=== PATIENT | female | born 1950 | race Caucasian/White ===

== ENCOUNTER 2018-09-29 10:27 | Emergency (ER) | payer MEDICARE, OTHER ==
[2018-09-29 10:35] VITALS: RESP 18; TEMP 98.7
[2018-09-29] MEDS ORDERED: SODIUM CHLORIDE 0.9% 1,000 ML IV STA (10:45)
[2018-09-29] MEDS ORDERED: MECLIZINE 12.5 MG TAB PO STA (10:45)
[2018-09-29] MEDS ORDERED: ONDANSETRON 4 MG/2 ML VIAL IVP STA (11:02)
--- NOTE | 2018-09-29 11:04 | ED ---
Dizziness HPI - General Source: patient, RN notes reviewed Mode of arrival: ambulatory Limitations: no limitations <Messi Yoon - Last Filed: 09/29/18 13:42> <George Velasquez - Last Filed: 09/29/18 13:45> - General Chief Complaint: Dizziness Stated Complaint: DIZZINESS X 4 DAYS Time Seen by Provider: 09/29/18 10:45 - History of Present Illness Initial Comments: This a 68-year-old female presents emergency Department chief complaint of dizziness 4 days. Patient states is progressively worsening. Patient states that it is slightly better at rest though she occasionally has some symptoms at rest. She states is gets up some moves symptoms worsen to the point where she states she was so dizzy she cannot read the numbers on the clock. Patient has any focal weakness does admit to some nausea without vomiting. Denies chest pain or shortness breath. Patient states she's had this in the past though it resolved. She did complain of a headache but her headache has completely resolved this time has no symptoms. Denies history of TIA or CVA. (Messi Yoon) - Related Data Home Medications Medication Instructions Recorded Confirmed Enalapril [Vasotec] 20 mg PO DAILY 08/28/13 09/29/18 Escitalopram [Lexapro] 20 mg PO DAILY 08/28/13 09/29/18 LORazepam [Ativan] 1 tab PO DAILY 08/28/13 09/29/18 Levothyroxine Sodium [Levoxyl] 50 mcg PO DAILY 08/28/13 09/29/18 Omeprazole 40 mg PO AC-BRKFST 08/28/13 09/29/18 Clopidogrel Bisulfate [Plavix] 75 mg PO DAILY 09/29/18 09/29/18 Previous Rx's Medication Instructions Recorded Meclizine [Antivert] 25 mg PO TID PRN #15 tab 09/29/18 Allergies Allergy/AdvReac Type Severity Reaction Status Date / Time No Known Allergies Allergy Verified 09/29/18 10:48 Review of Systems ROS Other: All systems not noted in ROS Statement are negative. <Messi Yoon - Last Filed: 09/29/18 13:42> ROS Other: All systems not noted in ROS Statement are negative. <George Velasquez - Last Filed: 09/29/18 13:45> ROS Statement: Those systems with pertinent positive or pertinent negative responses have been documented in the HPI. Past Medical History Past Medical History: GERD/Reflux, Hypertension Additional Past Medical History / Comment(s): nonhodgkins lymphoma History of Any Multi-Drug Resistant Organisms: None Reported Past Surgical History: Cholecystectomy, Ear Surgery, Orthopedic Surgery Additional Past Surgical History / Comment(s): radiation, chemo Past Psychological History: Depression Smoking Status: Former smoker Past Alcohol Use History: None Reported Past Drug Use History: None Reported <Messi Yoon - Last Filed: 09/29/18 13:42> General Exam Limitations: no limitations General appearance: alert, in no apparent distress Head exam: Present: atraumatic, normocephalic, normal inspection Eye exam: Present: normal appearance, PERRL, EOMI. Absent: scleral icterus, conjunctival injection, periorbital swelling ENT exam: Present: normal exam, normal oropharynx, mucous membranes moist, TM's normal bilaterally Neck exam: Present: normal inspection, full ROM. Absent: tenderness, meningismus, lymphadenopathy Respiratory exam: Present: normal lung sounds bilaterally. Absent: respiratory distress, wheezes, rales, rhonchi, stridor Cardiovascular Exam: Present: regular rate, normal rhythm, normal heart sounds. Absent: systolic murmur, diastolic murmur, rubs, gallop, clicks GI/Abdominal exam: Present: soft, normal bowel sounds. Absent: distended, tenderness, guarding, rebound, rigid Neurological exam: Present: alert, oriented X3, CN II-XII intact, reflexes normal, other (Finger to nose intact bilaterally without over shooting.). Absent: motor sensory deficit Skin exam: Present: warm, dry, intact, normal color. Absent: rash <Messi Yoon - Last Filed: 09/29/18 13:42> Course <George Velasquez - Last Filed: 09/29/18 13:45> Vital Signs 09/29/18 10:32 Temperature 98.7 F Pulse Rate 62 Respiratory 18 Rate Blood Pressure 112/56 O2 Sat by Pulse 97 Oximetry - Reevaluation(s) Reevaluation #1: 09/29/18 13:44 PA supervision: I proceeded [id number] evaluation the patient she did present with complaints of this found dizziness with movement or head or eyes. She is subsequently get marked improvement after meclizine was given. Her workup was negative thus far does appear that she has benign positional vertigo. She was offered admission but would prefer to go home I did walk or back at any time. She will follow-up in. She is from [place]. She does not have a local physic lanie. I do agree with the assessment and plan (George Velasquez) EKG Findings - EKG Comments: EKG Findings:: EKG performed at 11:25 normal sinus rhythm rate of 62 NV 172 QRS 78 QT/QTC 412/418 <Messi Yoon - Last Filed: 09/29/18 13:42> Medical Decision Making - Lab Data Result diagrams: 09/29/18 11:33 09/29/18 11:33 <Messi Yoon - Last Filed: 09/29/18 13:42> - Lab Data Result diagrams: 09/29/18 11:33 09/29/18 11:33 <George Velasquez - Last Filed: 09/29/18 13:45> - Medical Decision Making 68-year-old female presented for dizziness. Patient has slight improvement Antivert. She was offered admission for her dizziness. Patient declines admission at this time she will be discharged with Antivert. Patient will follow-up with PCP and return for any worsening symptoms. (Messi Yoon) - Lab Data Lab Results 09/29/18 09/29/18 09/29/18 Range/Units 11:33 11:33 11:33 WBC 6.5 (3.8-10.6) k/uL RBC 4.68 (3.80-5.40) m/uL Hgb 13.8 (11.4-16.0) gm/dL Hct 41.6 (34.0-46.0) % MCV 88.9 (80.0-100.0) fL MCH 29.6 (25.0-35.0) pg MCHC 33.3 (31.0-37.0) g/dL RDW 16.3 H (11.5-15.5) % Plt Count 247 (150-450) k/uL Neutrophils % 73 % Lymphocytes % 12 % Monocytes % 7 % Eosinophils % 4 % Basophils % 1 % Neutrophils # 4.8 (1.3-7.7) k/uL Lymphocytes # 0.8 L (1.0-4.8) k/uL Monocytes # 0.4 (0-1.0) k/uL Eosinophils # 0.3 (0-0.7) k/uL Basophils # 0.1 (0-0.2) k/uL Anisocytosis Slight Sodium 141 (137-145) mmol/L Potassium 4.7 (3.5-5.1) mmol/L Chloride 104 (98-107) mmol/L Carbon Dioxide 27 (22-30) mmol/L Anion Gap 10 mmol/L BUN 17 (7-17) mg/dL Creatinine 0.77 (0.52-1.04) mg/dL Est GFR (CKD-EPI)AfAm >90 (>60 ml/min/1.73 sqM) Est GFR (CKD-EPI)NonAf 79 (>60 ml/min/1.73 sqM) Glucose 107 H (74-99) mg/dL Calcium 9.7 (8.4-10.2) mg/dL Magnesium 2.2 (1.6-2.3) mg/dL Total Bilirubin 0.6 (0.2-1.3) mg/dL AST 34 (14-36) U/L ALT 35 (9-52) U/L Alkaline Phosphatase 76 (38-126) U/L Troponin I <0.012 (0.000-0.034) ng/mL Total Protein 7.5 (6.3-8.2) g/dL Albumin 4.8 (3.5-5.0) g/dL Disposition Is patient prescribed a controlled substance at d/c from ED?: No Time of Disposition: 13:43 <Messi Yoon - Last Filed: 09/29/18 13:42> <George Velasquez - Last Filed: 09/29/18 13:45> Clinical Impression: Dizziness Disposition: HOME SELF-CARE Condition: Stable Instructions (If sedation given, give patient instructions): Dizziness (ED) Additional Instructions: Please return to the Emergency Department if symptoms worsen or any other concerns. Prescriptions: Meclizine [Antivert] 25 mg PO TID PRN #15 tab PRN Reason: Vertigo Referrals: None,Stated [Primary Care Provider] - 1-2 days
[2018-09-29 11:52] LABS: Anisocytosis Slight; Basophils # (A) 0.1 k/uL (0-0.2); Basophils % (A) 1 %; Eosinophils # (A) 0.3 k/uL (0-0.7); Eosinophils % (A) 4 %; HCT 41.6 % (34.0-46.0); HGB 13.8 gm/dL (11.4-16.0); Lymphocytes # (A) 0.8 k/uL (1.0-4.8); Lymphocytes % (A) 12 %; MCH 29.6 pg (25.0-35.0); MCHC 33.3 g/dL (31.0-37.0); MCV 88.9 fL (80.0-100.0); Mean Platelet Volume 7.1; Monocytes # (A) 0.4 k/uL (0-1.0); Monocytes % (A) 7 %; Neutrophils # (A) 4.8 k/uL (1.3-7.7); Neutrophils % (A) 73 %; Platelet Count 247 k/uL (150-450); RBC 4.68 m/uL (3.80-5.40); RDW 16.3 % (11.5-15.5); WBC 6.5 k/uL (3.8-10.6)
[2018-09-29 11:59] LABS: ALT 35 U/L (9-52); AST 34 U/L (14-36); African American GFR (CKD) >90 (>60 ml/min/1.73 sqM); Albumin 4.8 g/dL (3.5-5.0); Alkaline Phosphatase 76 U/L (38-126); Anion Gap 10 mmol/L; Blood Urea Nitrogen 17 mg/dL (7-17); Calcium 9.7 mg/dL (8.4-10.2); Carbon Dioxide 27 mmol/L (22-30); Chloride 104 mmol/L (98-107); Glucose 107 mg/dL (74-99); Magnesium 2.2 mg/dL (1.6-2.3); Potassium 4.7 mmol/L (3.5-5.1); Sodium 141 mmol/L (137-145); Total Bilirubin 0.6 mg/dL (0.2-1.3); Total Protein 7.5 g/dL (6.3-8.2)
--- NOTE | 2018-09-29 12:12 | CT ---
EXAMINATION TYPE: CT brain wo con DATE OF EXAM: 09/29/2018 COMPARISON: NONE HISTORY: Dizziness x [address] DLP: 1086.4 mGycm Automated exposure control for dose reduction was used. FINDINGS: There are mild, generalized changes of sulcal prominence and ventriculomegaly, compatible with mild a trophic change. There is diffuse periventricular white matter lucency, compatible with chronic white matter ischemic change. There is no acute focal lesion, mass effect or midline shift identified. I do not see evidence of intracranial blood. There is minimal mucoperiosteal thickening involving the right maxillary sinus. The remainder the par anasal sinuses and mastoids are clear. The bony calvarium is intact. IMPRESSION: 1. NO ACUTE INTRACRANIAL ABNORMALITY. 2. MINIMAL, CHRONIC RIGHT MAXILLARY SINUS MUCOSAL DISEASE.
[2018-09-29 14:01] VITALS: BP 136/81; PULSE 71
== END 2018-09-29 13:52 | disposition home or self-care (01) ==
LOC: EC 10:27
DX: R42 Dizziness and giddiness (principal); R51 Headache; R11.0 Nausea; K21.9 Gastro-esophageal reflux disease without esophagitis; I10 Essential (primary) hypertension; F32.9 Major depressive disorder, single episode, unspecified; Z85.72 Personal history of non-Hodgkin lymphomas; Z87.891 Personal history of nicotine dependence; Z79.01 Long term (current) use of anticoagulants; Z79.890 Hormone replacement therapy; Z79.899 Other long term (current) drug therapy; Z53.29 Procedure and treatment not carried out because of patient's decision for other reasons
CPT/HCPCS: 36415; 93005; 80053; 83735; 84484; 85025; 70450; 99284; 96374; 96361; J2405

== ENCOUNTER → 2019-12-04 | Outpatient (CLI) | payer MEDICARE ==
--- NOTE | 2019-12-05 08:38 | MM ---
Reason for exam: additional evaluation requested from prior study. Last mammogram was performed 9 months ago. History: Patient is postmenopausal and history of other cancer. Benign excisional biopsy of both breasts, 2019. Taking hormonal contraceptives for 5 years. Physical Findings: Nurse Summary: 1 x 1cm nodule in the left breast at 3 o'clock, 2cm adenopathy in the right breast at axilla, fixed, raised, thickened (nurse ts). MG Diagnostic Mammo w CAD STEPHANIE Bilateral CC, MLO, and XCCL view(s) were taken. Prior study comparison: February 27, 2019, mammogram, performed at [place]. November 16, 2016, mammogram, performed at [place]. Finding: There is a 15 mm equal density (isodense) mass in the posterior, central position. There are two less than 5mm nodules in the right inner breast. Previous mammotome biopsy in the left breast. There is a chronic nodularity in the left breast. Increasing irregular mass right upper outer quadrant with skin thickening. These results were verbally communicated with the patient and result sheet given to the patient on 12/04/19. ASSESSMENT: Incomplete: need additional imaging evaluation, BI-RAD 0 RECOMMENDATION: Ultrasound of both breasts.
--- NOTE | 2019-12-05 08:41 | USB ---
Reason for exam: additional evaluation requested from abnormal screening. History: Patient is postmenopausal and history of other cancer. Benign excisional biopsy of both breasts, 2019. Taking hormonal contraceptives for 5 years. US Breast Limited BILAT Right limited breast ultrasound including focal area of concern, retroareolar and axilla demonstrates a 2.1 x 1.6 x 2.1cm spiculated, hypoechoic, vascular lesion at the axilla. Left limited breast ultrasound including focal area of concern, retroareolar and axilla demonstrates a 0.4 x 0.6 x 0.5cm taller than wide, solid, hypoechoic, vascular lesion at 12 o'clock and a 1.0 x 1.1 x 0.7cm spiculated, hypoechoic, vascular lesion at 3 o'clock. These results were verbally communicated with the patient and result sheet given to the patient on 12/04/19. ASSESSMENT: Suspicious, BI-RAD 4 RECOMMENDATION: Surgical consultation and ultrasound core biopsy of both breasts. Called Dr. Cai office with mammographic findings and has scheduled an appointment for the patient for 12/17/19 at 9:[address] Stout. PRELIMINARY REPORT CALLED AND FAXED TO DR. STOUT ON 12/05/19.
== END | disposition home or self-care (01) ==
LOC: RADMAMWWP 11:27
PROVIDERS: ATTEND Family Medicine
DX: R92.8 Other abnormal and inconclusive findings on diagnostic imaging of breast (principal)
CPT/HCPCS: 77066

== ENCOUNTER → 2020-01-23 | Outpatient (CLI) | payer MEDICARE ==
--- NOTE | 2020-01-23 15:27 | PE ---
Nuclear medicine PET/CT HISTORY: Lymphoma, subsequent Patient received 12.5 mCi F-18 FDG intravenously in delayed scanning was performed from the skull bas e to the mid thighs. Localization and attenuation correction CT scan was performed. Correlation to prior nuclear medicine PET/CT 05/19/2019 from outside institution Chest and neck: There is no evident cervical or supraclavicular adenopathy. The patient's right axill damaris mass has also increased in size and hypermetabolic uptake and shows an associated clip. There is a soft tissue abnormality within the left breast which shows some hypermetabolic uptake which was not seen on prior exam, there is an associated clip suspected bilaterally. There are extensive coronary artery calcifications present. No evident lung mass, pleural pericardial effusion. ABDOMEN: Low density foci within the liver shows no uptake. Patient is post cholecystectomy. No adren al mass or retroperitoneal adenopathy. No evident ascites. No pelvic adenopathy or free fluid. Physio logic uptake is present. Osseous structures show degenerative disc changes and facet arthropathy in the lower lumbar spine, no suspicious uptake. Within the right upper extremity subcutaneous fat there is a focus of hypermetabolic uptake, associat ed soft tissue which has progressed in size and activity as compared to prior exam. IMPRESSION: There is been some progression in size and uptake of the right maxillary lesion, the subc utaneous soft tissue of the proximal right upper extremity and new uptake within the left breast.
== END | disposition home or self-care (01) ==
LOC: RADPETMAIN 12:39
PROVIDERS: ATTEND Internal Medicine Hematology & Oncology
DX: C83.03 Small cell B-cell lymphoma, intra-abdominal lymph nodes (principal); M27.9 Disease of jaws, unspecified; R92.8 Other abnormal and inconclusive findings on diagnostic imaging of breast
CPT/HCPCS: 78815; A9552

== ENCOUNTER → 2020-05-21 | Outpatient (CLI) | payer MEDICARE ==
--- NOTE | 2020-05-21 11:52 | PE ---
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 Localization and attenuation correction CT scan was performed. Correlation to prior nuclear medicine PET/CT 01/23/2020 Chest and neck: Previous identified right axillary subcutaneous fat lesion is not seen, there is a sm all metallic density at this level. No suspicious uptake. There is no supraclavicular or cervical blake nopathy. Port-A-Cath has been placed in the left pectoral region, there is a catheter coursing via th e left internal jugular approach, distal tip is in the innominate vein on the left. The soft tissue m ass previously identified within the left breast shows only minimal residual tissue, no suspicious up take. No evident lung mass, pleural or pericardial effusion. There is no mediastinal, axillary, or hi lar adenopathy. ABDOMEN: Low dense liver foci are again seen. No suspicious uptake. There is no retroperitoneal adeno olesya, no adrenal mass. Patient is post cholecystectomy. There is no ascites or suspicious uptake. Up take along the bowel is likely physiologic. Osseous structures are within normal limits. IMPRESSION: Interval resolution of abnormal uptake seen on prior exam.
== END | disposition home or self-care (01) ==
LOC: RADPETMAIN 08:15
PROVIDERS: ATTEND Internal Medicine Hematology & Oncology
DX: C82.18 Follicular lymphoma grade II, lymph nodes of multiple sites (principal); Z92.21 Personal history of antineoplastic chemotherapy
CPT/HCPCS: 78815; A9552

== ENCOUNTER → 2020-06-09 | Outpatient (CLI) | payer MEDICARE ==
--- NOTE | 2020-06-09 08:43 | CT ---
EXAMINATION TYPE: CT angio neck DATE OF EXAM: 06/09/2020 HISTORY: carotid stenosis COMPARISON: None CT DLP: 400.6 mGycm. Automated Exposure Control for Dose Reduction was Utilized. TECHNIQUE: CTA scan of the neck is performed with IV Contrast, patient injected with 65 mL of Isovue 370, axial images are obtained, coronal and sagittal reformatted images are reviewed. Three-D recons tructed images are created on an independent workstation and reviewed. FINDINGS: There is atherosclerotic change involving the aortic arch with atherosclerotic changes invo lving the origins of the great vessels. Findings are suspicious for a severe stenosis involving the o rigin of the left subclavian artery Right carotid artery. There appears to be occlusion of the right internal carotid artery at the level of the right carotid bifurcation. Nonvisualization remaining portion ICA including the carotid canal . Left carotid artery: There is extensive atherosclerotic plaque left carotid bifurcation. Severe great er than 80% stenosis of the proximal left ICA. Intracranial vasculature appears to enhance likely due to patent [place] and through the left circulation. Lung apices are clear. Correlate for COPD. Mediport catheter. Thank you report called to referring cl inician 06/09/2020 at 8:40 AM. IMPRESSION: 1. Complete occlusion of the right ICA at the level of the carotid bifurcation. 2. There is a severe greater than 80% stenosis involving the proximal left ICA. 3. There is increased soft tissue attenuation the upper lateral margin of the right orbit is only par tially included on exam. Partial volume averaging in the differential diagnosis. Recommend correlatio n with ocular exam to exclude other etiologies.
== END | disposition home or self-care (01) ==
LOC: RADCTMAIN 07:06
PROVIDERS: ATTEND Surgery
DX: I65.23 Occlusion and stenosis of bilateral carotid arteries (principal)
CPT/HCPCS: 82565; 84520; 70498; 36415; Q9967

== ENCOUNTER 2020-08-05 10:59 | Day surgery (SDC) | payer MEDICARE ==
[2020-07-30 15:22] VITALS: BMI 35.0
[~2020-08-05 10:59] MED LIST: ALPRAZolam 0.25 MG TAB PO PRN; ALPRAZolam 0.5 MG TAB PO PRN; ASPIRIN 325 MG TAB PO STA; HEPARIN SODIUM,PORCINE 10,000 UNIT in SODIUM CHLORIDE 0.9% 1,000 ML IRRIGATION PRN; HEPARIN SODIUM,PORCINE 2,500 UNIT in SODIUM CHLORIDE 0.9% 250 ML IRRIGATION PRN; NITROGLYCERIN SL TABS 0.4 MG TAB SUBLINGUAL PRN; SODIUM CHLORIDE 0.9% 1,000 ML in EMPTY BAG 1 BAG IV ONE
[2020-08-05 11:45] VITALS: RESP 16; TEMP 97.9
[2020-08-05 13:16] LABS: African American GFR (CKD) >90 (>60 ml/min/1.73 sqM); Anion Gap 7 mmol/L; Blood Urea Nitrogen 15 mg/dL (7-17); Calcium 9.1 mg/dL (8.4-10.2); Carbon Dioxide 27 mmol/L (22-30); Chloride 102 mmol/L (98-107); Glucose 81 mg/dL (74-99); Non-African American GFR(CKD) 81 (>60 ml/min/1.73 sqM); Sodium 136 mmol/L (137-145)
[2020-08-05 13:19] LABS: Potassium 3.6 mmol/L (3.5-5.1)
[2020-08-05] MEDS ORDERED: SODIUM CHLORIDE 0.9% 1,000 ML IV ONE (13:30)
[2020-08-05] MEDS ORDERED: LIDOCAINE 1% INJ 10MG/ML (20 ML MDV) ONE (13:34)
[2020-08-05] MEDS ORDERED: VERAPAMIL 2.5 MG/ML 2 ML AMP ONE (13:34)
[2020-08-05] MEDS ORDERED: fentaNYL (PF) 50 MCG/ML 2 ML AMP ONE (13:35)
[2020-08-05] MEDS ORDERED: fentaNYL (PF) 50 MCG/ML 2 ML AMP IV ONE (13:43)
[2020-08-05] MEDS ORDERED: MIDAZOLAM 2 MG/2 ML VIAL IV ONE (13:43)
[2020-08-05] MEDS ORDERED: LIDOCAINE 1% INJ 10MG/ML (20 ML MDV) SQ ONE (13:45)
[2020-08-05] MEDS ORDERED: VERAPAMIL SYRINGE (5 MG/10 ML) INTRAARTER ONE (13:49)
[2020-08-05] MEDS ORDERED: HEPARIN SODIUM 1,000 UN/ML (10ML VL) IV ONE (13:52)
[2020-08-05] MEDS ORDERED: IOPAMIDOL-370 125ML BTL INJ ONE (14:02)
[2020-08-05] MEDS ORDERED: RX INFO: IV CONTRAST WAS GIVEN 1 EACH MISC MISCELLANE PRN (15:33)
--- NOTE | 2020-08-05 15:33 | P.CARDCATH ---
Description of Procedure: PROCEDURES PERFORMED: Left heart catheterization, bilateral coronary angiography INDICATION: Abnormal stress test HISTORY: Patient is a pleasant 70-year-old female with history of subclavian stenosis, carotid artery disease, hypertension, hyperlipidemia who has been worked up for carotid artery stenosis with recommendations for TCAR by Dr Gonzalez. Therefore preoperative clearance was performed and stress test was performed which showed inferior ischemia and given poor exercise tolerance, heart catheterization was recommended. CONSENT:I have discussed the risks, benefits and alternative therapies for the above-mentioned procedure and for both sedation/analgesia as well as necessary blood product administration, if indicated, as they pertain to this patient. The patient has indicated understanding and acceptance of the risks and procedures discussed. PROCEDURE: After the risks, benefits and alternatives of the above mentioned procedure explained in detail with the patient, informed consent was obtained. Patient was taken to the catheterization lab and prepped and draped in usual fashion. 1% lidocaine was used to anesthetize the right radial artery. A 6- Ugandan sheath was placed in the right radial artery using modified Seldinger technique. Left coronary angiography was performed with a 5-Ugandan JL 3.5 catheter and right coronary angiography was performed with a 5-Ugandan JR5 catheter in various views. A 5-Ugandan pigtail catheter was inserted into the left ventricle and pressure measurements were obtained. Left ventriculography was performed in the GRIFFIN projection with a power injection. The right radial sheath was removed and a TR band was placed with hemostasis achieved. The patient tolerated the procedure well. Patient was transported back to the post catheterization holding area in stable condition. Conscious Sedation: Patient was monitored under the direct supervision of vision of myself for conscious sedation using Versed and fentanyl for a total duration of 18 minutes HEMODYNAMICS: Ao: 181/87 (discrepancy with left arm BP 105/70) LV: 178/2 LVEDP 17mmHg SELECTIVE CORONARY ARTERIOGRAPHY: LEFT MAIN: The left main is a large caliber vessel which bifurcates into the LAD and circumflex. There is no significant stenosis. LEFT ANTERIOR DESCENDING CORONARY ARTERY: LAD is a large caliber vessel which wraps around to the apex. There are mild luminal irregularities. LEFT CIRCUMFLEX CORONARY ARTERY: Left circumflex is a moderate caliber vessel with midl proximal 30% stenosis. RIGHT CORONARY ARTERY: The right coronary artery is a moderate caliber vessel which gives off a PDA and PLV branch and is the dominant vessel. There is 20- 30% mid RCA stenosis. FINAL IMPRESSION: 1. Mild CAD as described above including 30% RCA and 30% circumflex stenosis. 2. Mildly elevated left sided filling pressures 3. Discrepancy between aortic pressure and left brachial blood pressure cuff consistent with left subclavian stenosis PLAN: 1. Aggressive risk factor modification per most recent ACC/AHA guidelines. 2. Follow-up in the office in 1-2 weeks.
[2020-08-05 17:07] VITALS: BP 104/69; PULSE 66
== END 2020-08-05 17:09 | disposition home or self-care (01) ==
LOC: CATHCVL 10:59
PROVIDERS: ATTEND Internal Medicine
DX: I25.10 Atherosclerotic heart disease of native coronary artery without angina pectoris (principal); I10 Essential (primary) hypertension; E78.5 Hyperlipidemia, unspecified; Z87.891 Personal history of nicotine dependence; I65.29 Occlusion and stenosis of unspecified carotid artery; Z20.822 Contact with and (suspected) exposure to COVID-19; I77.1 Stricture of artery; Z82.49 Family history of ischemic heart disease and other diseases of the circulatory system; L40.9 Psoriasis, unspecified; Z85.72 Personal history of non-Hodgkin lymphomas; Z92.21 Personal history of antineoplastic chemotherapy; Z98.890 Other specified postprocedural states; Z79.02 Long term (current) use of antithrombotics/antiplatelets; Z79.82 Long term (current) use of aspirin; Z79.899 Other long term (current) drug therapy
CPT/HCPCS: 93458; 80048; 87635; C1894; J2250; J2001; J3010; J1644; Q9967

== ENCOUNTER 2020-11-12 05:44 | Inpatient (IN) | payer MEDICARE ==
[2020-11-12] MEDS ORDERED: ceFAZolin 2 GM in SODIUM CHLORIDE 0.9% 500 ML 500 ML IRRIGATION PRN (06:16)
[2020-11-12] MEDS ORDERED: NITROGLYCERIN SL TABS 0.4 MG TAB SUBLINGUAL PRN (06:16)
[2020-11-12] MEDS ORDERED: ASPIRIN 81 MG PO PRN (06:16)
[2020-11-12] MEDS ORDERED: SODIUM CHLORIDE 0.9% 1,000 ML in EMPTY BAG 1 BAG IV ONE (06:16)
[2020-11-12] MEDS ORDERED: ALPRAZolam 0.5 MG TAB PO PRN (06:16)
[2020-11-12] MEDS ORDERED: ALPRAZolam 0.25 MG TAB PO PRN (06:16)
[2020-11-12] MEDS ORDERED: CLOPIDOGREL 75 MG TAB PO PRN (06:16)
[2020-11-12 06:43] LABS: Basophils # (A) 0.1 k/uL (0-0.2); Basophils % (A) 2 %; Eosinophils # (A) 0.7 k/uL (0-0.7); Eosinophils % (A) 10 %; HCT 39.2 % (34.0-46.0); HGB 13.6 gm/dL (11.4-16.0); Lymphocytes # (A) 0.9 k/uL (1.0-4.8); Lymphocytes % (A) 13 %; MCH 31.1 pg (25.0-35.0); MCHC 34.8 g/dL (31.0-37.0); MCV 89.5 fL (80.0-100.0); Mean Platelet Volume 7.3; Monocytes % (A) 13 %; Neutrophils # (A) 4.5 k/uL (1.3-7.7); Neutrophils % (A) 61 %; Platelet Count 287 k/uL (150-450); RBC 4.38 m/uL (3.80-5.40); RDW 15.4 % (11.5-15.5); WBC 7.5 k/uL (3.8-10.6)
[2020-11-12 06:54] LABS: Calcium 9.3 mg/dL (8.4-10.2); Potassium 3.8 mmol/L (3.5-5.1)
[2020-11-12] MEDS ORDERED: LIDOCAINE 1% INJ 10MG/ML (20 ML MDV) ONE (07:36)
[2020-11-12] MEDS ORDERED: hydrALAZINE HCL 20 MG/ML 1 ML VIAL ONE (07:43)
[2020-11-12] MEDS ORDERED: GLYCOPYRROLATE 0.2 MG/ML 2 ML VIAL ONE (07:43)
[2020-11-12] MEDS ORDERED: PROPOFOL 10 MG/ML 20 ML VIAL IV ONE (07:43)
[2020-11-12] MEDS ORDERED: fentaNYL (PF) 50 MCG/ML 2 ML AMP ONE (07:43)
[2020-11-12] MEDS ORDERED: HEPARIN SODIUM,PORCINE 10,000 UNIT/ML 1 ML VIAL ONE (07:43)
[2020-11-12] MEDS ORDERED: DEXMEDETOMIDINE/0.9% NACL(PMX) 400 MCG/100 ML IV ONE (07:43)
[2020-11-12] MEDS ORDERED: KETAMINE 10 MG/ML 20 ML VIAL ONE (07:43)
[2020-11-12] MEDS ORDERED: NITROGLYCERIN-D5W PMX 50 MG/250 ML BOTTLE IV ONE (07:43)
[2020-11-12] MEDS ORDERED: LIDOCAINE 1% INJ 10MG/ML (20 ML MDV) SQ ONE (08:23)
[2020-11-12] MEDS ORDERED: RX INFO: IV CONTRAST WAS GIVEN 1 EACH MISC MISCELLANE PRN (09:00)
[2020-11-12] MEDS ORDERED: HEPARIN SODIUM,PORCINE 10,000 UNIT in SODIUM CHLORIDE 0.9% 1,000 ML IRRIGATION ONE (09:47)
[2020-11-12] MEDS ORDERED: THROMBIN (BOVINE) 5,000 UNIT VIAL TOPICAL ONE (09:49)
[2020-11-12] MEDS ORDERED: GELATIN SPONGE,ABSORB (LARGE) 1 EACH SPONGE TOPICAL ONE (09:49)
[2020-11-12] MEDS ORDERED: IOPAMIDOL-250 100ML BTL INTRAARTER ONE (10:11)
[2020-11-12] MEDS ORDERED: ATROPINE SULFATE 0.1 MG/ML 10ML SYRINGE IV PRN (10:42)
[2020-11-12] MEDS ORDERED: MAG HYDROX/AL HYDROX/SIMETH 30 ML CUP PO PRN (10:42)
--- NOTE | 2020-11-12 11:12 | IR ---
EXAMINATION TYPE: IR stent intravas non coronary DATE OF EXAM: 11/12/2020 COMPARISON: NONE HISTORY: Fluoroscopy time. Fluoroscopy was provided to the referring clinician.
--- NOTE | 2020-11-12 11:22 | P.OP ---
Date of Procedure: 11/12/20 Description of Procedure: Preoperative diagnosis:[ Left] internal carotid artery [high-grade, greater than 90% stenosis, occluded right internal carotid artery] Postoperative diagnosis: Same Procedure: [Left]Transcarotid artery revascularization with stenting. [Right] common femoral vein central venous catheter placement under ultrasound guidance Surgeon: Anne Gonzalez DO Otolaryngology Surgeon: [Moni Harper] Anesthesia: Conscious sedation Complications: None Condition: Stable Flow reversal time: [18] minutes Lesion length: [10 mm] mm Indication for procedure: [Patient is a 70-year-old female who initially presented to my office after a carotid endarterectomy on the right from her other surgeon. She came with an outside ultrasound revealing patency of the right carotid endarterectomy site and high-grade stenosis of the left internal carotid artery. She was sent for CT angiogram which actually revealed occlusion of the right internal carotid artery and high-grade stenosis of the left internal carotid artery. She is found be a candidate for trans-carotid artery revascularization. Risks and benefits were discussed. She seemingly understood and was willing to proceed at such] Operative narrative: After written and informed consent was obtained the patient all risks benefits and competitions were described the patient was brought to the Senior Oracle Database Administrator and laid in a supine position. The area of the neck and groins were prepped and draped in usual sterile fashion after appropriate anesthetic was performed per the anesthesiologist. A timeout was performed in normal fashion and antibiotics were administered prior to incision. Utilizing ultrasound the [left] common carotid artery was located and a transverse incision was created overlying this area after proper anesthetization. Dissection was carried between the sternocleidomastoid musculature down to the carotid sheath. The sheath was then incised and the common carotid artery was located and dissected free in a circumferential manner and controlled with vessel loops. Once controlled, attention was placed down to the common femoral vein on the right and utilizing ultrasound the vein was cannulated and the 8- Slovak sheath was placed in normal fashion. Attention was then placed back to the carotid artery and the patient was administered heparin and followed with ACTs and redosed as needed for ACT above 250. A pursestring suture was then placed at the common carotid artery with 5-0 Prolene and utilizing a micropuncture needle the common carotid artery was accessed and wire was placed followed by a 4-Slovak sheath. Carotid angiogram was then obtained demonstrating significant stenosis in the internal carotid artery. Stiff wire was then placed followed by the 8 [place] sheath. Flow reversal was then established with the enroute B[employer] C[employer]ODIAN system after patient's blood pressure was increased to above 160, heart rate above 60 and ACT above 250. 014 wire was then placed across the lesion followed by a [6 x 30] mm Morgan balloon and balloon angioplasty was performed followed by an [8 x 30] mm [place] stent. Postdilatation was performed again with the 6 x 30 balloon and final angiogram was obtained demonstrating complete resolution of the stenosis. All guidewires and catheters were removed and the sheath was removed and the arteriotomy was secured with the previously placed pursestring suture. Hemostasis was assured with Gelfoam and thrombin. The area was irrigated and closed. The platysma was closed with 3-0 Vicryl. The skin was closed with running 4-0 Monocryl in subcuticular fashion The femoral sheath was also removed and pressure was held for hemostasis. The patient all procedure well and was moving all extremities and following commands. The patient was then sent to PACU for recovery.
[2020-11-12] MEDS ORDERED: LACTATED RINGERS 1,000 ML IV ONE (11:24)
[2020-11-12 12:10] LABS: Glucose,Whole Blood 87 mg/dL (75-99)
[2020-11-12] MEDS: PHENYLEPHRINE 40 MG in SODIUM CHLORIDE 0.9% 250 ML IV SCH (13:10)
[2020-11-12] MEDS: PSEUDOEPHEDRINE 30 MG TAB PO SCH ×2 (13:21→19:43)
--- NOTE | 2020-11-12 13:41 | P.CNPUL ---
History of Present Illness Consult date: 11/12/20 Chief complaint: post TRAC, ICU management History of present illness: 70-year-old female patient who is status post TCAR procedure for carotid stenosis. The patient is currently in the intensive care unit and the patient is being seen in consultation for vascular surgery. The patient has undergone a previous carotid endarterectomy in [place] on the right side and getting a recent surveillance routine follow-up, she was found to have significant stenosis in the left internal carotid artery with a peak velocity of around 27 cm/s. The right internal carotid artery showed a peak velocity of 162 cm/s. The patient is currently postop day #0. She arrived to the intensive care unit. Her blood pressure is very labile. Initially she was hypotensive and she was placed on Surya-Synephrine infusion which was at 0.3 mcg/kg per minute. Subs equently her blood pressure went up with a systolic of 180 and currently the effusion is on hold. Knee also contributed for some sinus bradycardia. Her most recent heart rate has picked up from the mid 40s up to the mid 50s. She is currently on IV fluids running at 75 mL an hour normal saline. Awake and alert. Surgical wound site is dry clean and intact. She is moving all 4 extremities without any limitation she has no focal neurological deficits. She has no angina. No issues with blood pressure. She has subclavian artery stenosis on left and had a line is on the right. The patient has hyperlipidemia and the patient takes Repatha Review of Systems Constitutional: Denies chills, Denies fever Eyes: denies as per HPI, denies blurred vision, denies bulging eye, denies decreased vision, denies diplopia, denies discharge, denies dry eye, denies irritation, denies itching, denies pain, denies photophobia, denies loss of peripheral vision, denies loss of vision, denies tunnel vision/blind spots Ears: deny: decreased hearing, ear discharge, earache, tinnitus Ears, nose, mouth and throat: Reports as per HPI Breasts: absent: as per HPI, change in shape, gynecomastia, masses, nipple discharge, pain, skin changes, swelling Cardiovascular: Reports as per HPI Respiratory: Reports as per HPI Gastrointestinal: Reports as per HPI Genitourinary: Reports as per HPI Menstruation: Reports as per HPI Musculoskeletal: Reports as per HPI Musculoskeletal: absent: ankle pain, ankle stiffness, ankle swelling, as per HPI, elbow pain, elbow stiffness, elbow swelling, foot pain, foot stiffness, foot swelling, hand pain, hand stiffness, hand swelling, hip pain, hip stiffness, hip swelling, knee pain, knee stiffness, knee swelling, shoulder pain, shoulder stiffness, shoulder swelling, wrist pain, wrist stiffness, wrist swelling Integumentary: Reports as per HPI Neurological: Reports as per HPI Psychiatric: Reports as per HPI Endocrine: Reports as per HPI Hematologic/Lymphatic: Reports as per HPI Allergic/Immunologic: Reports as per HPI Past Medical History Past Medical History: Cancer, GERD/Reflux, Hyperlipidemia, Hypertension, Thyroid Disorder Additional Past Medical History / Comment(s): skin cancer, nonhodgkins lymphoma 2008-radiation & chemo, lt carotid artery stenosis. left Subclavian artery stenosis History of Any Multi-Drug Resistant Organisms: None Reported Past Surgical History: Cholecystectomy, Ear Surgery, Orthopedic Surgery Additional Past Surgical History / Comment(s): right carotid endarterectomy, ho hammer toes, ho bunionectomies, ear surg. for hearing, CTS right wrist, cataracts removed & then lasering on left eye, precancerous cells from labia area Past Anesthesia/Blood Transfusion Reactions: No Reported Reaction Smoking Status: Former smoker - Past Family History Mother Family Medical History: No Reported History Medications and Allergies Home Medications Medication Instructions Recorded Confirmed Type Enalapril [Vasotec] 20 mg PO BID 08/28/13 11/12/20 History Escitalopram [Lexapro] 20 mg PO DAILY 08/28/13 11/12/20 History Levothyroxine Sodium [Levoxyl] 50 mcg PO DAILY 08/28/13 11/12/20 History Clopidogrel Bisulfate [Plavix] 75 mg PO DAILY 09/29/18 11/12/20 History Meclizine [Antivert] 25 mg PO TID PRN #15 tab 09/29/18 11/12/20 Rx Acyclovir [Zovirax] 400 mg PO BID 07/30/20 11/12/20 History Aspirin 81 mg PO DAILY 07/30/20 11/12/20 History Evolocumab [Repatha Syringe] 140 mg SQ Q14D 07/30/20 11/12/20 History Lenalidomide [Revlimid] 10 mg PO AC-SUPPER 07/30/20 11/12/20 History Pantoprazole Sodium [Protonix] 40 mg PO DAILY 07/30/20 11/12/20 History buPROPion HCL [Wellbutrin XL] 150 mg PO DAILY 07/30/20 11/12/20 History Allergies Allergy/AdvReac Type Severity Reaction Status Date / Time No Known Allergies Allergy Verified 11/12/20 06:33 Physical Exam Vitals: Vital Signs Temp Pulse Pulse Pulse Resp BP BP 11/12/20 13:00 50 L 14 11/12/20 12:45 53 L 14 11/12/20 12:30 53 L 12 11/12/20 12:15 54 L 16 11/12/20 12:10 55 L 14 11/12/20 12:00 97.6 F 57 L 12 11/12/20 11:54 62 24 11/12/20 11:30 63 16 11/12/20 11:14 66 14 11/12/20 10:59 69 16 11/12/20 10:44 97.6 F 65 16 11/12/20 06:57 98.5 F 58 L 18 181/78 11/12/20 06:42 98.5 F 58 L 18 102/63 BP Pulse Ox 11/12/20 13:00 98 11/12/20 12:45 98 11/12/20 12:30 96 11/12/20 12:15 97 11/12/20 12:10 98 11/12/20 12:00 97 11/12/20 11:54 97 11/12/20 11:30 142/48 97 11/12/20 11:14 141/51 97 11/12/20 10:59 151/51 98 11/12/20 10:44 132/51 97 11/12/20 06:57 97 11/12/20 06:42 181/78 97 Intake and Output 11/11/20 11/12/20 11/12/20 22:59 06:59 14:59 Intake Total 450 1386.226 Output Total 100 Balance 450 1286.226 Intake: IV 450 1378 0.9 75 Intake, IV Titration 8.226 Amount Phenylephrine 40 mg In 8.226 Sodium Chloride 0.9% 250 ml @ 0.5 MCG/KG/MIN 17. 628 mls/hr IV .[id number] [facility] Rx#:[id number] Output: Urine 100 ABP, PAP, CO, CI - Last 8 Hours Arterial Blood Pressure 126/38 Arterial Blood Pressure 113/37 Arterial Blood Pressure 112/37 Arterial Blood Pressure 128/44 Arterial Blood Pressure 123/44 Arterial Blood Pressure 132/49 Arterial Blood Pressure 118/64 The patient appeared well nourished and normally developed. Vital signs as documented. Head exam is unremarkable. No scleral icterus or corneal arcus noted. Neck is without jugular venous distension, thyromegaly, or carotid bruits. Carotid upstrokes are brisk bilaterally. Surgical wound site over the left carotid artery is dry clean and intact. Noted the patient has a previous carotid artery scar on the right from a previous endarterectomy.. Lungs are clear to auscultation and percussion. Cardiac exam reveals the PMI to be normally sized and situated. Rhythm is regular. First and second heart sounds no rmal. No murmurs, rubs or gallops. Abdominal exam reveals normal bowel sounds, no masses, no organomegaly and no aortic enlargement. Extremities are nonedematous and both femoral and pedal pulses are normal.Examination of the skin revealed no evidence of significant rashes, suspicious appearing nevi or other concerning lesions.Neurologically, the patient is awake and alert and the patient does not have any focal neurological deficit. Cranial nerves are essentially intact. Results - Laboratory Findings CBC and BMP: 11/12/20 06:20 11/12/20 06:20 Abnormal lab findings: Abnormal Labs 11/12/20 11/12/20 06:20 06:20 Lymphocytes # 0.9 L Glucose 104 H Assessment and Plan Plan: 1 Post TCAR patient is postop day #0. Surgery has been done successfully. Surgical wound site is dry clean and intact. No neurologic deficits. The patient is having a labile blood pressure currently on Surya-Synephrine to regulate episodes of hypotension. She is having blood pressures ranging as low as 100 systolic and as high as 180. Currently off Surya-Synephrine infusion. She did develop some reflex bradycardia while anemia. Current cardiac rhythm is s inus 2 previous history of right carotid endarterectomy 3 history of non-Hodgkin's lymphoma under the care of Dr. Felipe 4 history of skin cancer 5 hyperlipidemia 6 hypertension 7 left subclavian artery stenosis Plan Continue LR @75cc/hr patient has a right radial arterial line in the blood pressure is being monitored very closely and we will utilize Surya-Synephrine as needed. If significant bradycardia arises, she can be also switched to norepinephrine infusion for blood pressure control. Continue aspirin and Plavix Continue neurochecks Restart Wellbutrin 150 mg by mouth daily Restart Lexapro 20 mg by mouth daily We'll continue to follow Time with Patient: Greater than 30
[2020-11-12] MEDS ORDERED: ATORVASTATIN 40 MG TAB PO SCH (21:00)
[2020-11-13] MEDS: PSEUDOEPHEDRINE 30 MG TAB PO SCH ×3 (00:58→09:39)
[2020-11-13] MEDS: PHENYLEPHRINE 40 MG in SODIUM CHLORIDE 0.9% 250 ML IV SCH (03:51)
[2020-11-13 04:32] LABS: Basophils # (A) 0.1 k/uL (0-0.2); Basophils % (A) 1 %; Eosinophils # (A) 0.3 k/uL (0-0.7); Eosinophils % (A) 5 %; HCT 31.2 % (34.0-46.0); HGB 10.9 gm/dL (11.4-16.0); Lymphocytes # (A) 0.6 k/uL (1.0-4.8); Lymphocytes % (A) 9 %; MCH 31.3 pg (25.0-35.0); MCHC 34.8 g/dL (31.0-37.0); MCV 89.9 fL (80.0-100.0); Mean Platelet Volume 8.3; Monocytes # (A) 0.8 k/uL (0-1.0); Monocytes % (A) 12 %; Neutrophils # (A) 4.6 k/uL (1.3-7.7); Neutrophils % (A) 71 %; Platelet Count 187 k/uL (150-450); RBC 3.47 m/uL (3.80-5.40); RDW 15.4 % (11.5-15.5); WBC 6.5 k/uL (3.8-10.6)
[2020-11-13 04:44] LABS: African American GFR (CKD) >90 (>60 ml/min/1.73 sqM); Anion Gap 6 mmol/L; Blood Urea Nitrogen 9 mg/dL (7-17); Calcium 8.2 mg/dL (8.4-10.2); Carbon Dioxide 26 mmol/L (22-30); Chloride 101 mmol/L (98-107); Glucose 102 mg/dL (74-99); Non-African American GFR(CKD) 80 (>60 ml/min/1.73 sqM); Potassium 2.9 mmol/L (3.5-5.1); Sodium 133 mmol/L (137-145)
[2020-11-13] MEDS ORDERED: Potassium Replacement Protocol 1 EACH MISC MISCELLANE PRN (04:57)
[2020-11-13] MEDS: POTASSIUM CHLORIDE ER 20 MEQ TAB.ER PO SCH ×3 (05:05→09:39)
[2020-11-13] MEDS ORDERED: Magnesium Replacement Protocol 1 EACH MISC MISCELLANE PRN (07:36)
[2020-11-13] MEDS ORDERED: buPROPion XL 150 MG TAB.ER.24H PO SCH (09:00)
[2020-11-13] MEDS ORDERED: ASPIRIN 81 MG PO SCH (09:00)
[2020-11-13] MEDS ORDERED: ESCITALOPRAM 20 MG TAB PO SCH (09:00)
[2020-11-13] MEDS ORDERED: CLOPIDOGREL 75 MG TAB PO SCH (09:00)
--- NOTE | 2020-11-13 12:41 | P.DS ---
Providers Date of admission: 11/12/20 05:44 Attending physician: Anne Gonzalez, Consults: 11/12/20 10:43 Consult Physician Routine Consulting Provider: Catherine Freire Consult Reason/Comments: tcar Do you want consulting provider notified?: Already Contacted 11/12/20 10:45 Consult Physician Routine Consulting Provider: Luis Cai Consult Reason/Comments: post op carotid Do you want consulting provider notified?: Yes 11/12/20 17:35 Consult Physician Routine Consulting Provider: Keith Kirkpatrick Consult Reason/Comments: Suicidal ideation in the past Do you want consulting provider notified?: Yes Primary care physician: Luis Cai [facility] Course: Sonam is a 70-year-old female who came in for trans-carotid artery revascularization due to high-grade left internal carotid artery stenosis with right-sided occlusion. She underwent this procedure on 11/12/2020 which he tolerated well. Her blood pressures have remained slightly high and she has had medication to control this, this time she is not requiring any current pressor support. She is tolerating a diet. She is urinating without difficulty. She is ambulated. Her incision site is clean and dry. She is desiring to go home Plan - Discharge Summary Discharge Rx Participant: Yes New Discharge Prescriptions: No Action Levothyroxine Sodium [Levoxyl] 50 mcg PO DAILY Enalapril [Vasotec] 20 mg PO BID Escitalopram [Lexapro] 20 mg PO DAILY Clopidogrel Bisulfate [Plavix] 75 mg PO DAILY Meclizine [Antivert] 25 mg PO TID PRN #15 tab PRN Reason: Vertigo Evolocumab [Repatha Syringe] 140 mg SQ Q14D Aspirin 81 mg PO DAILY buPROPion HCL [Wellbutrin XL] 150 mg PO DAILY Acyclovir [Zovirax] 400 mg PO BID Pantoprazole Sodium [Protonix] 40 mg PO DAILY Lenalidomide [Revlimid] 10 mg PO AC-SUPPER Discharge Medication List Enalapril [Vasotec] 20 mg PO BID 08/28/13 [History] Escitalopram [Lexapro] 20 mg PO DAILY 08/28/13 [History] Levothyroxine Sodium [Levoxyl] 50 mcg PO DAILY 08/28/13 [History] Clopidogrel Bisulfate [Plavix] 75 mg PO DAILY 09/29/18 [History] Meclizine [Antivert] 25 mg PO TID PRN #15 tab 09/29/18 [Rx] Acyclovir [Zovirax] 400 mg PO BID 07/30/20 [History] Aspirin 81 mg PO DAILY 07/30/20 [History] Evolocumab [Repatha Syringe] 140 mg SQ Q14D 07/30/20 [History] Lenalidomide [Revlimid] 10 mg PO AC-SUPPER 07/30/20 [History] Pantoprazole Sodium [Protonix] 40 mg PO DAILY 07/30/20 [History] buPROPion HCL [Wellbutrin XL] 150 mg PO DAILY 07/30/20 [History] Follow up Appointment(s)/Referral(s): Anne Gonzalez DO [STAFF PHYSICIAN] - 2 Weeks Activity/Diet/Wound Care/Special Instructions: Resume regular activity. May shower tomorrow. Resume regular medications. May take [id number] medications for pain control Discharge Disposition: HOME SELF-CARE
[2020-11-13 12:50] VITALS: TEMP 98.4
[2020-11-13 13:30] VITALS: BP 136/66; PULSE 56; RESP 12
[2020-11-13 14:57] VITALS: BMI 38.0
--- NOTE | 2020-11-13 16:46 | P.CN ---
Psychiatric Consult - . Consult date: 11/13/20 Consult:: 11/13/20 14:09 IDENTIFYING DATA: This patient is a 70-year-old female. She is retired. REASON FOR REFERRAL: Psychiatry was consulted for suicidal ideation HISTORY OF PRESENT ILLNESS: The patient was admitted for carotid endarterectomy . Psychiatry was consulted because a staff member had the impression the patient was hopeless and suicidal. According to the nurse on duty the patient is pleasant and did not voice having any suicidal thoughts intent or plan. According to the patient that staff member thought she might have suicidal thoughts because she, the patient, answered one of the survey questions by cande chávez yes. Patient reported having meaningful relationship with her adult grandchildren. She states she has a grandson and granddaughter. She also states her dog means a lot to her. Patient reported feeling responsible for her grandchildren. During the session assessment she put her grandson Josh on a speakerphone who did not report having any concerns about the patient's safety. Josh states that he will be staying with the patient for a few days after being discharged from the hospital. Giancarlo will be picking up the patient from the hospital to take her home. According to the patient she has been receiving treatment for depression for over 20 years. She states it started shortly after her father had . She states her family doctor is currently prescribing Lexapro and Wellbutrin. She states her medications are helping. Patient states her depression is under control. She denies feeling hopeless or helpless. Patient denies ever having history of suicide attempts. At this time patient denies any suicidal or homical ideations, intent or plan. Patient denies any auditory, visual hallucinations and denies any paranoia or delusions. Patients admits to using PAST PSYCHIATRIC HISTORY: Patient denies having inpatient psychiatric admissions. She states that she has been diagnosed with depression 20 years ago and currently on Lexapro 20 mg and Wellbutrin XL 150 mg daily. Her management is under the supervision of her primary care physician for numerous years. Suicide attempts. PAST MEDICAL HISTORY: Per EMR. No history of seizures reported or ischemic heart disease ALLERGIES: as per EMR. CHEMICAL DEPENDENCY HISTORY: She states that she quit tobacco over 18 years ago. Denies drinking alcohol or using any illicit drugs FAMILY PSYCHIATRIC/SUBSTANCE USE HISTORY: None reported SOCIAL HISTORY: Patient was born and raised in [facility] born and raised in [place]. Her parents are . Patient states she is the only child for her parents [place]. Patient states her over a year ago from brain aneurysm. Patient states at first it was difficult for her to cope with the of her but has gotten much better. She accepted the of her . Patient states her support system consists of her adult grandchildren. She denies being a victim of abuse. MENTAL STATUS EXAM: General Appearance: Patient appears to be stated age is alert, pleasant, and cooperative. Patient appears to have fair hygiene and grooming wearing hospital gown with fair eye contact. Behavior: Patient is calmly lying in bed without any agitated behavior. Speech: Patient's speech is fluent and nonpressured. Mood/Affect: Patient reports their mood is " Fine ", affect is pleasant Suicidality/Homicidality: Patient denies having any suicidal or homicidal ideation intent or plan. Perceptions: Patient denies any visual hallucinations and denies any auditory hallucinations Though content/process: There is no evidence of any delusional thought content and thought process is linear and goal-directed. Memory and concentration: AOX3, grossly intact for the purposes of this session. 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 - Would recommend to continue Lexapro and Wellbutrin without any changes. Patient wants to continue to follow up with her PCP for medication management. -Communicated plan to patient's nurse -Psychiatry will sign off at this time -Please contact with any questions. 11/13/20 16:20
--- NOTE | 2020-11-13 23:57 | P.CONS ---
History of Present Illness - History of Present Illness This is a pleasant 70 years old female with past medical history of hypertens ion, hyperlipidemia, GERD, non-Hodgkin lymphoma in 2008 status post chemo and radiotherapy. Left carotid artery stenosis and left subclavian artery stenosis. She is status post right carotid endarterectomy. Patient was admitted under vascular surgery. Patient states that her from stroke 1 year ago so she got concerned herself although she was asymptomatic and went to check her cell phone found to have left internal carotid artery stenosis. Patient is with 90% stenosis of her left internal carotid artery Today is postoperative day #1 for left transcondylar carotid artery revascularization with stenting Vital signs stable, patient is mildly bradycardic with heart rate 52-55 this morning CBC and BMP are unremarkable except for mildly low sodium at 133 and low potassium at 2.9 Review of Systems CONSTITUTIONAL: No fever, no malaise, no fatigue. HEENT: No recent visual problems or hearing problems. Denied any sore throat. CARDIOVASCULAR: No orthopnea, PND, no palpitations, no syncope. PULMONARY: No shortness of breath, no cough, no hemoptysis. GASTROINTESTINAL: No diarrhea, no nausea, no vomiting, no abdominal pain. Normoactive bowel sounds. NEUROLOGICAL: No headaches, no weakness, no numbness. HEMATOLOGICAL: Denies any bleeding or petechiae. GENITOURINARY: Denies any burning micturition, frequency, or urgency. MUSCULOSKELETAL/RHEUMATOLOGICAL: Denies any joint pain, swelling, or any muscle pain. ENDOCRINE: Denies any polyuria or polydipsia. Past Medical History Past Medical History: Cancer, GERD/Reflux, Hyperlipidemia, Hypertension, Thyroid Disorder Additional Past Medical History / Comment(s): skin cancer, nonhodgkins lymphoma 2008-radiation & chemo, lt carotid artery stenosis. left Subclavian artery stenosis History of Any Multi-Drug Resistant Organisms: None Reported Past Surgical History: Cholecystectomy, Ear Surgery, Orthopedic Surgery Additional Past Surgical History / Comment(s): right carotid endarterectomy, ho hammer toes, ho bunionectomies, ear surg. for hearing, CTS right wrist, cataracts removed & then lasering on left eye, precancerous cells from labia area Past Anesthesia/Blood Transfusion Reactions: No Reported Reaction Smoking Status: Former smoker - Past Family History Mother Family Medical History: No Reported History Medications and Allergies Home Medications Medication Instructions Recorded Confirmed Type Enalapril [Vasotec] 20 mg PO BID 08/28/13 11/12/20 History Escitalopram [Lexapro] 20 mg PO DAILY 08/28/13 11/12/20 History Levothyroxine Sodium [Levoxyl] 50 mcg PO DAILY 08/28/13 11/12/20 History Clopidogrel Bisulfate [Plavix] 75 mg PO DAILY 09/29/18 11/12/20 History Meclizine [Antivert] 25 mg PO TID PRN #15 tab 09/29/18 11/12/20 Rx Acyclovir [Zovirax] 400 mg PO BID 07/30/20 11/12/20 History Aspirin 81 mg PO DAILY 07/30/20 11/12/20 History Evolocumab [Repatha Syringe] 140 mg SQ Q14D 07/30/20 11/12/20 History Lenalidomide [Revlimid] 10 mg PO AC-SUPPER 07/30/20 11/12/20 History Pantoprazole Sodium [Protonix] 40 mg PO DAILY 07/30/20 11/12/20 History buPROPion HCL [Wellbutrin XL] 150 mg PO DAILY 07/30/20 11/12/20 History Allergies Allergy/AdvReac Type Severity Reaction Status Date / Time No Known Allergies Allergy Verified 11/12/20 06:33 Physical Exam Vitals: Vital Signs Temp Pulse Pulse Resp BP BP Pulse Ox 11/13/20 07:00 52 L 13 129/54 95 11/13/20 06:30 55 L 14 97 11/13/20 06:00 52 L 13 95 11/13/20 05:30 52 L 20 94 L 11/13/20 05:00 55 L 13 129/54 95 11/13/20 04:30 58 L 20 92 L 11/13/20 04:00 98.2 F 53 L 14 94 L 11/13/20 03:30 56 L 12 93 L 11/13/20 03:00 57 L 16 95 11/13/20 02:30 56 L 17 95 11/13/20 02:00 58 L 10 L 94 L 11/13/20 01:30 58 L 14 95 11/13/20 01:00 57 L 12 96 11/13/20 00:30 57 L 14 93 L 11/13/20 00:00 98.7 F 57 L 12 94 L 11/12/20 23:36 95 11/12/20 23:30 57 L 21 95 11/12/20 23:00 61 10 L 90 L 11/12/20 22:30 58 L 18 93 L 11/12/20 22:21 58 L 7 L 129/54 95 11/12/20 22:00 66 18 92 L 11/12/20 21:30 65 13 94 L 11/12/20 21:00 62 12 93 L 11/12/20 20:30 60 10 L 95 11/12/20 20:00 98.5 F 59 L 14 96 11/12/20 19:30 84 12 95 11/12/20 19:00 57 L 17 95 11/12/20 18:45 61 13 96 11/12/20 18:30 60 14 94 L 11/12/20 18:15 61 20 96 11/12/20 18:00 59 L 16 93 L 11/12/20 17:45 15 89 L 11/12/20 17:30 56 L 18 86 L 11/12/20 17:15 62 16 94 L 11/12/20 17:00 62 14 90 L 11/12/20 16:45 64 14 96 11/12/20 16:30 58 L 16 96 11/12/20 16:15 58 L 14 96 11/12/20 16:00 97.8 F 62 16 98 11/12/20 15:45 50 L 14 96 11/12/20 15:30 63 11 L 98 11/12/20 15:15 51 L 12 99 11/12/20 15:00 59 L 14 98 11/12/20 14:45 53 L 9 L 61/43 99 11/12/20 14:30 53 L 15 99 11/12/20 14:15 53 L 14 96 11/12/20 14:00 53 L 16 100 11/12/20 13:45 61 16 100 11/12/20 13:30 45 L 17 97 11/12/20 13:15 39 L 16 98 11/12/20 13:00 50 L 14 98 11/12/20 12:45 53 L 14 98 11/12/20 12:30 53 L 12 96 11/12/20 12:15 54 L 16 97 11/12/20 12:10 55 L 14 98 11/12/20 12:00 97.6 F 57 L 12 97 11/12/20 11:54 62 24 97 11/12/20 11:30 63 16 142/48 97 11/12/20 11:14 66 14 141/51 97 11/12/20 10:59 69 16 151/51 98 11/12/20 10:44 97.6 F 65 16 132/51 97 Intake and Output 11/12/20 11/13/20 11/13/20 22:59 06:59 14:59 Intake Total 607.962 604.401 75 Output Total 200 300 0 Balance 407.962 304.401 75 Intake: IV 600 600 75 LR 600 600 75 Intake, IV Titration 7.962 4.401 Amount Phenylephrine 40 mg In 7.962 4.401 Sodium Chloride 0.9% 250 ml @ 0.5 MCG/KG/MIN 17. 628 mls/hr IV .[id number] [facility] Rx#:[id number] Output: Urine 200 300 0 Other: Voiding Method Bedside Commode Bedside Commode # Voids 1 1 # Bowel Movements 1 Weight 92.533 kg 100.4 kg ABP, PAP, CO, CI - Last 8 Hours Arterial Blood Pressure 141/40 Arterial Blood Pressure 142/41 Arterial Blood Pressure 139/38 Arterial Blood Pressure 138/40 Arterial Blood Pressure 130/41 Arterial Blood Pressure 136/31 Arterial Blood Pressure 141/39 Arterial Blood Pressure 140/38 Arterial Blood Pressure 139/38 Arterial Blood Pressure 142/39 Arterial Blood Pressure 146/38 Arterial Blood Pressure 129/36 Arterial Blood Pressure 125/40 Arterial Blood Pressure 118/33 Arterial Blood Pressure 144/42 GENERAL: The patient is alert and oriented x3, not in any acute distress. Well developed, well nourished. -HEENT: Pupils are round and equally reacting to light. EOMI. No scleral icterus. No conjunctival pallor. Normocephalic, atraumatic. No pharyngeal erythema. No thyromegaly. Left neck wound with dressing is in place, rest of exam is deferred to surgery team CARDIOVASCULAR: S1 and S2 present. No murmurs, rubs, or gallops. PULMONARY: Chest is clear to auscultation, no wheezing or crackles. ABDOMEN: Soft, nontender, nondistended, normoactive bowel sounds. No palpable organomegaly. MUSCULOSKELETAL: No joint swelling or deformity. EXTREMITIES: No cyanosis, clubbing, or pedal edema. NEUROLOGICAL: Gross neurological examination did not reveal any focal deficits. SKIN: No rashes. No petechiae Results CBC & Chem 7: 11/13/20 04:00 11/13/20 04:00 Labs: Abnormal Lab Results - Last 24 Hours (Table) 11/13/20 11/13/20 Range/Units 04:00 04:00 RBC 3.47 L (3.80-5.40) m/uL Hgb 10.9 L (11.4-16.0) gm/dL Hct 31.2 L (34.0-46.0) % Lymphocytes # 0.6 L (1.0-4.8) k/uL Sodium 133 L (137-145) mmol/L Potassium 2.9 L (3.5-5.1) mmol/L Glucose 102 H (74-99) mg/dL Calcium 8.2 L (8.4-10.2) mg/dL Assessment and Plan Assessment: Left internal carotid artery stenosis status post left transcondylar carotid artery revascularization with stenting History of right internal carotid artery endarterectomy Hypertension Hyperlipidemia History of GERD History of non-Hodgkin lymphoma Plan: This is a pleasant 70 years old female who presents with left ICA stenosis, status post revascularization and stenting. Pain management and DVT prophylaxis per primary vascular team Replace potassium per protocol. Monitor potassium and magnesium level. Continue with aspirin and Plavix. Labs and medication were reviewed.. Continue same treatment. Continue with symptomatic treatment. Resume home medication. Monitor lytes and vitals. DVT and GI prophylaxis. Further recommendations depends on the clinical course of the patient Thank you for consulting us
== END 2020-11-13 14:46 | disposition home or self-care (01) | DRG 36 ==
LOC: 2ORMAIN 05:44 → 2SICU 10:27
PROVIDERS: ADMIT Surgery; ATTEND Surgery
PROC: 06HM33Z Insertion of Infusion Device into Right Femoral Vein, Percutaneous Approach (ICD-10-PCS; 2020-11-12)
PROC: B54BZZA Ultrasonography of Right Lower Extremity Veins, Guidance (ICD-10-PCS; 2020-11-12)
PROC: 037L3DZ Dilation of Left Internal Carotid Artery with Intraluminal Device, Percutaneous Approach (ICD-10-PCS; principal; 2020-11-12 07:30)
DX: I65.23 Occlusion and stenosis of bilateral carotid arteries (principal); E78.5 Hyperlipidemia, unspecified; I10 Essential (primary) hypertension; I70.8 Atherosclerosis of other arteries; Z79.02 Long term (current) use of antithrombotics/antiplatelets; Z79.82 Long term (current) use of aspirin; Z20.822 Contact with and (suspected) exposure to COVID-19; Z79.890 Hormone replacement therapy; Z79.899 Other long term (current) drug therapy; Z85.72 Personal history of non-Hodgkin lymphomas; Z85.828 Personal history of other malignant neoplasm of skin; Z86.73 Personal history of transient ischemic attack (TIA), and cerebral infarction without residual deficits; Z87.891 Personal history of nicotine dependence; Z92.21 Personal history of antineoplastic chemotherapy
CPT/HCPCS: 37215; 80048; 85025

== ENCOUNTER 2020-12-09 09:20 | Day surgery (SDC) | payer MEDICARE ==
[2020-12-08 09:30] VITALS: BMI 34.1
[2020-12-09 10:46] VITALS: TEMP 98
[2020-12-09] MEDS ORDERED: LACTATED RINGERS 1,000 ML IV ONE (10:46)
[2020-12-09] MEDS ORDERED: PROPOFOL 10 MG/ML 20 ML VIAL IV ONE (10:48)
--- NOTE | 2020-12-09 11:22 | P.PCN ---
Date of Procedure: 12/09/20 Procedure(s) Performed: BRIEF HISTORY: Patient is a 70-year-old pleasant female scheduled for an elective colonoscopy as a part of evaluation of chronic diarrhea for the last 1 year duration. She has been having bowel movements daily from 5-6 a day which are loose to watery in consistency but no blood or mucus in the stool. PROCEDURE PERFORMED: Colonoscopy with biopsy. PREOPERATIVE DIAGNOSIS: Chronic diarrhea. IV sedation per Anesthesia. PROCEDURE: After informed consent was obtained, the patient, was brought into the endoscopy unit. IV sedation was administered by Anesthesia under continuous monitoring. Digital rectal examination was normal. Initially the Olympus CF-160 flexible video colonoscope was then inserted in the rectum, gradually advanced into the cecum without any difficulty. Careful examination was performed as the scope was gradually being withdrawn. Ileocecal valve and the appendiceal orifice were visualized and appeared normal. Prep was excellent. Mucosa of the cecum, ascending colon, transverse colon, descending colon, sigmoid colon, and rectum appeared normal. Biopsies were done from ascending and descending colon to rule out metastatic/collagenous colitis Retroflexion was performed in the rectum and no lesions were seen. The patient tolerated the procedure well. IMPRESSION: Normal-appearing colon from rectum to cecum with no evidence of colitis or colorectal neoplasia . RECOMMENDATIONS: Findings of this examination were discussed with the patient Her family. She was advised to follow with the biopsy results.. In the meantime she can increase the Imodium 2 tablets 4 times daily.
[2020-12-09 11:44] VITALS: BP 107/51; PULSE 54; RESP 20
== END 2020-12-09 12:10 | disposition home or self-care (01) ==
LOC: ORWHC2ENDO 09:20
PROVIDERS: ATTEND Internal Medicine Gastroenterology
DX: K52.9 Noninfective gastroenteritis and colitis, unspecified (principal); E78.5 Hyperlipidemia, unspecified; I10 Essential (primary) hypertension; K21.9 Gastro-esophageal reflux disease without esophagitis; Z79.82 Long term (current) use of aspirin; Z79.899 Other long term (current) drug therapy; Z79.02 Long term (current) use of antithrombotics/antiplatelets
CPT/HCPCS: 88305; 45380; J2704

== ENCOUNTER → 2021-01-25 | Outpatient (CLI) | payer MEDICARE, OTHER ==
--- NOTE | 2021-01-27 13:43 | MM ---
Reason for exam: screening (asymptomatic). Last mammogram was performed 1 year and 2 months ago. History: Patient is postmenopausal and history of other cancer. Benign excisional biopsy of both breasts, 2019. Taking hormonal contraceptives for 5 years. Physical Findings: A clinical breast exam by your physician is recommended on an annual basis and results should be correlated with mammographic findings. MG Screening Mammo w CAD Bilateral CC and MLO view(s) were taken. Prior study comparison: December 04, 2019, bilateral MG diagnostic mammo w CAD [facility]. February 27, 2019, mammogram, performed at [place]. There are scattered fibroglandular densities. Previous mammotome biopsy in the right and left breast. No significant changes when compared with prior studies. ASSESSMENT: Benign, BI-RAD 2 RECOMMENDATION: Routine screening mammogram of both breasts in 1 year.
== END | disposition home or self-care (01) ==
LOC: RADMAMWWP 15:27
PROVIDERS: ATTEND Family Medicine
DX: Z12.31 Encounter for screening mammogram for malignant neoplasm of breast (principal); Z78.0 Asymptomatic menopausal state
CPT/HCPCS: 77067

== ENCOUNTER → 2021-02-04 | Outpatient (CLI) | payer MEDICARE, OTHER ==
--- NOTE | 2021-02-07 08:52 | PE ---
EXAMINATION TYPE: PET CT fusion skull to thigh DATE OF EXAM: 02/04/2021 COMPARISON: Prior PET/CT May 21, 2020 and older study January 23, 2020. HISTORY: Non-Hodgkin lymphoma diagnosed 2006 with chemotherapy ended November 2020. TECHNIQUE: Following the intravenous administration of 10.25 mCi of F-18 FDG, whole body images are performed from the skull base to the midthigh. Images are reviewed on the computer in the coronal, a xial, and sagittal planes. Reconstructed rotating images are created on independent workstation and reviewed on the computer. A localization and attenuation correction CT is performed in conjunction with the PET scan. Blood glucose level equals 90 SCAN: Subsequent Scan FINDINGS: Mean SUV mediastinum: 0.7 Mean SUV liver: 2.13 SKULL BASE AND NECK: No new areas of abnormal hypermetabolic uptake. CHEST, MEDIASTINUM, AND HILAR REGION: No new areas of abnormal hypermetabolic uptake. Persistent mild shoulder muscular uptake slightly less prominent than prior. ABDOMEN AND PELVIS: Nonspecific diffuse bowel particularly colonic uptake redemonstrated and slightly more prominent. Abnormal hypermetabolic uptake in the central uterus projecting to right of midline anteverted in shape axial image 214. No additional areas of abnormal hypermetabolic uptake. No suspic ious hypermetabolic adenopathy. OSSEOUS STRUCTURES: No areas of abnormal hypermetabolic uptake. OTHER CT: Medial course to the carotid vessels with left-sided stent redemonstrated. Stable left inte rnal jugular Mediport catheter. Persistent cardiomegaly with moderate to severe three-vessel coronary artery calcification. Cholecystectomy clips are redemonstrated. Stable 4.0 cm thin-walled cysts in the left hepatic lobe ax ial image 135. Stable 16 mm large lower pole left renal calculus. Moderate calcified plaque infrarena l abdominal aorta extends into branch vessels. A few sigmoid colonic diverticula. Slight grade 1 ante rolisthesis L4 on L5. Slight scoliotic curvature. 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 IMPRESSION: No suspicious new mass or adenopathy to suggest lymphoma recurrence. Abnormal hypermetabo lic uptake in the central uterus in postmenopausal female warrants further workup to rule out endomet rial cancer.
== END | disposition home or self-care (01) ==
LOC: RADPETMAIN 08:53
PROVIDERS: ATTEND Internal Medicine Hematology & Oncology
DX: C82.18 Follicular lymphoma grade II, lymph nodes of multiple sites (principal); Z85.72 Personal history of non-Hodgkin lymphomas
CPT/HCPCS: 78815; A9552

== ENCOUNTER → 2021-02-16 | Outpatient (CLI) | payer MEDICARE, OTHER ==
--- NOTE | 2021-02-16 09:41 | US ---
EXAMINATION TYPE: US pelvis complete transvag DATE OF EXAM: 02/16/2021 COMPARISON: NONE CLINICAL HISTORY: 70-year-old female R19.00 Abd/pelvic mass. Patient states abnormal PET scan. TECHNIQUE: Transabdominal sonographic images of the pelvis were acquired. Transvaginal sonographic i mages were medically necessary to better assess the following anatomy: Uterus Date of LMP: Post menopausal FINDINGS: EXAM MEASUREMENTS: Uterus: 5.3x3.6x2.8 cm Endometrial Stripe: 0.3 cm 1. Uterus: Anteverted. Heterogenous myometrium with multiple round solid areas, likely focal fibro ids. 1.) Right 1.7x1.8x1.6cm 2.) Mid 2.2x2.1x1.9cm (obscures the fundal endometrium) 3.) Left 1.0x0.9x0.8cm 2. Endometrium: 0.3cm along the body and lower uterine segment 3. Right Ovary: Obscured by overlying bowel gas 4. Left Ovary: Obscured by overlying bowel gas 5. Bilateral Adnexa: FLuid filled bowel loops 6. Posterior cul-de-sac: Bowel loops. No free fluid seen. IMPRESSION: 1. Heterogeneous, fibroid uterus. A dominant 2.2 cm fibroid is centrally located and obscures the fun alisha endometrium. It may have a prominent submucosal component. 2. Given the abnormal FDG uptake on PET CT, further female pelvic MRI evaluation is recommended to mo re completely assess the junctional anatomy. 3. Neither ovary could be visualized.
== END | disposition home or self-care (01) ==
LOC: RADUSWWP 07:24
PROVIDERS: ATTEND Internal Medicine Hematology & Oncology
DX: D25.9 Leiomyoma of uterus, unspecified (principal)
CPT/HCPCS: 76830; 76856

== ENCOUNTER 2021-03-28 17:06 | Observation (INO) | payer MEDICARE, OTHER ==
[2021-03-28] MEDS ORDERED: SODIUM CHLORIDE 0.9% 500 ML 500 ML IV STA (18:17)
[2021-03-28] MEDS ORDERED: ACETAMINOPHEN TAB 325 MG TAB PO STA (18:17)
--- NOTE | 2021-03-28 18:22 | ED ---
General Adult HPI - General Chief complaint: Weakness Stated complaint: Weakness, Headache Time Seen by Provider: 03/28/21 18:15 Source: patient, RN notes reviewed, old records reviewed Mode of arrival: ambulatory Limitations: no limitations - History of Present Illness Initial comments: 71-year-old female alert and oriented 4, presents to the emergency room with complaints of 2 weeks of fever, weakness, cough and decreased appetite. She has been vaccinated against coronavirus. She did see her primary care doctor who prescribed her a Z-Ryan. She states she finished that yesterday and continues to feel worse today. She states that the cough is nonproductive and dry. She does live alone and no recent sick contacts. She does have a history of non- Hodgkin's lymphoma, hypertension and a recent carotid stent. -: week(s) (2) Location: chest Radiation: non-radiation Severity scale (1-10): 0 Quality: aching Consistency: constant Improves with: none Worsens with: other (cough) Associated Symptoms: cough, fever/chills, loss of appetite, malaise, weakness Treatments Prior to Arrival: none - Related Data Home Medications Medication Instructions Recorded Confirmed Enalapril [Vasotec] 20 mg PO BID 08/28/13 03/28/21 Escitalopram [Lexapro] 20 mg PO DAILY 08/28/13 03/28/21 Levothyroxine Sodium [Levoxyl] 50 mcg PO DAILY 08/28/13 03/28/21 Clopidogrel Bisulfate [Plavix] 75 mg PO HS 09/29/18 03/28/21 Aspirin 81 mg PO HS 07/30/20 03/28/21 Evolocumab [Repatha Syringe] 140 mg SQ Q14D 07/30/20 03/28/21 Lenalidomide [Revlimid] See Taper PO AC-SUPPER 07/30/20 03/28/21 Pantoprazole Sodium [Protonix] 40 mg PO DAILY 07/30/20 03/28/21 buPROPion HCL [Wellbutrin XL] 150 mg PO DAILY 07/30/20 03/28/21 Gazyva 1,000mg/40ml Iv Solution 1 dose IV DIRECTED 03/28/21 03/28/21 Allergies Allergy/AdvReac Type Severity Reaction Status Date / Time No Known Allergies Allergy Verified 03/28/21 21:24 Review of Systems ROS Statement: Those systems with pertinent positive or pertinent negative responses have been documented in the HPI. ROS Other: All systems not noted in ROS Statement are negative. Past Medical History Past Medical History: Cancer, GERD/Reflux, Hyperlipidemia, Hypertension, Thyroid Disorder Additional Past Medical History / Comment(s): skin cancer, nonhodgkins lymphoma 2008-radiation & chemo, VERY WATERY BOWEL MOVEMENT NUMEROUS TIMES DAILY History of Any Multi-Drug Resistant Organisms: None Reported Past Surgical History: Cholecystectomy, Ear Surgery, Orthopedic Surgery Additional Past Surgical History / Comment(s): BILAT carotid endarterectomy, ho hammer toes, ho bunionectomies, ear surg. for hearing, CTS right wrist, cataracts removed & then lasering on left eye, precancerous cells from labia area, COLONOSCOPY Past Anesthesia/Blood Transfusion Reactions: No Reported Reaction Past Psychological History: Depression Smoking Status: Former smoker Past Alcohol Use History: None Reported Past Drug Use History: None Reported - Past Family History Mother Family Medical History: No Reported History General Exam Limitations: no limitations General appearance: alert, in no apparent distress Head exam: Present: atraumatic, normocephalic, normal inspection Eye exam: Present: normal appearance, EOMI Neck exam: Present: normal inspection, full ROM. Absent: tenderness, meningismus, lymphadenopathy, thyromegaly Respiratory exam: Present: decreased breath sounds. Absent: respiratory distress, wheezes, rales, rhonchi, stridor, chest wall tenderness, accessory muscle use Cardiovascular Exam: Present: regular rate, normal rhythm, normal heart sounds. Absent: systolic murmur, diastolic murmur, rubs, gallop, clicks GI/Abdominal exam: Present: soft, normal bowel sounds. Absent: distended, tenderness, guarding, rebound, rigid Extremities exam: Present: normal inspection, full ROM, normal capillary refill. Absent: tenderness, pedal edema, joint swelling, calf tenderness Back exam: Present: normal inspection, other (Plaque psoriasis left upper back) Neurological exam: Present: alert, oriented X3, normal gait Psychiatric exam: Present: normal affect, normal mood Skin exam: Present: warm, dry, intact, normal color, other (Dried scaling plaques upper extremities). Absent: rash Course Vital Signs 03/28/21 03/28/21 03/28/21 17:58 19:02 22:02 Temperature 99.6 F Pulse Rate 65 55 L Pulse Rate [ 55 L Sole Splitter ] Respiratory 20 22 20 Rate Blood Pressure 100/60 114/49 O2 Sat by Pulse 92 L 92 L Oximetry EKG Findings - EKG Results: EKG: sinus rhythm (Ventricular rate of 63, WA interval 0.172, QRS 0.82, QTC 0.464) Medical Decision Making - Medical Decision Making 71-year-old female alert presents to the emergency room with complaints of 2 wee ks of fever, weakness, cough and decreased appetite. She has been vaccinated against coronavirus. She did see her primary care doctor who prescribed her a Z-Ryan. She states she finished that yesterday and continues to feel worse today. She states that the cough is nonproductive and dry. chest x-ray shows no acute cardiopulmonary process. No evidence of leukocytosis. Coronavirus swab is positive. Potassium is 2.9 and she was started on replacement in the emergency room. BUN is 18, creatinine is 1.28. Case discussed with Dr. Sparrow, she will be admitted for coronavirus, hypokalemia, and acute kidney injury. - Lab Data Result diagrams: 03/28/21 20:32 03/28/21 20:32 Lab Results 03/28/21 03/28/21 03/28/21 Range/Units 20:24 20:32 20:32 WBC 5.9 (3.8-10.6) k/uL RBC 3.98 (3.80-5.40) m/uL Hgb 11.9 (11.4-16.0) gm/dL Hct 34.1 (34.0-46.0) % MCV 85.7 (80.0-100.0) fL MCH 29.9 (25.0-35.0) pg MCHC 34.9 (31.0-37.0) g/dL RDW 15.6 H (11.5-15.5) % Plt Count 282 (150-450) k/uL MPV 7.2 Neutrophils % 70 % Lymphocytes % 13 % Monocytes % 10 % Eosinophils % 5 % Basophils % 1 % Neutrophils # 4.1 (1.3-7.7) k/uL Lymphocytes # 0.7 L (1.0-4.8) k/uL Monocytes # 0.6 (0-1.0) k/uL Eosinophils # 0.3 (0-0.7) k/uL Basophils # 0.0 (0-0.2) k/uL Poikilocytosis Slight PT (9.0-12.0) sec INR (<1.2) APTT (22.0-30.0) sec D-Dimer (<0.60) mg/L FEU Sodium 134 L (137-145) mmol/L Potassium 2.9 L (3.5-5.1) mmol/L Chloride 100 (98-107) mmol/L Carbon Dioxide 24 (22-30) mmol/L Anion Gap 10 mmol/L BUN 18 H (7-17) mg/dL Creatinine 1.28 H (0.52-1.04) mg/dL Est GFR (CKD-EPI)AfAm 49 (>60 ml/min/1.73 sqM) Est GFR (CKD-EPI)NonAf 42 (>60 ml/min/1.73 sqM) Glucose 76 (74-99) mg/dL Plasma Lactic Acid Luca (0.7-2.0) mmol/L Calcium 7.7 L (8.4-10.2) mg/dL Magnesium 1.8 (1.6-2.3) mg/dL Total Bilirubin 0.4 (0.2-1.3) mg/dL AST 25 (14-36) U/L ALT 18 (4-34) U/L Alkaline Phosphatase 77 (38-126) U/L Troponin I (0.000-0.034) ng/mL Total Protein 5.6 L (6.3-8.2) g/dL Albumin 3.4 L (3.5-5.0) g/dL Urine Color Urine Appearance (Clear) Urine pH (5.0-8.0) Ur Specific [place] (1.001-1.035) Urine Protein (Negative) Urine Glucose (UA) (Negative) Urine Ketones (Negative) Urine Blood (Negative) Urine Nitrite (Negative) Urine Bilirubin (Negative) Urine Urobilinogen (<2.0) mg/dL Ur Leukocyte Esterase (Negative) Urine RBC (0-5) /hpf Urine WBC (0-5) /hpf Ur Squamous Epith Cells (0-4) /hpf Urine Bacteria (None) /hpf Hyaline Casts (0-2) /lpf Urine Mucus (None) /hpf Coronavirus (PCR) Detected A (Not Detectd) 03/28/21 03/28/21 03/28/21 Range/Units 20:32 20:32 20:38 WBC (3.8-10.6) k/uL RBC (3.80-5.40) m/uL Hgb (11.4-16.0) gm/dL Hct (34.0-46.0) % MCV (80.0-100.0) fL MCH (25.0-35.0) pg MCHC (31.0-37.0) g/dL RDW (11.5-15.5) % Plt Count (150-450) k/uL MPV Neutrophils % % Lymphocytes % % Monocytes % % Eosinophils % % Basophils % % Neutrophils # (1.3-7.7) k/uL Lymphocytes # (1.0-4.8) k/uL Monocytes # (0-1.0) k/uL Eosinophils # (0-0.7) k/uL Basophils # (0-0.2) k/uL Poikilocytosis PT 9.9 (9.0-12.0) sec INR 0.9 (<1.2) APTT 24.0 (22.0-30.0) sec D-Dimer 0.59 (<0.60) mg/L FEU Sodium (137-145) mmol/L Potassium (3.5-5.1) mmol/L Chloride (98-107) mmol/L Carbon Dioxide (22-30) mmol/L Anion Gap mmol/L BUN (7-17) mg/dL Creatinine (0.52-1.04) mg/dL Est GFR (CKD-EPI)AfAm (>60 ml/min/1.73 sqM) Est GFR (CKD-EPI)NonAf (>60 ml/min/1.73 sqM) Glucose (74-99) mg/dL Plasma Lactic Acid Luca 0.9 (0.7-2.0) mmol/L Calcium (8.4-10.2) mg/dL Magnesium (1.6-2.3) mg/dL Total Bilirubin (0.2-1.3) mg/dL AST (14-36) U/L ALT (4-34) U/L Alkaline Phosphatase (38-126) U/L Troponin I 0.012 (0.000-0.034) ng/mL Total Protein (6.3-8.2) g/dL Albumin (3.5-5.0) g/dL Urine Color Urine Appearance (Clear) Urine pH (5.0-8.0) Ur Specific [place] (1.001-1.035) Urine Protein (Negative) Urine Glucose (UA) (Negative) Urine Ketones (Negative) Urine Blood (Negative) Urine Nitrite (Negative) Urine Bilirubin (Negative) Urine Urobilinogen (<2.0) mg/dL Ur Leukocyte Esterase (Negative) Urine RBC (0-5) /hpf Urine WBC (0-5) /hpf Ur Squamous Epith Cells (0-4) /hpf Urine Bacteria (None) /hpf Hyaline Casts (0-2) /lpf Urine Mucus (None) /hpf Coronavirus (PCR) (Not Detectd) 03/28/21 Range/Units 21:30 WBC (3.8-10.6) k/uL RBC (3.80-5.40) m/uL Hgb (11.4-16.0) gm/dL Hct (34.0-46.0) % MCV (80.0-100.0) fL MCH (25.0-35.0) pg MCHC (31.0-37.0) g/dL RDW (11.5-15.5) % Plt Count (150-450) k/uL MPV Neutrophils % % Lymphocytes % % Monocytes % % Eosinophils % % Basophils % % Neutrophils # (1.3-7.7) k/uL Lymphocytes # (1.0-4.8) k/uL Monocytes # (0-1.0) k/uL Eosinophils # (0-0.7) k/uL Basophils # (0-0.2) k/uL Poikilocytosis PT (9.0-12.0) sec INR (<1.2) APTT (22.0-30.0) sec D-Dimer (<0.60) mg/L FEU Sodium (137-145) mmol/L Potassium (3.5-5.1) mmol/L Chloride (98-107) mmol/L Carbon Dioxide (22-30) mmol/L Anion Gap mmol/L BUN (7-17) mg/dL Creatinine (0.52-1.04) mg/dL Est GFR (CKD-EPI)AfAm (>60 ml/min/1.73 sqM) Est GFR (CKD-EPI)NonAf (>60 ml/min/1.73 sqM) Glucose (74-99) mg/dL Plasma Lactic Acid Luca (0.7-2.0) mmol/L Calcium (8.4-10.2) mg/dL Magnesium (1.6-2.3) mg/dL Total Bilirubin (0.2-1.3) mg/dL AST (14-36) U/L ALT (4-34) U/L Alkaline Phosphatase (38-126) U/L Troponin I (0.000-0.034) ng/mL Total Protein (6.3-8.2) g/dL Albumin (3.5-5.0) g/dL Urine Color Light Red Urine Appearance Cloudy H (Clear) Urine pH 5.5 (5.0-8.0) Ur Specific [place] 1.019 (1.001-1.035) Urine Protein 1+ H (Negative) Urine Glucose (UA) Negative (Negative) Urine Ketones Negative (Negative) Urine Blood Large H (Negative) Urine Nitrite Negative (Negative) Urine Bilirubin 1+ H (Negative) Urine Urobilinogen 2.0 (<2.0) mg/dL Ur Leukocyte Esterase Small H (Negative) Urine RBC >182 H (0-5) /hpf Urine WBC 29 H (0-5) /hpf Ur Squamous Epith Cells 3 (0-4) /hpf Urine Bacteria Rare H (None) /hpf Hyaline Casts 50 H (0-2) /lpf Urine Mucus Occasional H (None) /hpf Coronavirus (PCR) (Not Detectd) Disposition Clinical Impression: COVID-19, FLORINDA (acute kidney injury), Hypokalemia Disposition: ADMITTED IP TO THIS HOSP Referrals: Luis Cai DO [Primary Care Provider] - 1-2 days Decision Date: 03/28/21 Decision Time: 21:48
--- NOTE | 2021-03-28 19:20 | XR ---
EXAMINATION TYPE: XR chest 2V DATE OF EXAM: 03/28/2021 COMPARISON: None available HISTORY: Fever TECHNIQUE: Frontal and lateral views of the chest are obtained. FINDINGS: There is no focal air space opacity, pleural effusion, or pneumothorax seen. The cardiac silhouette size is within normal limits. The osseous structures are intact. There is demonstration of a left IJ port catheter with distal portion not well visualized however tip appears to overlie the brachiocephalic confluence. IMPRESSION: No acute cardiopulmonary process.
[2021-03-28 21:13] LABS: Basophils % (A) 1 %; Eosinophils # (A) 0.3 k/uL (0-0.7); Eosinophils % (A) 5 %; HCT 34.1 % (34.0-46.0); HGB 11.9 gm/dL (11.4-16.0); Lymphocytes # (A) 0.7 k/uL (1.0-4.8); Lymphocytes % (A) 13 %; MCH 29.9 pg (25.0-35.0); MCHC 34.9 g/dL (31.0-37.0); MCV 85.7 fL (80.0-100.0); Mean Platelet Volume 7.2; Monocytes # (A) 0.6 k/uL (0-1.0); Monocytes % (A) 10 %; Neutrophils # (A) 4.1 k/uL (1.3-7.7); Neutrophils % (A) 70 %; Platelet Count 282 k/uL (150-450); Poikilocytosis Slight; RBC 3.98 m/uL (3.80-5.40); RDW 15.6 % (11.5-15.5); WBC 5.9 k/uL (3.8-10.6)
[2021-03-28 21:24] LABS: Albumin 3.4 g/dL (3.5-5.0); Calcium 7.7 mg/dL (8.4-10.2); Magnesium 1.8 mg/dL (1.6-2.3); Potassium 2.9 mmol/L (3.5-5.1); Total Bilirubin 0.4 mg/dL (0.2-1.3); Total Protein 5.6 g/dL (6.3-8.2)
[2021-03-28] MEDS ORDERED: POTASSIUM CHLORIDE ER 20 MEQ TAB.ER PO STA (21:34)
[2021-03-28 21:45] LABS: INR 0.9 (<1.2); Prothrombin Time 9.9 sec (9.0-12.0)
[2021-03-28 21:48] LABS: Appearance,Urine Cloudy (Clear); Bacteria,Urine Rare /hpf; Bilirubin,Urine 1+ (Negative); Blood,Urine Large (Negative); Color,Urine Light Red; Glucose,Urine (UA) Negative (Negative); Hyaline Casts,Urine 50 /lpf (0-2); Ketones,Urine Negative (Negative); Leukocyte Esterase,Urine Small (Negative); Mucus,Urine Occasional /hpf; Nitrite,Urine Negative (Negative); PH, Urine 5.5 (5.0-8.0); Protein,Urine 1+ (Negative); RBC,Urine >182 /hpf (0-5); Specific Gravity,Urine 1.019 (1.001-1.035); Squamous Epithelial Cell,Urine 3 /hpf (0-4); WBC,Urine 29 /hpf (0-5)
[2021-03-28] MEDS ORDERED: NALOXONE 0.4 MG/ML 1 ML VIAL IV PRN (21:48)
[2021-03-28] MEDS: lisinopriL 20 MG TAB PO SCH (22:59)
[2021-03-28] MEDS: POTASSIUM CHLORIDE 10 MEQ in WATER FOR INJECTION 1 100ML.BAG IVPB SCH (23:07)
[2021-03-29] MEDS ORDERED: ONDANSETRON 4 MG/2 ML VIAL IVP PRN (00:29)
[2021-03-29] MEDS: POTASSIUM CHLORIDE 10 MEQ in WATER FOR INJECTION 1 100ML.BAG IVPB SCH ×3 (01:36→05:51)
[2021-03-29] MEDS: LEVOTHYROXINE 50 MCG TAB PO SCH (06:10)
[2021-03-29 07:33] LABS: Basophils % (A) 1 %; Eosinophils # (A) 0.3 k/uL (0-0.7); Eosinophils % (A) 8 %; HCT 35.1 % (34.0-46.0); HGB 12.1 gm/dL (11.4-16.0); Lymphocytes # (A) 0.6 k/uL (1.0-4.8); Lymphocytes % (A) 15 %; MCH 30.1 pg (25.0-35.0); MCHC 34.6 g/dL (31.0-37.0); MCV 86.8 fL (80.0-100.0); Mean Platelet Volume 7.4; Monocytes # (A) 0.4 k/uL (0-1.0); Monocytes % (A) 10 %; Neutrophils # (A) 2.5 k/uL (1.3-7.7); Neutrophils % (A) 64 %; Platelet Count 220 k/uL (150-450); Poikilocytosis Slight; RBC 4.04 m/uL (3.80-5.40); RDW 15.2 % (11.5-15.5); WBC 3.9 k/uL (3.8-10.6)
[2021-03-29 07:48] LABS: African American GFR (CKD) 51 (>60 ml/min/1.73 sqM); Anion Gap 9 mmol/L; Blood Urea Nitrogen 18 mg/dL (7-17); Carbon Dioxide 21 mmol/L (22-30); Chloride 106 mmol/L (98-107); Glucose 85 mg/dL (74-99); Non-African American GFR(CKD) 44 (>60 ml/min/1.73 sqM); Sodium 136 mmol/L (137-145)
[2021-03-29 07:50] LABS: Potassium 3.6 mmol/L (3.5-5.1)
[2021-03-29] MEDS: PANTOPRAZOLE 40 MG TABLET PO SCH (08:25)
[2021-03-29] MEDS: lisinopriL 20 MG TAB PO SCH ×2 (08:25→20:55)
[2021-03-29] MEDS: ESCITALOPRAM 20 MG TAB PO SCH (08:25)
[2021-03-29] MEDS: buPROPion XL 150 MG TAB.ER.24H PO SCH (08:30)
[2021-03-29] MEDS ORDERED: ALBUTEROL HFA INHALER INHALATION PRN (13:56)
[2021-03-29] MEDS: SODIUM CHLORIDE 0.9% 1,000 ML IV SCH (14:15)
[2021-03-29] MEDS: ASCORBIC ACID 500 MG TAB PO SCH ×2 (14:16→22:48)
[2021-03-29] MEDS: ZINC SULFATE 220 MG CAP PO SCH (14:16)
[2021-03-29] MEDS: DEXAMETHASONE SOD PHOSPHATE 10 MG/ML 1 ML VIAL IVP SCH (14:16)
[2021-03-29] MEDS: CHOLECALCIFEROL 25 MCG (1000 IU) TABLET PO SCH (14:16)
--- NOTE | 2021-03-29 14:41 | P.HPIM ---
History of Present Illness H&P Date: 03/29/21 Chief Complaint: Increasing weakness and fatigue This is a 71-year-old female with past medical history of non-Hodgkin's lymphoma, hypertension, recent TLCAR, presented to the ER with complaints of increasing weakness, fatigue, nonproductive cough, diarrhea accompanied by fev er, decreased oral intake, in a patient vaccinated. Previously evaluated by PCP, prescribed Z-Rayn, which she completed the day prior to admission. Patient continued to decline and proceeded to the ER.Patient tested positive for coronavirus. BUN 18, creatinine 1.28, potassium 2.9. Denies chest pain, palpitations. Afebrile, T-max 99.6, WBC within normal limits. UA reported 50 hyaline casts, rare bacteria 29 wbc's, small leukocytes negative nitrates, urine culture pending. Review of Systems ROS Statement: Those systems with pertinent positive or pertinent negative responses have been documented in the HPI. ROS Other: All systems not noted in ROS Statement are negative. Past Medical History Past Medical History: Cancer, GERD/Reflux, Hyperlipidemia, Hypertension, Thyroid Disorder Additional Past Medical History / Comment(s): skin cancer, nonhodgkins lymphoma 2008-radiation & chemo, VERY WATERY BOWEL MOVEMENT NUMEROUS TIMES DAILY for past year, psoriasis History of Any Multi-Drug Resistant Organisms: None Reported Past Surgical History: Cholecystectomy, Ear Surgery, Orthopedic Surgery Additional Past Surgical History / Comment(s): BILAT carotid endarterectomy, ho hammer toes, ho bunionectomies, ear surg. for hearing, CTS right wrist, cataracts removed & then lasering on left eye, precancerous cells from labia area, COLONOSCOPY Past Anesthesia/Blood Transfusion Reactions: No Reported Reaction Past Psychological History: Depression Smoking Status: Former smoker Past Alcohol Use History: None Reported Additional Past Alcohol Use History / Comment(s): quit smoking 18 yrs. ago, smoked 40+years, up to 1 1/2ppd @[facility] Past Drug Use History: None Reported - Past Family History Mother Family Medical History: No Reported History Medications and Allergies Home Medications Medication Instructions Recorded Confirmed Type Enalapril [Vasotec] 20 mg PO BID 08/28/13 03/28/21 History Escitalopram [Lexapro] 20 mg PO DAILY 08/28/13 03/28/21 History Levothyroxine Sodium [Levoxyl] 50 mcg PO DAILY 08/28/13 03/28/21 History Clopidogrel Bisulfate [Plavix] 75 mg PO HS 09/29/18 03/28/21 History Aspirin 81 mg PO HS 07/30/20 03/28/21 History Evolocumab [Repatha Syringe] 140 mg SQ Q14D 07/30/20 03/28/21 History Lenalidomide [Revlimid] See Taper PO AC-SUPPER 07/30/20 03/28/21 History Pantoprazole Sodium [Protonix] 40 mg PO DAILY 07/30/20 03/28/21 History buPROPion HCL [Wellbutrin XL] 150 mg PO DAILY 07/30/20 03/28/21 History Gazyva 1,000mg/40ml Iv Solution 1 dose IV Q60D 03/28/21 03/29/21 History Allergies Allergy/AdvReac Type Severity Reaction Status Date / Time No Known Allergies Allergy Verified 03/28/21 21:24 Physical Exam Vitals: Vital Signs Temp Pulse Pulse Pulse Resp BP BP 03/29/21 10:19 98.2 F 59 L 18 136/67 03/29/21 08:30 53 L 03/29/21 06:16 97.8 F 53 L 17 134/53 03/29/21 05:15 98.0 F 51 L 18 136/65 03/29/21 03:38 52 L 18 03/29/21 01:58 03/29/21 01:43 53 L 18 105/54 03/29/21 00:22 53 L 18 103/59 03/28/21 22:02 55 L 20 114/49 03/28/21 19:02 55 L 22 03/28/21 18:02 60 03/28/21 17:58 99.6 F 65 20 100/60 Pulse Ox 03/29/21 10:19 93 L 03/29/21 08:30 03/29/21 06:16 94 L 03/29/21 05:15 96 03/29/21 03:38 95 03/29/21 01:58 97 03/29/21 01:43 95 03/29/21 00:22 93 L 03/28/21 22:02 92 L 03/28/21 19:02 03/28/21 18:02 03/28/21 17:58 92 L Intake and Output 1203/29/21 03/29/21 22:59 06:59 14:59 Other: # Voids 1 # Bowel Movements 1 Weight 89.811 kg 89.811 kg GENERAL: The patient is alert and oriented x3, no acute distress. Well developed, well nourished. HEENT: Pupils are round and equally reacting to light. EOMI. No scleral icterus. No conjunctival pallor. Normocephalic, atraumatic. No pharyngeal erythema. No thyromegaly. CARDIOVASCULAR: S1 and S2 present. No murmurs, rubs, or gallops. PULMONARY: Chest is clear to auscultation, no wheezing or crackles. Bilateral bases diminished ABDOMEN: Soft, nontender, nondistended, normoactive bowel sounds. No palpable organomegaly. MUSCULOSKELETAL: No joint swelling or deformity. EXTREMITIES: No cyanosis, clubbing, or pedal edema. NEUROLOGICAL: Gross neurological examination did not reveal any focal deficits. SKIN: No rashes. Warm and dry. Results CBC & Chem 7: 03/29/21 07:16 03/29/21 07:16 Labs: Abnormal Lab Results - Last 24 Hours (Table) 03/28/21 03/28/21 03/28/21 Range/Units 20:24 20:32 20:32 RDW 15.6 H (11.5-15.5) % Lymphocytes # 0.7 L (1.0-4.8) k/uL Sodium 134 L (137-145) mmol/L Potassium 2.9 L (3.5-5.1) mmol/L Carbon Dioxide (22-30) mmol/L BUN 18 H (7-17) mg/dL Creatinine 1.28 H (0.52-1.04) mg/dL Calcium 7.7 L (8.4-10.2) mg/dL Total Protein 5.6 L (6.3-8.2) g/dL Albumin 3.4 L (3.5-5.0) g/dL Urine Appearance (Clear) Urine Protein (Negative) Urine Blood (Negative) Urine Bilirubin (Negative) Ur Leukocyte Esterase (Negative) Urine RBC (0-5) /hpf Urine WBC (0-5) /hpf Urine Bacteria (None) /hpf Hyaline Casts (0-2) /lpf Urine Mucus (None) /hpf Coronavirus (PCR) Detected A (Not Detectd) 03/28/21 03/29/21 03/29/21 Range/Units 21:30 07:16 07:16 RDW (11.5-15.5) % Lymphocytes # 0.6 L (1.0-4.8) k/uL Sodium 136 L (137-145) mmol/L Potassium (3.5-5.1) mmol/L Carbon Dioxide 21 L (22-30) mmol/L BUN 18 H (7-17) mg/dL Creatinine 1.23 H (0.52-1.04) mg/dL Calcium 8.0 L (8.4-10.2) mg/dL Total Protein (6.3-8.2) g/dL Albumin (3.5-5.0) g/dL Urine Appearance Cloudy H (Clear) Urine Protein 1+ H (Negative) Urine Blood Large H (Negative) Urine Bilirubin 1+ H (Negative) Ur Leukocyte Esterase Small H (Negative) Urine RBC >182 H (0-5) /hpf Urine WBC 29 H (0-5) /hpf Urine Bacteria Rare H (None) /hpf Hyaline Casts 50 H (0-2) /lpf Urine Mucus Occasional H (None) /hpf Coronavirus (PCR) (Not Detectd) Microbiology - Last 24 Hours (Table) 03/28/21 21:30 Urine Culture - Preliminary Urine,Voided Thrombosis Risk Factor Assmnt - Choose All That Apply Each Factor Represents 1 point: Obesity (BMI >25) Each Risk Factor Represents 2 Points: Age 61-74 years Thrombosis Risk Factor Assessment Total Risk Factor Score: 3 Thrombosis Risk Factor Assessment Level: Moderate Risk Assessment and Plan Assessment: Acute COVID-19 pneumonia Acute hypoxic respiratory failure secondary to the above Diarrhea, suspect related to covid, ruling out C. difficile colitis Severe hypokalemia, present on admission Acute renal failure secondary to diarrhea, dehydration Possible acute UTI, culture pending History of non-Hodgkin's lymphoma, follows with Dr. Felipe History of High-grade left internal carotid artery stenosis with right-sided occlusion status post LTCAR with stenting History of right internal carotid artery endarterectomy Hypertension Hyperlipidemia Gastroesophageal reflux disease Depression Plan: Continue on current medication regime ,monitoring and systemic treatment. COVID cocktail initiated. PPI for GI prophylaxis. Gentle IV fluid hydration. Ruling out C. difficile colitis. The impression and plan of care has been dictated as directed. : I performed a history and examination of this patient, discussed the same with the dictator. I agree with the dictator's note ,documented as a scribe. Any additional findings or plans will be noted.
[2021-03-29 17:21] LABS: Glucose,Whole Blood 144 mg/dL (75-99)
[2021-03-29] MEDS: INSULIN ASPART (NovoLOG) 100 UNIT/ML VIAL SQ SCH ×2 (17:35→20:55)
[2021-03-29] MEDS: ALBUTEROL HFA INHALER INHALATION SCH ×2 (17:47→21:46)
--- NOTE | 2021-03-29 19:07 | CONS ---
CONSULTATION REASON FOR CONSULT: Acute kidney injury. HISTORY OF PRESENT ILLNESS: Patient is a 71-year-old female who was admitted to the hospital with complaints of weakness. She also had some cough, decreased appetite. The patient tested positive for Covid-19 PCR. She has recently finished a course of Z-Ryan prior to admission. Patient does have previous history of non-Hodgkin's lymphoma. She denies any previous history of kidney diseases. PAST MEDICAL HISTORY: Significant for non-Hodgkin's lymphoma, hypertension, hypothyroidism, gastroesophageal reflux disease, hyperlipidemia, skin cancer, status post chemotherapy and radiation therapy for lymphoma. PAST SURGICAL HISTORY: Cholecystectomy, carotid endarterectomy, surgery for bilateral hammertoes, ear surgery, cataract surgery, colonoscopy. SOCIAL HISTORY: Negative for drug abuse or alcohol abuse. Patient is a former smoker. MEDICATIONS: Prior to admission included Vasotec, Lexapro, Levoxyl, Plavix, Revlimid, Protonix, Wellbutrin, ( ). ALLERGIES: None. REVIEW OF SYSTEMS: As per HPI. Other systems negative. EXAMINATION: Patient is comfortable, awake, not in any acute distress. Blood pressure this morning was 136/67, heart rate 59 per minute. Patient is afebrile. Examination lower extremities shows no evidence of edema. Abdomen is soft, nontender. 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 Lungs and heart are not examined. LAB: Show hemoglobin 12.1, sodium 136, potassium 3.6, BUN 18, serum creatinine 1.23. UA shows more than 182 RBCs, WBCs 29, blood large, protein 1+. Urine culture is pending. ASSESSMENT: 1. Acute kidney injury, mostly prerenal associated with decreased oral intake and underlying Covid infection. Previous creatinine has been 0.7 on 11/13/2020 and 1.0 on 02/07/2021. Will maintain patient on IV fluids. 2. Hypokalemia associated with decreased oral intake status post replacement. 3. Covid-19 infection with no abnormalities noted on chest x-ray. 4. Pyuria, rule out urinary tract infection. PLAN: Increase IV fluids. Encourage increased oral intake. Repeat labs in a.m. May continue with the RAJI inhibitors for now. Follow up on urine cultures. Thank you for this consultation. Will continue to follow the patient with you during her hospitalization. MMODL / IJN: [id number] /
[2021-03-29 19:41] LABS: Glucose,Whole Blood 136 mg/dL (75-99)
[2021-03-29] MEDS: guaiFENesin-DM 600/30MG 1 EACH TAB.ER.12H PO PRN (20:55)
[2021-03-29] MEDS: LOPERAMIDE 2 MG CAP PO PRN (20:55)
[2021-03-29] MEDS ORDERED: CLOPIDOGREL 75 MG TAB PO SCH (21:00)
[2021-03-29] MEDS ORDERED: ASPIRIN 81 MG PO SCH (21:00)
[2021-03-29] MEDS ORDERED: LENALIDOMIDE 10 MG PO SCH (23:00)
[2021-03-30] MEDS: LEVOTHYROXINE 50 MCG TAB PO SCH (05:48)
[2021-03-30 06:55] LABS: Glucose,Whole Blood 98 mg/dL (75-99)
[2021-03-30] MEDS: buPROPion XL 150 MG TAB.ER.24H PO SCH ×2 (07:19→07:20)
[2021-03-30] MEDS: ZINC SULFATE 220 MG CAP PO SCH (07:20)
[2021-03-30] MEDS: lisinopriL 20 MG TAB PO SCH (07:20)
[2021-03-30] MEDS: ESCITALOPRAM 20 MG TAB PO SCH (07:21)
[2021-03-30] MEDS: ASCORBIC ACID 500 MG TAB PO SCH (07:21)
[2021-03-30] MEDS: PANTOPRAZOLE 40 MG TABLET PO SCH (07:21)
[2021-03-30] MEDS: INSULIN ASPART (NovoLOG) 100 UNIT/ML VIAL SQ SCH ×3 (07:22→16:40)
[2021-03-30] MEDS: CHOLECALCIFEROL 25 MCG (1000 IU) TABLET PO SCH (07:51)
[2021-03-30] MEDS: LOPERAMIDE 2 MG CAP PO PRN (07:51)
[2021-03-30] MEDS: guaiFENesin-DM 600/30MG 1 EACH TAB.ER.12H PO PRN (07:55)
[2021-03-30] MEDS: DEXAMETHASONE SOD PHOSPHATE 10 MG/ML 1 ML VIAL IVP SCH (08:20)
[2021-03-30] MEDS: SODIUM CHLORIDE 0.9% 1,000 ML IV SCH (08:21)
[2021-03-30] MEDS: ALBUTEROL HFA INHALER INHALATION SCH ×3 (09:27→16:27)
[2021-03-30 10:49] LABS: ALT 20 U/L (4-34); AST 21 U/L (14-36); African American GFR (CKD) 74 (>60 ml/min/1.73 sqM); Albumin 3.4 g/dL (3.5-5.0); Albumin/Globulin Ratio 1.5; Alkaline Phosphatase 84 U/L (38-126); Anion Gap 10 mmol/L; Blood Urea Nitrogen 15 mg/dL (7-17); Calcium 8.7 mg/dL (8.4-10.2); Carbon Dioxide 24 mmol/L (22-30); Chloride 104 mmol/L (98-107); Globulin 2.3 g/dL; Glucose 129 mg/dL (74-99); Non-African American GFR(CKD) 64 (>60 ml/min/1.73 sqM); Potassium 3.2 mmol/L (3.5-5.1); Sodium 138 mmol/L (137-145); Total Bilirubin 0.4 mg/dL (0.2-1.3); Total Protein 5.7 g/dL (6.3-8.2)
[2021-03-30] MEDS: POTASSIUM CHLORIDE ER 20 MEQ TAB.ER PO SCH ×2 (11:36→12:36)
[2021-03-30 11:46] LABS: Glucose,Whole Blood 148 mg/dL (75-99)
[2021-03-30 14:45] VITALS: PULSE 57
[2021-03-30 15:20] VITALS: BP 106/63; RESP 16; TEMP 98.3
[2021-03-30 16:36] LABS: Glucose,Whole Blood 114 mg/dL (75-99)
--- NOTE | 2021-03-30 20:17 | PN ---
PROGRESS NOTE Patient is seen for followup for acute kidney injury. She is currently feeling quite well and is planning to go home. Her creatinine has improved to 0.9. No significant complaints today. Vital signs are reviewed. PHYSICAL EXAMINATION: Blood pressure 106/63, heart rate 57 per minute. She is afebrile. The patient appears euvolemic. Heart and lungs are not examined. 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 LAB: Show serum potassium 3.9 later on today. Earlier it was 3.2 this morning and serum creatinine 0.9, sodium 138. ASSESSMENT: 1. Acute kidney injury prerenal currently improved. 2. Hypokalemia status post replacement. 3. Covid infection with nausea and increased weakness, now improved. PLAN: Okay to discharge patient. Repeat labs as outpatient in 4-5 days. MMODL / IJN: [id number] /
--- NOTE | 2021-04-01 17:45 | P.DS ---
Providers Date of admission: 03/28/21 23:26 Expected date of discharge: 03/30/21 Attending physician: Luis Cai Consults: 03/28/21 22:34 Consult Physician Routine Consulting Provider: Shahnaz eYpez Consult Reason/Comments: bibi Do you want consulting provider notified?: Yes, Notify in am Primary care physician: Luis Cai [place] [facility] Course: Final Diagnoses: Acute COVID-19 pneumonia Acute hypoxic respiratory failure secondary to the above Diarrhea, suspect related to covid, C. difficile colitis ruled out, improved. Severe hypokalemia, present on admission, resolved Acute renal failure secondary to diarrhea, dehydration, resolved Possible acute UTI, culture reported no growth after 18 hours History of non-Hodgkin's lymphoma, follows with Dr. Felipe History of High-grade left internal carotid artery stenosis with right-sided occlusion status post LTCAR with stenting History of right internal carotid artery endarterectomy Hypertension Hyperlipidemia Gastroesophageal reflux disease Depression Hospital course:This is a 71-year-old female with past medical history of non- Hodgkin's lymphoma, hypertension, recent TLCAR, presented to the ER with complaints of increasing weakness, fatigue, nonproductive cough, diarrhea accompanied by fever, decreased oral intake, in a patient vaccinated. Previously evaluated by PCP, prescribed Z-Ryan, which she completed the day prior to admission. Patient continued to decline and proceeded to the ER.Patient tested positive for coronavirus. BUN 18, creatinine 1.28, potassium 2.9. Denies chest pain, palpitations. Afebrile, T-max 99.6, WBC within normal limits. UA reported 50 hyaline casts, rare bacteria 29 wbc's, small leukocytes negative nitrates, urine culture pending. Maintained on COVID cocktail, gentle IV fluid hydration, electrolyte replacements with significant clinical improvement. Patient will be discharged home today in a stable condition with guarded prognosis. Denies chest pain, palpitations or increased shortness of breath. Vital signs stable, maintaining O2 sats in the 90s on room air. The impression and plan of care has been dictated as directed. : I performed a history and examination of this patient, discussed the same with the dictator. I agree with the dictator's note ,documented as a scribe. Any additional findings or plans will be noted. Patient Condition at Discharge: Stable Plan - Discharge Summary Discharge Rx Participant: No New Discharge Prescriptions: New guaiFENesin-DM 600/30MG [Mucinex Dm] 1 each PO Q12HR PRN tablet PRN Reason: Cough Zinc Sulfate [Orazinc] 220 mg PO DAILY #30 cap Ascorbic Acid [Vitamin C] 500 mg PO BID tab Cholecalciferol [Vitamin D3 (25 Mcg = 1000 Iu)] 25 mcg PO DAILY tablet dexAMETHasone ORAL [Hexadrol] 6 mg PO DAILY 8 Days #24 tablet Loperamide [Imodium] 2 mg PO QID PRN cap PRN Reason: Diarrhea Continue Levothyroxine Sodium [Levoxyl] 50 mcg PO DAILY Enalapril [Vasotec] 20 mg PO BID Escitalopram [Lexapro] 20 mg PO DAILY Clopidogrel Bisulfate [Plavix] 75 mg PO HS Evolocumab [Repatha Syringe] 140 mg SQ Q14D Gazyva 1,000mg/40ml Iv Solution 1 dose IV Q60D Aspirin 81 mg PO HS buPROPion HCL [Wellbutrin XL] 150 mg PO DAILY Pantoprazole Sodium [Protonix] 40 mg PO DAILY Lenalidomide [Revlimid] See Taper PO AC-SUPPER Discharge Medication List Enalapril [Vasotec] 20 mg PO BID 08/28/13 [History] Escitalopram [Lexapro] 20 mg PO DAILY 08/28/13 [History] Levothyroxine Sodium [Levoxyl] 50 mcg PO DAILY 08/28/13 [History] Clopidogrel Bisulfate [Plavix] 75 mg PO HS 09/29/18 [History] Aspirin 81 mg PO HS 07/30/20 [History] Evolocumab [Repatha Syringe] 140 mg SQ Q14D 07/30/20 [History] Lenalidomide [Revlimid] See Taper PO AC-SUPPER 07/30/20 [History] Pantoprazole Sodium [Protonix] 40 mg PO DAILY 07/30/20 [History] buPROPion HCL [Wellbutrin XL] 150 mg PO DAILY 07/30/20 [History] Gazyva 1,000mg/40ml Iv Solution 1 dose IV Q60D 03/28/21 [History] Ascorbic Acid [Vitamin C] 500 mg PO BID tab 03/30/21 [Rx] Cholecalciferol [Vitamin D3 (25 Mcg = 1000 Iu)] 25 mcg PO DAILY tablet 03/30/21 [Rx] Loperamide [Imodium] 2 mg PO QID PRN cap 03/30/21 [Rx] Zinc Sulfate [Orazinc] 220 mg PO DAILY #30 cap 03/30/21 [Rx] dexAMETHasone ORAL [Hexadrol] 6 mg PO DAILY 8 Days #24 tablet 03/30/21 [Rx] guaiFENesin-DM 600/30MG [Mucinex Dm] 1 each PO Q12HR PRN tablet 03/30/21 [Rx] Follow up Appointment(s)/Referral(s): Luis Cai DO [Primary Care Provider] - 04/13/21 10:20 am Ambulatory/Diagnostic Orders: Basic Metabolic Panel [LAB.AMB] Time Frame: 3 Days, Location: None Selected Patient Instructions/Handouts: Coronavirus Disease 2019 (COVID-19), Acute Kidney Injury (DC), Hypokalemia (DC) Activity/Diet/Wound Care/Special Instructions: Complete quarantine as advised Discharge Disposition: HOME SELF-CARE
== END 2021-03-30 17:29 | disposition home or self-care (01) ==
LOC: EC 17:06 → 6NMEDSUR 23:26 → 4SSUR 03-29 00:50
PROVIDERS: ADMIT Family Medicine; ATTEND Family Medicine
DX: U07.1 COVID-19 (principal); J12.82 Pneumonia due to coronavirus disease 2019; J96.01 Acute respiratory failure with hypoxia; E87.6 Hypokalemia; N17.9 Acute kidney failure, unspecified; I65.23 Occlusion and stenosis of bilateral carotid arteries; I10 Essential (primary) hypertension; E86.0 Dehydration; I65.22 Occlusion and stenosis of left carotid artery; E03.9 Hypothyroidism, unspecified; K21.9 Gastro-esophageal reflux disease without esophagitis; E78.5 Hyperlipidemia, unspecified; F32.A Depression, unspecified; L40.9 Psoriasis, unspecified; R19.7 Diarrhea, unspecified; R11.0 Nausea; R51.9 Headache, unspecified; R63.0 Anorexia; R63.8 Other symptoms and signs concerning food and fluid intake; R82.81 Pyuria; E66.9 Obesity, unspecified; Z68.34 Body mass index [BMI] 34.0-34.9, adult; Z79.890 Hormone replacement therapy; Z79.02 Long term (current) use of antithrombotics/antiplatelets; Z79.82 Long term (current) use of aspirin; Z79.899 Other long term (current) drug therapy; Z85.72 Personal history of non-Hodgkin lymphomas; Z95.1 Presence of aortocoronary bypass graft; Z92.3 Personal history of irradiation; Z92.21 Personal history of antineoplastic chemotherapy; Z85.828 Personal history of other malignant neoplasm of skin; Z90.49 Acquired absence of other specified parts of digestive tract; Z98.49 Cataract extraction status, unspecified eye; Z98.890 Other specified postprocedural states; Z87.891 Personal history of nicotine dependence; Z95.828 Presence of other vascular implants and grafts
CPT/HCPCS: 96376; 96361 ×2; 96366 ×2; 96375 ×2; 96365; 99285; 36415; 94640 ×3; 93005; 85379; 80053 ×2; 80048; 83605; 83735 ×2; 84132; 84484; 85025 ×2; 85610; 85730; 81001; 87324; 87086; 87635; 71046; G0378 ×3; J1100 ×2; J2405; J3480 ×2

== ENCOUNTER 2021-04-13 11:57 | Emergency (ER) | payer MEDICARE, OTHER ==
[2021-04-13 12:27] VITALS: RESP 18
[2021-04-13] MEDS ORDERED: IBUPROFEN 600 MG TAB PO STA (13:18)
[2021-04-13] MEDS ORDERED: SODIUM CHLORIDE 0.9% 1,000 ML IV STA (13:18)
[2021-04-13] MEDS ORDERED: ACETAMINOPHEN TAB 500 MG TAB PO STA (13:18)
--- NOTE | 2021-04-13 13:20 | ED ---
General Adult HPI - General Chief complaint: Recheck/Abnormal Lab/Rx Stated complaint: Covid+, physician sent Time Seen by Provider: 04/13/21 12:45 Source: patient Mode of arrival: wheelchair Limitations: no limitations - History of Present Illness Initial comments: 71-year-old female with a past medical history of non-Hodgkin's lymphoma, GERD, hyperlipidemia, hypertension presents to the emergency room for a chief complaint of weakness. Patient states she has had covid for about 2-3 weeks now. She tested positive about 9 days ago and had antibody infusion. Patient states she is becoming weak. States she feels lightheaded at times. Denies ches t pain or syncope. Patient states her doctor wanted her to be evaluated for weakness. She has slight shortness of breath. Patient has no other complaints at this time including shortness of breath, chest pain, abdominal pain, nausea or vomiting, headache, or visual changes. - Related Data Home Medications Medication Instructions Recorded Confirmed Enalapril [Vasotec] 20 mg PO BID 08/28/13 03/28/21 Escitalopram [Lexapro] 20 mg PO DAILY 08/28/13 03/28/21 Levothyroxine Sodium [Levoxyl] 50 mcg PO DAILY 08/28/13 03/28/21 Clopidogrel Bisulfate [Plavix] 75 mg PO HS 09/29/18 03/28/21 Aspirin 81 mg PO HS 07/30/20 03/28/21 Evolocumab [Repatha Syringe] 140 mg SQ Q14D 07/30/20 03/28/21 Lenalidomide [Revlimid] See Taper PO AC-SUPPER 07/30/20 03/28/21 Pantoprazole Sodium [Protonix] 40 mg PO DAILY 07/30/20 03/28/21 buPROPion HCL [Wellbutrin XL] 150 mg PO DAILY 07/30/20 03/28/21 Gazyva 1,000mg/40ml Iv Solution 1 dose IV Q60D 03/28/21 03/29/21 Previous Rx's Medication Instructions Recorded Ascorbic Acid [Vitamin C] 500 mg PO BID tab 03/30/21 Cholecalciferol [Vitamin D3 (25 25 mcg PO DAILY tablet 03/30/21 Mcg = 1000 Iu)] Loperamide [Imodium] 2 mg PO QID PRN cap 03/30/21 Zinc Sulfate [Orazinc] 220 mg PO DAILY #30 cap 03/30/21 dexAMETHasone ORAL [Hexadrol] 6 mg PO DAILY 8 Days #24 tablet 03/30/21 guaiFENesin-DM 600/30MG [Mucinex 1 each PO Q12HR PRN tablet 03/30/21 Dm] Doxycycline [Vibramycin] 100 mg PO BID 10 Days #20 capsule 04/13/21 Allergies Allergy/AdvReac Type Severity Reaction Status Date / Time No Known Allergies Allergy Verified 04/13/21 12:24 Review of Systems ROS Statement: Those systems with pertinent positive or pertinent negative responses have been documented in the HPI. ROS Other: All systems not noted in ROS Statement are negative. Past Medical History Past Medical History: Cancer, GERD/Reflux, Hyperlipidemia, Hypertension, Thyroid Disorder Additional Past Medical History / Comment(s): skin cancer, nonhodgkins lymphoma 2007-radiation & chemo, VERY WATERY BOWEL MOVEMENT NUMEROUS TIMES DAILY for past year, psoriasis History of Any Multi-Drug Resistant Organisms: None Reported Past Surgical History: Cholecystectomy, Ear Surgery, Orthopedic Surgery Additional Past Surgical History / Comment(s): BILAT carotid endarterectomy, ho hammer toes, ho bunionectomies, ear surg. for hearing, CTS right wrist, catarac ts removed & then lasering on left eye, precancerous cells from labia area, COLONOSCOPY Past Anesthesia/Blood Transfusion Reactions: No Reported Reaction Past Psychological History: Depression Smoking Status: Former smoker Past Alcohol Use History: None Reported Past Drug Use History: None Reported - Past Family History Mother Family Medical History: No Reported History General Exam Limitations: no limitations General appearance: alert, in no apparent distress Head exam: Present: atraumatic Eye exam: Present: normal appearance, PERRL, EOMI. Absent: scleral icterus, conjunctival injection, nystagmus ENT exam: Present: normal exam, mucous membranes moist Neck exam: Present: normal inspection, full ROM. Absent: tenderness Respiratory exam: Present: normal lung sounds bilaterally. Absent: respiratory distress, wheezes Cardiovascular Exam: Present: regular rate, normal rhythm, normal heart sounds GI/Abdominal exam: Present: soft, normal bowel sounds. Absent: distended, tenderness Neurological exam: Present: alert Course Vital Signs 04/13/21 04/13/21 12:24 15:00 Temperature 102.8 F H 99.2 F Pulse Rate 68 63 Respiratory 18 18 Rate Blood Pressure 138/92 155/67 O2 Sat by Pulse 93 L 91 L Oximetry Medical Decision Making - Medical Decision Making Vitals are stable. Patient does p present febrile. EKG shows a slightly prolonged QT of 520 QTc. CBC and CMP are unremarkable. Urinalysis does show greater than 182 red blood cells, patient has not noticed any blood in her urine. She will need to follow-up for this as well. CBC and CMP are unremarkable. Chest x-ray does show scattered vague interstitial infiltrate suspicious for pneumonia. Given patient has had symptoms of COVID-19 for over 2 weeks and just started developing fevers we will start treating her with an antibiotic. We will treat with doxycycline given we do not want to prolong the QT interval more. I discussed what she is to follow-up with her primary care doctor for. She will return here for any worsening symptoms. - Lab Data Result diagrams: 04/13/21 13:27 04/13/21 13:27 Lab Results 04/13/21 04/13/21 04/13/21 Range/Units 13:27 13:27 13:27 WBC 6.4 (3.8-10.6) k/uL RBC 4.15 (3.80-5.40) m/uL Hgb 12.0 (11.4-16.0) gm/dL Hct 35.7 (34.0-46.0) % MCV 86.2 (80.0-100.0) fL MCH 28.9 (25.0-35.0) pg MCHC 33.6 (31.0-37.0) g/dL RDW 15.6 H (11.5-15.5) % Plt Count 257 (150-450) k/uL MPV 7.5 Neutrophils % 76 % Lymphocytes % 11 % Monocytes % 5 % Eosinophils % 4 % Basophils % 1 % Neutrophils # 4.9 (1.3-7.7) k/uL Lymphocytes # 0.7 L (1.0-4.8) k/uL Monocytes # 0.3 (0-1.0) k/uL Eosinophils # 0.2 (0-0.7) k/uL Basophils # 0.1 (0-0.2) k/uL Poikilocytosis Slight PT 10.5 (9.0-12.0) sec INR 1.0 (<1.2) APTT 25.0 (22.0-30.0) sec Sodium (137-145) mmol/L Potassium (3.5-5.1) mmol/L Chloride (98-107) mmol/L Carbon Dioxide (22-30) mmol/L Anion Gap mmol/L BUN (7-17) mg/dL Creatinine (0.52-1.04) mg/dL Est GFR (CKD-EPI)AfAm (>60 ml/min/1.73 sqM) Est GFR (CKD-EPI)NonAf (>60 ml/min/1.73 sqM) Glucose (74-99) mg/dL Calcium (8.4-10.2) mg/dL Magnesium (1.6-2.3) mg/dL Total Bilirubin (0.2-1.3) mg/dL AST (14-36) U/L ALT (4-34) U/L Alkaline Phosphatase (38-126) U/L Total Protein (6.3-8.2) g/dL Albumin (3.5-5.0) g/dL Urine Color Yellow Urine Appearance Clear (Clear) Urine pH 6.0 (5.0-8.0) Ur Specific Goodwin 1.015 (1.001-1.035) Urine Protein Trace H (Negative) Urine Glucose (UA) Negative (Negative) Urine Ketones Negative (Negative) Urine Blood Large H (Negative) Urine Nitrite Negative (Negative) Urine Bilirubin Negative (Negative) Urine Urobilinogen <2.0 (<2.0) mg/dL Ur Leukocyte Esterase Negative (Negative) Urine RBC >182 H (0-5) /hpf Urine WBC 2 (0-5) /hpf Ur Squamous Epith Cells <1 (0-4) /hpf Urine Mucus Rare H (None) /hpf 04/13/21 Range/Units 13:27 WBC (3.8-10.6) k/uL RBC (3.80-5.40) m/uL Hgb (11.4-16.0) gm/dL Hct (34.0-46.0) % MCV (80.0-100.0) fL MCH (25.0-35.0) pg MCHC (31.0-37.0) g/dL RDW (11.5-15.5) % Plt Count (150-450) k/uL MPV Neutrophils % % Lymphocytes % % Monocytes % % Eosinophils % % Basophils % % Neutrophils # (1.3-7.7) k/uL Lymphocytes # (1.0-4.8) k/uL Monocytes # (0-1.0) k/uL Eosinophils # (0-0.7) k/uL Basophils # (0-0.2) k/uL Poikilocytosis PT (9.0-12.0) sec INR (<1.2) APTT (22.0-30.0) sec Sodium 131 L (137-145) mmol/L Potassium 3.1 L (3.5-5.1) mmol/L Chloride 90 L (98-107) mmol/L Carbon Dioxide 33 H (22-30) mmol/L Anion Gap 8 mmol/L BUN 10 (7-17) mg/dL Creatinine 0.83 (0.52-1.04) mg/dL Est GFR (CKD-EPI)AfAm 82 (>60 ml/min/1.73 sqM) Est GFR (CKD-EPI)NonAf 71 (>60 ml/min/1.73 sqM) Glucose 94 (74-99) mg/dL Calcium 8.1 L (8.4-10.2) mg/dL Magnesium 2.1 (1.6-2.3) mg/dL Total Bilirubin 0.6 (0.2-1.3) mg/dL AST 23 (14-36) U/L ALT 32 (4-34) U/L Alkaline Phosphatase 85 (38-126) U/L Total Protein 5.5 L (6.3-8.2) g/dL Albumin 3.3 L (3.5-5.0) g/dL Urine Color Urine Appearance (Clear) Urine pH (5.0-8.0) Ur Specific Goodwin (1.001-1.035) Urine Protein (Negative) Urine Glucose (UA) (Negative) Urine Ketones (Negative) Urine Blood (Negative) Urine Nitrite (Negative) Urine Bilirubin (Negative) Urine Urobilinogen (<2.0) mg/dL Ur Leukocyte Esterase (Negative) Urine RBC (0-5) /hpf Urine WBC (0-5) /hpf Ur Squamous Epith Cells (0-4) /hpf Urine Mucus (None) /hpf Disposition Clinical Impression: Hematuria, COVID-19, Weakness, Pneumonia, Prolonged QT interval Disposition: HOME SELF-CARE Condition: Good Instructions (If sedation given, give patient instructions): Coronavirus Disease 2019 (COVID-19) Additional Instructions: Please take antibiotics as directed. Follow up with your doctor to go over results in this next week. Return to the emergency room for any worsening symptoms. Prescriptions: Doxycycline [Vibramycin] 100 mg PO BID 10 Days #20 capsule Is patient prescribed a controlled substance at d/c from ED?: No Referrals: Luis Cai DO [Primary Care Provider] - 1-2 days Time of Disposition: 16:21
[2021-04-13 13:45] LABS: Basophils # (A) 0.1 k/uL (0-0.2); Basophils % (A) 1 %; Eosinophils # (A) 0.2 k/uL (0-0.7); Eosinophils % (A) 4 %; HCT 35.7 % (34.0-46.0); Lymphocytes # (A) 0.7 k/uL (1.0-4.8); Lymphocytes % (A) 11 %; MCH 28.9 pg (25.0-35.0); MCHC 33.6 g/dL (31.0-37.0); MCV 86.2 fL (80.0-100.0); Mean Platelet Volume 7.5; Monocytes # (A) 0.3 k/uL (0-1.0); Monocytes % (A) 5 %; Neutrophils # (A) 4.9 k/uL (1.3-7.7); Neutrophils % (A) 76 %; Platelet Count 257 k/uL (150-450); Poikilocytosis Slight; RBC 4.15 m/uL (3.80-5.40); RDW 15.6 % (11.5-15.5); WBC 6.4 k/uL (3.8-10.6)
[2021-04-13 13:53] LABS: Prothrombin Time 10.5 sec (9.0-12.0)
[2021-04-13 13:58] LABS: Appearance,Urine Clear (Clear); Bilirubin,Urine Negative (Negative); Blood,Urine Large (Negative); Color,Urine Yellow; Glucose,Urine (UA) Negative (Negative); Ketones,Urine Negative (Negative); Leukocyte Esterase,Urine Negative (Negative); Mucus,Urine Rare /hpf; Nitrite,Urine Negative (Negative); Protein,Urine Trace (Negative); RBC,Urine >182 /hpf (0-5); Specific Gravity,Urine 1.015 (1.001-1.035); Squamous Epithelial Cell,Urine <1 /hpf (0-4); Urobilinogen,Urine <2.0 mg/dL (<2.0); WBC,Urine 2 /hpf (0-5)
[2021-04-13 14:10] LABS: Albumin 3.3 g/dL (3.5-5.0); Calcium 8.1 mg/dL (8.4-10.2); Magnesium 2.1 mg/dL (1.6-2.3); Potassium 3.1 mmol/L (3.5-5.1); Total Bilirubin 0.6 mg/dL (0.2-1.3); Total Protein 5.5 g/dL (6.3-8.2)
--- NOTE | 2021-04-13 14:54 | XR ---
EXAMINATION TYPE: XR chest 2V DATE OF EXAM: 04/13/2021 COMPARISON: 03/28/2021 HISTORY: Shortness of breath TECHNIQUE: Frontal and lateral views of the chest are obtained. FINDINGS: Scattered senescent parenchymal changes noted. Hyperinflation compatible with COPD. Scattered vague interstitial infiltrates suspicious for pneumonia. Heart size is stable. Mediastinal structures are stable and grossly unremarkable. No evidence for hilar prominence. Degenerative changes dorsal spine. IMPRESSION: 1. Scattered vague interstitial infiltrates suspicious for pneumonia.
[2021-04-13 15:06] VITALS: BP 155/67; PULSE 63; TEMP 99.2
[2021-04-13] MEDS ORDERED: cefTRIAXone IN SWFI 1,000 MG/10 ML SYRINGE IVP STA (16:21)
== END 2021-04-13 16:41 | disposition home or self-care (01) ==
LOC: EC 11:57
DX: U07.1 COVID-19 (principal); J12.82 Pneumonia due to coronavirus disease 2019; R94.31 Abnormal electrocardiogram [ECG] [EKG]; R31.9 Hematuria, unspecified; I10 Essential (primary) hypertension; E78.5 Hyperlipidemia, unspecified; K21.9 Gastro-esophageal reflux disease without esophagitis; F32.A Depression, unspecified; Z87.891 Personal history of nicotine dependence; Z79.890 Hormone replacement therapy; Z79.82 Long term (current) use of aspirin; Z79.899 Other long term (current) drug therapy
CPT/HCPCS: 36415; 93005; 80053; 83735; 85025; 85610; 85730; 81001; 71046; 99285; 96374; 96361; J0696

== ENCOUNTER 2021-04-19 13:24 | Inpatient (IN) | payer MEDICARE, OTHER ==
--- NOTE | 2021-04-19 14:11 | ED ---
General Adult HPI - General Chief complaint: Shortness of Breath Stated complaint: CHANCE, covid+ Time Seen by Provider: 04/19/21 13:28 Source: patient Mode of arrival: ambulatory Limitations: no limitations - History of Present Illness Initial comments: Dictation was produced using [employer] dictation software. please excuse any grammatical, word or spelling errors. Chief Complaint: Patient is 71-year-old female she is here today for shortness of breath History of Present Illness: Patient 71-year-old female she has multiple comorbidities per she is brought in by EMS from home. She lives at home by herself. Patient states that she was diagnosed with COVID-19 one month ago. States that she was admitted for a short time discharged home. Patient was admitted on March 28 of last month. She was in the hospital for 2 days disch arged to home. She been home recovering however he is full short of breath prompted her to come to the emergency department today. States that she just feels like she can't catch her breath. According to EMS patient had low oxygen. When patient was discharged last month she was not given oxygen to go home with. States that she still feels weak. The ROS documented in this emergency department record has been reviewed and confirmed by me. Those systems with pertinent positive or negative responses have been documented in the HPI. All other systems are other negative and/or noncontributory. PHYSICAL EXAM: General Impression: Alert and oriented x3, not in acute distress HEENT: Normocephalic atraumatic, extra-ocular movements intact, pupils equal and reactive to light bilaterally, mucous membranes moist. Cardiovascular: Heart regular rate and rhythm Chest: Able to complete full sentences, no retractions, no tachypnea Abdomen: abdomen soft, non-tender, non-distended, no organomegaly Musculoskeletal: Pulses present and equal in all extremities, no peripheral edema Motor: no focal deficits noted Neurological: CN II-XII grossly intact, no focal motor or sensory deficits noted Skin: Intact with no visualized rashes Psych: Normal affect and mood ED course: 71-year-old well-appearing female presents emergency department for shortness of breath. She was allegedly hypoxic per EMS. Vital signs upon arrival shows 90% on room air. She was witnessed to have oxygen sat would drop into the mid to high 80s on room air.. Patient placed on 2 L is cannula with significant improvement of her oxygenation.Chart review shows that patient was here on April 13 at the time she had stable vital signs perhaps a prolonged QT. She was febrile discharged with antibiotics. EKG interpretation: Ventricular rate 65, normal sinus rhythm, LA interval 180, QRS 80, QTC 495. No LA prolongation, no QTC prolongation, no ST or T-wave changes noted. EKG compared to April 13, 2021 showing no changes. Overall, this EKG is unremarkable After evaluation obtained. CBC unremarkable. D-dimer 0.78 area patient coronavirus positive. Brain natruretic peptide is 381. Chest x-ray shows rec ently bilateral multifocal opacities. Given patient's degree of hypoxia we will have patient admitted to the hospital with consultation to pulmonology. Patient given 10 mg of IV Decadron. Sodium of 126, potassium 2.8. No Acidosis. Calcium is 8.1. Patient given supplemental potassium parenterally and IV fluids. Patient admitted to Dr. Luis Cai. - Related Data Home Medications Medication Instructions Recorded Confirmed Enalapril [Vasotec] 20 mg PO BID 08/28/13 04/19/21 Escitalopram [Lexapro] 20 mg PO DAILY 08/28/13 04/19/21 Levothyroxine Sodium [Levoxyl] 50 mcg PO DAILY 08/28/13 04/19/21 Clopidogrel Bisulfate [Plavix] 75 mg PO HS 09/29/18 04/19/21 Aspirin 81 mg PO HS 07/30/20 04/19/21 Evolocumab [Repatha Syringe] 140 mg SQ Q14D 07/30/20 04/19/21 Lenalidomide [Revlimid] See Taper PO AC-SUPPER 07/30/20 04/19/21 Pantoprazole Sodium [Protonix] 40 mg PO DAILY 07/30/20 04/19/21 buPROPion HCL [Wellbutrin XL] 150 mg PO DAILY 07/30/20 04/19/21 Gazyva 1,000mg/40ml Iv Solution 1 dose IV Q60D 03/28/21 04/19/21 guaiFENesin-DM 600/30MG [Mucinex 1 tab PO Q12HR PRN 04/19/21 04/19/21 Dm] Previous Rx's Medication Instructions Recorded Ascorbic Acid [Vitamin C] 500 mg PO BID tab 03/30/21 Cholecalciferol [Vitamin D3 (25 25 mcg PO DAILY tablet 03/30/21 Mcg = 1000 Iu)] Loperamide [Imodium] 2 mg PO QID PRN cap 03/30/21 Zinc Sulfate [Orazinc] 220 mg PO DAILY #30 cap 03/30/21 dexAMETHasone ORAL [Hexadrol] 6 mg PO DAILY 8 Days #24 tablet 03/30/21 Doxycycline [Vibramycin] 100 mg PO BID 10 Days #20 capsule 04/13/21 Allergies Allergy/AdvReac Type Severity Reaction Status Date / Time No Known Allergies Allergy Verified 04/19/21 15:42 Review of Systems ROS Statement: Those systems with pertinent positive or pertinent negative responses have been documented in the HPI. ROS Other: All systems not noted in ROS Statement are negative. Past Medical History Past Medical History: Cancer, GERD/Reflux, Hyperlipidemia, Hypertension, Thyroid Disorder Additional Past Medical History / Comment(s): skin cancer, nonhodgkins lymphoma 2008-radiation & chemo, VERY WATERY BOWEL MOVEMENT NUMEROUS TIMES DAILY for past year, psoriasis History of Any Multi-Drug Resistant Organisms: None Reported Past Surgical History: Cholecystectomy, Ear Surgery, Orthopedic Surgery Additional Past Surgical History / Comment(s): BILAT carotid endarterectomy, ho hammer toes, ho bunionectomies, ear surg. for hearing, CTS right wrist, cataracts removed & then lasering on left eye, precancerous cells from labia area, COLONOSCOPY Past Anesthesia/Blood Transfusion Reactions: No Reported Reaction Past Psychological History: Depression Smoking Status: Former smoker Past Alcohol Use History: None Reported Past Drug Use History: None Reported - Past Family History Mother Family Medical History: No Reported History General Exam Limitations: no limitations Course Vital Signs 04/19/21 04/19/21 13:29 16:53 Pulse Rate 66 67 Respiratory 18 20 Rate Blood Pressure 179/85 111/82 O2 Sat by Pulse 90 L 95 Oximetry Medical Decision Making - Lab Data Result diagrams: 04/19/21 15:43 04/19/21 15:43 Lab Results 04/19/21 04/19/21 04/19/21 Range/Units 14:01 15:43 15:43 WBC 5.0 (3.8-10.6) k/uL RBC 4.05 (3.80-5.40) m/uL Hgb 11.8 (11.4-16.0) gm/dL Hct 34.1 (34.0-46.0) % MCV 84.3 (80.0-100.0) fL MCH 29.1 (25.0-35.0) pg MCHC 34.5 (31.0-37.0) g/dL RDW 15.5 (11.5-15.5) % Plt Count 253 (150-450) k/uL MPV 7.6 Neutrophils % 85 % Lymphocytes % 5 % Monocytes % 7 % Eosinophils % 1 % Basophils % 0 % Neutrophils # 4.3 (1.3-7.7) k/uL Lymphocytes # 0.3 L (1.0-4.8) k/uL Monocytes # 0.3 (0-1.0) k/uL Eosinophils # 0.0 (0-0.7) k/uL Basophils # 0.0 (0-0.2) k/uL D-Dimer (<0.60) mg/L FEU Sodium 126 L (137-145) mmol/L Potassium 2.8 L (3.5-5.1) mmol/L Chloride 85 L (98-107) mmol/L Carbon Dioxide 30 (22-30) mmol/L Anion Gap 11 mmol/L BUN 14 (7-17) mg/dL Creatinine 0.79 (0.52-1.04) mg/dL Est GFR (CKD-EPI)AfAm 87 (>60 ml/min/1.73 sqM) Est GFR (CKD-EPI)NonAf 76 (>60 ml/min/1.73 sqM) Glucose 80 (74-99) mg/dL Calcium 8.1 L (8.4-10.2) mg/dL Magnesium 2.1 (1.6-2.3) mg/dL Troponin I (0.000-0.034) ng/mL NT-Pro-B Natriuret Pep pg/mL Coronavirus (PCR) Detected A (Not Detectd) 04/19/21 04/19/21 04/19/21 Range/Units 15:43 15:43 15:43 WBC (3.8-10.6) k/uL RBC (3.80-5.40) m/uL Hgb (11.4-16.0) gm/dL Hct (34.0-46.0) % MCV (80.0-100.0) fL MCH (25.0-35.0) pg MCHC (31.0-37.0) g/dL RDW (11.5-15.5) % Plt Count (150-450) k/uL MPV Neutrophils % % Lymphocytes % % Monocytes % % Eosinophils % % Basophils % % Neutrophils # (1.3-7.7) k/uL Lymphocytes # (1.0-4.8) k/uL Monocytes # (0-1.0) k/uL Eosinophils # (0-0.7) k/uL Basophils # (0-0.2) k/uL D-Dimer 0.78 H (<0.60) mg/L FEU Sodium (137-145) mmol/L Potassium (3.5-5.1) mmol/L Chloride (98-107) mmol/L Carbon Dioxide (22-30) mmol/L Anion Gap mmol/L BUN (7-17) mg/dL Creatinine (0.52-1.04) mg/dL Est GFR (CKD-EPI)AfAm (>60 ml/min/1.73 sqM) Est GFR (CKD-EPI)NonAf (>60 ml/min/1.73 sqM) Glucose (74-99) mg/dL Calcium (8.4-10.2) mg/dL Magnesium (1.6-2.3) mg/dL Troponin I <0.012 (0.000-0.034) ng/mL NT-Pro-B Natriuret Pep 381 pg/mL Coronavirus (PCR) (Not Detectd) Disposition Clinical Impression: COVID-19, Hyponatremia Disposition: ADMITTED IP TO THIS HOSP Condition: Fair
--- NOTE | 2021-04-19 15:31 | XR ---
EXAMINATION TYPE: XR chest 1V portable DATE OF EXAM: 04/19/2021 COMPARISON: Chest x-ray April 13, 2021 HISTORY: CHANCE. COVID positive. History of non-Hodgkin's lymphoma. TECHNIQUE: Single AP portable frontal upright view of the chest is obtained. FINDINGS: The osseous structures are demineralized. Stable left internal jugular Mediport catheter. Heart size upper limits of normal. Low lung volume and chronic parenchymal changes with bilateral mul tifocal increased opacities more prominent from prior. No pleural effusion or pneumothorax seen bilat erally. Cholecystectomy clips are redemonstrated. IMPRESSION: Worsening bilateral multifocal opacities consistent with covid-19 infection progression.
[2021-04-19 16:01] LABS: Basophils % (A) 0 %; Eosinophils % (A) 1 %; HCT 34.1 % (34.0-46.0); HGB 11.8 gm/dL (11.4-16.0); Lymphocytes # (A) 0.3 k/uL (1.0-4.8); Lymphocytes % (A) 5 %; MCH 29.1 pg (25.0-35.0); MCHC 34.5 g/dL (31.0-37.0); MCV 84.3 fL (80.0-100.0); Mean Platelet Volume 7.6; Monocytes # (A) 0.3 k/uL (0-1.0); Monocytes % (A) 7 %; Neutrophils # (A) 4.3 k/uL (1.3-7.7); Neutrophils % (A) 85 %; Platelet Count 253 k/uL (150-450); RBC 4.05 m/uL (3.80-5.40); RDW 15.5 % (11.5-15.5)
[2021-04-19] MEDS ORDERED: DEXAMETHASONE SOD PHOSPHATE 10 MG/ML 1 ML VIAL IV STA (16:15)
[2021-04-19] MEDS ORDERED: NALOXONE 0.4 MG/ML 1 ML VIAL IV PRN (16:59)
[2021-04-19 17:07] LABS: Calcium 8.1 mg/dL (8.4-10.2); Magnesium 2.1 mg/dL (1.6-2.3); Potassium 2.8 mmol/L (3.5-5.1)
[2021-04-19] MEDS ORDERED: POTASSIUM CHLORIDE ER 20 MEQ TAB.ER PO STA (17:23)
[2021-04-19] MEDS ORDERED: SODIUM CHLORIDE 0.9% 1,000 ML IV STA (17:23)
[2021-04-19] MEDS: SODIUM CHLORIDE 0.9% 1,000 ML IV SCH (19:35)
[2021-04-19] MEDS: POTASSIUM CHLORIDE 20 MEQ in WATER FOR INJECTION 1 100ML.BAG IVPB SCH ×2 (19:37→22:00)
[2021-04-20] MEDS: ZINC SULFATE 220 MG CAP PO SCH (08:57)
[2021-04-20] MEDS: ENOXAPARIN 40 MG/0.4 ML SYRINGE SQ SCH (08:57)
[2021-04-20] MEDS: ASCORBIC ACID 500 MG TAB PO SCH (08:57)
[2021-04-20] MEDS: CHOLECALCIFEROL 25 MCG (1000 IU) TABLET PO SCH (08:57)
[2021-04-20] MEDS: dexAMETHasone 2 MG TAB PO SCH (08:57)
[2021-04-20] MEDS: SODIUM CHLORIDE 0.9% 1,000 ML IV SCH ×3 (08:58→19:34)
[2021-04-20] MEDS ORDERED: LOPERAMIDE 2 MG CAP PO PRN (10:19)
[2021-04-20] MEDS ORDERED: ZINC SULFATE 220 MG CAP PO SCH (10:30)
--- NOTE | 2021-04-20 10:30 | P.CNPUL ---
History of Present Illness Consult date: 04/20/21 Requesting physician: Luis Cai Reason for consult: dyspnea, hypoxemia, abnormal CXR/CT Chief complaint: Shortness of breath, cough, congestion History of present illness: This is a very pleasant 71-year-old female patient who follows with Dr. Cai as her primary care provider. She has a history of hypothyroidism, depression, hypertension, hyperlipidemia, non-Hodgkin's lymphoma, carotid stenosis with previous right carotid endarterectomy and high-grade stenosis of the left internal carotid status post LTCAR with stenting, previous smoker and she was recently discharged from here 03/30/2021 from a acute COVID-19 pneumonia. She was vaccinated back in June 2020. She did not require home oxygen at discharge. She represented here today with complaints of increasing shortness of breath, cough and congestion. X-ray did reveal some worsening bilateral multifocal opacities. Consistent with COVID-19 infection progression. She is seen in the emergency room. She is awake and alert in no acute distress. She is maintaining O2 saturation in the 90s on 4 L/m per nasal cannula. 0.9 normal saline at 20 ML's per hour. White count 5.0. Hemoglobin 11.8. Lymphocytes 0.3. D-dimer 0.78. Sodium 126. Potassium 2.8. Chloride 85. Bicarb 30. Creatinine 0.79. ProBNP 381. Guillen virus by PCR positive. She's been initiated on Decadron, Lovenox, vitamin supplements. Review of Systems REVIEW OF SYSTEMS: CONSTITUTIONAL: Generalized weakness Denies any recent significant weight loss or weight gain. EYES: Denies change in vision. EARS, NOSE, MOUTH, THROAT: Denies headaches, denies sore throat. CARDIOVASCULAR: Denies chest pain, palpitations or syncopal episodes. RESPIRATORY: Positive for shortness of breath, cough, congestion no hemoptysis. GASTROINTESTINAL: Denies change in appetite, denies abdominal pain GENITOURINARY: Denies hematuria, denies infections. MUSKULOSKELETAL: Denies pain, denies swelling. INTEGUMENTARY: Denies rash, denies eczema. NEUROLOGICAL: Denies recent memory loss, no recent seizure activity. PSYCHIATRIC: Denies anxiety, denies depression. HEMATOLOGIC/LYMPHATIC: Denies anemia, denies enlarged lymph nodes. Past Medical History Past Medical History: Asthma, Cancer, GERD/Reflux, Hyperlipidemia, Hypertension, Pneumonia, Skin Disorder, Thyroid Disorder Additional Past Medical History / Comment(s): Pt recently admitted to [facility] on 03/28/21 with covid, acute hypoxic respiratory failure, hypokalemia, possible UTI, acute kidney injury. Other hx: Nonhodgkins lymphoma with chemo/radiation in 2007, skin cancer, psoriasis, frequent diarrhea, hpylori in the past, psoriasis. History of Any Multi-Drug Resistant Organisms: None Reported Past Surgical History: Cholecystectomy, Ear Surgery, Orthopedic Surgery Additional Past Surgical History / Comment(s): Bilateral caratid endartect omies/L caratid also stented, R ear implant to improve hearing, bilateral blepharoplasty, bilateral cataract removals then L eye laser surgery, neck lymphnode biopsy, bilateral hammer toe surgery, bilateral feet bunionectomies, R carpal tunnel release, colonoscopy, benign growth removed from labia. Past Anesthesia/Blood Transfusion Reactions: No Reported Reaction Smoking Status: Former smoker - Past Family History Mother History Unknown: Yes Family Medical History: No Reported History Father Family Medical History: COPD, Myocardial Infarction (MD) Additional Family Medical History / Comment(s): Heart problems. Medications and Allergies Home Medications Medication Instructions Recorded Confirmed Type Enalapril [Vasotec] 20 mg PO BID 08/28/13 04/19/21 History Escitalopram [Lexapro] 20 mg PO DAILY 08/28/13 04/19/21 History Levothyroxine Sodium [Levoxyl] 50 mcg PO DAILY 08/28/13 04/19/21 History Clopidogrel Bisulfate [Plavix] 75 mg PO HS 09/29/18 04/19/21 History Aspirin 81 mg PO HS 07/30/20 04/19/21 History Evolocumab [Repatha Syringe] 140 mg SQ Q14D 07/30/20 04/19/21 History Lenalidomide [Revlimid] See Taper PO AC-SUPPER 07/30/20 04/19/21 History Pantoprazole Sodium [Protonix] 40 mg PO DAILY 07/30/20 04/19/21 History buPROPion HCL [Wellbutrin XL] 150 mg PO DAILY 07/30/20 04/19/21 History Gazyva 1,000mg/40ml Iv Solution 1 dose IV Q60D 03/28/21 04/19/21 History Ascorbic Acid [Vitamin C] 500 mg PO BID tab 03/30/21 04/19/21 Rx Cholecalciferol [Vitamin D3 (25 25 mcg PO DAILY tablet 03/30/21 04/19/21 Rx Mcg = 1000 Iu)] Loperamide [Imodium] 2 mg PO QID PRN cap 03/30/21 04/19/21 Rx Zinc Sulfate [Orazinc] 220 mg PO DAILY #30 cap 03/30/21 04/19/21 Rx dexAMETHasone ORAL [Hexadrol] 6 mg PO DAILY 8 Days #24 tablet 03/30/21 04/19/21 Rx Doxycycline [Vibramycin] 100 mg PO BID 10 Days #20 capsule 04/13/21 04/19/21 Rx guaiFENesin-DM 600/30MG [Mucinex 1 tab PO Q12HR PRN 04/19/21 04/19/21 History Dm] Allergies Allergy/AdvReac Type Severity Reaction Status Date / Time No Known Allergies Allergy Verified 04/19/21 15:42 Physical Exam Vitals: Vital Signs Pulse Pulse Resp BP BP Pulse Ox 04/20/21 09:51 56 L 190/80 93 L 04/20/21 06:34 54 L 16 178/78 98 04/19/21 22:01 65 18 114/70 95 04/19/21 19:31 60 20 84/70 92 L 04/19/21 16:53 67 20 111/82 95 04/19/21 13:29 66 18 179/85 90 L Intake and Output 04/19/21 04/20/21 04/20/21 22:59 06:59 14:59 Other: Voiding Method Toilet Weight 89.811 kg GENERAL EXAM: Alert, pleasant 71-year-old female patient, on 4 L nasal cannula, fairly comfortable in no apparent distress. HEAD: Normocephalic. EYES: Normal reaction of pupils, equal size. NOSE: Clear with pink turbinates. THROAT: No erythema or exudates. NECK: No masses, no JVD. CHEST: No chest wall deformity. LUNGS: Equal air entry with coarse crackles in the bilateral bases. CVS: S1 and S2 normal with no audible murmur, regular rhythm. ABDOMEN: No hepatosplenomegaly, normal bowel sounds, no guarding or rigidity. SPINE: No scoliosis or deformity SKIN: No rashes CENTRAL NERVOUS SYSTEM: No focal deficits, tone is normal in all 4 extremities. EXTREMITIES: There is no peripheral edema. No clubbing, no cyanosis. Per ipheral pulses are intact. Results - Laboratory Findings CBC and BMP: 04/19/21 15:43 04/19/21 15:43 PT/INR, D-dimer D-Dimer 0.78 mg/L FEU (<0.60) H 04/19/21 15:43 Abnormal lab findings: Abnormal Labs 04/19/21 04/19/21 04/19/21 14:01 15:43 15:43 Lymphocytes # 0.3 L D-Dimer Sodium 126 L Potassium 2.8 L Chloride 85 L Calcium 8.1 L Coronavirus (PCR) Detected A 04/19/21 15:43 Lymphocytes # D-Dimer 0.78 H Sodium Potassium Chloride Calcium Coronavirus (PCR) - Diagnostic Findings Chest x-ray: image reviewed Assessment and Plan Assessment: 1 Acute hypoxemic respiratory failure secondary to COVID-19 pneumonia. Chest x- ray showed progression compared to previous in March 2021. Initially positive on 03/28/2021. Outside the window for Remdesivir. Not qualifying for Baricitinib. Vaccinated back in June 2020. Currently on 4 L/m per nasal cannula. Initiated on Decadron, Lovenox, vitamin supplements. 2 Recent admission for COVID-19 pneumonia, discharged on 03/30/2021. Did not require home oxygen. 3 History of non-Hodgkin's lymphoma, follows with Dr. Felipe 4 History of previous tobacco dependence 5 Hypertension 6 Hyper lipidemia 7 Hypothyroidism 8 Depression 9 History of bilateral carotid stenosis with previous right endarterectomy and left TCAR 10 Gastroesophageal reflux disease 11 Hyponatremia with current sodium 126 12 Hypokalemia with current potassium 2.8. Plan: The patient was seen and evaluated Chest x-ray and labs reviewed Increase normal saline to 75 ML's per hour Replace potassium Continue Decadron, Lovenox, vitamin supplements Titrate the FiO2 as tolerated Follow-up chest x-ray and labs in the a.m. Outside the window for Remdesivir Not qualifying for Baricitinib We will continue to follow and make further recommendations based on her clinical status I, the cosigning physician, performed a history & physical examination of the patient. Lungs sounds are's crackles in the bilateral bases. Maintaining good O2 saturations in the 90s on or liters per minute per nasal cannula. I discussed the assessment and plan of care with my nurse practitioner, Desiree Ng. I attest to the above consultation as dictated by her. Time with Patient: Greater than 30
[2021-04-20] MEDS: ALBUTEROL HFA INHALER INHALATION SCH ×3 (13:30→20:54)
[2021-04-20] MEDS: buPROPion XL 150 MG TAB.ER.24H PO SCH (13:48)
[2021-04-20] MEDS: LEVOTHYROXINE 50 MCG TAB PO SCH (13:48)
[2021-04-20] MEDS: PANTOPRAZOLE 40 MG TABLET PO SCH (13:48)
[2021-04-20] MEDS: ESCITALOPRAM 20 MG TAB PO SCH (13:48)
[2021-04-20] MEDS: lisinopriL 20 MG TAB PO SCH ×2 (13:49→19:33)
[2021-04-20 18:30] LABS: ALT 186 U/L (4-34); AST 91 U/L (14-36); African American GFR (CKD) >90 (>60 ml/min/1.73 sqM); Alkaline Phosphatase 97 U/L (38-126); Anion Gap 12 mmol/L; Blood Urea Nitrogen 14 mg/dL (7-17); Calcium 8.7 mg/dL (8.4-10.2); Carbon Dioxide 26 mmol/L (22-30); Chloride 96 mmol/L (98-107); Glucose 148 mg/dL (74-99); Non-African American GFR(CKD) 88 (>60 ml/min/1.73 sqM); Potassium 3.2 mmol/L (3.5-5.1); Sodium 134 mmol/L (137-145); Total Bilirubin 0.6 mg/dL (0.2-1.3); Total Protein 5.4 g/dL (6.3-8.2)
[2021-04-20] MEDS: CLOPIDOGREL 75 MG TAB PO SCH (19:33)
[2021-04-21] MEDS: PANTOPRAZOLE 40 MG TABLET PO SCH (04:45)
[2021-04-21] MEDS: LEVOTHYROXINE 50 MCG TAB PO SCH (04:45)
[2021-04-21] MEDS: CHOLECALCIFEROL 25 MCG (1000 IU) TABLET PO SCH (07:37)
[2021-04-21] MEDS: buPROPion XL 150 MG TAB.ER.24H PO SCH (07:37)
[2021-04-21] MEDS: dexAMETHasone 2 MG TAB PO SCH (07:38)
[2021-04-21] MEDS: ENOXAPARIN 40 MG/0.4 ML SYRINGE SQ SCH (07:38)
[2021-04-21] MEDS: ZINC SULFATE 220 MG CAP PO SCH (07:38)
[2021-04-21] MEDS: ASCORBIC ACID 500 MG TAB PO SCH (07:38)
[2021-04-21] MEDS: lisinopriL 20 MG TAB PO SCH ×2 (07:38→19:54)
[2021-04-21] MEDS: ESCITALOPRAM 20 MG TAB PO SCH (07:38)
[2021-04-21 08:09] LABS: C Reactive Protein 5.8 mg/dL (<1.0)
[2021-04-21] MEDS ORDERED: ACETAMINOPHEN TAB 500 MG TAB PO PRN (08:34)
[2021-04-21] MEDS ORDERED: Potassium Replacement Protocol 1 EACH MISC MISCELLANE PRN (08:35)
[2021-04-21] MEDS: ALBUTEROL HFA INHALER INHALATION SCH ×3 (08:49→15:58)
--- NOTE | 2021-04-21 09:27 | XR ---
EXAMINATION TYPE: XR chest 1V portable DATE OF EXAM: 04/21/2021 CLINICAL HISTORY: Difficulty breathing and pneumonia progress study. History of non-Hodgkin lymphoma. TECHNIQUE: Single AP portable upright view of the chest is obtained. COMPARISON: Chest x-ray from 2 days earlier and older studies. FINDINGS: Stable left internal jugular Mediport catheter. Heart size stable and upper limits of normal. Low lung volume and chronic parenchymal changes with in creasing bilateral multifocal increased opacities . The osseous structures remain demineralized. Chol ecystectomy clips are redemonstrated. IMPRESSION: Worsening bilateral multifocal opacities particularly in the left lung consistent with c ovid-19 infection progression.
[2021-04-21 09:29] LABS: Calcium 8.5 mg/dL (8.4-10.2); Potassium 3.3 mmol/L (3.5-5.1)
[2021-04-21 11:15] VITALS: BMI 34.0
[2021-04-21] MEDS: SODIUM CHLORIDE 0.9% 1,000 ML IV SCH ×3 (12:11→19:56)
[2021-04-21] MEDS: POTASSIUM CHLORIDE ER 20 MEQ TAB.ER PO SCH ×2 (13:42→14:43)
--- NOTE | 2021-04-21 13:53 | P.PN ---
Subjective Progress Note Date: 04/21/21 Principal diagnosis: CoVID pneumonia This is a very pleasant 71-year-old female patient who follows with Dr. Cai as her primary care provider. She has a history of hypothyroidism, depression, hypertension, hyperlipidemia, non-Hodgkin's lymphoma, carotid stenosis with previous right carotid endarterectomy and high-grade stenosis of the left internal carotid status post LTCAR with stenting, previous smoker and she was recently discharged from here 03/30/2021 from a acute COVID-19 pneumonia. She was vaccinated back in June 2020. She did not require home oxygen at discharge. She represented here today with complaints of increasing shortness of breath, cough and congestion. X-ray did reveal some worsening bilateral multifocal opacities. Consistent with COVID-19 infection progression. She is seen in the emergency room. She is awake and alert in no acute distress. She is maintaining O2 saturation in the 90s on 4 L/m per nasal cannula. 0.9 normal saline at 20 ML's per hour. White count 5.0. Hemoglobin 11.8. Lymphocytes 0.3. D-dimer 0.78. Sodium 126. Potassium 2.8. Chloride 85. Bicarb 30. Creatinine 0.79. ProBNP 381. Guillen virus by PCR positive. She's been initiated on Decadron, Lovenox, vitamin supplements. The patient is seen today 04/21/2021 in follow-up on the regular medical floor. She is currently resting currently in bed. Awake and alert in no acute distress. Maintaining O2 saturations in the 90s on 3 L/m per nasal cannula. Chest x-ray reveals worsening bilateral multifocal opacities consistent with COVID-19 pneumonia. D-dimer 0.86. Sodium 135. Potassium 3.3. Creatinine 0.78. LDH 591. C-reactive protein 5.8. She is continued on Decadron, Lovenox, vitamin supplements. Objective - Vital Signs Vital signs: Vital Signs Temp 98.2 F 04/21/21 12:05 Pulse 70 04/21/21 12:05 Resp 18 04/21/21 12:05 BP 124/76 04/21/21 12:05 Pulse Ox 90 L 04/21/21 12:05 Intake & Output 04/20/21 04/21/21 04/21/21 18:59 06:59 18:59 Intake Total 300 Balance 300 Weight 89.811 kg 89.811 kg Intake: Intake, IV Titration 300 Amount Sodium Chloride 0.9% 1, 300 000 ml @ 75 mls/hr IV . [id number] [facility] Rx#:[id number] Other: Voiding Method Toilet Toilet Toilet # Voids 2 1 # Bowel Movements 1 - Exam GENERAL EXAM: Alert, pleasant 71-year-old female patient, on 3 L nasal cannula, fairly comfortable in no apparent distress. HEAD: Normocephalic. EYES: Normal reaction of pupils, equal size. NOSE: Clear with pink turbinates. THROAT: No erythema or exudates. NECK: No masses, no JVD. CHEST: No chest wall deformity. LUNGS: Equal air entry with coarse crackles in the bilateral bases. CVS: S1 and S2 normal with no audible murmur, regular rhythm. ABDOMEN: No hepatosplenomegaly, normal bowel sounds, no guarding or rigidity. SPINE: No scoliosis or deformity SKIN: No rashes CENTRAL NERVOUS SYSTEM: No focal deficits, tone is normal in all 4 extremities. EXTREMITIES: There is no peripheral edema. No clubbing, no cyanosis. Peripheral pulses are intact. - Labs CBC & Chem 7: 04/19/21 15:43 04/21/21 06:47 Labs: Abnormal Lab Results - Last 24 Hours (Table) 04/20/21 04/21/21 04/21/21 Range/Units 18:12 06:47 06:47 D-Dimer 0.86 H (<0.60) mg/L FEU Sodium 134 L (137-145) mmol/L Potassium 3.2 L (3.5-5.1) mmol/L Chloride 96 L (98-107) mmol/L Carbon Dioxide (22-30) mmol/L Glucose 148 H (74-99) mg/dL AST 91 H (14-36) U/L ALT 186 H (4-34) U/L C-Reactive Protein 5.8 H (<1.0) mg/dL Total Protein 5.4 L (6.3-8.2) g/dL Albumin 3.0 L (3.5-5.0) g/dL 04/21/21 Range/Units 06:47 D-Dimer (<0.60) mg/L FEU Sodium 135 L (137-145) mmol/L Potassium 3.3 L (3.5-5.1) mmol/L Chloride 94 L (98-107) mmol/L Carbon Dioxide 32 H (22-30) mmol/L Glucose (74-99) mg/dL AST (14-36) U/L ALT (4-34) U/L C-Reactive Protein (<1.0) mg/dL Total Protein (6.3-8.2) g/dL Albumin (3.5-5.0) g/dL Assessment and Plan Assessment: 1 Acute hypoxemic respiratory failure secondary to COVID-19 pneumonia. Chest x- ray showed progression compared to previous in March 2021. Initially positive on 03/28/2021. Outside the window for Remdesivir. Not qualifying for Baricitinib. Vaccinated back in June 2020. Currently on 3 L/m per nasal cannula. Initiated on Decadron, Lovenox, vitamin supplements. 2 Recent admission for COVID-19 pneumonia, discharged on 03/30/2021. Did not require home oxygen. 3 History of non-Hodgkin's lymphoma, follows with Dr. Felipe 4 History of previous tobacco dependence 5 Hypertension 6 Hyper lipidemia 7 Hypothyroidism 8 Depression 9 History of bilateral carotid stenosis with previous right endarterectomy and left TCAR 10 Gastroesophageal reflux disease 11 Hyponatremia with current sodium 126 12 Hypokalemia with current potassium 2.8. Plan: The patient was seen and evaluated Chest x-ray and labs reviewed Continue Decadron, Lovenox, vitamin supplements Titrate the FiO2 as tolerated Outside the window for Remdesivir Not qualifying for Baricitinib We will continue to follow I, the cosigning physician, performed a history & physical examination of the p atient. Lungs sounds are's crackles in the bilateral bases. Maintaining O2 saturations in the 90s on 3 liters per minute per nasal cannula. I discussed the assessment and plan of care with my nurse practitioner, Desiree Ng. I attest to the above note as dictated by her.
--- NOTE | 2021-04-21 14:13 | P.HPIM ---
History of Present Illness H&P Date: 04/20/21 Chief Complaint: Worsening shortness of breath This is a 71-year-old female with past medical history of non-Hodgkin's lymphoma, hypertension, presented to the ER with complaints of increasing shortness of breath accompanied by cough and congestion in a patient recently admitted last month for acute cold bed 19 pneumonia. Chest x-ray reporting worsening bilateral multifocal opacities consistent with COVID-19 infection progression. Coronavirus PCR positive. On admission afebrile, hypertensive, with O2 sats of 90% on room air, hematology unremarkable, d-dimer 0.78, sodium 126, received potassium supplementation yesterday for potassium 2.8 ,renal function stable, magnesium 2.1. Current labs pending. Currently maintaining O2 sats in the 90s on 4 L nasal cannula. Covid cocktail initiated with Decadron, Lovenox and vitamins ,pulmonary consulted. Review of Systems ROS Statement: Those systems with pertinent positive or pertinent negative responses have been documented in the HPI. ROS Other: All systems not noted in ROS Statement are negative. Past Medical History Past Medical History: Asthma, Cancer, GERD/Reflux, Hyperlipidemia, Hypertension, Pneumonia, Skin Disorder, Thyroid Disorder Additional Past Medical History / Comment(s): Pt recently admitted to [facility] on 03/28/21 with covid, acute hypoxic respiratory failure, hypokalemia, possible UTI, acute kidney injury. Other hx: Nonhodgkins lymphoma with chemo/radiation in 2007, skin cancer, psoriasis, frequent diarrhea, hpylori in the past, psoriasis. History of Any Multi-Drug Resistant Organisms: None Reported Past Surgical History: Cholecystectomy, Ear Surgery, Orthopedic Surgery Additional Past Surgical History / Comment(s): Bilateral caratid endartectomies/L caratid also stented, R ear implant to improve hearing, bilateral blepharoplasty, bilateral cataract removals then L eye laser surgery, neck lymphnode biopsy, bilateral hammer toe surgery, bilateral feet bunionectomies, R carpal tunnel release, colonoscopy, benign growth removed from labia. Past Anesthesia/Blood Transfusion Reactions: No Reported Reaction Smoking Status: Former smoker - Past Family History Mother History Unknown: Yes Family Medical History: No Reported History Father Family Medical History: COPD, Myocardial Infarction (MD) Additional Family Medical History / Comment(s): Heart problems. Medications and Allergies Home Medications Medication Instructions Recorded Confirmed Type Enalapril [Vasotec] 20 mg PO BID 08/28/13 04/19/21 History Escitalopram [Lexapro] 20 mg PO DAILY 08/28/13 04/19/21 History Levothyroxine Sodium [Levoxyl] 50 mcg PO DAILY 08/28/13 04/19/21 History Clopidogrel Bisulfate [Plavix] 75 mg PO HS 09/29/18 04/19/21 History Aspirin 81 mg PO HS 07/30/20 04/19/21 History Evolocumab [Repatha Syringe] 140 mg SQ Q14D 07/30/20 04/19/21 History Lenalidomide [Revlimid] See Taper PO AC-SUPPER 07/30/20 04/19/21 History Pantoprazole Sodium [Protonix] 40 mg PO DAILY 07/30/20 04/19/21 History buPROPion HCL [Wellbutrin XL] 150 mg PO DAILY 07/30/20 04/19/21 History Gazyva 1,000mg/40ml Iv Solution 1 dose IV Q60D 03/28/21 04/19/21 History Ascorbic Acid [Vitamin C] 500 mg PO BID tab 03/30/21 04/19/21 Rx Cholecalciferol [Vitamin D3 (25 25 mcg PO DAILY tablet 03/30/21 04/19/21 Rx Mcg = 1000 Iu)] Loperamide [Imodium] 2 mg PO QID PRN cap 03/30/21 04/19/21 Rx Zinc Sulfate [Orazinc] 220 mg PO DAILY #30 cap 03/30/21 04/19/21 Rx dexAMETHasone ORAL [Hexadrol] 6 mg PO DAILY 8 Days #24 tablet 03/30/21 04/19/21 Rx Doxycycline [Vibramycin] 100 mg PO BID 10 Days #20 capsule 04/13/21 04/19/21 Rx guaiFENesin-DM 600/30MG [Mucinex 1 tab PO Q12HR PRN 04/19/21 04/19/21 History Dm] Allergies Allergy/AdvReac Type Severity Reaction Status Date / Time No Known Allergies Allergy Verified 04/19/21 15:42 Physical Exam Vitals: Vital Signs Temp Pulse Pulse Resp BP BP BP 04/20/21 10:35 97.4 F L 53 L 17 114/67 04/20/21 09:51 56 L 190/80 04/20/21 06:34 54 L 16 178/78 04/19/21 22:01 65 18 114/70 04/19/21 19:31 60 20 84/70 Pulse Ox 04/20/21 10:35 96 04/20/21 09:51 93 L 04/20/21 06:34 98 04/19/21 22:01 95 04/19/21 19:31 92 L Intake and Output 04/20/21 04/20/21 04/20/21 06:59 14:59 22:59 Other: Voiding Method Toilet Weight 89.811 kg GENERAL: The patient is alert and oriented x3, no acute distress. Well develope d, well nourished. HEENT: Pupils are round and equally reacting to light. EOMI. No scleral icterus. No conjunctival pallor. Normocephalic, atraumatic. No pharyngeal erythema. No thyromegaly. CARDIOVASCULAR: S1 and S2 present. No murmurs, rubs, or gallops. PULMONARY: Bilateral bases diminished with coarse crackles ABDOMEN: Soft, nontender, nondistended, normoactive bowel sounds. No palpable organomegaly. MUSCULOSKELETAL: No joint swelling or deformity. EXTREMITIES: No cyanosis, clubbing, or pedal edema. NEUROLOGICAL: Gross neurological examination did not reveal any focal deficits. SKIN: No rashes. Warm and dry. Results CBC & Chem 7: 04/19/21 15:43 04/21/21 06:47 Labs: Abnormal Lab Results - Last 24 Hours (Table) 04/19/21 Range/Units 15:43 Sodium 126 L (137-145) mmol/L Potassium 2.8 L (3.5-5.1) mmol/L Chloride 85 L (98-107) mmol/L Calcium 8.1 L (8.4-10.2) mg/dL Thrombosis Risk Factor Assmnt - Choose All That Apply Any of the Below Risk Factors Present?: Yes Each Factor Represents 1 point: Obesity (BMI >25), Serious lung disease incl. pneumonia (< 1month) Other Risk Factors: Yes Each Risk Factor Represents 2 Points: Malignancy Other congenital or acquired thrombophilia - If yes, enter type in comment: No Thrombosis Risk Factor Assessment Total Risk Factor Score: 4 Thrombosis Risk Factor Assessment Level: Moderate Risk Assessment and Plan Assessment: Acute COVID-19 pneumonia in a vaccinated patient with recent COVID-19 pneumonia discharged on 03/30/2021. Acute hypoxic respiratory failure secondary to the above Diarrhea, suspect related to covid, C. difficile colitis, resolved Severe hypokalemia, present on admission History of non-Hodgkin's lymphoma, follows with Dr. Felipe History of High-grade left internal carotid artery stenosis with right-sided occlusion status post LTCAR with stenting History of right internal carotid artery endarterectomy Hypertension Hyperlipidemia Gastroesophageal reflux disease Depression Plan: Continue current medication regime ,monitoring and symptomatic loren atment.COVID cocktail initiated. Pulmonary consult in place with recommendations pending. Gently IV fluid hydration. Close monitoring of sodium.Labs pending. The impression and plan of care has been dictated as directed. : I performed a history and examination of this patient, discussed the same with the dictator. I agree with the dictator's note ,documented as a scribe. Any additional findings or plans will be noted.
--- NOTE | 2021-04-21 14:33 | P.PN ---
Subjective Progress Note Date: 04/21/21 This is a 71-year-old female with past medical history of non-Hodgkin's lymphoma, hypertension, presented to the ER with complaints of increasing shortness of breath accompanied by cough and congestion in a patient recently admitted last month for acute cold bed 19 pneumonia. Chest x-ray reporting worsening bilateral multifocal opacities consistent with COVID-19 infection progression. Coronavirus PCR positive. On admission afebrile, hypertensive, with O2 sats of 90% on room air, hematology unremarkable, d-dimer 0.78, sodium 126, received potassium supplementation yesterday for potassium 2.8 ,renal function stable, magnesium 2.1. Current labs pending. Currently maintaining O2 sats in the 90s on 4 L nasal cannula. Covid cocktail initiated with Decadron, Lovenox and vitamins ,pulmonary consulted. 04/21/2021 Maintained on Covid cocktail, maintaining O2 sats in the 90s on 3 L nasal cannula. Occasional Nonproductive cough . Denies further diarrhea.Afebrile. D-dimer trending up ,0.86. LDH 591, CRP 5.8. Sodium improved, up to 135. Potassium 3.3, renal function stable. Yesterday's labs re flected elevation of AST ALT, 91,186. Chest x-ray pending. Objective - Vital Signs Vital signs: Vital Signs Temp 98.2 F 04/21/21 12:05 Pulse 70 04/21/21 12:05 Resp 18 04/21/21 12:05 BP 124/76 04/21/21 12:05 Pulse Ox 90 L 04/21/21 12:05 Intake & Output 04/20/21 04/21/21 04/21/21 18:59 06:59 18:59 Intake Total 300 Balance 300 Weight 89.811 kg 89.811 kg Intake: Intake, IV Titration 300 Amount Sodium Chloride 0.9% 1, 300 000 ml @ 75 mls/hr IV . [id number] [facility] Rx#:[id number] Other: Voiding Method Toilet Toilet Toilet # Voids 2 1 # Bowel Movements 1 - Exam GENERAL:alert and oriented x3, no acute distress. HEENT: Pupils are round and equally reacting to light. EOMI. No scleral icterus. CARDIOVASCULAR: S1 and S2 present. No murmurs, rubs, or gallops. PULMONARY: Bilateral basilar crackles. ABDOMEN: Soft, nontender, nondistended, normoactive bowel sounds. No palpable organomegaly. EXTREMITIES: No cyanosis, clubbing, or pedal edema. NEUROLOGICAL: Gross neurological examination did not reveal any focal deficits. SKIN: No rashes. Warm and dry. - Labs CBC & Chem 7: 04/19/21 15:43 04/21/21 06:47 Labs: Abnormal Lab Results - Last 24 Hours (Table) 04/20/21 04/21/21 04/21/21 Range/Units 18:12 06:47 06:47 D-Dimer 0.86 H (<0.60) mg/L FEU Sodium 134 L (137-145) mmol/L Potassium 3.2 L (3.5-5.1) mmol/L Chloride 96 L (98-107) mmol/L Carbon Dioxide (22-30) mmol/L Glucose 148 H (74-99) mg/dL AST 91 H (14-36) U/L ALT 186 H (4-34) U/L C-Reactive Protein 5.8 H (<1.0) mg/dL Total Protein 5.4 L (6.3-8.2) g/dL Albumin 3.0 L (3.5-5.0) g/dL 04/21/21 Range/Units 06:47 D-Dimer (<0.60) mg/L FEU Sodium 135 L (137-145) mmol/L Potassium 3.3 L (3.5-5.1) mmol/L Chloride 94 L (98-107) mmol/L Carbon Dioxide 32 H (22-30) mmol/L Glucose (74-99) mg/dL AST (14-36) U/L ALT (4-34) U/L C-Reactive Protein (<1.0) mg/dL Total Protein (6.3-8.2) g/dL Albumin (3.5-5.0) g/dL Assessment and Plan Assessment: Acute COVID-19 pneumonia in a vaccinated patient with recent COVID-19 pneumonia discharged on 03/30/2021. Acute hypoxic respiratory failure secondary to the above Diarrhea, suspect related to covid, C. difficile colitis, resolved Severe hypokalemia, present on admission, improving History of non-Hodgkin's lymphoma, follows with Dr. Felpie History of High-grade left internal carotid artery stenosis with right-sided occlusion status post LTCAR with stenting History of right internal carotid artery endarterectomy Hypertension Hyperlipidemia Gastroesophageal reflux disease Depression Plan: Continue current medication regime ,monitoring and symptomatic treatment.Potassium replacement as per previous replacement protocol ordered.F/U CXR pending. Continue COVID cocktail, gentle IV fluids.. Pulmonary recommendations noted and appreciated. The impression and plan of care has been dictated as directed. : I performed a history and examination of this patient, discussed the same with the dictator. I agree with the dictator's note ,documented as a scribe. Any additional findings or plans will be noted.
[2021-04-21] MEDS ORDERED: POTASSIUM CHLORIDE ER 20 MEQ TAB.ER PO STA (18:32)
[2021-04-21] MEDS: CLOPIDOGREL 75 MG TAB PO SCH (19:54)
[2021-04-22] MEDS: PANTOPRAZOLE 40 MG TABLET PO SCH (04:55)
[2021-04-22] MEDS: LEVOTHYROXINE 50 MCG TAB PO SCH (04:56)
[2021-04-22] MEDS: dexAMETHasone 2 MG TAB PO SCH (08:03)
[2021-04-22] MEDS: lisinopriL 20 MG TAB PO SCH ×2 (08:03→20:55)
[2021-04-22] MEDS: ZINC SULFATE 220 MG CAP PO SCH (08:03)
[2021-04-22] MEDS: ESCITALOPRAM 20 MG TAB PO SCH (08:03)
[2021-04-22] MEDS: ASCORBIC ACID 500 MG TAB PO SCH (08:03)
[2021-04-22] MEDS: CHOLECALCIFEROL 25 MCG (1000 IU) TABLET PO SCH (08:04)
[2021-04-22] MEDS: ENOXAPARIN 40 MG/0.4 ML SYRINGE SQ SCH (08:04)
[2021-04-22] MEDS: buPROPion XL 150 MG TAB.ER.24H PO SCH (08:04)
[2021-04-22] MEDS: ALBUTEROL HFA INHALER INHALATION SCH ×4 (08:33→20:13)
[2021-04-22] MEDS ORDERED: ONDANSETRON 4 MG/2 ML VIAL IVP PRN (11:25)
--- NOTE | 2021-04-22 14:30 | P.PN ---
Subjective Progress Note Date: 04/22/21 Principal diagnosis: COVID-19 pneumonia This is a very pleasant 71-year-old female patient who follows with Dr. Cai as her primary care provider. She has a history of hypothyroidism, depression, hypertension, hyperlipidemia, non-Hodgkin's lymphoma, carotid stenosis with previous right carotid endarterectomy and high-grade stenosis of the left internal carotid status post LTCAR with stenting, previous smoker and she was recently discharged from here 03/30/2021 from a acute COVID-19 pneumonia. She was vaccinated back in June 2020. She did not require home oxygen at discharge. She represented here today with complaints of increasing shortness of breath, cough and congestion. X-ray did reveal some worsening bilateral multifocal opacities. Consistent with COVID-19 infection progression. She is seen in the emergency room. She is awake and alert in no acute distress. She is maintaining O2 saturation in the 90s on 4 L/m per nasal cannula. 0.9 normal saline at 20 ML's per hour. White count 5.0. Hemoglobin 11.8. Lymphocytes 0.3. D-dimer 0.78. Sodium 126. Potassium 2.8. Chloride 85. Bicarb 30. Creatinine 0.79. ProBNP 381. Guillen virus by PCR positive. She's been initiated on Decadron, Lovenox, vitamin supplements. The patient is seen today 04/21/2021 in follow-up on the regular medical floor. She is currently resting currently in bed. Awake and alert in no acute distress. Maintaining O2 saturations in the 90s on 3 L/m per nasal cannula. Chest x-ray reveals worsening bilateral multifocal opacities consistent with COVID-19 pneumonia. D-dimer 0.86. Sodium 135. Potassium 3.3. Creatinine 0.78. LDH 591. C-reactive protein 5.8. She is continued on Decadron, Lovenox, vitamin supplements. on 04/22/2021 patient seen in follow-up on the regular medical surgical floor. Currently she is on 3 L of oxygen, her pulse ox is 95%, breathing comfortably, minimal rales at the bases, her coughing is improving, overall she has been stable overnight, vital signs. Have been stable, no worsening dyspnea or hypoxia. currently patient is on Decadron 6 daily, Lovenox 40 mg daily, multivitamins. no acute events overnight, today's labs have been reviewed, potassium is 4.7 Objective - Vital Signs Vital signs: Vital Signs Temp 97.7 F 04/22/21 10:37 Pulse 64 04/22/21 10:37 Resp 16 04/22/21 10:37 BP 107/73 04/22/21 10:37 Pulse Ox 95 04/22/21 10:37 Intake & Output 04/21/21 04/22/21 04/22/21 18:59 06:59 18:59 Intake Total 236 Balance 236 Weight 89.811 kg Intake: Oral 236 Other: Voiding Method Toilet Toilet Toilet # Voids 1 - Exam GENERAL EXAM: Alert, very pleasant, 71-year-old white female, on 3 L of oxygen with a pulse ox of 90-95% comfortable in no apparent distress. HEAD: Normocephalic/atraumatic. EYES: Normal reaction of pupils, equal size. Conjunctiva pink, sclera white. NOSE: Clear with pink turbinates. THROAT: No erythema or exudates. NECK: No masses, no JVD, no thyroid enlargement, no adenopathy. CHEST: No chest wall deformity. Symmetrical expansion. LUNGS: Equal air entry with bibasilar crackle CVS: Regular rate and rhythm, normal S1 and S2, no gallops, no murmurs, no rubs ABDOMEN: Soft, nontender. No hepatosplenomegaly, normal bowel sounds, no guarding or rigidity. EXTREMITIES: No clubbing, no edema, no cyanosis, 2+ pulses and upper and lower extremities. MUSCULOSKELETAL: Muscle strength and tone normal. SPINE: No scoliosis or deformity SKIN: No rashes CENTRAL NERVOUS SYSTEM: Alert and oriented -3. No focal deficits, tone is normal in all 4 extremities. PSYCHIATRIC: Alert and oriented -3. Appropriate affect. Intact judgment and insight. - Labs CBC & Chem 7: 04/19/21 15:43 04/22/21 07:47 Assessment and Plan Plan: assessment: #1. Acute hypoxic respiratory failure secondary to COVID-19 pneumonia, initially positive on 03/28/2021, she was outside the window for Remdesivir, she was vaccinated back in June 2020 for COVID 19, initiated on Decadron, Lovenox and vitamin supplements, currently on 3 L of oxygen #2. Recent hospitalization for COVID-19 related pneumonia, discharged home on 03/30/2021, did not require home oxygen when she was discharged #3. History of non-Hodgkin's lymphoma, follows with Dr. Felipe #4. History of previous tobacco dependence #5. Hypertension #6. Hyperlipidemia #7. Hypothyroidism #8. Depression #9. History of bilateral carotid stenosis with previous right endarterectomy and left cheek are #10. GERD/reflux #11. Hyponatremia with sodium of 126 improving with IV hydration #12. Hypokalemia, improved Plan: Continue current medical treatment Continue current dose Decadron and Lovenox Electrolytes have improved, sodium and potassium levels have normalized Encouraged the patient to sit up in the chair, deep breathing cough, provided incentive spirometer Continue to follow her clinical course I performed a history & physical examination of the patient and discussed their management with my nurse practitioner, Jennifer Riddle. I reviewed the nurse practitioner's note and agree with the documented findings and plan of care. Lung sounds are positive for dim breath sounds throughout the lung pichardo. The findings and the impression was discussed with the patient. I attest to the documentation by the nurse practitioner. Time with Patient: Less than 30
--- NOTE | 2021-04-22 15:45 | P.PN ---
Subjective Progress Note Date: 04/22/21 This is a 71-year-old female with past medical history of non-Hodgkin's lymphoma, hypertension, presented to the ER with complaints of increasing shortness of breath accompanied by cough and congestion in a patient recently admitted last month for acute cold bed 19 pneumonia. Chest x-ray reporting worsening bilateral multifocal opacities consistent with COVID-19 infection progression. Coronavirus PCR positive. On admission afebrile, hypertensive, with O2 sats of 90% on room air, hematology unremarkable, d-dimer 0.78, sodium 126, received potassium supplementation yesterday for potassium 2.8 ,renal function stable, magnesium 2.1. Current labs pending. Currently maintaining O2 sats in the 90s on 4 L nasal cannula. Covid cocktail initiated with Decadron, Lovenox and vitamins ,pulmonary consulted. 04/21/2021 Maintained on Covid cocktail, maintaining O2 sats in the 90s on 3 L nasal cannula. Occasional Nonproductive cough . Denies further diarrhea.Afebrile. D-dimer trending up ,0.86. LDH 591, CRP 5.8. Sodium improved, up to 135. Potassium 3.3, renal function stable. Yesterday's labs re flected elevation of AST ALT, 91,186. Chest x-ray pending. 04/22/2021 sitting up in chair, maintaining O2 sats in the 90s on 3 L nasal cannula. Occasional nonproductive cough. Chest x-ray of yesterday reporting worsening. Complains of nausea .denies lightheadedness dizziness for focal deficits/Denies headache. Hypertensive. Objective - Vital Signs Vital signs: Vital Signs Temp 98.2 F 04/22/21 14:00 Pulse 56 L 04/22/21 14:00 Resp 16 04/22/21 14:00 BP 95/60 04/22/21 14:00 Pulse Ox 96 04/22/21 14:00 Intake & Output 04/21/21 04/22/21 04/22/21 18:59 06:59 18:59 Intake Total 236 236 Balance 236 236 Weight 89.811 kg Intake: Oral 236 236 Other: Voiding Method Toilet Toilet Toilet # Voids 1 - Exam GENERAL:alert and oriented x3, sitting up in chair, no acute distress. HEENT: Pupils are round and equally reacting to light. EOMI. No scleral icterus. CARDIOVASCULAR: S1 and S2 present. No murmurs, rubs, or gallops. PULMONARY: Bilateral basilar crackles. ABDOMEN: Soft, nontender, nondistended, normoactive bowel sounds. No palpable organomegaly. EXTREMITIES: No cyanosis, clubbing, or pedal edema. NEUROLOGICAL: Gross neurological examination did not reveal any focal deficits. SKIN: No rashes. Warm and dry. - Labs CBC & Chem 7: 04/19/21 15:43 04/22/21 07:47 Assessment and Plan Assessment: Acute COVID-19 pneumonia in a vaccinated patient with recent COVID-19 pneumonia discharged on 03/30/2021. Acute hypoxic respiratory failure secondary to the above Diarrhea, suspect related to covid, C. difficile colitis, resolved Severe hypokalemia, present on admission, improving History of non-Hodgkin's lymphoma, follows with Dr. Felipe History of High-grade left internal carotid artery stenosis with right-sided occlusion status post LTCAR with stenting History of right internal carotid artery endarterectomy Hypertension Hyperlipidemia Gastroesophageal reflux disease Depression Plan: Continue current medication regime ,monitoring and symptomatic treatment. Sodium normalized , hypertensive, DC IV fluids .Maintain COVID cocktail. The impression and plan of care has been dictated as directed. : I performed a history and examination of this patient, discussed the same with the dictator. I agree with the dictator's note ,documented as a scribe. Any additional findings or plans will be noted.
[2021-04-22] MEDS: CLOPIDOGREL 75 MG TAB PO SCH (20:56)
[2021-04-23] MEDS: LEVOTHYROXINE 50 MCG TAB PO SCH (05:55)
[2021-04-23] MEDS: dexAMETHasone 2 MG TAB PO SCH (08:25)
[2021-04-23] MEDS: lisinopriL 20 MG TAB PO SCH ×2 (08:25→20:31)
[2021-04-23] MEDS: ENOXAPARIN 40 MG/0.4 ML SYRINGE SQ SCH (08:25)
[2021-04-23] MEDS: ASCORBIC ACID 500 MG TAB PO SCH (08:26)
[2021-04-23] MEDS: PANTOPRAZOLE 40 MG TABLET PO SCH (08:26)
[2021-04-23] MEDS: ESCITALOPRAM 20 MG TAB PO SCH (08:26)
[2021-04-23] MEDS: CHOLECALCIFEROL 25 MCG (1000 IU) TABLET PO SCH (08:26)
[2021-04-23] MEDS: ZINC SULFATE 220 MG CAP PO SCH (08:26)
[2021-04-23] MEDS: ALBUTEROL HFA INHALER INHALATION SCH ×4 (08:26→19:03)
[2021-04-23 10:02] LABS: Basophils # (A) 0.04 X 10*3/uL (0.00-0.10); Basophils % (A) 0.7 %; Eosinophils # (A) 0.02 X 10*3/uL (0.04-0.35); Eosinophils % (A) 0.4 %; HCT 32.7 % (37.2-46.3); HGB 10.4 g/dL (12.0-15.0); Lymphocytes # (A) 0.38 X 10*3/uL (0.90-5.00); Lymphocytes % (A) 7.1 %; MCH 27.4 pg (27.0-32.0); MCHC 31.8 g/dL (32.0-37.0); MCV 86.3 fL (80.0-97.0); Mean Platelet Volume 8.9 fL (9.5-12.2); Monocytes # (A) 0.82 X 10*3/uL (0.20-1.00); Monocytes % (A) 15.2 %; Neutrophils # (A) 4.09 X 10*3/uL (1.80-7.70); Platelet Count 232 X 10*3/uL (140-440); RBC 3.79 X 10*6/uL (4.10-5.20); WBC 5.38 X 10*3/uL (4.50-10.00)
[2021-04-23 10:34] LABS: C Reactive Protein 4.9 mg/dL (0.00-0.80)
[2021-04-23] MEDS: buPROPion XL 150 MG TAB.ER.24H PO SCH (10:40)
[2021-04-23 11:05] LABS: African American GFR (CKD) 101.6 (60.0-200.0); Anion Gap 14.7 mmol/L (10.00-18.00); BUN/Creat Ratio 15.01 Ratio (12.00-20.00); Blood Urea Nitrogen 10.1 mg/dL (9.0-27.0); Calcium 8.4 mg/dL (8.7-10.3); Carbon Dioxide 28.1 mmol/L (20.0-27.5); Non-African American GFR(CKD) 87.7 (60.0-200.0); Potassium 3.4 mmol/L (3.5-5.5)
[2021-04-23] MEDS ORDERED: Potassium Replacement Protocol 1 EACH MISC MISCELLANE PRN (15:25)
[2021-04-23] MEDS ORDERED: PROMETHAZINE 25 MG TAB PO PRN (15:54)
--- NOTE | 2021-04-23 16:01 | P.PN ---
Subjective This is a pleasant 71 years old female with past medical history of GERD, hyperlipidemia, hypertension, hypothyroidism, presents with respiratory symptoms secondary to bilateral: Pneumonia and mild hypoxia Patient is being followed by pulmonary service closely and she is currently covered with dexamethasone and multiple vitamins. Also she is on home dose of Plavix, Lovenox and Protonix Patient was mild dyspnea but with significant distress and nausea but without vomiting, she is on Zofran with partial improvement and therefore was switched t o Phenergan. Could not increase the dose of Zofran because she is already on Lexapro. Patient with no abdominal pain but she has a lot of diarrhea, , she had 3 episodes of bowel movements which are lose this morning. She has little cough. She has poor appetite. Also showing hemoglobin is slightly trending down 11.8 down to 10.4. Inflammatory markers improving with LDH 249 and C-reactive protein 4.9. Liver enzymes were elevated, we will repeat them tomorrow morning. Chest x-ray showing bilateral worsening pneumonia And we are going to check liver ultrasound ordered today Objective - Vital Signs Vital signs: Vital Signs Temp 97.9 F 04/23/21 13:29 Pulse 63 04/23/21 13:29 Resp 17 04/23/21 13:29 BP 148/70 04/23/21 13:29 Pulse Ox 94 L 04/23/21 13:29 Intake & Output 04/22/21 04/23/21 04/23/21 18:59 06:59 18:59 Intake Total 472 300 Balance 472 300 Intake: Oral 472 300 Other: Voiding Method Toilet Toilet Toilet # Voids 3 3 # Bowel Movements 1 - Exam -GENERAL: The patient is alert and oriented x3, in mild distress due to nausea and. Well developed, well nourished. HEENT: Pupils are round and equally reacting to light. EOMI. No scleral icterus. No conjunctival pallor. Normocephalic, atraumatic. No pharyngeal erythema. No thyromegaly. CARDIOVASCULAR: S1 and S2 present. No murmurs, rubs, or gallops. PULMONARY: Chest is clear to auscultation, no wheezing or crackles. ABDOMEN: Soft, nontender, nondistended, normoactive bowel sounds. No palpable organomegaly. MUSCULOSKELETAL: No joint swelling or deformity. EXTREMITIES: No cyanosis, clubbing, or pedal edema. NEUROLOGICAL: Gross neurological examination did not reveal any focal deficits. SKIN: No rashes. no petechiae. - Labs CBC & Chem 7: 04/23/21 05:09 04/23/21 05:02 Labs: Abnormal Lab Results - Last 24 Hours (Table) 04/23/21 04/23/21 Range/Units 05:02 05:09 RBC 3.79 L (4.10-5.20) X 10*6/uL Hgb 10.4 L (12.0-15.0) g/dL Hct 32.7 L (37.2-46.3) % MCHC 31.8 L (32.0-37.0) g/dL RDW 16.0 H (11.5-14.5) % MPV 8.9 L (9.5-12.2) fL Lymphocytes # 0.38 L (0.90-5.00) X 10*3/uL Eosinophils # 0.02 L (0.04-0.35) X 10*3/uL Potassium 3.4 L (3.5-5.5) mmol/L Chloride 93 L (96-109) mmol/L Carbon Dioxide 28.1 H (20.0-27.5) mmol/L Calcium 8.4 L (8.7-10.3) mg/dL Lactate Dehydrogenase 249 H (120-246) U/L C-Reactive Protein 4.90 H (0.00-0.80) mg/dL Assessment and Plan Assessment: Bilateral Covid pneumonia Acute hypoxic respiratory failure Increased inflammatory markers Persistent nausea with mildly elevated liver enzymes Elevated liver enzymes could be secondary to Covid infection, rule out gallbladder disease. Plan: This is a pleasant 71 years old female who presents with covid pneumonia, also she has nausea Continue with dexamethasone Continue with vitamin C, vitamin D and zinc Pulmonary consult Labs and medication were reviewed.. Continue same treatment. Continue with symptomatic treatment. Resume home medication. Monitor lytes and vitals. DVT and GI prophylaxis. Further recommendationsas per clinical course of the patient DVT prophylaxis: Subcutaneous Lovenox GI Prophylaxis: Ppi PT/OT: Pending Prognosis is guarded
--- NOTE | 2021-04-23 16:19 | P.PN ---
Subjective Progress Note Date: 04/23/21 Principal diagnosis: CoVID pneumonia This is a very pleasant 71-year-old female patient who follows with Dr. Cai as her primary care provider. She has a history of hypothyroidism, depression, hypertension, hyperlipidemia, non-Hodgkin's lymphoma, carotid stenosis with previous right carotid endarterectomy and high-grade stenosis of the left internal carotid status post LTCAR with stenting, previous smoker and she was recently discharged from here 03/30/2021 from a acute COVID-19 pneumonia. She was vaccinated back in June 2020. She did not require home oxygen at discharge. She represented here today with complaints of increasing shortness of breath, cough and congestion. X-ray did reveal some worsening bilateral multifocal opacities. Consistent with COVID-19 infection progression. She is seen in the emergency room. She is awake and alert in no acute distress. She is maintaining O2 saturation in the 90s on 4 L/m per nasal cannula. 0.9 normal saline at 20 ML's per hour. White count 5.0. Hemoglobin 11.8. Lymphocytes 0.3. D-dimer 0.78. Sodium 126. Potassium 2.8. Chloride 85. Bicarb 30. Creatinine 0.79. ProBNP 381. Guillen virus by PCR positive. She's been initiated on Decadron, Lovenox, vitamin supplements. The patient is seen today 04/21/2021 in follow-up on the regular medical floor. She is currently resting currently in bed. Awake and alert in no acute distress. Maintaining O2 saturations in the 90s on 3 L/m per nasal cannula. Chest x-ray reveals worsening bilateral multifocal opacities consistent with COVID-19 pneumonia. D-dimer 0.86. Sodium 135. Potassium 3.3. Creatinine 0.78. LDH 591. C-reactive protein 5.8. She is continued on Decadron, Lovenox, vitamin supplements. The patient is seen today 04/23/2021 in follow-up on the regular medical floor. She is currently awake and alert in no acute distress. Maintaining O2 saturations in the 90s on 3 L/m per nasal cannula. Afebrile. Hemodynamically stable. White count 5.3. Hemoglobin 10.4. Platelets 232. Lymphocytes 0.38. Sodium 135. Potassium 3.4. Creatinine 0.7. LDH 249. C-reactive protein 4.9. She is continued on Lovenox, Decadron, vitamin supplements. Objective - Vital Signs Vital signs: Vital Signs Temp 97.9 F 04/23/21 13:29 Pulse 63 04/23/21 13:29 Resp 17 04/23/21 13:29 BP 148/70 04/23/21 13:29 Pulse Ox 94 L 04/23/21 13:29 Intake & Output 04/22/21 04/23/21 04/23/21 18:59 06:59 18:59 Intake Total 472 300 Balance 472 300 Intake: Oral 472 300 Other: Voiding Method Toilet Toilet Toilet # Voids 3 3 # Bowel Movements 1 - Exam GENERAL EXAM: Alert, pleasant 71-year-old female patient, on 3 L nasal cannula, fairly comfortable in no apparent distress. HEAD: Normocephalic. EYES: Normal reaction of pupils, equal size. NOSE: Clear with pink turbinates. THROAT: No erythema or exudates. NECK: No masses, no JVD. CHEST: No chest wall deformity. LUNGS: Equal air entry with coarse crackles in the bilateral bases. CVS: S1 and S2 normal with no audible murmur, regular rhythm. ABDOMEN: No hepatosplenomegaly, normal bowel sounds, no guarding or rigidity. SPINE: No scoliosis or deformity SKIN: No rashes CENTRAL NERVOUS SYSTEM: No focal deficits, tone is normal in all 4 extremities. EXTREMITIES: There is no peripheral edema. No clubbing, no cyanosis. Peripheral pulses are intact. - Labs CBC & Chem 7: 04/23/21 05:09 04/23/21 05:02 Labs: Abnormal Lab Results - Last 24 Hours (Table) 04/23/21 04/23/21 Range/Units 05:02 05:09 RBC 3.79 L (4.10-5.20) X 10*6/uL Hgb 10.4 L (12.0-15.0) g/dL Hct 32.7 L (37.2-46.3) % MCHC 31.8 L (32.0-37.0) g/dL RDW 16.0 H (11.5-14.5) % MPV 8.9 L (9.5-12.2) fL Lymphocytes # 0.38 L (0.90-5.00) X 10*3/uL Eosinophils # 0.02 L (0.04-0.35) X 10*3/uL Potassium 3.4 L (3.5-5.5) mmol/L Chloride 93 L (96-109) mmol/L Carbon Dioxide 28.1 H (20.0-27.5) mmol/L Calcium 8.4 L (8.7-10.3) mg/dL Lactate Dehydrogenase 249 H (120-246) U/L C-Reactive Protein 4.90 H (0.00-0.80) mg/dL Assessment and Plan Assessment: 1 Acute hypoxemic respiratory failure secondary to COVID-19 pneumonia. Chest x- ray showed progression compared to previous in March 2021. Initially positive on 03/28/2021. Outside the window for Remdesivir. Not qualifying for Baricitinib. Vaccinated back in June 2020. Currently on 3 L/m per nasal cannula. Initiated on Decadron, Lovenox, vitamin supplements. 2 Recent admission for COVID-19 pneumonia, discharged on 03/30/2021. Did not require home oxygen. 3 History of non-Hodgkin's lymphoma, follows with Dr. Felipe 4 History of previous tobacco dependence 5 Hypertension 6 Hyper lipidemia 7 Hypothyroidism 8 Depression 9 History of bilateral carotid stenosis with previous right endarterectomy and left TCAR 10 Gastroesophageal reflux disease 11 Hyponatremia with current sodium 126 12 Hypokalemia with current potassium 2.8. Plan: The patient was seen and evaluated Stable and on 3 L nasal cannula Continue Decadron, Lovenox, vitamin supplements Titrate the FiO2 as tolerated Outside the window for Remdesivir Not qualifying for Baricitinib We will continue to follow I, the cosigning physician, performed a history & physical examination of the patient. Lungs sounds are's crackles in the bilateral bases. Maintaining O2 saturations in the 90s on 3 liters per minute per nasal cannula. I discussed the assessment and plan of care with my nurse practitioner, Desiree Ng. I attest to the above note as dictated by her.
[2021-04-23] MEDS: POTASSIUM CHLORIDE ER 20 MEQ TAB.ER PO SCH (17:39)
[2021-04-23] MEDS: CLOPIDOGREL 75 MG TAB PO SCH (20:31)
[2021-04-24] MEDS: LEVOTHYROXINE 50 MCG TAB PO SCH ×2 (04:46→10:24)
[2021-04-24] MEDS: ALBUTEROL HFA INHALER INHALATION SCH ×4 (08:44→20:02)
--- NOTE | 2021-04-24 09:01 | US ---
EXAMINATION TYPE: US liver DATE OF EXAM: 04/24/2021 COMPARISON: NONE CLINICAL HISTORY: nausea high LFT. Exam done portable EXAM MEASUREMENTS: Liver Length: 16.4 cm CBD: 0.6 cm Right Kidney: 10.8 x 4.6 x 5.0 cm Pancreas: visualized portions wnl, limited by overlying midline bowel gas Liver: 3.3cm cyst left lobe with smaller 1.9cm cyst right lobe Gallbladder: surgically absent Evidence for sonographic Gee's sign: no CBD: wnl Right Kidney: wnl The liver is overall heterogeneously hyperechoic which limits evaluation for focal masses. There is 3 .3 cm thin-walled cyst slightly bulging capsule on image 8. Smaller 1.9 cm thin-walled cyst deeper is noted. No right-sided hydronephrosis. Gallbladder surgically absent. IMPRESSION: No worrisome intrahepatic ductal dilatation.
[2021-04-24] MEDS: ESCITALOPRAM 20 MG TAB PO SCH (10:23)
[2021-04-24] MEDS: dexAMETHasone 2 MG TAB PO SCH (10:23)
[2021-04-24] MEDS: buPROPion XL 150 MG TAB.ER.24H PO SCH (10:23)
[2021-04-24] MEDS: ASCORBIC ACID 500 MG TAB PO SCH (10:24)
[2021-04-24] MEDS: lisinopriL 20 MG TAB PO SCH ×2 (10:24→20:38)
[2021-04-24] MEDS: ENOXAPARIN 40 MG/0.4 ML SYRINGE SQ SCH (10:24)
[2021-04-24] MEDS: CHOLECALCIFEROL 25 MCG (1000 IU) TABLET PO SCH (10:24)
[2021-04-24] MEDS: ZINC SULFATE 220 MG CAP PO SCH (10:24)
[2021-04-24] MEDS: PANTOPRAZOLE 40 MG TABLET PO SCH (10:24)
[2021-04-24 10:56] LABS: Basophils # (A) 0.02 X 10*3/uL (0.00-0.10); Basophils % (A) 0.4 %; Eosinophils # (A) 0.04 X 10*3/uL (0.04-0.35); Eosinophils % (A) 0.8 %; HCT 36.6 % (37.2-46.3); HGB 10.9 g/dL (12.0-15.0); Lymphocytes # (A) 0.33 X 10*3/uL (0.90-5.00); Lymphocytes % (A) 6.3 %; MCH 26.6 pg (27.0-32.0); MCHC 29.8 g/dL (32.0-37.0); MCV 89.3 fL (80.0-97.0); Mean Platelet Volume 8.8 fL (9.5-12.2); Monocytes # (A) 0.83 X 10*3/uL (0.20-1.00); Neutrophils # (A) 3.94 X 10*3/uL (1.80-7.70); Neutrophils % (A) 75.7 %; Platelet Count 266 X 10*3/uL (140-440); RDW 16.3 % (11.5-14.5)
[2021-04-24 11:31] LABS: Magnesium 2.2 mg/dL (1.5-2.4)
[2021-04-24 12:14] LABS: African American GFR (CKD) 83.7 (60.0-200.0); Albumin 3.4 g/dL (3.8-4.9); Albumin/Globulin Ratio 1.65 (1.60-3.17); Anion Gap 15.8 mmol/L (10.00-18.00); BUN/Creat Ratio 14.51 Ratio (12.00-20.00); Blood Urea Nitrogen 11.8 mg/dL (9.0-27.0); Calcium 8.9 mg/dL (8.7-10.3); Carbon Dioxide 26.8 mmol/L (20.0-27.5); Non-African American GFR(CKD) 72.2 (60.0-200.0); Potassium 4.4 mmol/L (3.5-5.5); Total Bilirubin 0.5 mg/dL (0.30-1.20); Total Protein 5.4 g/dL (6.2-8.2)
--- NOTE | 2021-04-24 15:30 | P.PN ---
Subjective Progress Note Date: 04/24/21 Principal diagnosis: COVID-19 pneumonia This is a very pleasant 71-year-old female patient who follows with Dr. Cai as her primary care provider. She has a history of hypothyroidism, depression, hypertension, hyperlipidemia, non-Hodgkin's lymphoma, carotid stenosis with previous right carotid endarterectomy and high-grade stenosis of the left internal carotid status post LTCAR with stenting, previous smoker and she was recently discharged from here 03/30/2021 from a acute COVID-19 pneumonia. She was vaccinated back in June 2020. She did not require home oxygen at discharge. She represented here today with complaints of increasing shortness of breath, cough and congestion. X-ray did reveal some worsening bilateral multifocal opacities. Consistent with COVID-19 infection progression. She is seen in the emergency room. She is awake and alert in no acute distress. She is maintaining O2 saturation in the 90s on 4 L/m per nasal cannula. 0.9 normal saline at 20 ML's per hour. White count 5.0. Hemoglobin 11.8. Lymphocytes 0.3. D-dimer 0.78. Sodium 126. Potassium 2.8. Chloride 85. Bicarb 30. Creatinine 0.79. ProBNP 381. Guillen virus by PCR positive. She's been initiated on Decadron, Lovenox, vitamin supplements. The patient is seen today 04/21/2021 in follow-up on the regular medical floor. She is currently resting currently in bed. Awake and alert in no acute distress. Maintaining O2 saturations in the 90s on 3 L/m per nasal cannula. Chest x-ray reveals worsening bilateral multifocal opacities consistent with COVID-19 pneumonia. D-dimer 0.86. Sodium 135. Potassium 3.3. Creatinine 0.78. LDH 591. C-reactive protein 5.8. She is continued on Decadron, Lovenox, vitamin supplements. on 04/22/2021 patient seen in follow-up on the regular medical surgical floor. Currently she is on 3 L of oxygen, her pulse ox is 95%, breathing comfortably, minimal rales at the bases, her coughing is improving, overall she has been stable overnight, vital signs. Have been stable, no worsening dyspnea or hypoxia. currently patient is on Decadron 6 daily, Lovenox 40 mg daily, multivitamins. no acute events overnight, today's labs have been reviewed, potassium is 4.7 On 04/24/2021 patient seen in follow-up on medical surgical floor, she is resting comfortably in bed, her cough or shortness of breath are improving, she is currently at 2 L of oxygen pulse ox is 91%, lung sounds reveal some mild crackles at bilateral bases, no worsening dyspnea or cough, she states her appetite is poor, but she has had no nausea or vomiting, her diarrhea has significantly improved, Decadron currently is a 6 mg daily, she is on prophylactic dose Lovenox 40 mg daily, she is on multivitamins. Today's labs have been reviewed, white blood cell count was 5.2, hemoglobin is 10.9, she hasn't had a d-dimer in the last couple days, her sodium is 135, potassium is 4.4, BUN is 11 and creatinine 0.8. Her inflammatory markers were improving and LDH was down to 249, and CRP was 4.9, had a liver ultrasound completed in view of elevated liver enzymes that showed no worrisome intrahepatic ductal dilatation. Objective - Vital Signs Vital signs: Vital Signs Temp 98 F 04/24/21 14:44 Pulse 65 04/24/21 14:44 Resp 18 04/24/21 14:44 BP 120/66 04/24/21 14:44 Pulse Ox 91 L 04/24/21 14:44 Intake & Output 04/23/21 04/24/21 04/24/21 18:59 06:59 18:59 Other: Voiding Method Toilet Toilet Toilet # Voids 4 3 # Bowel Movements 3 0 - Exam GENERAL EXAM: Alert, very pleasant, 71-year-old white female, on 2 L of oxygen with a pulse ox of 90-95% comfortable in no apparent distress. HEAD: Normocephalic/atraumatic. EYES: Normal reaction of pupils, equal size. Conjunctiva pink, sclera white. NOSE: Clear with pink turbinates. THROAT: No erythema or exudates. NECK: No masses, no JVD, no thyroid enlargement, no adenopathy. CHEST: No chest wall deformity. Symmetrical expansion. LUNGS: Equal air entry with bibasilar crackle CVS: Regular rate and rhythm, normal S1 and S2, no gallops, no murmurs, no rubs ABDOMEN: Soft, nontender. No hepatosplenomegaly, normal bowel sounds, no guarding or rigidity. EXTREMITIES: No clubbing, no edema, no cyanosis, 2+ pulses and upper and lower extremities. MUSCULOSKELETAL: Muscle strength and tone normal. SPINE: No scoliosis or deformity SKIN: No rashes CENTRAL NERVOUS SYSTEM: Alert and oriented -3. No focal deficits, tone is normal in all 4 extremities. PSYCHIATRIC: Alert and oriented -3. Appropriate affect. Intact judgment and insight. - Labs CBC & Chem 7: 04/24/21 06:00 04/24/21 06:00 Labs: Abnormal Lab Results - Last 24 Hours (Table) 04/24/21 04/24/21 Range/Units 06:00 06:00 Hgb 10.9 L (12.0-15.0) g/dL Hct 36.6 L (37.2-46.3) % MCH 26.6 L (27.0-32.0) pg MCHC 29.8 L (32.0-37.0) g/dL RDW 16.3 H (11.5-14.5) % MPV 8.8 L (9.5-12.2) fL Lymphocytes # 0.33 L (0.90-5.00) X 10*3/uL Chloride 93 L (96-109) mmol/L AST 38 H (13-35) U/L ALT 92 H (8-44) U/L Total Protein 5.4 L (6.2-8.2) g/dL Albumin 3.4 L (3.8-4.9) g/dL Assessment and Plan Plan: assessment: #1. Acute hypoxic respiratory failure secondary to COVID-19 pneumonia, initially positive on 03/28/2021, she was outside the window for Remdesivir, she was vaccinated back in June 2020 for COVID 19, initiated on Decadron, Lovenox and vitamin supplements, currently on 3 L of oxygen #2. Recent hospitalization for COVID-19 related pneumonia, discharged home on 03/30/2021, did not require home oxygen when she was discharged #3. History of non-Hodgkin's lymphoma, follows with Dr. Felipe #4. History of previous tobacco dependence #5. Hypertension #6. Hyperlipidemia #7. Hypothyroidism #8. Depression #9. History of bilateral carotid stenosis with previous right endarterectomy and left cheek are #10. GERD/reflux #11. Hyponatremia with sodium of 126 improving with IV hydration #12. Hypokalemia, improved #13. Elevated AST and ALT, related to COVID-19 pneumonia, liver ultrasound showing no worrisome intrahepatic findings Plan: Continue current medical treatment Continue current dose Decadron and Lovenox Breathing comfortably, her cough was improving, Encourage deep breathing and coughing, encouraged the patient to sit up in a chair, If remains stable and improving may consider discharge home in the next 24 hours I performed a history & physical examination of the patient and discussed their management with my nurse practitioner, Jennifer iRddle. I reviewed the nurse practitioner's note and agree with the documented findings and plan of care. Lung sounds are positive for dim breath sounds throughout the lung pichardo. The findings and the impression was discussed with the patient. I attest to the documentation by the nurse practitioner. Time with Patient: Less than 30
--- NOTE | 2021-04-24 17:47 | P.PN ---
Subjective This is a pleasant 71 years old female with past medical history of GERD, hyperlipidemia, hypertension, hypothyroidism, presents with respiratory symptoms secondary to bilateral: Pneumonia and mild hypoxia Patient is being followed by pulmonary service closely and she is currently covered with dexamethasone and multiple vitamins. Also she is on home dose of Plavix, Lovenox and Protonix Patient was mild dyspnea but with significant distress and nausea but without vomiting, she is on Zofran with partial improvement and therefore was switched t o Phenergan. Could not increase the dose of Zofran because she is already on Lexapro. Patient with no abdominal pain but she has a lot of diarrhea, , she had 3 episodes of bowel movements which are lose this morning. She has little cough. She has poor appetite. Also showing hemoglobin is slightly trending down 11.8 down to 10.4. Inflammatory markers improving with LDH 249 and C-reactive protein 4.9. Liver enzymes were elevated, we will repeat them tomorrow morning. Chest x-ray showing bilateral worsening pneumonia And we are going to check liver ultrasound ordered today 04/24/2020 Patient states she feels better today, she is more calm, she states that her nausea have resolved with an enlarging and she likes to keep it for now. She was trying to eat today however she still have low appetite. But she denies abdominal pain or vomiting. Liver ultrasound was negative for significant lesion to explain the patient's symptoms, patient gallbladder is surgically absent. She still have some coughing but no chest pain and her breathing is comfortable. She is saturating 91% on 2 L oxygen. Blood pressure is improving. are noted on the are improving. Tremors on dexamethasone, multiple vitamins, Lovenox Pepcid and Plavix. Objective - Vital Signs Vital signs: Vital Signs Temp 98.2 F 04/24/21 07:57 Pulse 61 04/24/21 07:57 Resp 17 04/24/21 07:57 BP 169/75 04/24/21 07:57 Pulse Ox 91 L 04/24/21 07:57 Intake & Output 04/23/21 04/24/21 04/24/21 18:59 06:59 18:59 Other: Voiding Method Toilet Toilet # Voids 4 3 # Bowel Movements 3 0 - Exam -GENERAL: The patient is alert and oriented x3, in mild distress due to nausea and. Well developed, well nourished. HEENT: Pupils are round and equally reacting to light. EOMI. No scleral icterus. No conjunctival pallor. Normocephalic, atraumatic. No pharyngeal erythema. No thyromegaly. CARDIOVASCULAR: S1 and S2 present. No murmurs, rubs, or gallops. PULMONARY: Chest is clear to auscultation, no wheezing or crackles. ABDOMEN: Soft, nontender, nondistended, normoactive bowel sounds. No palpable organomegaly. MUSCULOSKELETAL: No joint swelling or deformity. EXTREMITIES: No cyanosis, clubbing, or pedal edema. NEUROLOGICAL: Gross neurological examination did not reveal any focal deficits. SKIN: No rashes. no petechiae. - Labs CBC & Chem 7: 04/24/21 06:00 04/24/21 06:00 Labs: Abnormal Lab Results - Last 24 Hours (Table) 04/23/21 Range/Units 05:02 Potassium 3.4 L (3.5-5.5) mmol/L Chloride 93 L (96-109) mmol/L Carbon Dioxide 28.1 H (20.0-27.5) mmol/L Calcium 8.4 L (8.7-10.3) mg/dL Assessment and Plan Assessment: Bilateral Covid pneumonia Acute hypoxic respiratory failure Increased inflammatory markers Persistent nausea with mildly elevated liver enzymes Elevated liver enzymes could be secondary to Covid infection, rule out gallbl adder disease. Plan: This is a pleasant 71 years old female who presents with covid pneumonia, also she has nausea Continue with dexamethasone Continue with vitamin C, vitamin D and zinc Pulmonary consult Nutrition consult Labs and medication were reviewed.. Continue same treatment. Continue with symptomatic treatment. Resume home medication. Monitor lytes and vitals. DVT and GI prophylaxis. Further recommendations as per clinical course of the patient DVT prophylaxis: Subcutaneous Lovenox GI Prophylaxis: Ppi PT/OT: Pending Prognosis is guarded
[2021-04-24] MEDS: CLOPIDOGREL 75 MG TAB PO SCH (20:38)
[2021-04-25] MEDS: LEVOTHYROXINE 50 MCG TAB PO SCH (05:34)
[2021-04-25] MEDS: ALBUTEROL HFA INHALER INHALATION SCH ×2 (08:38→16:16)
[2021-04-25] MEDS: lisinopriL 20 MG TAB PO SCH (10:27)
[2021-04-25] MEDS: dexAMETHasone 2 MG TAB PO SCH (10:27)
[2021-04-25] MEDS: PANTOPRAZOLE 40 MG TABLET PO SCH (10:27)
[2021-04-25] MEDS: ASCORBIC ACID 500 MG TAB PO SCH (10:27)
[2021-04-25] MEDS: ZINC SULFATE 220 MG CAP PO SCH (10:27)
[2021-04-25] MEDS: buPROPion XL 150 MG TAB.ER.24H PO SCH (10:28)
[2021-04-25] MEDS: ESCITALOPRAM 20 MG TAB PO SCH (10:28)
[2021-04-25] MEDS: ENOXAPARIN 40 MG/0.4 ML SYRINGE SQ SCH (10:28)
[2021-04-25] MEDS: CHOLECALCIFEROL 25 MCG (1000 IU) TABLET PO SCH (10:28)
[2021-04-25 10:58] VITALS: RESP 19; TEMP 98
[2021-04-25 15:39] VITALS: BP 169/73; PULSE 65
--- NOTE | 2021-04-25 17:58 | P.PN ---
Subjective Progress Note Date: 04/25/21 Principal diagnosis: COVID-19 pneumonia This is a very pleasant 71-year-old female patient who follows with Dr. Cai as her primary care provider. She has a history of hypothyroidism, depression, hypertension, hyperlipidemia, non-Hodgkin's lymphoma, carotid stenosis with previous right carotid endarterectomy and high-grade stenosis of the left internal carotid status post LTCAR with stenting, previous smoker and she was recently discharged from here 03/30/2021 from a acute COVID-19 pneumonia. She was vaccinated back in June 2020. She did not require home oxygen at discharge. She represented here today with complaints of increasing shortness of breath, cough and congestion. X-ray did reveal some worsening bilateral multifocal opacities. Consistent with COVID-19 infection progression. She is seen in the emergency room. She is awake and alert in no acute distress. She is maintaining O2 saturation in the 90s on 4 L/m per nasal cannula. 0.9 normal saline at 20 ML's per hour. White count 5.0. Hemoglobin 11.8. Lymphocytes 0.3. D-dimer 0.78. Sodium 126. Potassium 2.8. Chloride 85. Bicarb 30. Creatinine 0.79. ProBNP 381. Guillen virus by PCR positive. She's been initiated on Decadron, Lovenox, vitamin supplements. The patient is seen today 04/21/2021 in follow-up on the regular medical floor. She is currently resting currently in bed. Awake and alert in no acute distress. Maintaining O2 saturations in the 90s on 3 L/m per nasal cannula. Chest x-ray reveals worsening bilateral multifocal opacities consistent with COVID-19 pneumonia. D-dimer 0.86. Sodium 135. Potassium 3.3. Creatinine 0.78. LDH 591. C-reactive protein 5.8. She is continued on Decadron, Lovenox, vitamin supplements. on 04/22/2021 patient seen in follow-up on the regular medical surgical floor. Currently she is on 3 L of oxygen, her pulse ox is 95%, breathing comfortably, minimal rales at the bases, her coughing is improving, overall she has been stable overnight, vital signs. Have been stable, no worsening dyspnea or hypoxia. currently patient is on Decadron 6 daily, Lovenox 40 mg daily, multivitamins. no acute events overnight, today's labs have been reviewed, potassium is 4.7 On 04/24/2021 patient seen in follow-up on medical surgical floor, she is resting comfortably in bed, her cough or shortness of breath are improving, she is currently at 2 L of oxygen pulse ox is 91%, lung sounds reveal some mild crackles at bilateral bases, no worsening dyspnea or cough, she states her appetite is poor, but she has had no nausea or vomiting, her diarrhea has significantly improved, Decadron currently is a 6 mg daily, she is on prophylactic dose Lovenox 40 mg daily, she is on multivitamins. Today's labs have been reviewed, white blood cell count was 5.2, hemoglobin is 10.9, she hasn't had a d-dimer in the last couple days, her sodium is 135, potassium is 4.4, BUN is 11 and creatinine 0.8. Her inflammatory markers were improving and LDH was down to 249, and CRP was 4.9, had a liver ultrasound completed in view of elevated liver enzymes that showed no worrisome intrahepatic ductal dilatation. On 04/25/2021 patient is seen in follow-up on medical surgical floor. She is breathing comfortably, she remains on 2 L of oxygen. No worsening dyspnea, no chest pain, no fever or chills, vital signs have been stable. No cough, patient has been admitting to the bathroom, tolerating activity well. Diarrhea has significantly improved, she is tolerating oral intake, no abdominal pain. No new labs today. Inflammatory markers were significantly improved on yesterday's labs, last d-dimer on April 6021 was not significantly elevated and was at 0.86. LFTs were improving on yesterday's labs. Objective - Vital Signs Vital signs: Vital Signs Temp 98.0 F 04/25/21 14:00 Pulse 65 04/25/21 14:00 Resp 19 04/25/21 14:00 BP 169/73 04/25/21 14:00 Pulse Ox 90 L 04/25/21 14:00 Intake & Output 04/24/21 04/25/21 04/25/21 18:59 06:59 18:59 Other: Voiding Method Toilet Toilet Toilet # Voids 4 2 # Bowel Movements 1 - Exam GENERAL EXAM: Alert, very pleasant, 71-year-old white female, on 2 L of oxygen with a pulse ox of 90-95% comfortable in no apparent distress. HEAD: Normocephalic/atraumatic. EYES: Normal reaction of pupils, equal size. Conjunctiva pink, sclera white. NOSE: Clear with pink turbinates. THROAT: No erythema or exudates. NECK: No masses, no JVD, no thyroid enlargement, no adenopathy. CHEST: No chest wall deformity. Symmetrical expansion. LUNGS: Equal air entry with bibasilar crackle CVS: Regular rate and rhythm, normal S1 and S2, no gallops, no murmurs, no rubs ABDOMEN: Soft, nontender. No hepatosplenomegaly, normal bowel sounds, no guarding or rigidity. EXTREMITIES: No clubbing, no edema, no cyanosis, 2+ pulses and upper and lower extremities. MUSCULOSKELETAL: Muscle strength and tone normal. SPINE: No scoliosis or deformity SKIN: No rashes CENTRAL NERVOUS SYSTEM: Alert and oriented -3. No focal deficits, tone is normal in all 4 extremities. PSYCHIATRIC: Alert and oriented -3. Appropriate affect. Intact judgment and insight. - Labs CBC & Chem 7: 04/24/21 06:00 04/24/21 06:00 Assessment and Plan Plan: assessment: #1. Acute hypoxic respiratory failure secondary to COVID-19 pneumonia, initially positive on 03/28/2021, she was outside the window for Remdesivir, she was vaccinated back in June 2020 for COVID 19, initiated on Decadron, Lovenox and vitamin supplements, currently on 2 L of oxygen #2. Recent hospitalization for COVID-19 related pneumonia, discharged home on 03/30/2021, did not require home oxygen when she was discharged #3. History of non-Hodgkin's lymphoma, follows with Dr. Felipe #4. History of previous tobacco dependence #5. Hypertension #6. Hyperlipidemia #7. Hypothyroidism #8. Depression #9. History of bilateral carotid stenosis with previous right endarterectomy and left cheek are #10. GERD/reflux #11. Hyponatremia with sodium of 126 improving with IV hydration #12. Hypokalemia, improved #13. Elevated AST and ALT, related to COVID-19 pneumonia, liver ultrasound showing no worrisome intrahepatic findings Plan: Clinically patient has remained stable No worsening dyspnea She does qualify for home oxygen She will be going home on 2 L of oxygen No acute events overnight She is tolerating ambulation in the room Diarrhea has significantly improved She looks stronger on today's exam, in no acute distress She is going home today She will complete 6 more days of oral Decadron 6 blood gram daily, she'll cont inue on vitamin C, vitamin D and zinc Outpatient follow-up with Dr. Bird in the office in 2 weeks I performed a history & physical examination of the patient and discussed their management with my nurse practitioner, Jennifer Riddle. I reviewed the nurse practitioner's note and agree with the documented findings and plan of care. Lung sounds are positive for dim breath sounds throughout the lung pichardo. The findings and the impression was discussed with the patient. I attest to the documentation by the nurse practitioner. Time with Patient: Less than 30
== END 2021-04-25 17:09 | disposition home or self-care (01) | DRG 177 ==
LOC: EC 13:24 → 4SSUR 16:59 → 3NCARDOBS 04-20 09:05 → 4SSUR 04-21 16:41
PROVIDERS: ADMIT Family Medicine; ATTEND Family Medicine
DX: U07.1 COVID-19 (principal); J12.82 Pneumonia due to coronavirus disease 2019; J96.01 Acute respiratory failure with hypoxia; E87.1 Hypo-osmolality and hyponatremia; E03.9 Hypothyroidism, unspecified; E11.9 Type 2 diabetes mellitus without complications; E78.5 Hyperlipidemia, unspecified; E87.6 Hypokalemia; F32.A Depression, unspecified; I10 Essential (primary) hypertension; J45.909 Unspecified asthma, uncomplicated; K21.9 Gastro-esophageal reflux disease without esophagitis; Z79.82 Long term (current) use of aspirin; Z79.890 Hormone replacement therapy; Z79.899 Other long term (current) drug therapy; Z82.49 Family history of ischemic heart disease and other diseases of the circulatory system; Z82.5 Family history of asthma and other chronic lower respiratory diseases; Z85.72 Personal history of non-Hodgkin lymphomas; Z85.828 Personal history of other malignant neoplasm of skin; Z87.891 Personal history of nicotine dependence; Z92.21 Personal history of antineoplastic chemotherapy; Z92.3 Personal history of irradiation
CPT/HCPCS: 36415; 71045; 76705; 80048; 80053; 83615; 83735; 83880; 84132; 84484; 85025; 85379; 86140; 87635; 93005; 94640; 99285

== ENCOUNTER 2021-10-23 12:22 | Inpatient (IN) | payer MEDICARE, OTHER ==
[2021-10-23] MEDS ORDERED: PANTOPRAZOLE 40 MG/10 ML VIAL IVP STA (13:34)
[2021-10-23] MEDS ORDERED: ONDANSETRON 4 MG/2 ML VIAL IVP STA (13:34)
[2021-10-23] MEDS ORDERED: SODIUM CHLORIDE 0.9% 1,000 ML IV STA (13:34)
[2021-10-23] MEDS ORDERED: diphenhydrAMINE 50 MG/ML 1 ML VIAL IVP STA (13:34)
--- NOTE | 2021-10-23 13:36 | ED ---
General Adult HPI - General Chief complaint: Nausea/Vomiting/Diarrhea Stated complaint: diarrhea, vomiting Time Seen by Provider: 10/23/21 13:20 Source: patient, RN notes reviewed, old records reviewed Mode of arrival: ambulatory Limitations: no limitations - History of Present Illness Initial comments: Patient is a 71-year-old female with past medical history remarkable for asthma, cancer, hypertension, thyroid disorder presents emergency Department complaining of diarrhea for approximately one week as well as nausea and vomiting for a few days. No known sick contacts. No fevers, chills. Crampy abdominal pain that is intermittent, primarily before diarrhea. Denies urinary complaints. Denies chest pain, cough, shortness of breath. He is concerned because the diarrhea is persistent and she feels dehydrated. Presents for further evaluation at this time. - Related Data Home Medications Medication Instructions Recorded Confirmed Enalapril [Vasotec] 20 mg PO BID 08/28/13 10/23/21 Escitalopram [Lexapro] 20 mg PO DAILY 08/28/13 10/23/21 Levothyroxine Sodium [Levoxyl] 50 mcg PO DAILY 08/28/13 10/23/21 Clopidogrel Bisulfate [Plavix] 75 mg PO DAILY 09/29/18 10/23/21 Aspirin 81 mg PO HS 07/30/20 10/23/21 Evolocumab [Repatha Syringe] 140 mg SQ Q14D 07/30/20 10/23/21 Pantoprazole Sodium [Protonix] 40 mg PO DAILY 07/30/20 10/23/21 buPROPion HCL [Wellbutrin XL] 150 mg PO DAILY 07/30/20 10/23/21 Albuterol Inhaler [Ventolin Hfa 2 puff INHALATION RT-Q4H PRN 10/23/21 10/23/21 Inhaler] Allergies Allergy/AdvReac Type Severity Reaction Status Date / Time No Known Allergies Allergy Verified 10/23/21 13:07 Review of Systems ROS Statement: Those systems with pertinent positive or pertinent negative responses have been documented in the HPI. Review of Systems: CONST: Denies fever EYES: Denies blurry vision ENT: Denies nasal congestion C/V: Denies Chest pain RESP: Denies shortness of breath GI: Endorses diarrhea, nausea : Denies dysuria SKIN: Denies rash. MSK: Denies joint pain. NEURO: Denies headache ROS Other: All systems not noted in ROS Statement are negative. Past Medical History Past Medical History: Asthma, Cancer, GERD/Reflux, Hyperlipidemia, Hypertension, Pneumonia, Skin Disorder, Thyroid Disorder Additional Past Medical History / Comment(s): Pt recently admitted to [facility] on with covid, acute hypoxic respiratory failure, hypokalemia, possible UTI, acute kidney injury. Other hx: Nonhodgkins lymphoma with chemo/radiation in 2007, skin cancer, psoriasis, frequent diarrhea, hpylori in the past, psoriasis. History of Any Multi-Drug Resistant Organisms: None Reported Past Surgical History: Cholecystectomy, Ear Surgery, Orthopedic Surgery Additional Past Surgical History / Comment(s): Bilateral caratid endartectomies/L caratid also stented, R ear implant to improve hearing, bilateral blepharoplasty, bilateral cataract removals then L eye laser surgery, neck lymphnode biopsy, bilateral hammer toe surgery, bilateral feet bunionectomies, R carpal tunnel release, colonoscopy, benign growth removed from labia. Past Anesthesia/Blood Transfusion Reactions: No Reported Reaction Past Psychological History: Depression Smoking Status: Former smoker Past Alcohol Use History: None Reported Past Drug Use History: None Reported - Past Family History Mother History Unknown: Yes Family Medical History: No Reported History Father Family Medical History: COPD, Myocardial Infarction ([place]) Additional Family Medical History / Comment(s): Heart problems. General Exam - General Exam Comments Initial Comments: General: Appears in no acute distress. HEAD: Normal with no signs of head trauma. EYES: PERRLA, EOMI, conjunctiva normal, no discharge. ENT: Hearing grossly intact, normal oropharynx. Dry mucous membranes. RESPIRATORY: Clear breath sounds bilaterally. No wheezes, rales, or rhonchi. C/V: Regular rate and rhythm. S1 and S2 auscultated, no edema, peripheral pulses 2+ and intact throughout ABD: Abd is soft, nontender, nondistended. No guarding. No distention. No peritoneal signs. No rebound tenderness. EXT: Normal range of motion, no obvious deformity SKIN: No rashes or lesions observed on exposed skin. NEURO: Alert and oriented 4. No focal deficits. Limitations: no limitations Course Vital Signs 10/23/21 10/23/21 10/23/21 12:27 17:30 18:17 Temperature 98.2 F Pulse Rate 70 75 Respiratory 20 18 Rate Blood Pressure 94/57 121/51 O2 Sat by Pulse 97 Oximetry Medical Decision Making - Medical Decision Making Based on the patient's presentation and physical exam, I'm concerned for dehydration. She may be suffering from a viral syndrome due to persistent diarrhea. We will obtain abdominal laboratory studies as well as cardiac, but atypical cause of ACS. Patient was in agreement this plan. She'll be given IV fluids as well as part of a GI cocktail. We'll obtain a CT abdomen and pelvis in addition to chest x-ray. Vital signs are within normal limits. EKG shows no signs of acute ischemia. Laboratory studies are remarkable for a slight hyperkalemia 5.3. carbon dioxide level is slightly decreased at 14. Patient is an elevated BUN/creatinine of 78 and 1.73 which I suspect is likely prerenal due to dehydration. Troponin is undetectable. Covid Fluor negative. Urine is still pending at this time. Chest x-ray shows no acute cardio pulmonary process. There is some minimal infiltrate or atelectasis in the left lung base, however patient has no upper respiratory symptoms and is likely atelectasis. CT abdomen and pelvis shows no no obvious findings. There are nonobstructive renal calculi, symptoms of diarrhea, and hypodense liver lesions which are chronic. Lactic acid is within normal limits. Reevaluation I discussed the findings with the patient. I recommended admission to the hospital. She was in agreement this plan. Nephrology will be consulted. Blood catheter was placed after discussion with the patient regarding monitoring urinary output. She'll be continued on IV fluids. Patient was in agreement this plan. Gonzalez catheter was placed and a small amount of urine was obtained. Urinalysis revealed a moderate amount of bacteria but no signs of infection. We'll hold antibiotics at this time. Renal ultrasound was obtained and revealed nonobstructing left renal calculus, no hydronephrosis, as was bilateral small renal cortical cyst. Vital signs remain within normal limits. I discussed the case with Dr. Palma. Patient was admitted in stable condition. - Lab Data Result diagrams: 10/23/21 14:05 10/23/21 14:05 Lab Results 10/23/21 10/23/21 10/23/21 Range/Units 13:40 13:40 14:05 WBC 6.4 (3.8-10.6) k/uL RBC 4.01 (3.80-5.40) m/uL Hgb 11.1 L (11.4-16.0) gm/dL Hct 34.1 (34.0-46.0) % MCV 85.2 (80.0-100.0) fL MCH 27.7 (25.0-35.0) pg MCHC 32.5 (31.0-37.0) g/dL RDW 16.6 H (11.5-15.5) % Plt Count 483 H (150-450) k/uL MPV 7.1 Neutrophils % 77 % Lymphocytes % 12 % Monocytes % 7 % Eosinophils % 1 % Basophils % 1 % Neutrophils # 4.9 (1.3-7.7) k/uL Lymphocytes # 0.8 L (1.0-4.8) k/uL Monocytes # 0.5 (0-1.0) k/uL Eosinophils # 0.1 (0-0.7) k/uL Basophils # 0.1 (0-0.2) k/uL Anisocytosis Slight PT (9.0-12.0) sec INR (<1.2) APTT (22.0-30.0) sec Sodium (137-145) mmol/L Potassium (3.5-5.1) mmol/L Chloride (98-107) mmol/L Carbon Dioxide (22-30) mmol/L Anion Gap mmol/L BUN (7-17) mg/dL Creatinine (0.52-1.04) mg/dL Est GFR (CKD-EPI)AfAm (>60 ml/min/1.73 sqM) Est GFR (CKD-EPI)NonAf (>60 ml/min/1.73 sqM) Glucose (74-99) mg/dL Plasma Lactic Acid Luca (0.7-2.0) mmol/L Calcium (8.4-10.2) mg/dL Total Bilirubin (0.2-1.3) mg/dL AST (14-36) U/L ALT (4-34) U/L Alkaline Phosphatase (38-126) U/L Troponin I (0.000-0.034) ng/mL Total Protein (6.3-8.2) g/dL Albumin (3.5-5.0) g/dL Amylase (30-110) U/L Lipase (23-300) U/L Coronavirus (PCR) Not Detected (Not Detectd) Influenza Type A RNA Not Detected (Not Detectd) Influenza Type B (PCR) Not Detected (Not Detectd) 10/23/21 10/23/21 10/23/21 Range/Units 14:05 14:05 14:05 WBC (3.8-10.6) k/uL RBC (3.80-5.40) m/uL Hgb (11.4-16.0) gm/dL Hct (34.0-46.0) % MCV (80.0-100.0) fL MCH (25.0-35.0) pg MCHC (31.0-37.0) g/dL RDW (11.5-15.5) % Plt Count (150-450) k/uL MPV Neutrophils % % Lymphocytes % % Monocytes % % Eosinophils % % Basophils % % Neutrophils # (1.3-7.7) k/uL Lymphocytes # (1.0-4.8) k/uL Monocytes # (0-1.0) k/uL Eosinophils # (0-0.7) k/uL Basophils # (0-0.2) k/uL Anisocytosis PT (9.0-12.0) sec INR (<1.2) APTT (22.0-30.0) sec Sodium 134 L (137-145) mmol/L Potassium 5.3 H (3.5-5.1) mmol/L Chloride 105 (98-107) mmol/L Carbon Dioxide 14 L (22-30) mmol/L Anion Gap 15 mmol/L BUN 78 H (7-17) mg/dL Creatinine 4.73 H (0.52-1.04) mg/dL Est GFR (CKD-EPI)AfAm 10 (>60 ml/min/1.73 sqM) Est GFR (CKD-EPI)NonAf 9 (>60 ml/min/1.73 sqM) Glucose 85 (74-99) mg/dL Plasma Lactic Acid Luca 0.6 L (0.7-2.0) mmol/L Calcium 9.3 (8.4-10.2) mg/dL Total Bilirubin 0.2 (0.2-1.3) mg/dL AST 15 (14-36) U/L ALT 22 (4-34) U/L Alkaline Phosphatase 101 (38-126) U/L Troponin I <0.012 (0.000-0.034) ng/mL Total Protein 6.6 (6.3-8.2) g/dL Albumin 4.2 (3.5-5.0) g/dL Amylase 68 (30-110) U/L Lipase 123 (23-300) U/L Coronavirus (PCR) (Not Detectd) Influenza Type A RNA (Not Detectd) Influenza Type B (PCR) (Not Detectd) 10/23/21 Range/Units 16:00 WBC (3.8-10.6) k/uL RBC (3.80-5.40) m/uL Hgb (11.4-16.0) gm/dL Hct (34.0-46.0) % MCV (80.0-100.0) fL MCH (25.0-35.0) pg MCHC (31.0-37.0) g/dL RDW (11.5-15.5) % Plt Count (150-450) k/uL MPV Neutrophils % % Lymphocytes % % Monocytes % % Eosinophils % % Basophils % % Neutrophils # (1.3-7.7) k/uL Lymphocytes # (1.0-4.8) k/uL Monocytes # (0-1.0) k/uL Eosinophils # (0-0.7) k/uL Basophils # (0-0.2) k/uL Anisocytosis PT 10.1 (9.0-12.0) sec INR 0.9 (<1.2) APTT 19.1 L (22.0-30.0) sec Sodium (137-145) mmol/L Potassium (3.5-5.1) mmol/L Chloride (98-107) mmol/L Carbon Dioxide (22-30) mmol/L Anion Gap mmol/L BUN (7-17) mg/dL Creatinine (0.52-1.04) mg/dL Est GFR (CKD-EPI)AfAm (>60 ml/min/1.73 sqM) Est GFR (CKD-EPI)NonAf (>60 ml/min/1.73 sqM) Glucose (74-99) mg/dL Plasma Lactic Acid Luca (0.7-2.0) mmol/L Calcium (8.4-10.2) mg/dL Total Bilirubin (0.2-1.3) mg/dL AST (14-36) U/L ALT (4-34) U/L Alkaline Phosphatase (38-126) U/L Troponin I (0.000-0.034) ng/mL Total Protein (6.3-8.2) g/dL Albumin (3.5-5.0) g/dL Amylase (30-110) U/L Lipase (23-300) U/L Coronavirus (PCR) (Not Detectd) Influenza Type A RNA (Not Detectd) Influenza Type B (PCR) (Not Detectd) - EKG Data -: EKG Interpreted by Me EKG Comments: 12-lead Electrocardiogram Interpretation Note EKG was reviewed and interpreted by myself. 12-lead ECG performed at 1547 is interpreted by me as revealing normal sinus rhythm at a rate of 57 beats per minute. [place] is normal. HI interval is 191 ms, QRS duration is 81 ms, QTc is 394 ms.. There were no ST or T wave abnormalities to suggest myocardial ischemia or injury. R wave progression across the precordium was satisfactory. By my interpretation this EKG is non-diagnostic for acute ischemia. Disposition Clinical Impression: Dehydration, FLORINDA (acute kidney injury), Diarrhea Disposition: ADMITTED IP TO THIS HOSP Condition: Stable Time of Disposition: 16:30
[2021-10-23 14:50] LABS: Anisocytosis Slight; Basophils # (A) 0.1 k/uL (0-0.2); Basophils % (A) 1 %; Eosinophils # (A) 0.1 k/uL (0-0.7); Eosinophils % (A) 1 %; HCT 34.1 % (34.0-46.0); HGB 11.1 gm/dL (11.4-16.0); Lymphocytes # (A) 0.8 k/uL (1.0-4.8); Lymphocytes % (A) 12 %; MCH 27.7 pg (25.0-35.0); MCHC 32.5 g/dL (31.0-37.0); MCV 85.2 fL (80.0-100.0); Mean Platelet Volume 7.1; Monocytes # (A) 0.5 k/uL (0-1.0); Monocytes % (A) 7 %; Neutrophils # (A) 4.9 k/uL (1.3-7.7); Neutrophils % (A) 77 %; Platelet Count 483 k/uL (150-450); RBC 4.01 m/uL (3.80-5.40); RDW 16.6 % (11.5-15.5); WBC 6.4 k/uL (3.8-10.6)
[2021-10-23 15:01] LABS: Albumin 4.2 g/dL (3.5-5.0); Calcium 9.3 mg/dL (8.4-10.2); Potassium 5.3 mmol/L (3.5-5.1); Total Bilirubin 0.2 mg/dL (0.2-1.3); Total Protein 6.6 g/dL (6.3-8.2)
--- NOTE | 2021-10-23 15:07 | XR ---
EXAMINATION TYPE: XR chest 1V portable DATE OF EXAM: 10/23/2021 COMPARISON: 07/26/2021 HISTORY: Abdominal pain TECHNIQUE: Single view FINDINGS: There is some minimal density left lung base. The other lung pichardo are clear. There is lef t-sided central venous catheter with tip in the superior vena cava. Heart and mediastinum are normal. No pleural effusion. IMPRESSION: There is some minimal infiltrate or atelectasis left lung base which appears new compared to old exam. Normal heart.
--- NOTE | 2021-10-23 16:09 | CT ---
EXAMINATION TYPE: CT abdomen pelvis wo con DATE OF EXAM: 10/23/2021 COMPARISON: PET/CT scan 02/04/2021 HISTORY: pain, vomiting, diarrhea lymphoma. CT DLP: 684.3 mGycm Automated exposure control for dose reduction was used. Images obtained from the diaphragm to the floor the pelvis with no contrast. There is some mild reticular density at the lung bases consistent with mild fibrosis. No pleural effu jana. Heart size is normal. No pericardial effusion. There are 2 hypodense foci in the liver that shaina sure 3.3 cm and 2 cm. The bile ducts are not dilated. There are clips from cholecystectomy. Spleen st omach pancreas appear intact. The bile ducts are not dilated. There is no adrenal mass. There is 1.5 cm calculus lower pole left kidney. There is 2 mm calculus low er pole right kidney. No hydronephrosis. Ureters are not dilated. No retroperitoneal adenopathy. Urin damaris bladder is almost empty. No inguinal hernia. No pelvic mass. No free fluid in the pelvis. There i s large bowel fluid levels down to the rectum. No pelvic lymphadenopathy. Appendix appears normal. No mesenteric edema. No ascites or free air. No bowel obstruction. There is some renal vascular calci fication. There is 1.5 cm cortical cyst anterior left kidney. There is a degenerative first-degree L4-5 spondylolisthesis. No lumbar compression fracture. Facet clement ints are intact. The bony pelvis is intact. Hip joints are intact. IMPRESSION: Hypodense liver lesions not significantly different than old exam and could be hepatic cysts. Nonobst ructing renal calculi. Mild fibrotic changes at the lung bases. Large bowel fluid levels could relate to some diarrhea. No sign of recurrent tumor.
[2021-10-23 16:31] LABS: INR 0.9 (<1.2); Prothrombin Time 10.1 sec (9.0-12.0)
[2021-10-23] MEDS ORDERED: ONDANSETRON 4 MG/2 ML VIAL IVP PRN (16:40)
[2021-10-23] MEDS ORDERED: NALOXONE 0.4 MG/ML 1 ML VIAL IV PRN (16:40)
[2021-10-23 16:48] LABS: Partial Thromboplastin Time 19.1 sec (22.0-30.0)
--- NOTE | 2021-10-23 17:35 | US ---
EXAMINATION TYPE: US renals and bladder DATE OF EXAM: 10/23/2021 COMPARISON: CLINICAL HISTORY: FLORINDA. abnormal labs EXAM MEASUREMENTS: Right Kidney: 10.1 x 4.5 x 4.2 cm Left Kidney: 9.5 x 4.7 x 5.2 cm Right Kidney: medial anechoic lesion at hilum = 1.3 x 0.7 cm Left Kidney: lower pole stone= 1.1 cm. Mid/Medial cystic cortical lesion = 1.2 x 1.0 x 1.3 cm. Bladder: anechoic, mildly distended Bilateral Jets not seen IMPRESSION: There are bilateral small renal cortical cysts. Nonobstructing left renal calculus. No hydronephrosis .
[2021-10-23 18:13] LABS: Appearance,Urine Cloudy (Clear); Bacteria,Urine Moderate /hpf; Bilirubin,Urine Negative (Negative); Blood,Urine Negative (Negative); Color,Urine Yellow; Glucose,Urine (UA) Negative (Negative); Hyaline Casts,Urine 16 /lpf (0-2); Ketones,Urine Negative (Negative); Leukocyte Esterase,Urine Trace (Negative); Nitrite,Urine Negative (Negative); Protein,Urine Trace (Negative); RBC,Urine 2 /hpf (0-5); Specific Gravity,Urine 1.014 (1.001-1.035); Squamous Epithelial Cell,Urine 1 /hpf (0-4); Urobilinogen,Urine <2.0 mg/dL (<2.0); WBC,Urine 3 /hpf (0-5)
[2021-10-23] MEDS ORDERED: ALBUTEROL NEBULIZED 2.5 MG/3 ML INHALATION PRN (18:18)
--- NOTE | 2021-10-23 18:25 | P.HPIM ---
History of Present Illness H&P Date: 10/23/21 Chief Complaint: Nausea/vomiting/diarrhea 71-year-old female with past medical history remarkable for asthma, cancer, hypertension, thyroid disorder presents emergency Department complaining of diarrhea for approximately one week as well as nausea and vomiting for a few days. No known sick contacts. No fevers, chills. Crampy abdominal pain that is intermittent, primarily before diarrhea. Denies urinary complaints. Denies chest pain, cough, shortness of breath. He is concerned because the diarrhea is persistent and she feels dehydrated. Presents for further evaluation at this time. EKG shows no signs of acute ischemia. Laboratory studies are remarkable for a s light hyperkalemia 5.3. carbon dioxide level is slightly decreased at 14. Patient is an elevated BUN/creatinine of 78 and 1.73 which I suspect is likely prerenal due to dehydration. Troponin is undetectable. Covid negative. Urine is still pending at this time. Chest x-ray shows no acute cardio palmar process. There is some minimal infiltrate or atelectasis in the left lung base, however patient has no upper respiratory symptoms and is likely atelectasis. CT abdomen and pelvis shows no no obvious findings. There are nonobstructive renal calculi, symptoms of diarrhea, and hypodense liver lesions which are chronic. Lactic acid is within normal limits. Review of Systems REVIEW OF SYSTEMS: CONSTITUTIONAL: No fever, no malaise, no fatigue. HEENT: No recent visual problems or hearing problems. Denied any sore throat. CARDIOVASCULAR: No chest pain, orthopnea, PND, no palpitations, no syncope. PULMONARY: No shortness of breath, no cough, no hemoptysis. GASTROINTESTINAL: No diarrhea, no nausea, no vomiting, no abdominal pain. NEUROLOGICAL: No headaches, no weakness, no numbness. HEMATOLOGICAL: Denies any bleeding or petechiae. GENITOURINARY: Denies any burning micturition, frequency, or urgency. MUSCULOSKELETAL/RHEUMATOLOGICAL: Denies any joint pain, swelling, or any muscle pain. ENDOCRINE: Denies any polyuria or polydipsia. The rest of the 14-point review of systems is negative. Past Medical History Past Medical History: Asthma, Cancer, GERD/Reflux, Hyperlipidemia, Hypertension, Pneumonia, Skin Disorder, Thyroid Disorder Additional Past Medical History / Comment(s): Pt recently admitted to [facility] on 03/28/21 with covid, acute hypoxic respiratory failure, hypokalemia, possible UTI, acute kidney injury. Other hx: Nonhodgkins lymphoma with chemo/radiation in 2007, skin cancer, psoriasis, frequent diarrhea, hpylori in the past, psoriasis. History of Any Multi-Drug Resistant Organisms: None Reported Past Surgical History: Cholecystectomy, Ear Surgery, Orthopedic Surgery Additional Past Surgical History / Comment(s): Bilateral caratid endartectomies/L caratid also stented, R ear implant to improve hearing, bilateral blepharoplasty, bilateral cataract removals then L eye laser surgery, neck lymphnode biopsy, bilateral hammer toe surgery, bilateral feet bunionectomies, R carpal tunnel release, colonoscopy, benign growth removed from labia. Past Anesthesia/Blood Transfusion Reactions: No Reported Reaction Past Psychological History: Depression Smoking Status: Former smoker Past Alcohol Use History: None Reported Past Drug Use History: None Reported - Past Family History Mother History Unknown: Yes Family Medical History: No Reported History Father Family Medical History: COPD, Myocardial Infarction ([place]) Additional Family Medical History / Comment(s): Heart problems. Medications and Allergies Home Medications Medication Instructions Recorded Confirmed Type Enalapril [Vasotec] 20 mg PO BID 08/28/13 10/23/21 History Escitalopram [Lexapro] 20 mg PO DAILY 08/28/13 10/23/21 History Levothyroxine Sodium [Levoxyl] 50 mcg PO DAILY 08/28/13 10/23/21 History Clopidogrel Bisulfate [Plavix] 75 mg PO DAILY 09/29/18 10/23/21 History Aspirin 81 mg PO HS 07/30/20 10/23/21 History Evolocumab [Repatha Syringe] 140 mg SQ Q14D 07/30/20 10/23/21 History Pantoprazole Sodium [Protonix] 40 mg PO DAILY 07/30/20 10/23/21 History buPROPion HCL [Wellbutrin XL] 150 mg PO DAILY 07/30/20 10/23/21 History Albuterol Inhaler [Ventolin Hfa 2 puff INHALATION RT-Q4H PRN 10/23/21 10/23/21 History Inhaler] Allergies Allergy/AdvReac Type Severity Reaction Status Date / Time No Known Allergies Allergy Verified 10/23/21 13:07 Physical Exam Vitals: Vital Signs Temp Pulse Resp BP Pulse Ox 07/10/22 17:30 18 121/51 10/23/21 12:27 98.2 F 70 20 94/57 97 Intake and Output 10/23/21 10/23/21 10/23/21 06:59 14:59 22:59 Other: Weight 78.471 kg PHYSICAL EXAMINATION: GENERAL: The patient is alert and oriented x3, not in any acute distress. Well developed, well nourished. HEENT: Pupils are round and equally reacting to light. EOMI. No scleral icterus. No conjunctival pallor. Normocephalic, atraumatic. No pharyngeal erythema. No thyromegaly. CARDIOVASCULAR: S1 and S2 present. No murmurs, rubs, or gallops. PULMONARY: Chest is clear to auscultation, no wheezing or crackles. ABDOMEN: Soft, nontender, nondistended, normoactive bowel sounds. No palpable organomegaly. MUSCULOSKELETAL: No joint swelling or deformity. EXTREMITIES: No cyanosis, clubbing, or pedal edema. NEUROLOGICAL: Gross neurological examination did not reveal any focal deficits. SKIN: No rashes. Results CBC & Chem 7: 10/23/21 14:05 10/23/21 14:05 Labs: Abnormal Lab Results - Last 24 Hours (Table) 10/23/21 10/23/21 10/23/21 Range/Units 14:05 14:05 14:05 Hgb 11.1 L (11.4-16.0) gm/dL RDW 16.6 H (11.5-15.5) % Plt Count 483 H (150-450) k/uL Lymphocytes # 0.8 L (1.0-4.8) k/uL APTT (22.0-30.0) sec Sodium 134 L (137-145) mmol/L Potassium 5.3 H (3.5-5.1) mmol/L Carbon Dioxide 14 L (22-30) mmol/L BUN 78 H (7-17) mg/dL Creatinine 4.73 H (0.52-1.04) mg/dL Plasma Lactic Acid Luca 0.6 L (0.7-2.0) mmol/L Urine Appearance (Clear) Urine Protein (Negative) Ur Leukocyte Esterase (Negative) Urine Bacteria (None) /hpf Hyaline Casts (0-2) /lpf 10/23/21 10/23/21 Range/Units 16:00 17:58 Hgb (11.4-16.0) gm/dL RDW (11.5-15.5) % Plt Count (150-450) k/uL Lymphocytes # (1.0-4.8) k/uL APTT 19.1 L (22.0-30.0) sec Sodium (137-145) mmol/L Potassium (3.5-5.1) mmol/L Carbon Dioxide (22-30) mmol/L BUN (7-17) mg/dL Creatinine (0.52-1.04) mg/dL Plasma Lactic Acid Luca (0.7-2.0) mmol/L Urine Appearance Cloudy H (Clear) Urine Protein Trace H (Negative) Ur Leukocyte Esterase Trace H (Negative) Urine Bacteria Moderate H (None) /hpf Hyaline Casts 16 H (0-2) /lpf Assessment and Plan Assessment: 1. Acute renal injury/dehydration - Patient received a bolus of a liter of IV fluids in ED and has been placed on sodium chloride at a rate of 1 30 mL an hour; we will monitor strict GUICHO's, daily weights, renal function and electrolytes; avoid nephrotoxins and hypotension - Nephrology is consulted and further recommendations are pending 2. Intractable nausea/vomiting/diarrhea; likely viral syndrome 3. Hyperkalemia; likely related to acute renal failure 4. Hyperglycemia without acidosis; no history of diabetes mellitus 5. Hypertension; enalapril 20 mg by mouth twice a day 6. Hyperlipidemia; patient is on Repatha 140 mg subcu every 14 days 7. Hypothyroidism; levothyroxine 50 MCG daily 8. Asthma not in exacerbation; continue with home inhaler therapy with Ventolin 9. Gastroesophageal reflux disease; patient takes Protonix 40 mg daily; we will switch to injection form till vomiting and nausea subsides DVT prophylaxis; SCDs/subcu heparin CODE STATUS; full code
[2021-10-23] MEDS: ASPIRIN 81 MG PO SCH (20:32)
[2021-10-23] MEDS: SODIUM CHLORIDE 0.9% 1,000 ML IV SCH (20:32)
[2021-10-23] MEDS ORDERED: lisinopriL 20 MG TAB PO SCH (21:00)
[2021-10-24] MEDS: HEPARIN SODIUM,PORCINE/PF 5,000 UNIT/0.5 ML SYRINGE SQ SCH ×3 (00:50→17:04)
[2021-10-24] MEDS: SODIUM CHLORIDE 0.9% 1,000 ML IV SCH ×2 (03:47→09:30)
[2021-10-24] MEDS: LEVOTHYROXINE 50 MCG TAB PO SCH (05:26)
[2021-10-24] MEDS: ESCITALOPRAM 20 MG TAB PO SCH (09:29)
[2021-10-24] MEDS: CLOPIDOGREL 75 MG TAB PO SCH (09:29)
[2021-10-24] MEDS: buPROPion XL 150 MG TAB.ER.24H PO SCH (09:29)
[2021-10-24] MEDS: PANTOPRAZOLE 40 MG TABLET PO SCH (09:29)
[2021-10-24 10:44] LABS: Basophils # (A) 0.04 X 10*3/uL (0.00-0.10); Basophils % (A) 0.6 %; Eosinophils % (A) 1.6 %; HCT 30.8 % (37.2-46.3); HGB 9.3 g/dL (12.0-15.0); Immature Grans, Automated 0.6 %; Lymphocytes # (A) 0.62 X 10*3/uL (0.90-5.00); Lymphocytes % (A) 9.9 %; MCH 26.3 pg (27.0-32.0); MCHC 30.2 g/dL (32.0-37.0); Mean Platelet Volume 8.8 fL (9.5-12.2); Monocytes # (A) 0.78 X 10*3/uL (0.20-1.00); Monocytes % (A) 12.4 %; NRBC Per 100 WBC 0 /100 WBCS (0.0-0.0); Neutrophils # (A) 4.69 X 10*3/uL (1.80-7.70); Neutrophils % (A) 74.9 %; Platelet Count 347 X 10*3/uL (140-440); RBC 3.54 X 10*6/uL (4.10-5.20); RDW 17.1 % (11.5-14.5); WBC 6.27 X 10*3/uL (4.50-10.00)
[2021-10-24 10:49] LABS: African American GFR (CKD) 13.9 (60.0-200.0); Anion Gap 13.3 mmol/L (10.00-18.00); BUN/Creat Ratio 18.83 Ratio (12.00-20.00); Blood Urea Nitrogen 67.8 mg/dL (9.0-27.0); Calcium 8.7 mg/dL (8.7-10.3); Carbon Dioxide 12.7 mmol/L (20.0-27.5); Potassium 5.1 mmol/L (3.5-5.5)
--- NOTE | 2021-10-24 13:45 | P.PN ---
Subjective Progress Note Date: 10/24/21 This is a 71-year-old female with past medical history of non-Hodgkin's lymphoma, hypertension, TLCAR, admitted with nausea, vomiting, diarrhea. Reports diarrhea has been on and off times months. Denies recent antibiotics, denies eating out. Maintained on IV fluid hydration, renal function slowly improving, BUN 67.8, creatinine 3.6. Bicarb 12.7, bicarb drip initiated. Objective - Vital Signs Vital signs: Vital Signs Temp 98.0 F 10/24/21 11:31 Pulse 56 L 10/24/21 11:31 Resp 16 10/24/21 11:31 BP 116/62 10/24/21 11:31 Pulse Ox 97 10/24/21 11:31 FiO2 Intake & Output 10/23/21 10/24/21 10/24/21 18:59 06:59 18:59 Output Total 500 Balance -500 Weight 78.471 kg Output: Urine 500 Stool 0 Other: Voiding Method Indwelling Catheter Indwelling Catheter # Bowel Movements 1 - Exam - Exam GENERAL: Sitting up in bed, alert and oriented x3, no acute distress. HEENT: Pupils are round and equally reacting to light. EOMI. No scleral icterus. No conjunctival pallor. Normocephalic, atraumatic. CARDIOVASCULAR: S1 and S2 present. No murmurs, rubs, or gallops. PULMONARY: Chest is clear to auscultation, no wheezing or crackles. ABDOMEN: Soft, nontender, nondistended, normoactive bowel sounds. No palpable organomegaly. EXTREMITIES: No cyanosis, clubbing, or pedal edema NEUROLOGICAL: Cranial nerves II-12 grossly intact, no focal deficits. SKIN: No rashes. Warm and dry. - Labs CBC & Chem 7: 10/24/21 07:01 10/24/21 07:01 Labs: Abnormal Lab Results - Last 24 Hours (Table) 10/23/21 10/23/21 10/23/21 Range/Units 14:05 14:05 14:05 RBC (4.10-5.20) X 10*6/uL Hgb 11.1 L (11.4-16.0) gm/dL Hct (37.2-46.3) % MCH (27.0-32.0) pg MCHC (32.0-37.0) g/dL RDW 16.6 H (11.5-15.5) % Plt Count 483 H (150-450) k/uL MPV (9.5-12.2) fL Lymphocytes # 0.8 L (1.0-4.8) k/uL APTT (22.0-30.0) sec Sodium 134 L (137-145) mmol/L Potassium 5.3 H (3.5-5.1) mmol/L Chloride (96-109) mmol/L Carbon Dioxide 14 L (22-30) mmol/L BUN 78 H (7-17) mg/dL Creatinine 4.73 H (0.52-1.04) mg/dL Est GFR (CKD-EPI)AfAm (60.0-200.0) Est GFR (CKD-EPI)NonAf (60.0-200.0) Plasma Lactic Acid Luca 0.6 L (0.7-2.0) mmol/L Urine Appearance (Clear) Urine Protein (Negative) Ur Leukocyte Esterase (Negative) Urine Bacteria (None) /hpf Hyaline Casts (0-2) /lpf 10/23/21 10/23/21 10/24/21 Range/Units 16:00 17:58 07:01 RBC 3.54 L (4.10-5.20) X 10*6/uL Hgb 9.3 L (11.4-16.0) gm/dL Hct 30.8 L (37.2-46.3) % MCH 26.3 L (27.0-32.0) pg MCHC 30.2 L (32.0-37.0) g/dL RDW 17.1 H (11.5-15.5) % Plt Count (150-450) k/uL MPV 8.8 L (9.5-12.2) fL Lymphocytes # 0.62 L (1.0-4.8) k/uL APTT 19.1 L (22.0-30.0) sec Sodium (137-145) mmol/L Potassium (3.5-5.1) mmol/L Chloride (96-109) mmol/L Carbon Dioxide (22-30) mmol/L BUN (7-17) mg/dL Creatinine (0.52-1.04) mg/dL Est GFR (CKD-EPI)AfAm (60.0-200.0) Est GFR (CKD-EPI)NonAf (60.0-200.0) Plasma Lactic Acid Luca (0.7-2.0) mmol/L Urine Appearance Cloudy H (Clear) Urine Protein Trace H (Negative) Ur Leukocyte Esterase Trace H (Negative) Urine Bacteria Moderate H (None) /hpf Hyaline Casts 16 H (0-2) /lpf 10/24/21 Range/Units 07:01 RBC (4.10-5.20) X 10*6/uL Hgb (11.4-16.0) gm/dL Hct (37.2-46.3) % MCH (27.0-32.0) pg MCHC (32.0-37.0) g/dL RDW (11.5-15.5) % Plt Count (150-450) k/uL MPV (9.5-12.2) fL Lymphocytes # (1.0-4.8) k/uL APTT (22.0-30.0) sec Sodium (137-145) mmol/L Potassium (3.5-5.1) mmol/L Chloride 110 H (96-109) mmol/L Carbon Dioxide 12.7 L (22-30) mmol/L BUN 67.8 H (7-17) mg/dL Creatinine 3.6 H (0.52-1.04) mg/dL Est GFR (CKD-EPI)AfAm 13.9 L (60.0-200.0) Est GFR (CKD-EPI)NonAf 12.0 L (60.0-200.0) Plasma Lactic Acid Luca (0.7-2.0) mmol/L Urine Appearance (Clear) Urine Protein (Negative) Ur Leukocyte Esterase (Negative) Urine Bacteria (None) /hpf Hyaline Casts (0-2) /lpf Assessment and Plan Assessment: Acute renal failure secondary to diarrhea, dehydration Ruling out C. difficile colitis Intractable nausea, vomiting, diarrhea, suspect viral syndrome Hyperkalemia Hyperglycemia History of Bilateral Covid pneumonia, 04/05, vaccinated. Chronic hypoxic respiratory failure, wears 2-1/2 L nasal cannula O2 at home History of non-Hodgkin's lymphoma, follows with Dr. Felipe History of High-grade left internal carotid artery stenosis with right-sided occlusion status post LTCAR with stenting History of right internal carotid artery endarterectomy Hypertension Hyperlipidemia Gastroesophageal reflux disease Depression Plan: Continue on current medication regime ,monitoring and symptomatic treatment. Bicarb drip initiated as per nephrology. Ruling out C. difficile. Close monitoring of renal function with repeat labs ordered for a.m. The impression and plan of care has been dictated as directed. : I performed a history and examination of this patient, discussed the same with the dictator. I agree with the dictator's note ,documented as a scribe. Any additional findings or plans will be noted.
[2021-10-24] MEDS ORDERED: ALPRAZolam 0.25 MG TAB PO PRN (15:05)
--- NOTE | 2021-10-24 15:22 | P.NPCON ---
History of Present Illness - History of Present Illness Patient is a 71-year-old female with history of hypertension, asthma. Patient was admitted to the hospital with complaints of abdominal pain. She was also feeling quite weak and complained of nausea and vomiting fever today. Patient stated that she had not had much urine output as well prior to admission. Patient denied any previous history of kidney diseases. Positive history of diarrhea for 4-5 days prior to admission. Serum creatinine 4.73 on admission currently improved to 3.6 today. Previous creatinine 1.3 on 08/22/2021 and 1.6 on 10/07/2021. Off note patient is also noted to have a Gonzalez catheter. It looks like 500 mL was was documented. Not sure if this was obtained on initial Gonzalez placement. CO2 was low at 14 and 12.7 today. Renal ultrasound shows no evidence of hydronephrosis. Review of Systems As per HPI, other systems negative Past Medical History Past Medical History: Asthma, Cancer, GERD/Reflux, Hyperlipidemia, Hypertension, Pneumonia, Skin Disorder, Thyroid Disorder Additional Past Medical History / Comment(s): Pt recently admitted to [facility] on with covid, acute hypoxic respiratory failure, hypokalemia, possible UTI, acute kidney injury. Other hx: Nonhodgkins lymphoma with chemo/radiation in 2007, skin cancer, psoriasis, frequent diarrhea, hpylori in the past, psoriasis. History of Any Multi-Drug Resistant Organisms: None Reported Past Surgical History: Cholecystectomy, Ear Surgery, Orthopedic Surgery Additional Past Surgical History / Comment(s): Bilateral caratid endartectomies/L caratid also stented, R ear implant to improve hearing, bilateral blepharoplasty, bilateral cataract removals then L eye laser surgery, neck lymphnode biopsy, bilateral hammer toe surgery, bilateral feet bunionectomies, R carpal tunnel release, colonoscopy, benign growth removed from labia. Past Anesthesia/Blood Transfusion Reactions: No Reported Reaction Past Psychological History: Depression Smoking Status: Former smoker Past Alcohol Use History: None Reported Past Drug Use History: None Reported - Past Family History Mother History Unknown: Yes Family Medical History: No Reported History Father Family Medical History: COPD, Myocardial Infarction (HI) Additional Family Medical History / Comment(s): Heart problems. Medications and Allergies Home Medications Medication Instructions Recorded Confirmed Type Enalapril [Vasotec] 20 mg PO BID 08/28/13 10/23/21 History Escitalopram [Lexapro] 20 mg PO DAILY 08/28/13 10/23/21 History Levothyroxine Sodium [Levoxyl] 50 mcg PO DAILY 08/28/13 10/23/21 History Clopidogrel Bisulfate [Plavix] 75 mg PO DAILY 09/29/18 10/23/21 History Aspirin 81 mg PO HS 07/30/20 10/23/21 History Evolocumab [Repatha Syringe] 140 mg SQ Q14D 07/30/20 10/23/21 History Pantoprazole Sodium [Protonix] 40 mg PO DAILY 07/30/20 10/23/21 History buPROPion HCL [Wellbutrin XL] 150 mg PO DAILY 07/30/20 10/23/21 History Albuterol Inhaler [Ventolin Hfa 2 puff INHALATION RT-Q4H PRN 10/23/21 10/23/21 History Inhaler] Allergies Allergy/AdvReac Type Severity Reaction Status Date / Time No Known Allergies Allergy Verified 10/23/21 13:07 Physical Exam Vitals: Vital Signs Temp Pulse Pulse Resp BP BP Pulse Ox 10/24/21 11:31 98.0 F 56 L 16 116/62 97 10/24/21 08:55 97 10/24/21 04:31 98 F 58 L 16 119/54 97 10/23/21 20:00 18 10/23/21 19:44 97.7 F 54 L 16 106/53 99 10/23/21 18:17 75 10/23/21 17:30 18 121/51 Intake and Output 10/24/21 10/24/21 10/24/21 06:59 14:59 22:59 Output Total 500 700 Balance -500 -700 Output: Urine 500 700 Other: Voiding Method Indwelling Catheter # Bowel Movements 1 Patient is awake, comfortable, not in any acute distress Alert oriented 3 Examination of the heart S1 and S2 Examination lungs bilateral breath sounds are heard Abdomen is soft nontender Examination of the lower extremities shows no evidence of edema. 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 Acute kidney injury, prerenal and possibly obstructive as well. Currently maintained on IV fluids and with Gonzalez catheter. Renal function continues to improve. No evidence of hydronephrosis on ultrasound of the kidneys. Blood pressure was also low on admission, currently improved 2. Non-gap metabolic acidosis secondary to diarrhea and acute kidney injury 3. Mild hyperkalemia associated with acute kidney injury metabolic acidosis and urine retention 4. History of non-Hodgkin's lymphoma 5. Nausea vomiting and diarrhea. C. diff toxin pending 6. Carotid artery stenosis with history of stenting Plan: Continue with IV fluids Switch to IV bicarb Repeat labs in a.m. Avoid nephrotoxic agents Thank you for the consultation, we'll continue to follow the patient with you during her hospitalization
[2021-10-24] MEDS: DEXTROSE 5% IN WATER 1,000 ML with SODIUM BICARB (1 MEQ/ML) 150 ML IV SCH (17:04)
[2021-10-24] MEDS: MELATONIN 5 MG TABLET PO SCH (20:30)
[2021-10-24] MEDS: ASPIRIN 81 MG PO SCH (20:30)
[2021-10-25] MEDS: HEPARIN SODIUM,PORCINE/PF 5,000 UNIT/0.5 ML SYRINGE SQ SCH ×4 (00:13→23:34)
[2021-10-25] MEDS: DEXTROSE 5% IN WATER 1,000 ML with SODIUM BICARB (1 MEQ/ML) 150 ML IV SCH ×2 (02:07→12:29)
[2021-10-25] MEDS: LEVOTHYROXINE 50 MCG TAB PO SCH (05:25)
[2021-10-25] MEDS: ESCITALOPRAM 20 MG TAB PO SCH (08:26)
[2021-10-25] MEDS: buPROPion XL 150 MG TAB.ER.24H PO SCH (08:26)
[2021-10-25] MEDS: PANTOPRAZOLE 40 MG TABLET PO SCH (08:26)
[2021-10-25] MEDS: CLOPIDOGREL 75 MG TAB PO SCH (08:26)
[2021-10-25 10:50] LABS: Basophils # (A) 0.03 X 10*3/uL (0.00-0.10); Basophils % (A) 0.6 %; Eosinophils # (A) 0.07 X 10*3/uL (0.04-0.35); Eosinophils % (A) 1.5 %; HCT 29.7 % (37.2-46.3); HGB 9.2 g/dL (12.0-15.0); Immature Grans, Automated 0.6 %; Lymphocytes # (A) 0.56 X 10*3/uL (0.90-5.00); Lymphocytes % (A) 11.7 %; MCV 83.9 fL (80.0-97.0); Mean Platelet Volume 8.7 fL (9.5-12.2); Monocytes # (A) 0.61 X 10*3/uL (0.20-1.00); Monocytes % (A) 12.7 %; NRBC Per 100 WBC 0 /100 WBCS (0.0-0.0); Neutrophils # (A) 3.49 X 10*3/uL (1.80-7.70); Neutrophils % (A) 72.9 %; Platelet Count 326 X 10*3/uL (140-440); RBC 3.54 X 10*6/uL (4.10-5.20); RDW 16.7 % (11.5-14.5); WBC 4.79 X 10*3/uL (4.50-10.00)
[2021-10-25] MEDS: metroNIDAZOLE 250 MG TABLET PO SCH ×2 (11:09→17:35)
[2021-10-25 11:23] LABS: African American GFR (CKD) 29.1 (60.0-200.0); Anion Gap 10.7 mmol/L (10.00-18.00); BUN/Creat Ratio 24.67 Ratio (12.00-20.00); Blood Urea Nitrogen 48.1 mg/dL (9.0-27.0); Calcium 8.6 mg/dL (8.7-10.3); Carbon Dioxide 24.9 mmol/L (20.0-27.5); Non-African American GFR(CKD) 25.1 (60.0-200.0); Potassium 4.7 mmol/L (3.5-5.5)
--- NOTE | 2021-10-25 14:42 | P.PN ---
Subjective Patient is seen for follow-up for acute kidney injury. She is maintained on IV fluids and has a Gonzalez catheter for urine retention. Renal function continues to improve Creatinine is down to 2.0 from 4.7 on initial admission. Good urine output Objective - Vital Signs Vital signs: Vital Signs Temp 98.5 F 10/25/21 11:08 Pulse 52 L 10/25/21 11:08 Resp 16 10/25/21 11:08 BP 157/63 10/25/21 11:08 Pulse Ox 97 10/25/21 11:08 FiO2 Intake & Output 10/24/21 10/25/21 10/25/21 18:59 06:59 18:59 Intake Total 240 Output Total 1000 1200 500 Balance -1000 -960 -500 Weight 78.6 kg Intake: Oral 240 Output: Urine 1000 1200 500 Stool 0 Other: Voiding Method Indwelling Catheter Indwelling Catheter Indwelling Catheter - Exam Awake, comfortable, not in any acute distress Examination of the heart S1 and S2 Examination lungs bilateral breath sounds are heard Abdomen soft nontender Examination lower extremity shows no evidence of edema 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 - Labs CBC & Chem 7: 10/25/21 08:26 10/25/21 08:26 Labs: Abnormal Lab Results - Last 24 Hours (Table) 10/25/21 10/25/21 Range/Units 08:26 08:26 RBC 3.54 L (4.10-5.20) X 10*6/uL Hgb 9.2 L (12.0-15.0) g/dL Hct 29.7 L (37.2-46.3) % MCH 26.0 L (27.0-32.0) pg MCHC 31.0 L (32.0-37.0) g/dL RDW 16.7 H (11.5-14.5) % MPV 8.7 L (9.5-12.2) fL Lymphocytes # 0.56 L (0.90-5.00) X 10*3/uL BUN 48.1 H (9.0-27.0) mg/dL Creatinine 2.0 H (0.6-1.5) mg/dL Est GFR (CKD-EPI)AfAm 29.1 L (60.0-200.0) Est GFR (CKD-EPI)NonAf 25.1 L (60.0-200.0) BUN/Creatinine Ratio 24.67 H (12.00-20.00) Ratio Glucose 119 H (70-110) mg/dL Calcium 8.6 L (8.7-10.3) mg/dL Assessment and Plan Assessment: 1. Acute kidney injury, prerenal and possibly obstructive as well. Currently maintained on IV fluids and with Gonzalez catheter. Renal function continues to improve. No evidence of hydronephrosis on ultrasound of the kidneys. Blood pressure was also low on admission, currently improved 2. Non-gap metabolic acidosis secondary to diarrhea and acute kidney injury 3. Mild hyperkalemia associated with acute kidney injury metabolic acidosis and urine retention 4. History of non-Hodgkin's lymphoma 5. Nausea vomiting and diarrhea. C. diff toxin pending 6. Carotid artery stenosis with history of stenting Plan: Continue with IV fluids Switch to Ringer lactate Repeat labs in a.m. Avoid nephrotoxic agents
[2021-10-25] MEDS: LACTATED RINGERS 1,000 ML IV SCH (15:45)
[2021-10-25] MEDS ORDERED: CHOLESTYRAMINE (WITH SUGAR) 4 GM PACKET PO SCH (18:00)
--- NOTE | 2021-10-25 18:02 | P.PN ---
Subjective Progress Note Date: 10/25/21 This is a 71-year-old female with past medical history of non-Hodgkin's lymphoma, hypertension, TLCAR, admitted with nausea, vomiting, diarrhea. Reports diarrhea has been on and off times months. Denies recent antibiotics, denies eating out. Maintained on IV fluid hydration, renal function slowly improving, BUN 67.8, creatinine 3.6. Bicarb 12.7, bicarb drip initiated. 10/25/2021 maintained on bicarb drip, bicarb 24.9. renal function improving, bun 48, creatinine down to 2. Reports watery diarrhea, C. difficile study reported negative. Flagyl initiated. Patient reports anxiety better controlled with prn xanax. Denies chest pain, palpitations or shortness of breath. Objective - Vital Signs Vital signs: Vital Signs Temp 98.5 F 10/25/21 11:08 Pulse 52 L 10/25/21 11:08 Resp 16 10/25/21 11:08 BP 157/63 10/25/21 11:08 Pulse Ox 97 10/25/21 11:08 FiO2 Intake & Output 10/24/21 10/25/21 10/25/21 18:59 06:59 18:59 Intake Total 240 Output Total 1000 1200 1500 Balance -1000 -960 -1500 Weight 78.6 kg Intake: Oral 240 Output: Urine 1000 1200 1500 Stool 0 Other: Voiding Method Indwelling Catheter Indwelling Catheter Indwelling Catheter - Exam - Exam GENERAL: Sitting up in bed, alert and oriented x3, no acute distress. HEENT: Pupils are round and equally reacting to light. EOMI. No scleral icterus. No conjunctival pallor. Normocephalic, atraumatic. CARDIOVASCULAR: S1 and S2 present. No murmurs, rubs, or gallops. PULMONARY: Chest is clear to auscultation, no wheezing or crackles. ABDOMEN: Soft, nontender, nondistended, normoactive bowel sounds. No palpable organomegaly. No guarding. EXTREMITIES: No cyanosis, clubbing, or pedal edema NEUROLOGICAL: Cranial nerves II-12 grossly intact, no focal deficits. SKIN: No rashes. Warm and dry. - Labs CBC & Chem 7: 10/25/21 08:26 10/25/21 08:26 Labs: Abnormal Lab Results - Last 24 Hours (Table) 10/25/21 10/25/21 Range/Units 08:26 08:26 RBC 3.54 L (4.10-5.20) X 10*6/uL Hgb 9.2 L (12.0-15.0) g/dL Hct 29.7 L (37.2-46.3) % MCH 26.0 L (27.0-32.0) pg MCHC 31.0 L (32.0-37.0) g/dL RDW 16.7 H (11.5-14.5) % MPV 8.7 L (9.5-12.2) fL Lymphocytes # 0.56 L (0.90-5.00) X 10*3/uL BUN 48.1 H (9.0-27.0) mg/dL Creatinine 2.0 H (0.6-1.5) mg/dL Est GFR (CKD-EPI)AfAm 29.1 L (60.0-200.0) Est GFR (CKD-EPI)NonAf 25.1 L (60.0-200.0) BUN/Creatinine Ratio 24.67 H (12.00-20.00) Ratio Glucose 119 H (70-110) mg/dL Calcium 8.6 L (8.7-10.3) mg/dL Assessment and Plan Assessment: Acute renal failure secondary to diarrhea, dehydration, urinary retention. Ultrasound reports no hydronephrosis. Ruling out C. difficile colitis Intractable nausea, vomiting, diarrhea, suspect viral syndrome Hyperkalemia Hyperglycemia History of Bilateral Covid pneumonia, 04/05, vaccinated. Chronic hypoxic respiratory failure, wears 2-1/2 L nasal cannula O2 at home History of non-Hodgkin's lymphoma, follows with Dr. Felipe History of High-grade left internal carotid artery stenosis with right-sided occlusion status post LTCAR with stenting History of right internal carotid artery endarterectomy Hypertension Hyperlipidemia Gastroesophageal reflux disease Depression Plan: Continue on current medication regime ,monitoring and symptomatic treatment. IV fluids adjusted, as bicarb normalized. Continue close monitoring of renal function with repeat labs ordered for a.m. The impression and plan of care has been dictated as directed. : I performed a history and examination of this patient, discussed the same with the dictator. I agree with the dictator's note ,documented as a scribe. Any additional findings or plans will be noted.
[2021-10-25] MEDS: MELATONIN 5 MG TABLET PO SCH (20:34)
[2021-10-25] MEDS: ASPIRIN 81 MG PO SCH (20:34)
[2021-10-26] MEDS: metroNIDAZOLE 250 MG TABLET PO SCH ×2 (01:48→09:16)
[2021-10-26] MEDS: LACTATED RINGERS 1,000 ML IV SCH (04:35)
[2021-10-26] MEDS: LEVOTHYROXINE 50 MCG TAB PO SCH (04:35)
[2021-10-26 05:31] VITALS: RESP 16
[2021-10-26] MEDS: buPROPion XL 150 MG TAB.ER.24H PO SCH (09:16)
[2021-10-26] MEDS: HEPARIN SODIUM,PORCINE/PF 5,000 UNIT/0.5 ML SYRINGE SQ SCH (09:16)
[2021-10-26] MEDS: ESCITALOPRAM 20 MG TAB PO SCH (09:16)
[2021-10-26] MEDS: PANTOPRAZOLE 40 MG TABLET PO SCH (09:16)
[2021-10-26] MEDS: CLOPIDOGREL 75 MG TAB PO SCH (09:16)
[2021-10-26 10:51] LABS: African American GFR (CKD) 43.4 (60.0-200.0); Anion Gap 11.6 mmol/L (10.00-18.00); BUN/Creat Ratio 22.21 Ratio (12.00-20.00); Blood Urea Nitrogen 31.1 mg/dL (9.0-27.0); Calcium 8.3 mg/dL (8.7-10.3); Carbon Dioxide 24.4 mmol/L (20.0-27.5); Non-African American GFR(CKD) 37.4 (60.0-200.0)
[2021-10-26 11:37] VITALS: BP 169/68; PULSE 58; TEMP 98
--- NOTE | 2021-10-26 15:39 | P.PN ---
Subjective Patient is seen for follow-up for acute kidney injury. She is maintained on IV fluids and has a Gonzalez catheter for urine retention. Renal function continues to improve Creatinine is down to 1.4 from 4.7 on initial admission. Good urine output Objective - Vital Signs Vital signs: Vital Signs Temp 98.0 F 10/26/21 11:25 Pulse 58 L 10/26/21 11:25 Resp 16 10/26/21 11:25 BP 169/68 10/26/21 11:25 Pulse Ox 97 10/26/21 11:25 FiO2 Intake & Output 10/25/21 10/26/21 10/26/21 18:59 06:59 18:59 Intake Total 360 Output Total 1775 1000 800 Balance -1775 -640 -800 Weight 78.6 kg 79.5 kg Intake: Oral 360 Output: Urine 1775 1000 800 Uretheral (Gonzalez) 1000 Other: Voiding Method Indwelling Catheter Indwelling Catheter Indwelling Catheter - Exam Awake, comfortable, not in any acute distress Examination of the heart S1 and S2 Examination lungs bilateral breath sounds are heard Abdomen soft nontender Examination lower extremity shows no evidence of edema 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 Acute kidney injury, prerenal and possibly obstructive as well. Currently maintained on IV fluids and with Gonzalez catheter. Renal function continues to improve. No evidence of hydronephrosis on ultrasound of the kidneys. Blood pressure was also low on admission, currently improved 2. Non-gap metabolic acidosis secondary to diarrhea and acute kidney injury 3. Mild hyperkalemia associated with acute kidney injury metabolic acidosis and urine retention 4. History of non-Hodgkin's lymphoma 5. Nausea vomiting and diarrhea. C. diff toxin pending 6. Carotid artery stenosis with history of stenting Plan: Continue with IV fluids Switch to Ringer lactate Repeat labs in a.m. Avoid nephrotoxic agents
--- NOTE | 2021-10-27 13:50 | P.DS ---
Providers Date of admission: 10/23/21 16:43 Expected date of discharge: 10/27/21 Attending physician: Luis Cai Consults: 10/23/21 16:40 Consult Physician Routine Consulting Provider: Adalberto Rey Consult Reason/Comments: FLORINDA, suspect pre-renal Do you want consulting provider notified?: Yes, Notify in am Primary care physician: Luis Cai Hospital Course: Final Diagnoses: Acute renal failure secondary to diarrhea, dehydration, urinary retention. Ultrasound reports no hydronephrosis. Ruled out C. difficile colitis Intractable nausea, vomiting, diarrhea, suspect viral syndrome Hyperkalemia Hyperglycemia History of Bilateral Covid pneumonia, 04/05, vaccinated. Chronic hypoxic respiratory failure, wears 2-1/2 L nasal cannula O2 at home History of non-Hodgkin's lymphoma, follows with Dr. Felipe History of High-grade left internal carotid artery stenosis with right-sided occlusion status post LTCAR with stenting History of right internal carotid artery endarterectomy Hypertension Hyperlipidemia Gastroesophageal reflux disease Depression Hospital course:This is a 71-year-old female with past medical history of non- Hodgkin's lymphoma, hypertension, TLCAR, admitted with nausea, vomiting, diarrhea. Reports diarrhea has been on and off times months. Denies recent antibiotics, denies eating out. Maintained on IV fluid hydration, renal function slowly improving, BUN 67.8, creatinine 3.6. Bicarb 12.7, bicarb drip initiated. 10/25/2021 maintained on bicarb drip, bicarb 24.9. renal function improving, bun 48, creatinine down to 2. Reports watery diarrhea, C. difficile study reported negative. Flagyl initiated. Patient reports anxiety better controlled with prn xanax. Denies chest pain, palpitations or shortness of breath. Creatinine decreased to 1.4 .Significant clinical improvement. The patient will be discharged home today in a stable condition with guarded prognosis pending final DC recommendations and clearance per nephrology. The impression and plan of care has been dictated as directed. : I performed a history and examination of this patient, discussed the same with the dictator. I agree with the dictator's note ,documented as a scribe. Any additional findings or plans will be noted. Patient Condition at Discharge: Stable Plan - Discharge Summary New Discharge Prescriptions: New metroNIDAZOLE [Flagyl] 250 mg PO Q8H #18 tab Continue Levothyroxine Sodium [Levoxyl] 50 mcg PO DAILY Escitalopram [Lexapro] 20 mg PO DAILY Clopidogrel Bisulfate [Plavix] 75 mg PO DAILY Evolocumab [Repatha Syringe] 140 mg SQ Q14D Albuterol Inhaler [Ventolin Hfa Inhaler] 2 puff INHALATION RT-Q4H PRN PRN Reason: Shortness Of Breath Aspirin 81 mg PO HS buPROPion HCL [Wellbutrin XL] 150 mg PO DAILY Pantoprazole Sodium [Protonix] 40 mg PO DAILY Discontinued Enalapril [Vasotec] 20 mg PO BID Discharge Medication List Escitalopram [Lexapro] 20 mg PO DAILY 08/28/13 [History] Levothyroxine Sodium [Levoxyl] 50 mcg PO DAILY 08/28/13 [History] Clopidogrel Bisulfate [Plavix] 75 mg PO DAILY 09/29/18 [History] Aspirin 81 mg PO HS 07/30/20 [History] Evolocumab [Repatha Syringe] 140 mg SQ Q14D 07/30/20 [History] Pantoprazole Sodium [Protonix] 40 mg PO DAILY 07/30/20 [History] buPROPion HCL [Wellbutrin XL] 150 mg PO DAILY 07/30/20 [History] Albuterol Inhaler [Ventolin Hfa Inhaler] 2 puff INHALATION RT-Q4H PRN 10/23/21 [History] metroNIDAZOLE [Flagyl] 250 mg PO Q8H #18 tab 10/26/21 [Rx] Follow up Appointment(s)/Referral(s): Luis Cai DO [Primary Care Provider] - 11/08/21 4:20 pm Ambulatory/Diagnostic Orders: Basic Metabolic Panel [LAB.AMB] Time Frame: 3 Days, Location: None Selected Patient Instructions/Handouts: Metronidazole (By mouth), Acute Kidney Injury (DC) Activity/Diet/Wound Care/Special Instructions: Alli inhibitor on hold r/t renal fx Discharge Disposition: HOME SELF-CARE
== END 2021-10-26 18:04 | disposition home or self-care (01) | DRG 683 ==
LOC: EC 12:22 → 5NMEDONC 16:43
PROVIDERS: ADMIT Family Medicine; ATTEND Family Medicine
DX: N17.9 Acute kidney failure, unspecified (principal); E87.2 Acidosis; J96.11 Chronic respiratory failure with hypoxia; B34.9 Viral infection, unspecified; E86.0 Dehydration; R19.7 Diarrhea, unspecified; Z20.822 Contact with and (suspected) exposure to COVID-19; E03.9 Hypothyroidism, unspecified; I10 Essential (primary) hypertension; E78.5 Hyperlipidemia, unspecified; F32.A Depression, unspecified; F41.9 Anxiety disorder, unspecified; R33.9 Retention of urine, unspecified; L40.9 Psoriasis, unspecified; N20.0 Calculus of kidney; R73.9 Hyperglycemia, unspecified; E87.5 Hyperkalemia; K21.9 Gastro-esophageal reflux disease without esophagitis; J45.909 Unspecified asthma, uncomplicated; Z85.72 Personal history of non-Hodgkin lymphomas; Z87.440 Personal history of urinary (tract) infections; Z99.81 Dependence on supplemental oxygen; Z85.850 Personal history of malignant neoplasm of thyroid; Z79.890 Hormone replacement therapy; Z79.02 Long term (current) use of antithrombotics/antiplatelets; Z79.82 Long term (current) use of aspirin; Z79.899 Other long term (current) drug therapy; Z85.828 Personal history of other malignant neoplasm of skin; Z86.16 Personal history of COVID-19; Z87.891 Personal history of nicotine dependence; Z87.01 Personal history of pneumonia (recurrent); Z92.21 Personal history of antineoplastic chemotherapy; Z92.3 Personal history of irradiation
CPT/HCPCS: 36415; 51702; 71045; 74176; 76770; 80048; 80053; 81001; 82150; 83605; 83690; 84484; 85025; 85610; 85730; 87324; 87502; 87635; 93005; 94760; 96361; 96374; 96375; 99285

== ENCOUNTER 2021-11-03 18:52 | Inpatient (IN) | payer MEDICARE, OTHER ==
--- NOTE | 2021-11-03 19:19 | ED ---
Fall HPI - General Chief Complaint: Fall Stated Complaint: Fall, facial pain Time Seen by Provider: 11/03/21 19:00 Source: patient, family, RN notes reviewed, old records reviewed Mode of arrival: ambulatory - History of Present Illness Initial Comments: Patient is a 71-year-old female presents the emergency room with her family after she reports a trip and fall home however she does note that she has some dizziness when she is standing that has been ongoing. She was recently hospitalized for dehydration, nausea, vomiting, and acute renal failure. She was discharged from the hospital approximately one week ago. She states that she has a slight headache since falling and unfortunately on a plethora of Plavix which she is taking as prescribed. She is complaining of a mild headache but denies any dizziness while lying down, nausea, changes in baseline chronic fatigue, lethargy, severe headache, visual disturbances, or loss of consciousness at the time of fall or after the fall. In addition to her recent hospitalization she has a past medical history significant for hypertension, asthma, hyperlipidemia, GERD, COVID with respiratory failure, hypothyroidism and non-Hodgkin's lymphoma. - Related Data Home Medications Medication Instructions Recorded Confirmed Escitalopram [Lexapro] 20 mg PO DAILY 08/28/13 10/23/21 Levothyroxine Sodium [Levoxyl] 50 mcg PO DAILY 08/28/13 10/23/21 Clopidogrel Bisulfate [Plavix] 75 mg PO DAILY 09/29/18 10/23/21 Aspirin 81 mg PO HS 07/30/20 10/23/21 Evolocumab [Repatha Syringe] 140 mg SQ Q14D 07/30/20 10/23/21 Pantoprazole Sodium [Protonix] 40 mg PO DAILY 07/30/20 10/23/21 buPROPion HCL [Wellbutrin XL] 150 mg PO DAILY 07/30/20 10/23/21 Albuterol Inhaler [Ventolin Hfa 2 puff INHALATION RT-Q4H PRN 10/23/21 10/23/21 Inhaler] Previous Rx's Medication Instructions Recorded metroNIDAZOLE [Flagyl] 250 mg PO Q8H #18 tab 10/26/21 Allergies Allergy/AdvReac Type Severity Reaction Status Date / Time No Known Allergies Allergy Verified 11/03/21 18:57 Review of Systems ROS Statement: Those systems with pertinent positive or pertinent negative responses have been documented in the HPI. ROS Other: All systems not noted in ROS Statement are negative. Past Medical History Past Medical History: Asthma, Cancer, GERD/Reflux, Hyperlipidemia, Hypertension, Pneumonia, Skin Disorder, Thyroid Disorder Additional Past Medical History / Comment(s): Pt recently admitted to [facility] on 03/28/21 with covid, acute hypoxic respiratory failure, hypokalemia, possible UTI, acute kidney injury. Other hx: Nonhodgkins lymphoma with chemo/radiation in 2007, skin cancer, psoriasis, frequent diarrhea, hpylori in the past, psoriasis. History of Any Multi-Drug Resistant Organisms: None Reported Past Surgical History: Cholecystectomy, Ear Surgery, Orthopedic Surgery Additional Past Surgical History / Comment(s): Bilateral caratid endartectomies/L caratid also stented, R ear implant to improve hearing, bi lateral blepharoplasty, bilateral cataract removals then L eye laser surgery, neck lymphnode biopsy, bilateral hammer toe surgery, bilateral feet bunionectomies, R carpal tunnel release, colonoscopy, benign growth removed from labia. Past Anesthesia/Blood Transfusion Reactions: No Reported Reaction Past Psychological History: Depression Smoking Status: Former smoker Past Alcohol Use History: None Reported Past Drug Use History: None Reported - Past Family History Mother History Unknown: Yes Family Medical History: No Reported History Father Family Medical History: COPD, Myocardial Infarction ([place]) Additional Family Medical History / Comment(s): Heart problems. General Exam Limitations: no limitations General appearance: alert, in no apparent distress Head exam: Present: normocephalic, other Eye exam: Present: normal appearance, PERRL, EOMI. Absent: scleral icterus, conjunctival injection, periorbital swelling ENT exam: Present: mucous membranes moist Expanded Mouth exam: Present: other (.) Neck exam: Present: normal inspection. Absent: tenderness Respiratory exam: Present: normal lung sounds bilaterally. Absent: respiratory distress, wheezes, rales, rhonchi, stridor Cardiovascular Exam: Present: regular rate, normal rhythm, normal heart sounds, systolic murmur. Absent: diastolic murmur, rubs, gallop, clicks GI/Abdominal exam: Present: soft, normal bowel sounds. Absent: distended, tenderness, guarding, rebound, rigid Rectal exam: Present: deferred Extremities exam: Present: normal inspection, full ROM, normal capillary refill. Absent: tenderness, pedal edema, joint swelling, calf tenderness Back exam: Present: normal inspection. Absent: tenderness, paraspinal tenderness, vertebral tenderness Neurological exam: Present: alert, oriented X3, CN II-XII intact Psychiatric exam: Present: normal affect, normal mood Skin exam: Present: other (small laceration chin minimal down small abrasion to left upper forehead with hematoma approximately 3 cm in diameter minimal height.) Course Vital Signs 11/03/21 11/03/21 18:54 20:05 Temperature 100.1 F H 98.8 F Pulse Rate 75 Respiratory 18 Rate Blood Pressure 150/60 O2 Sat by Pulse 98 Oximetry Medical Decision Making - Medical Decision Making Due to questionable dizziness prior to fall versus trip and fall will check electrolytes to evaluate hydration status. Due to fall on blood thinners will check CBC along with clotting times. Will check CT of the brain and C-spine. No injury to any other extremities. No need for further diagnostic imaging. Denies any analgesic need at this time. No neurological deficits. Computed tomography scan of brain and cervical spine and facial bones negative for acute findings. No intracranial hemorrhage, mass shift or intracranial process noted. Cervical spine without fracture or dislocation. No facial bone fracture or dislocation noted. Significant electrolyte derangement noted with sodium level of 127 potassium of 3.1 chloride of 90 calcium level low however corrected calcium 8.7. Will give IV hydration to replace sodium and chloride along with oral potassium supplementation. She is now complaining of a frontal headache without any neurological deficits. Computed tomography scan as noted above. Will give Tylenol 3 for pain and monitor response. Dr. Cai called regarding laboratory study findings for admission for hyponatremia and weakness evaluation; he is accepting admission. Will place orders. Case discussed with Dr. Thurman and Dr. Singh. - Lab Data Result diagrams: 11/03/21 19:17 11/03/21 19:17 Lab Results 11/03/21 11/03/21 11/03/21 Range/Units 19:17 19:17 19:17 WBC 7.0 (3.8-10.6) k/uL RBC 3.09 L (3.80-5.40) m/uL Hgb 8.7 L D (11.4-16.0) gm/dL Hct 25.9 L (34.0-46.0) % MCV 83.6 (80.0-100.0) fL MCH 28.1 (25.0-35.0) pg MCHC 33.6 (31.0-37.0) g/dL RDW 16.7 H (11.5-15.5) % Plt Count 302 (150-450) k/uL MPV 7.4 Neutrophils % 85 % Lymphocytes % 7 % Monocytes % 6 % Eosinophils % 0 % Basophils % 0 % Neutrophils # 6.0 (1.3-7.7) k/uL Lymphocytes # 0.5 L (1.0-4.8) k/uL Monocytes # 0.4 (0-1.0) k/uL Eosinophils # 0.0 (0-0.7) k/uL Basophils # 0.0 (0-0.2) k/uL Anisocytosis Slight PT 12.1 H (9.0-12.0) sec INR 1.1 (<1.2) Sodium 127 L (137-145) mmol/L Potassium 3.1 L (3.5-5.1) mmol/L Chloride 90 L (98-107) mmol/L Carbon Dioxide 31 H (22-30) mmol/L Anion Gap 6 mmol/L BUN 16 (7-17) mg/dL Creatinine 1.32 H (0.52-1.04) mg/dL Est GFR (CKD-EPI)AfAm 47 (>60 ml/min/1.73 sqM) Est GFR (CKD-EPI)NonAf 40 (>60 ml/min/1.73 sqM) Glucose 107 H (74-99) mg/dL Calcium 7.8 L (8.4-10.2) mg/dL Albumin (3.5-5.0) g/dL 11/03/ Range/Units 19:17 WBC (3.8-10.6) k/uL RBC (3.80-5.40) m/uL Hgb (11.4-16.0) gm/dL Hct (34.0-46.0) % MCV (80.0-100.0) fL MCH (25.0-35.0) pg MCHC (31.0-37.0) g/dL RDW (11.5-15.5) % Plt Count (150-450) k/uL MPV Neutrophils % % Lymphocytes % % Monocytes % % Eosinophils % % Basophils % % Neutrophils # (1.3-7.7) k/uL Lymphocytes # (1.0-4.8) k/uL Monocytes # (0-1.0) k/uL Eosinophils # (0-0.7) k/uL Basophils # (0-0.2) k/uL Anisocytosis PT (9.0-12.0) sec INR (<1.2) Sodium (137-145) mmol/L Potassium (3.5-5.1) mmol/L Chloride (98-107) mmol/L Carbon Dioxide (22-30) mmol/L Anion Gap mmol/L BUN (7-17) mg/dL Creatinine (0.52-1.04) mg/dL Est GFR (CKD-EPI)AfAm (>60 ml/min/1.73 sqM) Est GFR (CKD-EPI)NonAf (>60 ml/min/1.73 sqM) Glucose (74-99) mg/dL Calcium (8.4-10.2) mg/dL Albumin 2.9 L (3.5-5.0) g/dL - Radiology Data Radiology results: report reviewed, image reviewed CT facial bones without contrast negative for fracture or malalignment. CT brain C-spine without contrast impression: there is no acute fracture or dislocation evident in the cervical spine. No acute intracranial hemorrhage, mass effect or midline shift is seen. Disposition Clinical Impression: Hyponatremia Disposition: ADMITTED IP TO THIS HOSP Is patient prescribed a controlled substance at d/c from ED?: No Referrals: Luis Cai DO [Primary Care Provider] - 1-2 days Time of Disposition: 20:55
[2021-11-03 19:27] LABS: Anisocytosis Slight; Basophils % (A) 0 %; Eosinophils % (A) 0 %; HCT 25.9 % (34.0-46.0); Lymphocytes # (A) 0.5 k/uL (1.0-4.8); Lymphocytes % (A) 7 %; MCH 28.1 pg (25.0-35.0); MCHC 33.6 g/dL (31.0-37.0); MCV 83.6 fL (80.0-100.0); Mean Platelet Volume 7.4; Monocytes # (A) 0.4 k/uL (0-1.0); Monocytes % (A) 6 %; Neutrophils % (A) 85 %; Platelet Count 302 k/uL (150-450); RBC 3.09 m/uL (3.80-5.40); RDW 16.7 % (11.5-15.5)
[2021-11-03 19:39] LABS: Calcium 7.8 mg/dL (8.4-10.2); INR 1.1 (<1.2); Potassium 3.1 mmol/L (3.5-5.1); Prothrombin Time 12.1 sec (9.0-12.0)
[2021-11-03 20:01] LABS: HGB 8.7 gm/dL (11.4-16.0)
--- NOTE | 2021-11-03 20:10 | CT ---
EXAMINATION TYPE: CT brain suraj wo con DATE OF EXAM: 11/03/2021 COMPARISON: None HISTORY: pain after fall today CT DLP: 1159.7 mGycm. Automated Exposure Control for Dose Reduction was Utilized. TECHNIQUE: CT scan of the head and cervical spine are performed without contrast. FINDINGS: There is no acute intracranial hemorrhage, mass effect, or midline shift identified. The v entricles and sulci are within normal limits in size. The globes are intact and the visualized sinus es are clear. Cervical spine is visualized in its entirety from C1 through upper thoracic levels and demonstrates s atisfactory alignment without evidence of acute fracture or dislocation. Prevertebral soft tissue ap pears within normal limits. The C1-C2 articulation is unremarkable. IMPRESSION: 1. There is no acute fracture or dislocation evident in the cervical spine. 2. No acute intracranial hemorrhage, mass effect, or midline shift is seen.
--- NOTE | 2021-11-03 20:19 | CT ---
EXAMINATION TYPE: CT facial bones wo con DATE OF EXAM: 11/03/2021 COMPARISON: NONE HISTORY: pain after fall today. Bruise above left eye and small laceration to chin CT DLP: 1159.7 mGycm. Automated Exposure Control for Dose Reduction was Utilized. TECHNIQUE: CT scan of the sinuses is performed without contrast, axial images are obtained, coronal r eformatted images are also reviewed. FINDINGS: The mandible is intact, and the temporomandibular joints are unremarkable. There is minimal preseptal soft tissue swelling over the left globe. The orbits are intact. No facial skeleton fracture or malalignment. Paranasal sinuses, mastoid sinus air cells, and middle ear cavities are clear. IMPRESSION: Negative for fracture or malalignment.
[2021-11-03] MEDS ORDERED: Acetaminophen-Codeine 300-30mg TAB PO STA (20:20)
[2021-11-03] MEDS ORDERED: POTASSIUM CHLORIDE ER 20 MEQ TAB.ER PO STA (20:20)
[2021-11-03] MEDS: DEXTROSE 5%-0.9% NACL 1,000 ML IV SCH (20:48)
[2021-11-03] MEDS ORDERED: ACETAMINOPHEN TAB 325 MG TAB PO PRN (20:49)
[2021-11-03] MEDS ORDERED: Acetaminophen-Codeine 300-30mg TAB PO PRN (20:49)
[2021-11-03] MEDS ORDERED: NALOXONE 0.4 MG/ML 1 ML VIAL IV PRN (20:49)
[2021-11-04 00:11] LABS: Calcium 7.6 mg/dL (8.4-10.2); Magnesium 1.7 mg/dL (1.6-2.3); Potassium 3.1 mmol/L (3.5-5.1)
[2021-11-04] MEDS: DEXTROSE 5%-0.9% NACL 1,000 ML IV SCH ×2 (05:53→14:32)
[2021-11-04] MEDS ORDERED: CLOPIDOGREL 75 MG TAB PO SCH (12:45)
[2021-11-04] MEDS ORDERED: Potassium Replacement Protocol 1 EACH MISC MISCELLANE PRN (13:43)
[2021-11-04] MEDS: ESCITALOPRAM 20 MG TAB PO SCH (14:24)
[2021-11-04] MEDS: PANTOPRAZOLE 40 MG TABLET PO SCH (14:24)
[2021-11-04] MEDS: LEVOTHYROXINE 50 MCG TAB PO SCH (14:24)
[2021-11-04] MEDS: buPROPion XL 150 MG TAB.ER.24H PO SCH (14:24)
[2021-11-04] MEDS: POTASSIUM CHLORIDE ER 20 MEQ TAB.ER PO SCH (14:24)
[2021-11-04] MEDS: ALBUTEROL NEBULIZED 2.5 MG/3 ML INHALATION PRN ×2 (15:06→19:08)
[2021-11-04 16:23] LABS: Anisocytosis Slight; Hypochromasia Slight; MCH 27.1 pg (25.0-35.0); MCHC 32.1 g/dL (31.0-37.0); MCV 84.4 fL (80.0-100.0); Mean Platelet Volume 7.4; Platelet Count 256 k/uL (150-450); RBC 2.96 m/uL (3.80-5.40); RDW 16.4 % (11.5-15.5); WBC 5.2 k/uL (3.8-10.6)
[2021-11-04] MEDS: hydrALAZINE HCL 20 MG/ML 1 ML VIAL IVP PRN (20:15)
[2021-11-04] MEDS ORDERED: ASPIRIN 81 MG PO SCH (21:00)
[2021-11-05] MEDS: DEXTROSE 5%-0.9% NACL 1,000 ML IV SCH ×3 (02:02→20:44)
[2021-11-05] MEDS: hydrALAZINE HCL 20 MG/ML 1 ML VIAL IVP PRN (05:54)
[2021-11-05] MEDS: LEVOTHYROXINE 50 MCG TAB PO SCH (05:54)
[2021-11-05] MEDS: ALBUTEROL NEBULIZED 2.5 MG/3 ML INHALATION PRN ×2 (07:20→19:19)
[2021-11-05] MEDS: ESCITALOPRAM 20 MG TAB PO SCH (08:12)
[2021-11-05] MEDS: buPROPion XL 150 MG TAB.ER.24H PO SCH (08:12)
[2021-11-05] MEDS: PANTOPRAZOLE 40 MG TABLET PO SCH (08:12)
[2021-11-05 12:35] LABS: ALT 44 U/L (8-44); AST 43 U/L (13-35); African American GFR (CKD) 47.5 (60.0-200.0); Albumin 2.9 g/dL (3.8-4.9); Albumin/Globulin Ratio 1.81 (1.60-3.17); Alkaline Phosphatase 56 U/L (41-126); BUN/Creat Ratio 7.15 Ratio (12.00-20.00); Blood Urea Nitrogen 9.3 mg/dL (9.0-27.0); Calcium 7.7 mg/dL (8.7-10.3); Chloride 98 mmol/L (96-109); Globulin 1.6 g/dL (1.6-3.3); Glucose 100 mg/dL (70-110); Potassium 3.6 mmol/L (3.5-5.5); Sodium 135 mmol/L (135-145); Total Bilirubin <0.15 mg/dL (0.30-1.20); Total Protein 4.5 g/dL (6.2-8.2)
[2021-11-05] MEDS ORDERED: POTASSIUM CHLORIDE ER 20 MEQ TAB.ER PO SCH (15:00)
[2021-11-05 16:34] LABS: Anisocytosis Slight; HCT 28.2 % (34.0-46.0); HGB 9.1 gm/dL (11.4-16.0); Hypochromasia Moderate; MCH 27.9 pg (25.0-35.0); MCHC 32.2 g/dL (31.0-37.0); MCV 86.7 fL (80.0-100.0); Mean Platelet Volume 8.4; Platelet Count 237 k/uL (150-450); RBC 3.25 m/uL (3.80-5.40); RDW 16.8 % (11.5-15.5); WBC 5.5 k/uL (3.8-10.6)
[2021-11-06] MEDS: LEVOTHYROXINE 50 MCG TAB PO SCH (06:40)
[2021-11-06] MEDS: DEXTROSE 5%-0.9% NACL 1,000 ML IV SCH (06:41)
[2021-11-06] MEDS: ALBUTEROL NEBULIZED 2.5 MG/3 ML INHALATION PRN ×2 (07:49→15:41)
[2021-11-06] MEDS: buPROPion XL 150 MG TAB.ER.24H PO SCH (08:12)
[2021-11-06] MEDS: PANTOPRAZOLE 40 MG TABLET PO SCH (08:12)
[2021-11-06] MEDS: ESCITALOPRAM 20 MG TAB PO SCH (08:12)
[2021-11-06 20:25] VITALS: BP 189/73; PULSE 69; RESP 18; TEMP 98.3
--- NOTE | 2021-11-06 22:48 | P.HPIM ---
History of Present Illness H&P Date: 11/05/21 Chief Complaint: Fall 71-year-old female presents the emergency room with her family after she reports a trip and fall home however she does note that she has some d izziness when she is standing that has been ongoing. She was recently hospitalized for dehydration, nausea, vomiting, and acute renal failure. She was discharged from the hospital approximately one week ago. She states that she has a slight headache since falling and unfortunately on a plethora of Plavix which she is taking as prescribed. She is complaining of a mild headache but denies any dizziness while lying down, nausea, changes in baseline chronic fatigue, lethargy, severe headache, visual disturbances, or loss of consciousness at the time of fall or after the fall. In addition to her recent hospitalization she has a past medical history significant for hypertension, asthma, hyperlipidemia, GERD, COVID with respiratory failure, hypothyroidism and non-Hodgkin's lymphoma. Computed tomography scan of brain and cervical spine and facial bones negative for acute findings. No intracranial hemorrhage, mass shift or intracranial process noted. Cervical spine without fracture or dislocation. No facial bone fracture or dislocation noted. Significant electrolyte derangement noted with so dium level of 127 potassium of 3.1 chloride of 90 calcium level low however corrected calcium 8.7. Review of Systems REVIEW OF SYSTEMS: CONSTITUTIONAL: No fever, no malaise, no fatigue. HEENT: No recent visual problems or hearing problems. Denied any sore throat. CARDIOVASCULAR: No chest pain, orthopnea, PND, no palpitations, no syncope. PULMONARY: No shortness of breath, no cough, no hemoptysis. GASTROINTESTINAL: No diarrhea, no nausea, no vomiting, no abdominal pain. NEUROLOGICAL: No headaches, no weakness, no numbness. HEMATOLOGICAL: Denies any bleeding or petechiae. GENITOURINARY: Denies any burning micturition, frequency, or urgency. MUSCULOSKELETAL/RHEUMATOLOGICAL: Denies any joint pain, swelling, or any muscle pain. ENDOCRINE: Denies any polyuria or polydipsia. The rest of the 14-point review of systems is negative. Past Medical History Past Medical History: Asthma, Cancer, COPD, GERD/Reflux, Hyperlipidemia, Hypertension, Pneumonia, Skin Disorder, Thyroid Disorder Additional Past Medical History / Comment(s): Pt recently admitted to [facility] on 03/28/21 with covid, acute hypoxic respiratory failure, hypokalemia, possible UTI, acute kidney injury. Other hx: Nonhodgkins lymphoma with chemo/radiation in 2007, skin cancer, psoriasis, frequent diarrhea, hpylori in the past, psoriasis. History of Any Multi-Drug Resistant Organisms: None Reported Past Surgical History: Cholecystectomy, Ear Surgery, Orthopedic Surgery Additional Past Surgical History / Comment(s): Bilateral caratid endartectomies/L caratid also stented, R ear implant to improve hearing, bilat eral blepharoplasty, bilateral cataract removals then L eye laser surgery, neck lymphnode biopsy, bilateral hammer toe surgery, bilateral feet bunionectomies, R carpal tunnel release, colonoscopy, benign growth removed from labia. Past Anesthesia/Blood Transfusion Reactions: No Reported Reaction Past Psychological History: Depression Additional Psychological History / Comment(s): Pt resides alone. Walks without walker. She can drive. Smoking Status: Former smoker Past Alcohol Use History: None Reported Additional Past Alcohol Use History / Comment(s): Pt started smoking in 1962 and quit in 2002. Past Drug Use History: None Reported - Past Family History Mother History Unknown: Yes Family Medical History: No Reported History Father Family Medical History: COPD, Myocardial Infarction ([place]) Additional Family Medical History / Comment(s): Heart problems. Medications and Allergies Home Medications Medication Instructions Recorded Confirmed Type Escitalopram [Lexapro] 20 mg PO DAILY 08/28/13 11/03/21 History Levothyroxine Sodium [Levoxyl] 50 mcg PO DAILY 08/28/13 11/03/21 History Clopidogrel Bisulfate [Plavix] 75 mg PO DAILY 09/29/18 11/03/21 History Aspirin 81 mg PO HS 07/30/20 11/03/21 History Evolocumab [Repatha Syringe] 140 mg SQ Q14D 07/30/20 11/03/21 History Pantoprazole Sodium [Protonix] 40 mg PO DAILY 07/30/20 11/03/21 History buPROPion HCL [Wellbutrin XL] 150 mg PO DAILY 07/30/20 11/03/21 History Albuterol Inhaler [Ventolin Hfa 2 puff INHALATION RT-Q4H PRN 10/23/21 11/03/21 History Inhaler] Allergies Allergy/AdvReac Type Severity Reaction Status Date / Time No Known Allergies Allergy Verified 11/03/21 21:26 Physical Exam Vitals: Vital Signs Temp Pulse Pulse Resp BP Pulse Ox 11/05/21 11:05 97.7 F 56 L 16 149/53 96 11/05/21 07:33 60 11/05/21 07:20 60 11/05/21 04:44 98.3 F 58 L 20 166/68 97 11/04/21 21:37 165/63 11/04/21 20:07 100.2 F H 76 20 184/70 95 11/04/21 19:20 74 11/04/21 19:09 72 11/04/21 15:22 76 16 11/04/21 15:07 74 16 11/04/21 14:15 98.7 F 83 19 187/69 91 L Intake and Output 11/04/21 11/05/21 11/05/21 22:59 06:59 14:59 Intake Total 500 Balance 500 Intake: Oral 500 Other: Voiding Method Toilet Toilet # Voids 1 3 - Constitutional General appearance: Present: average body habitus, cooperative, no acute distress - EENT Eyes: Present: anicteric sclerae, EOMI, PERRLA, normal appearance ENT: Present: hearing grossly normal, normal oropharynx Ears: bilateral: normal - Neck Neck: Present: normal ROM. Absent: lymphadenopathy, rigidity, thyromegaly Carotids: negative: bruit present Thyroid: bilateral: normal size, negative: enlarged, nodule - Respiratory Respiratory: bilateral: CTA, negative: rales, rhonchi, wheezing - Cardiovascular Rhythm: regular Heart sounds: normal: S1, S2 Abnormal Heart Sounds: Absent: systolic murmur, diastolic murmur - Gastrointestinal General gastrointestinal: Present: normal bowel sounds, soft. Absent: distended, organomegaly, tenderness - Genitourinary Genitourinary Comment(s): deferred - Integumentary Integumentary: Present: normal turgor. Absent: jaundiced, rash, ulcer - Neurologic Neurologic: Present: CNII-XII intact. Absent: focal deficits - Musculoskeletal Musculoskeletal: Present: gait normal, strength equal bilaterally - Psychiatric Psychiatric: Present: A&O x's 3, appropriate affect, intact judgment & insight Results CBC & Chem 7: 11/05/21 15:11 11/05/21 06:22 Labs: Abnormal Lab Results - Last 24 Hours (Table) 11/04/21 Range/Units 15:07 RBC 2.96 L (3.80-5.40) m/uL Hgb 8.0 L (11.4-16.0) gm/dL Hct 25.0 L (34.0-46.0) % RDW 16.4 H (11.5-15.5) % Thrombosis Risk Factor Assmnt - Choose All That Apply Any of the Below Risk Factors Present?: Yes Each Factor Represents 1 point: Abnormal pulmonary function (COPD) Other Risk Factors: Yes Each Risk Factor Represents 2 Points: Age 61-74 years, Malignancy Other congenital or acquired thrombophilia - If yes, enter type in comment: No Thrombosis Risk Factor Assessment Total Risk Factor Score: 5 Thrombosis Risk Factor Assessment Level: High Risk Assessment and Plan Assessment: 1. Marked hyponatremia - Patient has been placed on slow IV fluid hydration with normal saline at rate of 100 mL an hour; we will monitor electrolytes; monitor sodium levels every 4 hours to normal; we will place on fluid restriction if sodium levels don't improve with IV fluid hydration; check serum and urine sodium and osmolality 2. Fall/generalized debility; likely related to hyponatremia; we will monitor closely and consult PT if continues to complain of weakness 3. Asthma; albuterol inhaler when necessary 4. Coronary artery disease; stable on aspirin and Plavix 5. Hyperlipidemia; continue with home statin therapy 6. Hypothyroidism; levothyroxin 50 MCG daily 7. Depression; continue with home dose of Wellbutrin and Lexapro DVT prophylaxis; SCDs CODE STATUS; full code
--- NOTE | 2021-11-06 22:49 | P.DS ---
Providers Date of admission: 11/03/21 21:09 Expected date of discharge: 11/06/21 Attending physician: Luis Cai Primary care physician: Luis Cai [place] [facility] Course: 71-year-old female presents the emergency room with her family after she reports a trip and fall home however she does note that she has some dizziness when she is standing that has been ongoing. She was recently hospitalized for dehydration, nausea, vomiting, and acute renal failure. She was discharged from the hospital approximately one week ago. She states that she has a slight headache since falling and unfortunately on a plethora of Plavix which she is taking as prescribed. She is complaining of a mild headache but denies any dizziness while lying down, nausea, changes in baseline chronic fatigue, lethargy, severe headache, visual disturbances, or loss of consciousness at the time of fall or after the fall. In addition to her recent hospitalization she has a past medical history significant for hypertension, asthma, hyperlipidemia, GERD, COVID with respiratory failure, hypothyroidism and non-Hodgkin's lymphoma. Computed tomography scan of brain and cervical spine and facial bones negative for acute findings. No intracranial hemorrhage, mass shift or intracranial process noted. Cervical spine without fracture or dislocation. No facial bone fracture or dislocation noted. Significant electrolyte derangement noted with sodium level of 127 potassium of 3.1 chloride of 90 calcium level low however corrected calcium 8.7. 1. Marked hyponatremia - Patient has been placed on slow IV fluid hydration with normal saline at rate of 100 mL an hour; we will monitor electrolytes; monitor sodium levels every 4 hours to normal; we will place on fluid restriction if sodium levels don't improve with IV fluid hydration; check serum and urine sodium and osmolality 2. Fall/generalized debility; likely related to hyponatremia; we will monitor closely and consult PT if continues to complain of weakness 3. Asthma; albuterol inhaler when necessary 4. Coronary artery disease; stable on aspirin and Plavix 5. Hyperlipidemia; continue with home statin therapy 6. Hypothyroidism; levothyroxin 50 MCG daily 7. Depression; continue with home dose of Wellbutrin and Lexapro Plan - Discharge Summary Discharge Rx Participant: No New Discharge Prescriptions: Continue Levothyroxine Sodium [Levoxyl] 50 mcg PO DAILY Escitalopram [Lexapro] 20 mg PO DAILY Clopidogrel Bisulfate [Plavix] 75 mg PO DAILY Evolocumab [Repatha Syringe] 140 mg SQ Q14D Albuterol Inhaler [Ventolin Hfa Inhaler] 2 puff INHALATION RT-Q4H PRN PRN Reason: Shortness Of Breath Aspirin 81 mg PO HS buPROPion HCL [Wellbutrin XL] 150 mg PO DAILY Pantoprazole Sodium [Protonix] 40 mg PO DAILY Discharge Medication List Escitalopram [Lexapro] 20 mg PO DAILY 08/28/13 [History] Levothyroxine Sodium [Levoxyl] 50 mcg PO DAILY 08/28/13 [History] Clopidogrel Bisulfate [Plavix] 75 mg PO DAILY 09/29/18 [History] Aspirin 81 mg PO HS 07/30/20 [History] Evolocumab [Repatha Syringe] 140 mg SQ Q14D 07/30/20 [History] Pantoprazole Sodium [Protonix] 40 mg PO DAILY 07/30/20 [History] buPROPion HCL [Wellbutrin XL] 150 mg PO DAILY 07/30/20 [History] Albuterol Inhaler [Ventolin Hfa Inhaler] 2 puff INHALATION RT-Q4H PRN 10/23/21 [History] Follow up Appointment(s)/Referral(s): Luis Cai DO [Primary Care Provider] - 1-2 days [facility] [NON-STAFF] - 1 Week Discharge Disposition: HOME SELF-CARE
== END 2021-11-06 21:49 | disposition home or self-care (01) | DRG 641 ==
LOC: EC 18:52 → 5NMEDONC 21:09
PROVIDERS: ADMIT Family Medicine; ATTEND Family Medicine
DX: E87.1 Hypo-osmolality and hyponatremia (principal); E03.9 Hypothyroidism, unspecified; J44.9 Chronic obstructive pulmonary disease, unspecified; E78.5 Hyperlipidemia, unspecified; Z20.822 Contact with and (suspected) exposure to COVID-19; J45.909 Unspecified asthma, uncomplicated; F32.A Depression, unspecified; I10 Essential (primary) hypertension; Z86.16 Personal history of COVID-19; I25.10 Atherosclerotic heart disease of native coronary artery without angina pectoris; W01.0XXA Fall on same level from slipping, tripping and stumbling without subsequent striking against object, initial encounter; Z79.02 Long term (current) use of antithrombotics/antiplatelets; Z79.82 Long term (current) use of aspirin; Z79.890 Hormone replacement therapy; Z79.899 Other long term (current) drug therapy; Z82.49 Family history of ischemic heart disease and other diseases of the circulatory system; Z82.5 Family history of asthma and other chronic lower respiratory diseases; Z85.72 Personal history of non-Hodgkin lymphomas; Z85.828 Personal history of other malignant neoplasm of skin; Z87.891 Personal history of nicotine dependence; Z92.21 Personal history of antineoplastic chemotherapy; Z92.3 Personal history of irradiation; Z98.42 Cataract extraction status, left eye; Z98.41 Cataract extraction status, right eye; Z96.1 Presence of intraocular lens
CPT/HCPCS: 36415; 70450; 70486; 72125; 80048; 80053; 82040; 83735; 85025; 85027; 85610; 87502; 87635; 94640; 99285

== ENCOUNTER → 2022-03-02 | Outpatient (CLI) | payer MEDICARE, OTHER ==
[~2022-03-02] MED LIST changes: -ALPRAZolam 0.25 MG TAB PO PRN; -ALPRAZolam 0.5 MG TAB PO PRN; -ASPIRIN 325 MG TAB PO STA; -HEPARIN SODIUM,PORCINE 10,000 UNIT in SODIUM CHLORIDE 0.9% 1,000 ML IRRIGATION PRN; -HEPARIN SODIUM,PORCINE 2,500 UNIT in SODIUM CHLORIDE 0.9% 250 ML IRRIGATION PRN; -NITROGLYCERIN SL TABS 0.4 MG TAB SUBLINGUAL PRN; -SODIUM CHLORIDE 0.9% 1,000 ML in EMPTY BAG 1 BAG IV ONE; +TIXAGEVIMAB/CILGAVIMAB (EUA) 300 MG/3 ML COMBO.PKG IM ONE
[2022-03-02 11:58] VITALS: BP 138/65; PULSE 67; RESP 16; TEMP 97.8
== END | disposition home or self-care (01) ==
LOC: PROCWHC3 11:41
PROVIDERS: ATTEND Internal Medicine Hematology & Oncology
DX: Z23 Encounter for immunization (principal)
CPT/HCPCS: Q0220; M0220

== ENCOUNTER → 2022-04-03 | Outpatient (CLI) | payer MEDICARE, OTHER ==
--- NOTE | 2022-04-04 12:35 | CT ---
EXAMINATION TYPE: CT abdomen pelvis w con DATE OF EXAM: 04/03/2022 COMPARISON: 10/23/2021 INDICATION: pain DLP: 1295 mGycm, Automated exposure control for dose reduction was used. CONTRAST: 70 mL of Isovue 300. Study performed with Oral Contrast TECHNIQUE: Axial images were obtained from above the diaphragm to the pubic rami in the axial plane a t 5 mm thick sections. Reconstructed images are reviewed on the computer in the coronal plane. FINDINGS: Limited CT sections are obtained the lung bases. The lung bases are clear. Coronary artery calcific ation is present. There is a small hiatal hernia. CT ABDOMEN: Liver: Hepatic cysts are present. Spleen: Normal Pancreas: Normal Adrenal glands: Left adrenal gland is thickened at 1.2 cm. Gallbladder: Normal Kidneys: No masses are evident. No hydronephrosis is present. There is a 1.8 cm left renal cyst. P revious left renal calcification is not visualized. Delayed images were obtained through the kidneys , which remain unremarkable. Aorta: Vascular calcification is within the aorta. Inferior vena cava: Normal. CT PELVIS: Loops of bowel within the abdomen and pelvis are normal. There are loops of bowel which are incom pletely distended or lack oral contrast limiting their evaluation. Appendix: Normal as visualized. Urinary bladder: Normal. Genitourinary structures: Uterus is normal, adnexa are unremarkable. Osseous structures: No suspicious lytic or sclerotic lesions. Facet changes are present in the Lumbar spine. IMPRESSIONS: 1. Mild thickening in the left adrenal gland. 2. Nonobstructing right renal stones. Previous left renal stone is not identified. 3. Hepatic cysts present previously.
== END | disposition home or self-care (01) ==
LOC: RADCTMAIN 11:07
PROVIDERS: ATTEND Family Medicine
DX: E27.9 Disorder of adrenal gland, unspecified (principal); N20.0 Calculus of kidney; K76.89 Other specified diseases of liver; K57.92 Diverticulitis of intestine, part unspecified, without perforation or abscess without bleeding
CPT/HCPCS: 82565; 84520; 74177; 36415; Q9967

== ENCOUNTER → 2022-07-20 | Outpatient (CLI) | payer MEDICARE, OTHER ==
--- NOTE | 2022-07-21 07:59 | MM ---
Reason for Exam: Screening (asymptomatic). Last mammogram was performed 1 year(s) and 6 month(s) ago. Patient History: Menarche at age 15. First Full-Term at age 18. Postmenopausal. Other cancer. Patient used Hormonal Contraceptives for 5 years. 2019, Bilateral Benign Excisional Biopsy. Risk Values: Zoila 5 year model risk: 1.4%. NCI Lifetime model risk: 3.4%. Prior Study Comparison: 02/27/2019 Screening Mammogram, [place]. 12/04/2019 Bilateral Diagnostic Mammogram, [facility]. 01/25/2021 Bilateral Screening Mammogram, [facility]. Tissue Density: There are scattered fibroglandular densities. Findings: Analyzed By CAD. There are 4 biopsy clips in the left breast redemonstrated There is no suspicious new group of microcalcifications or new suspicious mass in either breast. Overall Assessment: Benign, BI-RAD 2 Management: Screening Mammogram of both breasts in 1 year. A clinical breast exam by your physician is recommended on an annual basis and results should be correlated with mammographic findings. Electronically signed and approved by: Butch Diana M.D.
== END | disposition home or self-care (01) ==
LOC: RADMAMWWP 14:57
PROVIDERS: ATTEND Internal Medicine Hematology & Oncology
DX: Z12.31 Encounter for screening mammogram for malignant neoplasm of breast (principal); Z78.0 Asymptomatic menopausal state
CPT/HCPCS: 77067

== ENCOUNTER → 2023-07-31 | Outpatient (CLI) | payer MEDICARE, OTHER ==
--- NOTE | 2023-07-31 18:21 | BD ---
EXAMINATION TYPE: Axial Bone Density DATE OF EXAM: 07/31/2023 CLINICAL HISTORY: 73 years old Female. ICD-10 CODE: M81.0 AGE-RELATED OSTEOPOROSIS W/O CURRENT PATHO LO Height: 62.5in Weight: 197lbs FRAX RISK QUESTIONS: History of Fracture in Adulthood: yes Secondary Osteoporosis: 3. Menopause before 45: yes RISK FACTORS HISTORY OF: MEDICATIONS: Thyroid Medications: Which medication: Levothyroxine How Lon-20 years EXAM MEASUREMENTS: Bone mineral densitometry was performed using the [employer] System. Bone mineral density as measured about the Lumbar spine is: ----- L1-L4(G/cm2): 1.285 T Score Values are as follows: ----- L1: -0.1 ----- L2: 0.4 ----- L3: 0.5 ----- L4: 2.2 ----- L1-L4: 0.9 Z Score Values are as follows: ----- L1: 0.9 ----- L2: 1.3 ----- L3: 1.4 ----- L4: 3.2 ----- L1-L4: 1.8 First dexa at [facility] Bone mineral density about the R hip (g/cm2): 0.811 Bone mineral density about the L hip (g/cm2): 0.795 T Score values are as follows: -----R Neck: -1.2 -----L Neck: -1.8 -----R Total: -1.6 -----L Total: -1.7 Z Score values are as follows: -----R Neck: 0.1 -----L Neck: -0.4 -----R Total: -0.4 -----L Total: -0.6 First dexa at [facility] FRAX%s: The graph provided illustrates a 16.8% chance for a major osteoporotic fx and a 3.3% chance f or the hips probability for fx in 10 years time. IMPRESSION: Osteopenia (T Score between -2.5 and -1). There is slightly increased risk of fracture and the patient may be considered for treatment. Re-Screen 2-5 years. NOTE: T-SCORE=SD OF THE YOUNG ADULT MEAN.
== END | disposition home or self-care (01) ==
LOC: RADBDWWP 10:34
PROVIDERS: ATTEND Family Medicine
DX: M85.89 Other specified disorders of bone density and structure, multiple sites (principal); Z78.0 Asymptomatic menopausal state
CPT/HCPCS: 77080

== ENCOUNTER → 2023-10-15 | Outpatient (CLI) | payer MEDICARE, OTHER ==
[2023-10-15 11:40] LABS: African American GFR (CKD) 71 (>60 ml/min/1.73 sqM); Blood Urea Nitrogen 21 mg/dL (7-17); Non-African American GFR(CKD) 62 (>60 ml/min/1.73 sqM)
--- NOTE | 2023-10-15 13:22 | CT ---
EXAMINATION TYPE: CT abdomen pelvis w con CT DLP: 1520 mGycm, Automated exposure control for dose reduction was used. DATE OF EXAM: 10/15/2023 1:06 PM COMPARISON: 04/03/2022, 10/23/2021. CLINICAL INDICATION:Female, 73 years old with history of R10.0 ACUTE ABDOMEN; diarrhea, cramps, abd p ain TECHNIQUE: Axial CT abdomen pelvis w con;Sagittal and coronal reformats were created on a separate w orkstation. Contrast used:100 mL of Isovue 300 with IV Contrast, (none if empty) Oral contrast used: with Oral Contrast (none if empty) FINDINGS: LOWER CHEST: Unremarkable ABDOMEN LIVER: Left hepatic lobe cyst. Calcified granuloma in the right hepatic lobe. Diffuse low-attenuation . GALLBLADDER AND BILE DUCTS: Gallbladder surgically absent. PANCREAS: Unremarkable. SPLEEN: Unremarkable. ADRENAL GLANDS: Left adrenal 12 mm indeterminate lesion. Stable from 2021. KIDNEYS AND URETERS: Left renal cortical cyst. Bilateral nonobstructing 2 mm calculi.. No right renal calculi. No obstructive uropathy bilaterally. No evidence of hydronephrosis or renal calculus. The u reters are unremarkable. PELVIS BLADDER: Unremarkable REPRODUCTIVE: Unremarkable. ABDOMEN & PELVIS STOMACH AND BOWEL: No evidence of bowel obstruction. Scattered colonic diverticula. Second portion du odenal diverticulum. Small hiatal hernia. PERITONEUM/RETROPERITONEUM: No evidence of pneumoperitoneum or free fluid. VASCULATURE: No evidence of aortic aneurysm. MUSCULOSKELETAL: No acute osseous abnormalities. Moderate disc degeneration changes are present throu ghout the thoracolumbar spine. Grade 1 anterolisthesis of L4 and L5 with moderate to severe bilateral neural foraminal stenosis. T11 limits. A right. LYMPH NODES: No gross evidence for lymphadenopathy. SOFT TISSUE/ABDOMINAL WALL: Unremarkable IMPRESSION: 1. No evidence for acute abdominal process. 2. Bilateral nonobstructing renal calculi. 3. Colonic diverticulosis. 4. Left simple appearing renal cysts. 5. Grade 1 anterolisthesis of L4 and L5 with moderate to severe bilateral neural foraminal stenosis. 6. Indeterminate left adrenal lesion most likely representing adrenal adenoma similar to 10/23/2021. 7. Small hiatal hernia. 8. Second portion duodenal diverticulum. 9. Hepatic steatosis.
== END | disposition home or self-care (01) ==
LOC: RADCTMAIN 11:01
PROVIDERS: ATTEND Family Medicine
DX: N20.0 Calculus of kidney (principal); K57.50 Diverticulosis of both small and large intestine without perforation or abscess without bleeding; N28.1 Cyst of kidney, acquired; M43.16 Spondylolisthesis, lumbar region; M99.73 Connective tissue and disc stenosis of intervertebral foramina of lumbar region; K44.9 Diaphragmatic hernia without obstruction or gangrene; K76.0 Fatty (change of) liver, not elsewhere classified
CPT/HCPCS: 82565; 84520; 74177; 36415; Q9967

== ENCOUNTER 2024-04-14 15:11 | Emergency (ER) | payer MEDICARE, OTHER ==
[2024-04-14 15:25] VITALS: TEMP 99.2
--- NOTE | 2024-04-14 16:16 | ED ---
SOB HPI - General Source: patient, RN notes reviewed Mode of arrival: ambulatory Limitations: no limitations <Mayela High - Last Filed: 04/14/24 16:14> <Mary Singh - Last Filed: 05/03/24 15:47> - General Chief Complaint: Shortness of Breath Stated Complaint: CHANCE Time Seen by Provider: 04/14/24 16:14 - History of Present Illness Initial Comments: Quick [id number] female with history of COPD presenting for shortness of breath x 2 weeks. States she was seen by Dr. Cai and given round of steroids and antibiotics. Reports worsening of symptoms to the point where she can no longer take care of her dogs as she becomes winded just taking a few steps. Denies chest pain. (Mayela High) - Related Data Home Medications Medication Instructions Recorded Confirmed Escitalopram [Lexapro] 20 mg PO DAILY 08/28/13 04/17/24 Levothyroxine Sodium [Levoxyl] 50 mcg PO DAILY 08/28/13 04/17/24 Clopidogrel Bisulfate [Plavix] 75 mg PO HS 09/29/18 04/17/24 Evolocumab [Repatha Syringe] 140 mg SQ Q14D 07/30/20 04/17/24 Pantoprazole Sodium [Protonix] 40 mg PO DAILY 07/30/20 04/17/24 buPROPion HCL [Wellbutrin XL] 150 mg PO DAILY 07/30/20 04/17/24 Albuterol Inhaler [Ventolin Hfa 2 puff INHALATION RT-QID PRN 10/23/21 04/17/24 Inhaler] Enalapril [Vasotec] 20 mg PO BID 04/17/24 04/17/24 Previous Rx's Medication Instructions Recorded Budesonide-Formot 160-4.5 Mcg 2 puff INHALATION BID #1 each 04/21/24 [Symbicort 160-4.5 Mcg Inhaler] Ipratropium-Albuterol Nebulize 3 ml INHALATION RT-QID #120 each 04/21/24 [Duoneb 0.5 mg-3 mg/3 ml Soln] methylPREDNISolone Dose Pack 4 mg PO DIRECTED #21 tab 04/21/24 [Medrol Dose Pack] Allergies Allergy/AdvReac Type Severity Reaction Status Date / Time No Known Allergies Allergy Verified 04/17/24 20:33 Review of Systems ROS Other: All systems not noted in ROS Statement are negative. <Mayela High - Last Filed: 04/14/24 16:14> ROS Other: All systems not noted in ROS Statement are negative. <Mary Singh - Last Filed: 05/03/24 15:47> ROS Statement: Those systems with pertinent positive or pertinent negative responses have been documented in the HPI. Past Medical History Past Medical History: Asthma, Cancer, COPD, GERD/Reflux, Hyperlipidemia, Hypertension, Pneumonia, Skin Disorder, Thyroid Disorder Additional Past Medical History / Comment(s): Pt recently admitted to [facility] on 03/28/21 with covid, acute hypoxic respiratory failure, hypokalemia, possible UTI, acute kidney injury. Other hx: Nonhodgkins lymphoma with chemo/radiation in 2007, skin cancer, psoriasis, frequent diarrhea, hpylori in the past, psoriasis. History of Any Multi-Drug Resistant Organisms: None Reported Past Surgical History: Cholecystectomy, Ear Surgery, Orthopedic Surgery Additional Past Surgical History / Comment(s): Bilateral caratid endartectomies/L caratid also stented, R ear implant to improve hearing, bilateral blepharoplasty, bilateral cataract removals then L eye laser surgery, neck lymphnode biopsy, bilateral hammer toe surgery, bilateral feet b unionectomies, R carpal tunnel release, colonoscopy, benign growth removed from labia. Past Anesthesia/Blood Transfusion Reactions: No Reported Reaction Past Psychological History: Depression Smoking Status: Former smoker Past Alcohol Use History: None Reported Past Drug Use History: None Reported - Past Family History Mother History Unknown: Yes Family Medical History: No Reported History Father Family Medical History: COPD, Myocardial Infarction ([place]) Additional Family Medical History / Comment(s): Heart problems. <Mayela High - Last Filed: 04/14/24 16:14> General Exam Limitations: no limitations <Mayela High - Last Filed: 04/14/24 16:14> - General Exam Comments Initial Comments: Visual Physical Exam Vital signs reviewed General: Well-appearing, nontoxic, no acute distress. Head: Normocephalic, atraumatic Eyes: PERRLA, EOMI ENT: Airway patent Chest: Nonlabored breathing Skin: No visual rash, normal skin tone Neuro: Alert and oriented 3 Musculoskeletal: No gross abnormalities (Mayela High) Course Vital Signs 04/14/24 04/14/24 15:15 19:53 Temperature 99.2 F Pulse Rate 111 H 98 Respiratory 24 16 Rate Blood Pressure 116/66 113/71 O2 Sat by Pulse 86 L 92 L Oximetry Medical Decision Making <Mayela High - Last Filed: 04/14/24 16:14> - Lab Data Result diagrams: 04/14/24 18:27 04/14/24 18:27 <Mary Singh - Last Filed: 05/03/24 15:47> - Medical Decision Making I completed the quick note portion of this chart signed Mayela High PA-C (Mayela High) No attestation - patient left AMA (Mary Singh) - Lab Data Lab Results 04/14/24 04/14/24 04/14/24 Range/Units 16:45 18:27 18:27 WBC 9.7 (3.8-10.6) k/uL RBC 4.60 (3.80-5.40) m/uL Hgb 14.0 (11.4-16.0) gm/dL Hct 41.4 (34.0-46.0) % MCV 90.0 (80.0-100.0) fL MCH 30.4 (25.0-35.0) pg MCHC 33.8 (31.0-37.0) g/dL RDW 14.4 (11.5-15.5) % Plt Count 266 (150-450) k/uL MPV 7.5 Neutrophils % 77 % Lymphocytes % 11 % Monocytes % 6 % Eosinophils % 3 % Basophils % 1 % Neutrophils # 7.4 (1.3-7.7) k/uL Lymphocytes # 1.1 (1.0-4.8) k/uL Monocytes # 0.5 (0-1.0) k/uL Eosinophils # 0.3 (0-0.7) k/uL Basophils # 0.1 (0-0.2) k/uL PT 10.3 (10.0-12.5) sec INR 0.9 (<1.2) APTT 23.3 (22.0-30.0) sec Sodium (137-145) mmol/L Potassium (3.5-5.1) mmol/L Chloride (98-107) mmol/L Carbon Dioxide (22-30) mmol/L Anion Gap mmol/L BUN (7-17) mg/dL Creatinine (0.52-1.04) mg/dL Est GFR (CKD-EPI)AfAm (>60 ml/min/1.73 sqM) Est GFR (CKD-EPI)NonAf (>60 ml/min/1.73 sqM) Glucose (74-99) mg/dL Plasma Lactic Acid Luca (0.7-2.0) mmol/L Calcium (8.4-10.2) mg/dL Total Bilirubin (0.2-1.3) mg/dL AST (14-36) U/L ALT (4-34) U/L Alkaline Phosphatase (38-126) U/L Troponin I (0.000-0.034) ng/mL Total Protein (6.3-8.2) g/dL Albumin (3.5-5.0) g/dL Influenza Type A (PCR) Not Detected (Not Detectd) Influenza Type B (PCR) Not Detected (Not Detectd) RSV (PCR) Not Detected (Not Detectd) SARS-CoV-2 (PCR) Not Detected (Not Detectd) 04/14/24 04/14/24 04/14/24 Range/Units 18:27 18:27 18:27 WBC (3.8-10.6) k/uL RBC (3.80-5.40) m/uL Hgb (11.4-16.0) gm/dL Hct (34.0-46.0) % MCV (80.0-100.0) fL MCH (25.0-35.0) pg MCHC (31.0-37.0) g/dL RDW (11.5-15.5) % Plt Count (150-450) k/uL MPV Neutrophils % % Lymphocytes % % Monocytes % % Eosinophils % % Basophils % % Neutrophils # (1.3-7.7) k/uL Lymphocytes # (1.0-4.8) k/uL Monocytes # (0-1.0) k/uL Eosinophils # (0-0.7) k/uL Basophils # (0-0.2) k/uL PT (10.0-12.5) sec INR (<1.2) APTT (22.0-30.0) sec Sodium 133 L (137-145) mmol/L Potassium 4.5 (3.5-5.1) mmol/L Chloride 99 (98-107) mmol/L Carbon Dioxide 24 (22-30) mmol/L Anion Gap 10 mmol/L BUN 20 H (7-17) mg/dL Creatinine 1.01 (0.52-1.04) mg/dL Est GFR (CKD-EPI)AfAm 63 (>60 ml/min/1.73 sqM) Est GFR (CKD-EPI)NonAf 55 (>60 ml/min/1.73 sqM) Glucose 95 (74-99) mg/dL Plasma Lactic Acid Luca 1.0 (0.7-2.0) mmol/L Calcium 9.3 (8.4-10.2) mg/dL Total Bilirubin 0.7 (0.2-1.3) mg/dL AST 25 (14-36) U/L ALT 19 (4-34) U/L Alkaline Phosphatase 75 (38-126) U/L Troponin I <0.012 (0.000-0.034) ng/mL Total Protein 6.3 (6.3-8.2) g/dL Albumin 4.2 (3.5-5.0) g/dL Influenza Type A (PCR) (Not Detectd) Influenza Type B (PCR) (Not Detectd) RSV (PCR) (Not Detectd) SARS-CoV-2 (PCR) (Not Detectd) Disposition <Mayela High - Last Filed: 04/14/24 16:14> <Mary Singh - Last Filed: 05/03/24 15:47> Clinical Impression: COPD exacerbation Disposition: LEFT AGAINST MEDICAL ADVICE Condition: Fair Referrals: Luis Cai DO [Primary Care Provider] - 1-2 days
--- NOTE | 2024-04-14 17:11 | XR ---
EXAMINATION TYPE: XR chest 2V DATE OF EXAM: 04/14/2024 4:58 PM COMPARISON: 10/23/2021 CLINICAL INDICATION: Female, 74 years old with history of shortness of breath, TECHNIQUE: XR chest 2V view(s) obtained. FINDINGS: The heart size is normal. The pulmonary vasculature is prominent. There is diffuse increased lung markings.. No focal consolidation is evident. IMPRESSION: 1. Correlate for volume overload. [facility], , 04/14/2024 5:09 PM
[2024-04-14 17:54] LABS: Influenza A Not Detected (Not Detectd); Influenza B Not Detected (Not Detectd); RSV Not Detected (Not Detectd)
[2024-04-14 18:44] LABS: Basophils # (A) 0.1 k/uL (0-0.2); Basophils % (A) 1 %; Eosinophils # (A) 0.3 k/uL (0-0.7); Eosinophils % (A) 3 %; HCT 41.4 % (34.0-46.0); Lymphocytes # (A) 1.1 k/uL (1.0-4.8); Lymphocytes % (A) 11 %; MCH 30.4 pg (25.0-35.0); MCHC 33.8 g/dL (31.0-37.0); Mean Platelet Volume 7.5; Monocytes # (A) 0.5 k/uL (0-1.0); Monocytes % (A) 6 %; Neutrophils # (A) 7.4 k/uL (1.3-7.7); Neutrophils % (A) 77 %; Platelet Count 266 k/uL (150-450); RDW 14.4 % (11.5-15.5); WBC 9.7 k/uL (3.8-10.6)
[2024-04-14 18:48] LABS: INR 0.9 (<1.2); Partial Thromboplastin Time 23.3 sec (22.0-30.0); Prothrombin Time 10.3 sec (10.0-12.5)
[2024-04-14 19:10] LABS: ALT 19 U/L (4-34); AST 25 U/L (14-36); African American GFR (CKD) 63 (>60 ml/min/1.73 sqM); Albumin 4.2 g/dL (3.5-5.0); Alkaline Phosphatase 75 U/L (38-126); Anion Gap 10 mmol/L; Blood Urea Nitrogen 20 mg/dL (7-17); Calcium 9.3 mg/dL (8.4-10.2); Carbon Dioxide 24 mmol/L (22-30); Chloride 99 mmol/L (98-107); Glucose 95 mg/dL (74-99); Non-African American GFR(CKD) 55 (>60 ml/min/1.73 sqM); Potassium 4.5 mmol/L (3.5-5.1); Sodium 133 mmol/L (137-145); Total Bilirubin 0.7 mg/dL (0.2-1.3); Total Protein 6.3 g/dL (6.3-8.2)
[2024-04-14 19:54] VITALS: BP 113/71; PULSE 98; RESP 16
== END 2024-04-14 20:49 | disposition left against medical advice (07) ==
LOC: EC 15:11
DX: J44.1 Chronic obstructive pulmonary disease with (acute) exacerbation (principal); Z53.29 Procedure and treatment not carried out because of patient's decision for other reasons; Z87.891 Personal history of nicotine dependence; Z86.16 Personal history of COVID-19
CPT/HCPCS: 36415; 71046; 80053; 83605; 84484; 85025; 85610; 85730; 87636; 93005; 99285

== ENCOUNTER 2024-04-17 17:43 | Inpatient (IN) | payer MEDICARE, OTHER ==
--- NOTE | 2024-04-17 18:53 | ED ---
General Adult HPI - General Chief complaint: Shortness of Breath Stated complaint: SOB Time Seen by Provider: 04/17/24 18:00 Source: patient, EMS, RN notes reviewed, old records reviewed Mode of arrival: EMS Limitations: no limitations - History of Present Illness Initial comments: 74-year-old female who presents to the emergency department past medical history significant for COPD. Patient states for the last 2 weeks she has had a hard time breathing and she has been to the hospital recently and admitted for the same condition. Patient states her pulse ox was in the low 80s today at home. Patient denies chest pain or palpitations. Patient has abdominal pain patient denies any nausea vomiting. Patient denies any fever or chills. Patient states she has occasional cough but nothing worse than normal. Patient states she quit smoking 22 years ago. Patient denies any swelling to her legs or calf tenderness. - Related Data Home Medications Medication Instructions Recorded Confirmed Escitalopram [Lexapro] 20 mg PO DAILY 08/28/13 04/17/24 Levothyroxine Sodium [Levoxyl] 50 mcg PO DAILY 08/28/13 04/17/24 Clopidogrel Bisulfate [Plavix] 75 mg PO HS 09/29/18 04/17/24 Evolocumab [Repatha Syringe] 140 mg SQ Q14D 07/30/20 04/17/24 Pantoprazole Sodium [Protonix] 40 mg PO DAILY 07/30/20 04/17/24 buPROPion HCL [Wellbutrin XL] 150 mg PO DAILY 07/30/20 04/17/24 Albuterol Inhaler [Ventolin Hfa 2 puff INHALATION RT-QID PRN 10/23/21 04/17/24 Inhaler] Enalapril [Vasotec] 20 mg PO BID 04/17/24 04/17/24 Allergies Allergy/AdvReac Type Severity Reaction Status Date / Time No Known Allergies Allergy Verified 04/17/24 20:33 Review of Systems ROS Statement: Those systems with pertinent positive or pertinent negative responses have been documented in the HPI. ROS Other: All systems not noted in ROS Statement are negative. Past Medical History Past Medical History: Asthma, Cancer, COPD, GERD/Reflux, Hyperlipidemia, Hypertension, Pneumonia, Skin Disorder, Thyroid Disorder Additional Past Medical History / Comment(s): Pt recently admitted to [facility] on 03/28/21 with covid, acute hypoxic respiratory failure, hypokalemia, possible UTI, acute kidney injury. Other hx: Nonhodgkins lymphoma with chemo/radiation in 2008, skin cancer, psoriasis, frequent diarrhea, hpylori in the past, psoriasis. History of Any Multi-Drug Resistant Organisms: None Reported Past Surgical History: Cholecystectomy, Ear Surgery, Orthopedic Surgery Additional Past Surgical History / Comment(s): Bilateral caratid endartectomies/L caratid also stented, R ear implant to improve hearing, bilateral blepharoplasty, bilateral cataract removals then L eye laser surgery, neck lymphnode biopsy, bilateral hammer toe surgery, bilateral feet bunionectomies, R carpal tunnel release, colonoscopy, benign growth removed from labia. Past Anesthesia/Blood Transfusion Reactions: No Reported Reaction Past Psychological History: Depression Smoking Status: Former smoker Past Alcohol Use History: None Reported Past Drug Use History: None Reported - Past Family History Mother History Unknown: Yes Family Medical History: No Reported History Father Family Medical History: COPD, Myocardial Infarction ([place]) Additional Family Medical History / Comment(s): Heart problems. General Exam - General Exam Comments Initial Comments: GENERAL: Patient is well-developed and well-nourished. Patient is nontoxic and well- hydrated and is in mild distress. ENT: Neck is soft and supple. No significant lymphadenopathy is noted. Oropharynx is clear. Moist mucous membranes. Neck has full range of motion without eliciting any pain. EYES: The sclera were anicteric and conjunctiva were pink and moist. Extraocular movements were intact and pupils were equal round and reactive to light. Eyelids were unremarkable. PULMONARY: Diminished breath sounds and expiratory wheezing CARDIOVASCULAR: There is a regular rate and rhythm without any murmurs gallops or rubs. ABDOMEN: Soft and nontender with normal bowel sounds. SKIN: Skin is clear with no lesions or rashes and otherwise unremarkable. NEUROLOGIC: Patient is alert and oriented x3. Cranial nerves II through XII are grossly intact. Motor and sensory are also intact. Normal speech, volume and content. Symmetrical smile. MUSCULOSKELETAL: Normal extremities with adequate strength and full range of motion. LYMPHATICS: No significant lymphadenopathy is noted PSYCHIATRIC: Normal psychiatric evaluation. Limitations: no limitations Course Vital Signs 04/17/24 04/17/24 04/17/24 17:45 17:54 19:12 Temperature 98.3 F Pulse Rate 100 100 Respiratory 20 Rate Blood Pressure 146/65 O2 Sat by Pulse 83 L 96 Oximetry 04/17/24 04/17/24 19:18 19:26 Temperature 99.7 F H Pulse Rate 104 H 80 Respiratory 18 Rate Blood Pressure 144/56 O2 Sat by Pulse 93 L Oximetry Medical Decision Making - Medical Decision Making EKG is interpreted by myself EKG shows sinus rhythm at 80 bpm IN interval is 168 QRS is 84 QT interval is 374 QTc is 410. shows no ST segment elevation Was pt. sent in by a medical professional or institution (RAHUL Lay, GENERATION TECHNICIAN, urgent care, hospital, or long-term...) When possible be specific @ -No Did you speak to anyone other than the patient for history (EMS, parent, family, police, friend...)? What history was obtained from this source @ -No Did you review nursing and triage notes (agree or disagree)? Why? @ -I reviewed and agree with nursing and triage notes Were old charts reviewed (outside hosp., previous admission, EMS record, old EKG, old radiological studies, urgent care reports/EKG's, long-term records)? Report findings @ -No old charts were reviewed Differential Diagnosis? @ -Differential Dyspnea: Coronary syndrome, arrhythmia, tamponade, asthma, COPD, pulmonary embolism, pneumonia, pneumothorax, pulmonary effusion, anaphylaxis, diabetic ketoacidosis, flailed chest, pulmonary contusion, diaphragmatic rupture, anemia, neuromuscular, this is not meant to be an all-inclusive list. EKG interpreted by me (3pts min.). @ -As above X-rays interpreted by me (1pt min.). @ -Chest x-ray shows no acute abnormality CT interpreted by me (1pt min.). @ -None done U/S interpreted by me (1pt. min.). @ -None done What testing was considered but not performed or refused? (CT, X-rays, U/S, labs)? Why? @ -None What meds were considered but not given or refused? Why? @ -None Did you discuss the management of the patient with other professionals (professionals i.e. RAHUL Lay, GENERATION TECHNICIAN, lab, RT, psych nurse, social insurance specialist, risk control manager, teacher, state wildlife officer, comp field case manager)? Give summary @ -I spoke with [facility] agreed to admit the patient admit the patient I wrote admitting orders Was smoking cessation discussed for >3mins.? @ -No Was critical care preformed (if so, how long)? @ -35 minutes Were there social determinants of health that impacted care today? How? (Homelessness, low income, unemployed, alcoholism, drug addiction, transportation, low edu. Level, literacy, decrease access to med. care, fdc, rehab)? @ -No Was there de-escalation of care discussed even if they declined (Discuss DNR or withdrawal of care, Hospice)? DNR status @ -No What co-morbidities impacted this encounter? (DM, HTN, Smoking, COPD, CAD, Cancer, CVA, ARF, Chemo, Hep., AIDS, mental health diagnosis, sleep apnea, morbid obesity)? @ -None Was patient admitted / discharged? Hospital course, mention meds given and route, prescriptions, significant lab abnormalities, going to OR and other pertinent info. @ -Patient received multiple breathing treatments steroids antibiotics and will be admitted to [facility] Undiagnosed new problem with uncertain prognosis? @ -No Drug Therapy requiring intensive monitoring for toxicity (Heparin, Nitro, Insulin, Cardizem)? @ -No Were any procedures done? @ -No Diagnosis/symptom? @ -Exacerbation of COPD Acute, or Chronic, or Acute on Chronic? @ -Acute Uncomplicated (without systemic symptoms) or Complicated (systemic symptoms)? @ -complicated Side effects of treatment? @ -No Exacerbation, Progression, or Severe Exacerbation? @ -No Poses a threat to life or bodily function? How? (Chest pain, [place], HI, pneumonia, PE, COPD, DKA, ARF, appy, cholecystitis, CVA, Diverticulitis, Homicidal, Suicidal, threat to staff... and all critical care pts) @ -This can lead to hypoxia and endorgan dysfunction - Lab Data Result diagrams: 04/17/24 19:28 04/17/24 19:28 Lab Results 04/17/24 04/17/24 04/17/24 Range/Units 19:05 19:28 19:28 WBC 8.3 (3.8-10.6) k/uL RBC 4.35 (3.80-5.40) m/uL Hgb 13.2 (11.4-16.0) gm/dL Hct 39.9 (34.0-46.0) % MCV 91.8 (80.0-100.0) fL MCH 30.3 (25.0-35.0) pg MCHC 33.0 (31.0-37.0) g/dL RDW 14.2 (11.5-15.5) % Plt Count 251 (150-450) k/uL MPV 6.8 Neutrophils % 70 % Lymphocytes % 16 % Monocytes % 6 % Eosinophils % 4 % Basophils % 1 % Neutrophils # 5.8 (1.3-7.7) k/uL Lymphocytes # 1.4 (1.0-4.8) k/uL Monocytes # 0.5 (0-1.0) k/uL Eosinophils # 0.3 (0-0.7) k/uL Basophils # 0.1 (0-0.2) k/uL PT 10.4 (10.0-12.5) sec INR 0.9 (<1.2) APTT 22.6 (22.0-30.0) sec Sodium (137-145) mmol/L Potassium (3.5-5.1) mmol/L Chloride (98-107) mmol/L Carbon Dioxide (22-30) mmol/L Anion Gap mmol/L BUN (7-17) mg/dL Creatinine (0.52-1.04) mg/dL Est GFR (CKD-EPI)AfAm (>60 ml/min/1.73 sqM) Est GFR (CKD-EPI)NonAf (>60 ml/min/1.73 sqM) Glucose (74-99) mg/dL Plasma Lactic Acid Luca (0.7-2.0) mmol/L Calcium (8.4-10.2) mg/dL Magnesium (1.6-2.3) mg/dL Total Bilirubin (0.2-1.3) mg/dL AST (14-36) U/L ALT (4-34) U/L Alkaline Phosphatase (38-126) U/L Troponin I (0.000-0.034) ng/mL Total Protein (6.3-8.2) g/dL Albumin (3.5-5.0) g/dL Influenza Type A (PCR) Not Detected (Not Detectd) Influenza Type B (PCR) Not Detected (Not Detectd) RSV (PCR) Not Detected (Not Detectd) SARS-CoV-2 (PCR) Not Detected (Not Detectd) 04/17/24 04/17/24 04/17/24 Range/Units 19:28 19:28 19:28 WBC (3.8-10.6) k/uL RBC (3.80-5.40) m/uL Hgb (11.4-16.0) gm/dL Hct (34.0-46.0) % MCV (80.0-100.0) fL MCH (25.0-35.0) pg MCHC (31.0-37.0) g/dL RDW (11.5-15.5) % Plt Count (150-450) k/uL MPV Neutrophils % % Lymphocytes % % Monocytes % % Eosinophils % % Basophils % % Neutrophils # (1.3-7.7) k/uL Lymphocytes # (1.0-4.8) k/uL Monocytes # (0-1.0) k/uL Eosinophils # (0-0.7) k/uL Basophils # (0-0.2) k/uL PT (10.0-12.5) sec INR (<1.2) APTT (22.0-30.0) sec Sodium 134 L (137-145) mmol/L Potassium 4.2 (3.5-5.1) mmol/L Chloride 98 (98-107) mmol/L Carbon Dioxide 25 (22-30) mmol/L Anion Gap 11 mmol/L BUN 16 (7-17) mg/dL Creatinine 1.14 H (0.52-1.04) mg/dL Est GFR (CKD-EPI)AfAm 55 (>60 ml/min/1.73 sqM) Est GFR (CKD-EPI)NonAf 47 (>60 ml/min/1.73 sqM) Glucose 94 (74-99) mg/dL Plasma Lactic Acid Luca 1.5 (0.7-2.0) mmol/L Calcium 8.9 (8.4-10.2) mg/dL Magnesium 2.0 (1.6-2.3) mg/dL Total Bilirubin 0.6 (0.2-1.3) mg/dL AST 25 (14-36) U/L ALT 19 (4-34) U/L Alkaline Phosphatase 81 (38-126) U/L Troponin I <0.012 (0.000-0.034) ng/mL Total Protein 6.0 L (6.3-8.2) g/dL Albumin 4.0 (3.5-5.0) g/dL Influenza Type A (PCR) (Not Detectd) Influenza Type B (PCR) (Not Detectd) RSV (PCR) (Not Detectd) SARS-CoV-2 (PCR) (Not Detectd) Critical Care Time Critical Care Time: Yes Total Critical Care Time: 35 Disposition Clinical Impression: COPD exacerbation Disposition: ADMITTED IP TO THIS HOSP Referrals: Luis Cai DO [Primary Care Provider] - 1-2 days Time of Disposition: 20:53
[2024-04-17] MEDS: ALBUTEROL NEBULIZED 2.5 MG/3 ML INHALATION STA (19:10)
[2024-04-17] MEDS: methylPREDNISolone SOD SUCCI 125 MG/2 ML VIAL IV STA (19:32)
[2024-04-17 19:36] LABS: Basophils # (A) 0.1 k/uL (0-0.2); Basophils % (A) 1 %; Eosinophils # (A) 0.3 k/uL (0-0.7); Eosinophils % (A) 4 %; HCT 39.9 % (34.0-46.0); HGB 13.2 gm/dL (11.4-16.0); Lymphocytes # (A) 1.4 k/uL (1.0-4.8); Lymphocytes % (A) 16 %; MCH 30.3 pg (25.0-35.0); MCV 91.8 fL (80.0-100.0); Mean Platelet Volume 6.8; Monocytes # (A) 0.5 k/uL (0-1.0); Monocytes % (A) 6 %; Neutrophils # (A) 5.8 k/uL (1.3-7.7); Neutrophils % (A) 70 %; Platelet Count 251 k/uL (150-450); RBC 4.35 m/uL (3.80-5.40); RDW 14.2 % (11.5-15.5); WBC 8.3 k/uL (3.8-10.6)
[2024-04-17] MEDS: SODIUM CHLORIDE 0.9% 500 ML 500 ML IV STA (19:44)
[2024-04-17 19:46] LABS: INR 0.9 (<1.2); Partial Thromboplastin Time 22.6 sec (22.0-30.0); Prothrombin Time 10.4 sec (10.0-12.5)
[2024-04-17] MEDS: cefTRIAXone IN SWFI 1,000 MG/10 ML SYRINGE IVP STA ×2 (19:47→19:52)
[2024-04-17 20:02] LABS: ALT 19 U/L (4-34); AST 25 U/L (14-36); African American GFR (CKD) 55 (>60 ml/min/1.73 sqM); Alkaline Phosphatase 81 U/L (38-126); Anion Gap 11 mmol/L; Blood Urea Nitrogen 16 mg/dL (7-17); Calcium 8.9 mg/dL (8.4-10.2); Carbon Dioxide 25 mmol/L (22-30); Chloride 98 mmol/L (98-107); Glucose 94 mg/dL (74-99); Non-African American GFR(CKD) 47 (>60 ml/min/1.73 sqM); Potassium 4.2 mmol/L (3.5-5.1); Sodium 134 mmol/L (137-145); Total Bilirubin 0.6 mg/dL (0.2-1.3)
[2024-04-17 20:36] LABS: Influenza A Not Detected (Not Detectd); Influenza B Not Detected (Not Detectd); RSV Not Detected (Not Detectd)
[2024-04-17] MEDS ORDERED: NALOXONE 0.4 MG/ML 1 ML VIAL IVP PRN (20:53)
[2024-04-17] MEDS ORDERED: IPRATROPIUM-ALBUTEROL 3 ML NEB INHALATION PRN (20:53)
--- NOTE | 2024-04-17 21:08 | XR ---
EXAMINATION TYPE: XR chest 2V DATE OF EXAM: 04/17/2024 8:29 PM COMPARISON: Chest radiographs from 04/14/2024 CLINICAL INDICATION: Female, 74 years old with history of difficulty breathing; [facility] TECHNIQUE: XR chest 2V Frontal and lateral views of the chest. FINDINGS: Lungs/Pleura: There is no evidence of pleural effusion, focal consolidation, or pneumothorax. Pulmonary vascularity: Unremarkable. Heart/mediastinum: Cardiomediastinal silhouette is unremarkable. Musculoskeletal: No acute osseous pathology. IMPRESSION: Subtle scattered opacities which may represent an atypical pneumonia. Correlate for covid 19. [facility], , 04/17/2024 9:06 PM
[2024-04-17] MEDS: AMOXIC-POT CLAV 875-125MG 1 EACH TAB PO SCH (22:04)
[2024-04-18] MEDS: methylPREDNISolone SOD SUCCI 125 MG/2 ML VIAL IV SCH (02:39)
--- NOTE | 2024-04-18 07:22 | P.HPIM ---
History of Present Illness This is a pleasant 74 years old female with past medical history of COVID infection requiring short period of home oxygen therapy, currently she is off oxygen. She has long history of smoking cigarettes more than 30 years but she q uit about 22 years ago as she explains. Her PCP Dr. Cai diagnosed her with COPD after she got COVID infection She presents this time with worsening dyspnea slowly over 2 weeks but with no chest pain associated with some cough and clear phlegm sometimes She has little headache but no other specific symptoms like dizziness or weakness numbness No specific GI/ symptoms. She denies smoking alcohol or illicit drugs currently She had better fever of 99.7 and she is currently requiring 4 L of oxygen to keep saturation at 95% Labs are unremarkable CBC, BMP, LFT, INR, troponin No leukocytosis Influenza A and type B, RSV, SARS (coronavirus) are and detected EKG shows sinus rhythm at [address]-T changes Chest x-ray showing subtle scattered opacities suspicious for atypical pneumonia Patient started on steroids and antibiotics in the emergency room Review of Systems Review of systems CONSTITUTIONAL: No fever, no malaise, no fatigue. HEENT: No recent visual problems or hearing problems. Denied any sore throat. CARDIOVASCULAR: No orthopnea, PND, no palpitations, no syncope. PULMONARY: No shortness chest wall tenderness h, no hemoptysis. GASTROINTESTINAL: No diarrhea, no nausea, no vomiting, no abdominal pain. Normoactive bowel sounds. NEUROLOGICAL: No headaches, no weakness, no numbness. HEMATOLOGICAL: Denies any bleeding or petechiae. GENITOURINARY: Denies any burning micturition, frequency, or urgency. MUSCULOSKELETAL/RHEUMATOLOGICAL: Denies any joint pain, swelling, or any muscle pain. ENDOCRINE: Denies any polyuria or polydipsia. Past Medical History Past Medical History: Asthma, Cancer, COPD, GERD/Reflux, Hyperlipidemia, Hypertension, Pneumonia, Skin Disorder, Thyroid Disorder Additional Past Medical History / Comment(s): Pt recently admitted to [facility] on 03/28/21 with covid, acute hypoxic respiratory failure, hypokalemia, possible UTI, acute kidney injury. Other hx: Nonhodgkins lymphoma with chemo/radiation in 2007, skin cancer, psoriasis, frequent diarrhea, hpylori in the past, psoriasis. History of Any Multi-Drug Resistant Organisms: None Reported Past Surgical History: Cholecystectomy, Ear Surgery, Orthopedic Surgery Additional Past Surgical History / Comment(s): Bilateral caratid endartectomies/L caratid also stented, R ear implant to improve hearing, bilat eral blepharoplasty, bilateral cataract removals then L eye laser surgery, neck lymphnode biopsy, bilateral hammer toe surgery, bilateral feet bunionectomies, R carpal tunnel release, colonoscopy, benign growth removed from labia. Past Anesthesia/Blood Transfusion Reactions: No Reported Reaction Past Psychological History: Depression Smoking Status: Former smoker Past Alcohol Use History: None Reported Past Drug Use History: None Reported - Past Family History Mother History Unknown: Yes Family Medical History: No Reported History Father Family Medical History: COPD, Myocardial Infarction (DC) Additional Family Medical History / Comment(s): Heart problems. Medications and Allergies Home Medications Medication Instructions Recorded Confirmed Type Escitalopram [Lexapro] 20 mg PO DAILY 08/28/13 04/17/24 History Levothyroxine Sodium [Levoxyl] 50 mcg PO DAILY 08/28/13 04/17/24 History Clopidogrel Bisulfate [Plavix] 75 mg PO HS 09/29/18 04/17/24 History Evolocumab [Repatha Syringe] 140 mg SQ Q14D 07/30/20 04/17/24 History Pantoprazole Sodium [Protonix] 40 mg PO DAILY 07/30/20 04/17/24 History buPROPion HCL [Wellbutrin XL] 150 mg PO DAILY 07/30/20 04/17/24 History Albuterol Inhaler [Ventolin Hfa 2 puff INHALATION RT-QID PRN 10/23/21 04/17/24 History Inhaler] Enalapril [Vasotec] 20 mg PO BID 04/17/24 04/17/24 History Allergies Allergy/AdvReac Type Severity Reaction Status Date / Time No Known Allergies Allergy Verified 04/17/24 20:33 Physical Exam Vitals: Vital Signs Temp Pulse Resp BP Pulse Ox 04/18/24 07:03 97.2 F L 61 16 127/61 91 L 04/18/24 00:00 78 18 136/60 95 04/17/24 22:07 98.7 F 04/17/24 19:26 99.7 F H 80 18 144/56 93 L 04/17/24 19:18 104 H 04/17/24 19:12 100 04/17/24 17:54 96 04/17/24 17:45 98.3 F 100 20 146/65 83 L Intake and Output 04/17/24 04/18/24 04/18/24 22:59 06:59 14:59 Other: Weight 86.183 kg GENERAL: The patient is alert and oriented x3, not in any acute distress. Well developed, well nourished. Obese HEENT: Pupils are round and equally reacting to light. EOMI. No scleral icterus. No conjunctival pallor. Normocephalic, atraumatic. No pharyngeal erythema. No thyromegaly. CARDIOVASCULAR: S1 and S2 present. No murmurs, rubs, or gallops. -PULMONARY: Chest is clear to auscultation, bilateral wheezing , no crackles. ABDOMEN: Soft, nontender, nondistended, normoactive bowel sounds. No palpable organomegaly. MUSCULOSKELETAL: No joint swelling or deformity. EXTREMITIES: No cyanosis, clubbing, or pedal edema. NEUROLOGICAL: Gross neurological examination did not reveal any focal deficits. SKIN: No rashes. no petechiae. Results CBC & Chem 7: 04/17/24 19:28 04/17/24 19:28 Labs: Abnormal Lab Results - Last 24 Hours (Table) 04/17/24 Range/Units 19:28 Sodium 134 L (137-145) mmol/L Creatinine 1.14 H (0.52-1.04) mg/dL Total Protein 6.0 L (6.3-8.2) g/dL Assessment and Plan Assessment: Acute COPD exacerbation Acute hypoxic respiratory failure Atypical pneumonia is possibility, cannot be entirely excluded at this time ex-smoker Obesity with BMI 32.6 Hypertension Hyperlipidemia Hypothyroidism History of depression, not an active issue Plan: Continue with IV Solu-Medrol Continue with oxygen therapy Bronchodilator Continue with Augmentin Check pro- Calcitonin Pulmonary team consult Labs and medication were reviewed.. Continue same treatment. Continue with symptomatic treatment. Resume home medication. Monitor labs and vitals. DVT and GI prophylaxis. Further recommendations as per clinical course of the patient DVT prophylaxis: Subcutaneous heparin GI Prophylaxis: Protonix PT/OT: Pending Prognosis is guarded
[2024-04-18] MEDS: buPROPion XL 150 MG TAB.ER.24H PO SCH (08:06)
[2024-04-18] MEDS: PANTOPRAZOLE 40 MG TABLET PO SCH (08:06)
[2024-04-18] MEDS: LEVOTHYROXINE 50 MCG TAB PO SCH (08:07)
[2024-04-18] MEDS: HEPARIN SODIUM,PORCINE 5,000 UNIT/ML 1 ML VIAL SQ SCH (08:07)
[2024-04-18] MEDS: ESCITALOPRAM 20 MG TAB PO SCH (08:07)
[2024-04-18] MEDS: lisinopriL 20 MG TAB PO SCH (08:07)
[2024-04-18] MEDS: IPRATROPIUM-ALBUTEROL 3 ML NEB INHALATION SCH (09:00)
[2024-04-18] MEDS: CLOPIDOGREL 75 MG TAB PO SCH (21:18)
--- NOTE | 2024-04-19 20:37 | P.PN ---
Subjective Progress Note Date: 04/19/24 Patient is evaluated in follow-up resting in bed. She does continue to report improvement in her shortness of breath she is not currently wheezing. Patient has been continued on IV Solu-Medrol and oral Augmentin. Procalcitonin level is ordered and pending at this time. Patient did fail her home oxygen test with oxygen saturations dropping to 82% while on room air. Patient does not currently follow with a medical technologist blood bank. She remains on a combination of DuoNebs scheduled and as needed. Review of Systems Constitutional: Denied any fatigue denied any fever. Cardio vascular: denied any chest pain, palpitations Gastrointestinal: denied any nausea, vomiting, diarrhea Pulmonary: Denied any shortness of breath cough Neurologic denied any new focal deficits All inpatient medications were reviewed and appropriate changes in these medications as dictated in the interval history and assessment and plan. In physical exam GENERAL: The patient is alert and oriented x3, not in any acute distress. Well developed, well nourished. Obese HEENT: Pupils are round and equally reacting to light. EOMI. No scleral icterus. No conjunctival pallor. Normocephalic, atraumatic. No pharyngeal erythema. No thyromegaly. CARDIOVASCULAR: S1 and S2 present. No murmurs, rubs, or gallops. -PULMONARY: Chest is clear to auscultation, bilateral wheezing , no crackles. ABDOMEN: Soft, nontender, nondistended, normoactive bowel sounds. No palpable organomegaly. MUSCULOSKELETAL: No joint swelling or deformity. EXTREMITIES: No cyanosis, clubbing, or pedal edema. NEUROLOGICAL: Gross neurological examination did not reveal any focal deficits. SKIN: No rashes. no petechiae. Assessment and plan Acute COPD exacerbation Acute hypoxic respiratory failure Atypical pneumonia is possibility, cannot be entirely excluded at this time ex-smoker Obesity with BMI 32.6 Hypertension Hyperlipidemia Hypothyroidism History of depression, not an active issue GI prophylaxis DVT prophylaxis Plan Continue Augmentin Continue IV Solu-Medrol Procalcitonin level ordered and pending Add Symbicort scheduled twice a day Continue DuoNebs scheduled and as needed Patient did fail her home oxygen test will continue to monitor the patient overnight She has been on oxygen in the past and may require this on discharge Patient does not follow with a medical technologist blood bank and would benefit from establishing with one on discharge The impression and plan of care has been dictated by Any Leach, Nurse Practitioner as directed. Dr. Howard MD I have performed a history and physical examination and medical decision making of this patient, discussed the same with the dictator, and agree with the dictators assessment and plan as written, documented as a scribe. Based on total visit time, I have performed more than 50% of this visit. Objective - Vital Signs Vital signs: Vital Signs Temp 98.3 F 04/19/24 19:18 Pulse 73 04/19/24 19:18 Resp 18 04/19/24 19:18 BP 164/66 04/19/24 19:18 Pulse Ox 95 04/19/24 19:18 FiO2 Intake & Output 04/19/24 04/19/24 04/20/24 06:59 18:59 06:59 Weight 86.183 kg Other: # Voids 3 4 - Labs CBC & Chem 7: 04/17/24 19:28 04/17/24 19:28 Labs: Microbiology - Last 24 Hours (Table) 04/17/24 19:25 Blood Culture - Preliminary Blood Assessment and Plan Time with Patient: Less than 30
[2024-04-19] MEDS: SYMBICORT 80-4.5 MCG INHALER INHALATION SCH (20:55)
[2024-04-20 10:28] LABS: BUN/Creat Ratio 19.91 Ratio (12.00-20.00); Blood Urea Nitrogen 21.9 mg/dL (9.0-27.0); Calcium 8.9 mg/dL (8.7-10.3); Carbon Dioxide 23.7 mmol/L (21.6-31.8); Chloride 103 mmol/L (96-109); Glucose 149 mg/dL (70-110); Potassium 4.7 mmol/L (3.5-5.5); Sodium 140 mmol/L (135-145)
--- NOTE | 2024-04-20 10:51 | XR ---
EXAMINATION TYPE: XR chest 2V DATE OF EXAM: 04/20/2024 10:19 AM COMPARISON: Chest x-ray 3 days earlier CLINICAL INDICATION: Female, 74 years old with history of low o2 sats on room air, TECHNIQUE: Frontal and lateral views of the chest are obtained. FINDINGS: Increased interstitial markings bilaterally remain present. There is no suspicious new foc al air space opacity, pleural effusion, or pneumothorax seen. The cardiac silhouette size remains wi thin normal limits. Cholecystectomy clips are redemonstrated. The osseous structures are intact. IMPRESSION: Perhaps mild bilateral interstitial edema and/or atypical infiltrates. No new focal conso lidation. No significant change from most recent study. [facility], , 04/20/2024 10:48 AM
--- NOTE | 2024-04-20 13:38 | P.CNPUL ---
History of Present Illness Consult date: 04/20/24 Requesting physician: Naveen E Emily Reason for consult: COPD Chief complaint: Shortness of breath, wheeze History of present illness: This is a 74-year-old female patient admitted back on April 17, 2024 for an acute exacerbation of COPD and hypoxic respiratory failure. She also has a history of obesity, hypertension, hyperlipidemia, hypothyroidism, depression, former smoker. We were consulted today April 20, 2024 due to ongoing hypoxia and failed home oxygen testing. Chest x-ray reveals interstitial edema and/or atypical infiltrates. No new focal consolidation. No significant change from previous. Blood culture revealed no growth. White count 8.3. Hemoglobin 13.2. Platelets 251. Sodium 140. Potassium 4.7. Bicarb 24. BUN 22. Creatinine 1.1. Procalcitonin was negative at 0.06. proBNP 859. D-dimer 1.08. Work, DuoNeb and elations, Solu-Medrol. Heparin for DVT prophylaxis. She is seen today in consultation on the regular medical floor. She is currently sitting up in bed. Awake and alert in no acute distress. She denies any worsening shortness of breath, cough or congestion. She is dyspneic with conversation. Dyspneic with minimal exertion. Review of Systems REVIEW OF SYSTEMS: CONSTITUTIONAL: Denies any recent significant weight loss or weight gain. EYES: Denies change in vision. EARS, NOSE, MOUTH, THROAT: Denies headaches, denies sore throat. CARDIOVASCULAR: Denies chest pain, palpitations or syncopal episodes. RESPIRATORY: Positive for shortness of breath, cough, congestion no hemoptysis. GASTROINTESTINAL: Denies change in appetite, denies abdominal pain GENITOURINARY: Denies hematuria, denies infections. MUSKULOSKELETAL: Denies pain, denies swelling. INTEGUMENTARY: Denies rash, denies eczema. NEUROLOGICAL: Denies recent memory loss, no recent seizure activity. PSYCHIATRIC: Denies anxiety, denies depression. HEMATOLOGIC/LYMPHATIC: Denies anemia, denies enlarged lymph nodes. Past Medical History Past Medical History: Asthma, Cancer, COPD, GERD/Reflux, Hyperlipidemia, H ypertension, Pneumonia, Skin Disorder, Thyroid Disorder Additional Past Medical History / Comment(s): [facility] Admit COVID Mar 2021, acute hypoxic respiratory failure, hypokalemia,possible UTI w/ acute kidney injury. Nonhodgkins lymphoma with chemo/radiation in 2007. Skin cancer. Psoriasis. frequent diarrhea, HX H. pylori. Recently as of Apr 2023 saw Levi Gudino for diverticulosis History of Any Multi-Drug Resistant Organisms: None Reported Past Surgical History: Cholecystectomy, Ear Surgery, Orthopedic Surgery Additional Past Surgical History / Comment(s): Bilateral caratid endartectomies/L caratid also stented. R ear implant to improve hearing. bilateral blepharoplasty. bilateral cataract removals then L eye laser surgery. neck lymphnode biopsy. bilateral hammer toe surgery. bilateral feet bunionectomies. R carpal tunnel release. colonoscopy. benign growth removed from labia. Past Anesthesia/Blood Transfusion Reactions: No Reported Reaction Past Psychological History: Depression Additional Psychological History / Comment(s): Pt resides alone. Uses walker and cane as needed Smoking Status: Former smoker Past Alcohol Use History: None Reported Additional Past Alcohol Use History / Comment(s): Pt started smoking in 1962 and quit in 2002. Past Drug Use History: None Reported - Past Family History Mother History Unknown: Yes Family Medical History: No Reported History Father Family Medical History: COPD, Myocardial Infarction ([place]) Additional Family Medical History / Comment(s): Heart problems. Medications and Allergies Home Medications Medication Instructions Recorded Confirmed Type Escitalopram [Lexapro] 20 mg PO DAILY 08/28/13 04/17/24 History Levothyroxine Sodium [Levoxyl] 50 mcg PO DAILY 08/28/13 04/17/24 History Clopidogrel Bisulfate [Plavix] 75 mg PO HS 09/29/18 04/17/24 History Evolocumab [Repatha Syringe] 140 mg SQ Q14D 07/30/20 04/17/24 History Pantoprazole Sodium [Protonix] 40 mg PO DAILY 07/30/20 04/17/24 History buPROPion HCL [Wellbutrin XL] 150 mg PO DAILY 07/30/20 04/17/24 History Albuterol Inhaler [Ventolin Hfa 2 puff INHALATION RT-QID PRN 10/23/21 04/17/24 History Inhaler] Enalapril [Vasotec] 20 mg PO BID 04/17/24 04/17/24 History methylPREDNISolone Dose Pack 4 mg PO DIRECTED #21 tab 04/19/24 Rx [Medrol Dose Pack] Allergies Allergy/AdvReac Type Severity Reaction Status Date / Time No Known Allergies Allergy Verified 04/17/24 20:33 Physical Exam Vitals: Vital Signs Temp Pulse Pulse Resp BP Pulse Ox 04/20/24 11:40 76 04/20/24 11:32 70 04/20/24 08:21 74 04/20/24 08:11 68 93 L 04/20/24 06:51 97.7 F 64 19 137/70 92 L 04/20/24 01:55 97.8 F 64 18 135/61 92 L 04/19/24 19:18 98.3 F 73 18 164/66 95 04/19/24 15:36 76 04/19/24 15:25 72 04/19/24 14:23 98.0 F 74 18 127/58 93 L Intake and Output 04/19/24 04/20/24 04/20/24 22:59 06:59 14:59 Other: # Voids 4 4 GENERAL EXAM: Alert, Delma 4-year-old female, on 2 L/min per nasal cannula, comfortable in no apparent distress. HEAD: Normocephalic. EYES: Normal reaction of pupils, equal size. NOSE: Clear with pink turbinates. THROAT: No erythema or exudates. NECK: No masses, no JVD. CHEST: No chest wall deformity. LUNGS: Equal air entry with faint end expiratory wheeze. CVS: S1 and S2 normal with no audible murmur, regular rhythm. ABDOMEN: No hepatosplenomegaly, normal bowel sounds, no guarding or rigidity. SPINE: No scoliosis or deformity SKIN: No rashes CENTRAL NERVOUS SYSTEM: No focal deficits, tone is normal in all 4 extremities. EXTREMITIES: There is no peripheral edema. No clubbing, no cyanosis. Peripheral pulses are intact. Results - Laboratory Findings CBC and BMP: 04/17/24 19:28 04/20/24 03:01 PT/INR, D-dimer PT 10.4 sec (10.0-12.5) 04/17/24 19: INR 0.9 (<1.2) 04/17/24 19: D-Dimer 1.08 mg/L FEU (<0.60) H 04/20/24 12:12 Abnormal lab findings: Abnormal Labs 04/17/24 04/20/24 04/20/24 19: 03:01 12:12 D-Dimer 1.08 H Sodium 134 L Anion Gap 13.30 H Creatinine 1.14 H Est GFR (CKD-EPI) 52 L Glucose 149 H Total Protein 6.0 L - Diagnostic Findings Chest x-ray: image reviewed Assessment and Plan Assessment: Acute exacerbation of chronic obstructive pulmonary disease. Chest x-ray shows mild interstitial edema. No new focal consolidation. No significant change from previous. Procalcitonin negative. proBNP 859 Former smoker Obesity Hypertension Hyperlipidemia Hypothyroidism History of depression Plan: The patient was seen and evaluated Chest x-ray, labs and medications reviewed Procalcitonin was negative Augmentin discontinued Continue Symbicort 160 twice daily Continue DuoNeb inhalations and Solu-Medrol D-dimer elevated, CT angiogram pending We will continue to follow and make further recommendations based on her clinical status I have personally seen and examined the patient, performed the documentation and the assessment and plan as written. Number of minutes spent on the visit: 20 Dictation was produced using [employer] dictation software. Please excuse any grammatical, word or spelling errors. This patient was seen in coordination with the pulmonary/critical care physician, Dr. Gallegos. He did spend greater than 50% of the time evaluating, ex amining and developing the plan of care. He agrees to the above HPI, physical exam, assessment and plan of care as dictated by the nurse practitioner.. Time with Patient: Greater than 30
--- NOTE | 2024-04-20 14:40 | P.PN ---
Subjective Progress Note Date: 04/20/24 Patient is evaluated in follow-up resting in bed. She does continue to report improvement in her shortness of breath she is not currently wheezing. Patient has been continued on IV Solu-Medrol and oral Augmentin. Procalcitonin level is ordered and pending at this time. Patient did fail her home oxygen test with oxygen saturations dropping to 82% while on room air. Patient does not currently follow with a fisher trap. She remains on a combination of DuoNebs scheduled and as needed. 04/20/2024 Patient evaluated in follow-up in the medical floor she does continue to report shortness of breath slightly improved from yesterday. D- Dimer was checked elevated at 1.[address] angio has been ordered to rule out pulmonary embolism. Remains on IV Solu-Medrol. Remains on 2 L of oxygen via nasal cannula. Review of Systems Constitutional: Denied any fatigue denied any fever. Cardio vascular: denied any chest pain, palpitations Gastrointestinal: denied any nausea, vomiting, diarrhea Pulmonary: Denied any shortness of breath cough Neurologic denied any new focal deficits All inpatient medications were reviewed and appropriate changes in these medications as dictated in the interval history and assessment and plan. In physical exam GENERAL: The patient is alert and oriented x3, not in any acute distress. Well developed, well nourished. Obese HEENT: Pupils are round and equally reacting to light. EOMI. No scleral icterus. No conjunctival pallor. Normocephalic, atraumatic. No pharyngeal erythema. No thyromegaly. CARDIOVASCULAR: S1 and S2 present. No murmurs, rubs, or gallops. -PULMONARY: Chest is clear to auscultation, bilateral wheezing , no crackles. ABDOMEN: Soft, nontender, nondistended, normoactive bowel sounds. No palpable organomegaly. MUSCULOSKELETAL: No joint swelling or deformity. EXTREMITIES: No cyanosis, clubbing, or pedal edema. NEUROLOGICAL: Gross neurological examination did not reveal any focal deficits. SKIN: No rashes. no petechiae. Assessment and plan Acute COPD exacerbation Acute hypoxic respiratory failure Atypical pneumonia is possibility, cannot be entirely excluded at this time Elevated D-dimer rule out pulmonary embolism ex-smoker Obesity with BMI 32.6 Hypertension Hyperlipidemia Hypothyroidism History of depression, not an active issue GI prophylaxis DVT prophylaxis Plan Procalcitonin level is normal at 0.06 Augmentin has been discontinued Continue IV Solu-Medrol Symbicort scheduled twice a day CT angio chest ordered to rule out pulmonary embolism Continue DuoNebs scheduled and as needed Patient did fail her home oxygen test will continue to monitor the patient overnight She has been on oxygen in the past and may require this on discharge Pulmonary following The impression and plan of care has been dictated by Any Leach Nurse Practitioner as directed. Dr. Howard MD I have performed a history and physical examination and medical decision making of this patient, discussed the same with the dictator, and agree with the dictators assessment and plan as written, documented as a scribe. Based on total visit time, I have performed more than 50% of this visit. Objective - Vital Signs Vital signs: Vital Signs Temp 98.2 F 04/20/24 13:16 Pulse 75 04/20/24 13:16 Resp 18 04/20/24 13:16 BP 103/59 04/20/24 13:16 Pulse Ox 93 L 04/20/24 13:16 FiO2 Intake & Output 04/19/24 04/20/24 04/20/24 18:59 06:59 18:59 Other: # Voids 4 4 - Labs CBC & Chem 7: 04/17/24 19:28 04/20/24 03:01 Labs: Abnormal Lab Results - Last 24 Hours (Table) 04/20/24 04/20/24 Range/Units 03:01 12:12 D-Dimer 1.08 H (<0.60) mg/L FEU Anion Gap 13.30 H (4.00-12.00) mmol/L Est GFR (CKD-EPI) 52 L (>=60) Glucose 149 H (70-110) mg/dL Microbiology - Last 24 Hours (Table) 04/17/24 19:25 Blood Culture - Preliminary Blood Assessment and Plan Time with Patient: Less than 30
--- NOTE | 2024-04-20 16:35 | CT ---
EXAMINATION TYPE: CT angio chest DATE OF EXAM: 04/20/2024 3:30 PM COMPARISON: Chest radiograph 04/20/2024. CLINICAL INDICATION: Female, 74 years old with history of Hypoxemia, elevated d-dimer; dahiana/copd TECHNIQUE/CONTRAST: CTA scan of the thorax is performed with IV Contrast, patient injected with 100ml mL of Isovue 370, M IP images are created and reviewed these are created on a separate workstation.. CT DLP: 589.5 mGycm, Automated exposure control for dose reduction was used. FINDINGS: Pulmonary Artery: There is no evidence for a filling defect within the pulmonary vasculature to sugge st acute pulmonary embolism. The pulmonary artery is of normal size. Lungs/Pleura: No evidence of focal consolidation, pleural effusion or pneumothorax. Emphysema, most p ronounced in the lung apices. Possible mild lower lobe bronchiectasis. Airway: Large airways are patent. Heart: Heart is within normal limits for size. Coronary artery calcifications. Vasculature: No evidence of aortic aneurysm. Mediastinum: No gross evidence of adenopathy. Musculoskeletal: No acute osseous abnormalities. Thoracic spine degenerative changes with anterior os sified formation. Soft Tissues/lymph nodes: Unremarkable. Lower neck: No significant findings. Upper Abdomen: Previous cholecystectomy. Small indeterminate capsular based hypodense lesion in the l eft hepatic lobe measuring 11 mm. Likely benign adenomatous nodular thickening of the left adrenal gl and. Simple cyst in the left kidney. IMPRESSION: 1. No evidence of acute pulmonary embolism or acute pulmonary pathology. 2. Emphysema. 3. Additional nonacute findings as above. [facility], , 04/20/2024 4:32 PM
[2024-04-20] MEDS: SYMBICORT 160-4.5 MCG INHALER INHALATION SCH (21:25)
--- NOTE | 2024-04-21 10:00 | P.DS ---
Providers Date of admission: 04/17/24 20:56 Expected date of discharge: 04/21/24 Attending physician: Luis Cai Consults: 04/19/24 20:37 Consult Physician Routine Consulting Provider: George Gallegos Consult Reason/Comments: Hypoxia, Failed home oxygen test Do you want consulting provider notified?: Yes, Notify in am Primary care physician: Luis Cai Hospital Course: Final Diagnoses: Acute COPD exacerbation Acute hypoxic respiratory failure secondary to the above Atypical pneumonia ruled out as per pulmonary; imaging reported no new focal consolidation, unchanged from previous study ,procalcitonin negative, 0.06. Elevated D-dimer, pulmonary embolism ruled out per chest CTA Prior nicotine dependence for 18 years, quit 3 to 4 years ago. Morbid obesity with BMI 33 Hypertension Hyperlipidemia Hypothyroidism Depression, history of Hospital course: This is a 74-year-old female mated with acute COPD exacerbation and acute hypoxic respiratory. Chest x-ray reported interstitial edema and/or atypical infiltrates with no new focal consolidation, no significant change from previous study. D-dimer 1.08, procalcitonin negative, 0.06. CTA reported no evidence of acute PE or acute pulmonary pathology,emphysema. Afebrile, normal WBC, blood cultures reporting no growth. Evaluated by pulmonary, imaging reviewed with antibiotics discontinued. Maintained on nebulized bro nchodilators, IV steroids and Symbicort. Currently requiring 2 L nasal cannula O2 to maintain O2 sats in the low 90s. O2 sat on room air after ambulation pending. Patient currently sitting up in chair, denies chest pain, palpitations or shortness of breath. Maintaining O2 sats of 94% on 2 L nasal cannula. Denies lightheadedness, dizziness or focal deficits. Patient will be discharged home today in a stable condition with guarded prognosis pending final DC recommendations and clearance per pulmonary. The impression and plan of care has been dictated as directed. : I performed a history and examination of this patient, discussed the same with the dictator. I agree with the dictator's note ,documented as a scribe. Any additional findings or plans will be noted. Patient Condition at Discharge: Stable Plan - Discharge Summary Discharge Rx Participant: Yes New Discharge Prescriptions: New methylPREDNISolone Dose Pack [Medrol Dose Pack] 4 mg PO DIRECTED #21 tab Budesonide-Formot 160-4.5 Mcg [Symbicort 160-4.5 Mcg Inhaler] 2 puff INHALATION RT-BID #1 each Continue Levothyroxine Sodium [Levoxyl] 50 mcg PO DAILY Escitalopram [Lexapro] 20 mg PO DAILY Clopidogrel Bisulfate [Plavix] 75 mg PO HS Evolocumab [Repatha Syringe] 140 mg SQ Q14D Albuterol Inhaler [Ventolin Hfa Inhaler] 2 puff INHALATION RT-QID PRN PRN Reason: Shortness Of Breath Enalapril [Vasotec] 20 mg PO BID buPROPion HCL [Wellbutrin XL] 150 mg PO DAILY Pantoprazole Sodium [Protonix] 40 mg PO DAILY Discharge Medication List Escitalopram [Lexapro] 20 mg PO DAILY 08/28/13 [History] Levothyroxine Sodium [Levoxyl] 50 mcg PO DAILY 08/28/13 [History] Clopidogrel Bisulfate [Plavix] 75 mg PO HS 09/29/18 [History] Evolocumab [Repatha Syringe] 140 mg SQ Q14D 07/30/20 [History] Pantoprazole Sodium [Protonix] 40 mg PO DAILY 07/30/20 [History] buPROPion HCL [Wellbutrin XL] 150 mg PO DAILY 07/30/20 [History] Albuterol Inhaler [Ventolin Hfa Inhaler] 2 puff INHALATION RT-QID PRN 10/23/21 [History] Enalapril [Vasotec] 20 mg PO BID 04/17/24 [History] methylPREDNISolone Dose Pack [Medrol Dose Pack] 4 mg PO DIRECTED #21 tab 04/19/24 [Rx] Budesonide-Formot 160-4.5 Mcg [Symbicort 160-4.5 Mcg Inhaler] 2 puff INHALATION RT-BID #1 each 04/21/24 [Rx] Follow up Appointment(s)/Referral(s): Luis Cai DO [Primary Care Provider] - 1 Week Activity/Diet/Wound Care/Special Instructions: O2 sat on room air after ambulation for potential discharge planning Discharge Disposition: HOME SELF-CARE
[2024-04-21 13:41] VITALS: BP 161/74; PULSE 69; RESP 15; TEMP 97.6
--- NOTE | 2024-04-21 17:58 | P.PN ---
Subjective Progress Note Date: 04/21/24 This is a 74-year-old female patient admitted back on April 17, 2024 for an acute exacerbation of COPD and hypoxic respiratory failure. She also has a history of obesity, hypertension, hyperlipidemia, hypothyroidism, depression, former smoker. We were consulted today April 20, 2024 due to ongoing hypoxia and failed home oxygen testing. Chest x-ray reveals interstitial edema and/or atypical infiltrates. No new focal consolidation. No significant change from previous. Blood culture revealed no growth. White count 8.3. Hemoglobin 13.2. Platelets 251. Sodium 140. Potassium 4.7. Bicarb 24. BUN 22. Creatinine 1.1. Procalcitonin was negative at 0.06. proBNP 859. D-dimer 1.08. Gilbert Erwin and andrew Solu-Medrol. Heparin for DVT prophylaxis. She is seen today in consultation on the regular medical floor. She is currently sitting up in bed. Awake and alert in no acute distress. She denies any worsening shortness of breath, cough or congestion. She is dyspneic with conversation. Dyspneic with minimal exertion. 04/21/2024, patient is being seen for a follow-up. Much improved compared to yesterday, less bronchospastic and wheezy and has no specific complaints. Procalcitonin level was negative. The patient feels that she is improved considerably. She is on 2 L of oxygen by nasal cannula with a pulse ox of 94%. Home O2 evaluation was done and the patient qualified for home oxygen. As such, the patient will be discharged home on oxygen, albuterol nebulized treatments and a prednisone burst taper to be followed up on outpatient basis. No new labs are available from today. proBNP level was 859. Objective - Vital Signs Vital signs: Vital Signs Temp 98.1 F 04/21/24 01:50 Pulse 72 04/21/24 11:55 Resp 16 04/21/24 11:12 BP 148/62 04/21/24 01:50 Pulse Ox 89 L 04/21/24 10:17 FiO2 Intake & Output 04/20/24 04/21/24 04/21/24 18:59 06:59 18:59 Intake Total 200 Balance 200 Intake: Oral 200 Other: # Voids 3 2 2 - Exam GENERAL EXAM: Alert, Delma 4-year-old female, on 2 L/min per nasal cannula, comfortable in no apparent distress. HEAD: Normocephalic. EYES: Normal reaction of pupils, equal size. NOSE: Clear with pink turbinates. THROAT: No erythema or exudates. NECK: No masses, no JVD. CHEST: No chest wall deformity. LUNGS: Equal air entry with faint end expiratory wheeze. CVS: S1 and S2 normal with no audible murmur, regular rhythm. ABDOMEN: No hepatosplenomegaly, normal bowel sounds, no guarding or rigidity. SPINE: No scoliosis or deformity SKIN: No rashes CENTRAL NERVOUS SYSTEM: No focal deficits, tone is normal in all 4 extremities. EXTREMITIES: There is no peripheral edema. No clubbing, no cyanosis. Peripheral pulses are intact. - Labs CBC & Chem 7: 04/17/24 19:28 04/20/24 03:01 Labs: Microbiology - Last 24 Hours (Table) 04/17/24 19:25 Blood Culture - Preliminary Blood Assessment and Plan Plan: Acute exacerbation of chronic obstructive pulmonary disease. Chest x-ray shows mild interstitial edema. No new focal consolidation. No significant change from previous. Procalcitonin negative. proBNP 859, clinically improved and the patient is respiratory status is very close to her baseline. Former smoker Obesity Hypertension Hyperlipidemia Hypothyroidism History of depression Plan: The patient can be discharged home on home O2 at 2 L, prednisone burst taper Continue Symbicort 160 twice daily Continue DuoNeb inhalations and Solu-Medrol Clear for discharge and follow-up on outpatient basis.
== END 2024-04-21 15:16 | disposition home or self-care (01) | DRG 192 ==
LOC: EC 17:43 → 4SSUR 20:56
PROVIDERS: ADMIT Family Medicine; ATTEND Family Medicine
DX: J44.1 Chronic obstructive pulmonary disease with (acute) exacerbation (principal); E03.9 Hypothyroidism, unspecified; E66.01 Morbid (severe) obesity due to excess calories; I10 Essential (primary) hypertension; F32.A Depression, unspecified; E78.5 Hyperlipidemia, unspecified; K21.9 Gastro-esophageal reflux disease without esophagitis; Z79.899 Other long term (current) drug therapy; Z79.890 Hormone replacement therapy; Z87.891 Personal history of nicotine dependence; Z68.33 Body mass index [BMI] 33.0-33.9, adult; Z79.52 Long term (current) use of systemic steroids; Z85.72 Personal history of non-Hodgkin lymphomas; Z85.828 Personal history of other malignant neoplasm of skin; Z86.16 Personal history of COVID-19; Z92.21 Personal history of antineoplastic chemotherapy; Z92.3 Personal history of irradiation
CPT/HCPCS: 36415; 71046; 71275; 80048; 80053; 83605; 83735; 83880; 84145; 84484; 85025; 85379; 85610; 85730; 87040; 87636; 93005; 94640; 94760; 96361; 96372; 96374; 96375; 96376; 99291

== ENCOUNTER 2024-10-09 11:55 | Emergency (ER) | payer MEDICARE, OTHER ==
--- NOTE | 2024-10-09 12:12 | ED ---
Fall HPI - General Source: patient, RN notes reviewed Mode of arrival: ambulatory <Mayela High - Last Filed: 10/09/24 12:10> <Jennifer Silva - Last Filed: 10/09/24 19:36> - General Chief Complaint: Fall Stated Complaint: Fall on thinner-L hand injury Time Seen by Provider: 10/09/24 12:10 - History of Present Illness Initial Comments: Quick [id number] female presenting for left arm injury status post mechanical fall 5 hours ago. States she had a trip and fall at 7 AM this morning landing on the sidewalk. She is on Plavix however denies head injury or loss of consciousness. Endorses pain in the left wrist, elbow, and left knee. Able to ambulate. (Mayela High) Patient is a 74-year-old female past medical history of emphysema presenting today for mechanical trip and fall. Patient states she was walking her dog, tripped and fell at 7 AM this morning and fell onto her left side. She sustained an abrasion to her left knee and injury to her left wrist. She did take 1000 mg of Tylenol prior to leaving her house this morning at 10 AM. Patient is currently on Plavix. She did not hit her head or neck. She did not injure her back. She denies any new numbness. She denies back pain, chest pain or abdominal pain. Denies numbness in her left hand. (Jennifer Silva) - Related Data Home Medications Medication Instructions Recorded Confirmed Escitalopram [Lexapro] 20 mg PO DAILY 08/28/13 10/09/24 Clopidogrel Bisulfate [Plavix] 75 mg PO HS 09/29/18 10/09/24 Evolocumab [Repatha Syringe] 140 mg SQ Q14D 07/30/20 10/09/24 buPROPion HCL [Wellbutrin XL] 150 mg PO DAILY 07/30/20 10/09/24 Albuterol Inhaler [Ventolin Hfa 2 puff INHALATION RT-QID PRN 10/23/21 10/09/24 Inhaler] Enalapril [Vasotec] 20 mg PO DAILY 04/17/24 10/09/24 Budesonide-Formot 160-4.5 Mcg 2 puff INHALATION RT-BID 10/09/24 10/09/24 [Symbicort 160-4.5 Mcg Inhaler] Dicyclomine [Bentyl] 20 mg PO TID PRN 10/09/24 10/09/24 Levothyroxine Sodium [Synthroid] 50 mcg PO DAILY 10/09/24 10/09/24 Allergies Allergy/AdvReac Type Severity Reaction Status Date / Time No Known Allergies Allergy Verified 10/09/24 18:59 Review of Systems ROS Other: All systems not noted in ROS Statement are negative. <Mayela High - Last Filed: 10/09/24 12:10> ROS Other: All systems not noted in ROS Statement are negative. <Jennifer Silva - Last Filed: 10/09/24 19:36> ROS Statement: Those systems with pertinent positive or pertinent negative responses have been documented in the HPI. Past Medical History Past Medical History: Asthma, Cancer, COPD, GERD/Reflux, Hyperlipidemia, Hypertension, Pneumonia, Skin Disorder, Thyroid Disorder Additional Past Medical History / Comment(s): [facility] Admit COVID Mar 2021, acute hypoxic respiratory failure, hypokalemia,possible UTI w/ acute kidney injury. Nonhodgkins lymphoma with chemo/radiation in 2007. Skin cancer. Psoriasis. frequent diarrhea, HX H. pylori. Recently as of Apr 2023 saw Levi Gudino for diverticulosis History of Any Multi-Drug Resistant Organisms: None Reported Past Surgical History: Cholecystectomy, Ear Surgery, Orthopedic Surgery Additional Past Surgical History / Comment(s): Bilateral caratid endartecto mies/L caratid also stented. R ear implant to improve hearing. bilateral blepharoplasty. bilateral cataract removals then L eye laser surgery. neck lymphnode biopsy. bilateral hammer toe surgery. bilateral feet bunionectomies. R carpal tunnel release. colonoscopy. benign growth removed from labia. Past Anesthesia/Blood Transfusion Reactions: No Reported Reaction Past Psychological History: Depression Smoking Status: Former smoker Past Alcohol Use History: None Reported Past Drug Use History: None Reported - Past Family History Mother History Unknown: Yes Family Medical History: No Reported History Father Family Medical History: COPD, Myocardial Infarction (MS) Additional Family Medical History / Comment(s): Heart problems. <Mayela High - Last Filed: 10/09/24 12:10> General Exam Limitations: physical limitation <Mayela High - Last Filed: 10/09/24 12:10> <Jennifer Silva - Last Filed: 10/09/24 19:36> - General Exam Comments Initial Comments: Visual Physical Exam Vital signs reviewed General: Well-appearing, nontoxic, no acute distress. Head: Normocephalic, atraumatic Eyes: PERRLA, EOMI ENT: Airway patent Chest: Nonlabored breathing Skin: No visual rash, normal skin tone Neuro: Alert and oriented 3 Musculoskeletal: No gross abnormalities (Mayela High) PE: CONSTITUTIONAL: No apparent distress, well appearing SKIN: Warm, dry, no jaundice, hives or petechiae. Abrasion to the left knee, diffuse bruising to the left wrist EYES: Pupils are equally round, extraocular movements intact without nystagmus, clear conjunctiva, non-icteric sclera HENT: Normocephalic, atraumatic, moist mucus membranes, oropharynx clear without exudates NECK: , Full range of motion, normal appearance, no midline spinal tenderness palpation PULMONARY: Clear to auscultation without wheezes, rhonchi, or rales, normal excursion, no accessory muscle use and no stridor CARDIOVASCULAR: Regular rate, rhythm, normal S1 and S2. No appreciated murmurs, rubs or gallops. Strong radial pulses with intact distal perfusion. No lower extremity edema GASTROINTESTINAL: Soft, active bowel sounds throughout, non-tender, non- distended, no palpable masses, no rebound or guarding. No hepatosplenomegaly GENITOURINARY: MUSCULOSKELETAL: Deformity and swelling to the left wrist, tenderness palpation of this region as well, patient is able to move her fingers, difficulty flexing extending left wrist, able to bend and extend at the elbow and shoulder, remaining extremities extremities have no gross deformity, no edema, redness, or swelling. No calf swelling NEUROLOGIC:_a/o x 3, GCS 15, normal mentation and speech. Moves all extremities x 4 without motor or sensory deficit, with exception as noted above PSYCHIATRIC:_normal mood and affect, thought process is clear and linear (Jennifer Silva) Course Vital Signs 10/09/24 10/09/24 10/09/24 12:00 16:25 16:36 Temperature 98 F Pulse Rate 68 84 Respiratory 18 18 Rate Blood Pressure 179/67 178/78 O2 Sat by Pulse 99 99 Oximetry 10/09/24 10/09/24 10/09/24 18:03 18:05 18:07 Temperature Pulse Rate 72 Respiratory 16 Rate Blood Pressure 145/71 O2 Sat by Pulse 95 88 L 89 L Oximetry 10/09/24 10/09/24 10/09/24 18:09 18:14 18:20 Temperature Pulse Rate 64 66 70 Respiratory 16 16 16 Rate Blood Pressure 132/78 123/76 121/79 O2 Sat by Pulse 97 97 96 Oximetry 10/09/24 10/09/24 10/09/24 18:25 18:30 18:35 Temperature Pulse Rate 63 69 67 Respiratory 16 16 16 Rate Blood Pressure 142/66 153/88 169/92 O2 Sat by Pulse 98 97 98 Oximetry 10/09/24 10/09/24 10/09/24 19:00 19:15 19:30 Temperature Pulse Rate 70 70 68 Respiratory 16 16 16 Rate Blood Pressure 150/85 176/73 158/90 O2 Sat by Pulse 96 95 95 Oximetry Procedures - Orthopedic Fracture Reduction Fracture #1 Consent Obtained: verbal consent, written consent Side: left Fracture Reduction Location: radius Analgesia: procedural sedation Technique: direct manipulation, traction/counter-traction Post-Reduction Neuro Exam: intact Post-Reduction Vascular Exam: intact Splint Applied: Yes Patient Tolerated Procedure: well - Procedural Sedation *Procedural Sedation Stop Time: 18:20 *Risks,benefits, and alternative therapies discussed?: Yes *Patient indicates understanding of risk/benefit discussion?: Yes *Indications: fracture/dislocation reduction *Previous Adverse Reaction to Anesthesia/Sedation?: No * Testing Complete?: No Reason Test Not Complete:: Post-menopausal *ASA Class: II *Mallampati Airway Score: 1 Preparation: groundwater monitoring technician applied, pulse oximeter, capnometry used, supplemental O2 applied, reversal agents at bedside, suction/airway equipment at bedside Fentanyl: IV Fentanyl Dose: 50 IV Propofol Dose (mgs): 120 Complications: hypoxia Interventions: oxygen applied Patient Tolerated Procedure: well <Jennifer Silva - Last Filed: 10/09/24 19:36> Medical Decision Making <Mayela High - Last Filed: 10/09/24 12:10> <Jennifer Silva - Last Filed: 10/09/24 19:36> - Medical Decision Making I completed the quick note portion of this chart signed Mayela High PA-C (Mayela High) Was pt. sent in by a medical professional or institution (Dr., PA, CNC MILLING MACHINE OPERATOR, urgent care, hospital, or retirement...) When possible be specific @ -[No] Did you speak to anyone other than the patient for history (EMS, parent, family, police, friend...)? What history was obtained from this source @ -[No] Did you review nursing and triage notes (agree or disagree)? Why? @ -[I reviewed nursing and triage notes] Were old charts reviewed (outside hosp., previous admission, EMS record, old EKG, old radiological studies, urgent care reports/EKG's, retirement records)? Report findings @ -[Medical records reviewed] Differential Diagnosis (chest pain, altered mental status, abdominal pain women, abdominal pain men, vaginal bleeding, weakness, fever, dyspnea, syncope, headache, dizziness, GI bleed, back pain, seizure, CVA, palpatations, mental health, musculoskeletal)? @ -Differential Musculoskeletal Muscular strain, contusion, ligament sprain, fracture, arthritis, septic arthritis, bursitis, cellulitis, muscle spasm, nerve compression, DVT, arterial occlusion, herpes zoster, electrolyte abnormality, tumor.... This is not meant to be in all inclusive list EKG interpreted by me (3pts min.). @ -[As above] X-rays interpreted by me (1pt min.). @ -Reviewed wrist x-ray, appears to show comminuted impacted dorsally angulated distal radius fracture with associated ulnar styloid fracture agrees radiologist interpretation, reviewed x-ray of the elbow knee as well, I see no fracture or dislocation agrees radiologist interpretation CT interpreted by me (1pt min.). @ -[None done] U/S interpreted by me (1pt. min.). @ -[None done] What testing was considered but not performed or refused? (CT, X-rays, U/S, labs)? Why? @ -[None] What meds were considered but not given or refused? Why? @ -[None] Did you discuss the management of the patient with other professionals (professionals i.e. RAHUL Lay, CNC MILLING MACHINE OPERATOR, lab, RT, psych nurse, director of social services, manufacturing electrician, teacher, customs patrol officer, showcase maker)? Give summary @ -[No] Was smoking cessation discussed for >3mins.? @ -[No] Was critical care preformed (if so, how long)? @ -[No] Were there social determinants of health that impacted care today? How? (Homelessness, low income, unemployed, alcoholism, drug addiction, transportation, low edu. Level, literacy, decrease access to med. care, group home, rehab)? @ -[No] Was there de-escalation of care discussed even if they declined (Discuss DNR or withdrawal of care, Hospice)? @ -[No] What co-morbidities impacted this encounter? (DM, HTN, Smoking, COPD, CAD, Cancer, CVA, ARF, Chemo, Hep., AIDS, mental health diagnosis, sleep apnea, morbid obesity)? @ -[None] Was patient admitted / discharged? Hospital course, mention meds given and route, prescriptions, significant lab abnormalities, going to OR and other pertinent info. @ -[hospital course] this is a pleasant 74-year-old female presenting today for left wrist injury sustained after mechanical trip and fall this morning. Patient was initially in seeking and assessed by triage provider who ordered initial set of imaging. X-ray was significant for left wrist fracture. Left wrist is neurovascularly intact. There is deformity and diffuse bruising of this region. 2+ radial pulse palpated. Discussed case with Dr. Lopez who agreed with plan for reduction, splint placement and outpatient follow-up. Discussed with patient plan for reduction sedation which she was agreeable. Patient provided with pain and nausea control. Procedural sedation and reduction were performed. Improved alignment on my reassessment of postreduction x-ray. On reassessment patient is at her baseline mental status. She has ride home. Has able been able to tolerate p.o. intake. Pain is controlled. Affected extremity is neurovascularly intact. Discussed with patient the importance following up with orthopedics within 1 week. We discussed signs and symptoms for monitoring for to return to the ER such as uncontrolled pain, numbness, pale color of her hand, or should you have any further concerns or wellbeing. In my medical judgment there is currently no evidence of an immediate life- threatening or surgical condition. Discharge is therefore indicated at this time. [Discharge treatment instructions, follow up instructions, and appropriate emergency department return precautions were discussed with the patient and/or medical decision maker. Patient and/or medical decision maker expressed understanding of and agreed with the treatment plan, follow up instructions, and emergency department return precaution. All patient's and/or medical decision maker's questions were answered.] [The patient was advised that a small risk still exists that a serious condition could develop and was therefore instructed to return to the ED for any changes in symptoms, persistent symptoms, inability to obtain proper follow-up or for any further concerns. Patient received verbal and written instructions for this condition.] Undiagnosed new problem with uncertain prognosis? @ -[No] Drug Therapy requiring intensive monitoring for toxicity (Heparin, Nitro, Insulin, Cardizem)? @ -[No] Were any procedures done? @ -[No] Diagnosis/symptom? @Comminuted, displaced closed distal radius and ulnar styloid fracture Acute, or Chronic, or Acute on Chronic? @ -Acute Uncomplicated (without systemic symptoms) or Complicated (systemic symptoms)? Uncomplicated Side effects of treatment? @ -[No] Exacerbation, Progression, or Severe Exacerbation? @ -[No] Poses a threat to life or bodily function? How? (Chest pain, [place], MS, pneumonia, PE, COPD, DKA, ARF, appy, cholecystitis, CVA, Diverticulitis, Homicidal, Suicidal, threat to staff... and all critical care pts) @ -[No] (Jennifer Silva) Disposition <Mayela High - Last Filed: 10/09/24 12:10> Is patient prescribed a controlled substance at d/c from ED?: No <Jennifer Silva - Last Filed: 10/09/24 19:36> Clinical Impression: Fall, Distal radius fracture, left, Fracture of ulnar styloid Disposition: HOME SELF-CARE Condition: Good Instructions (If sedation given, give patient instructions): Wrist Fracture in Adults (ED), Moderate Sedation (ED) Additional Instructions: Every disease is a spectrum and a small chance still exists that a serious condition could develop, for this reason, please monitor yourself closely for new, changing or worsening symptoms, symptoms that persist beyond 48 hours, uncontrollable pain, pale, blue or soler or dusky color of your hand, difficulty moving your hand, new numbness, fever, inability to tolerate/keep down fluids or your medications, inability to follow up with outpatient providers as instructed and should you experience these symptoms or should you have any further concerns for your wellbeing please return to the ED or call 911 immediately. PLEASE call your primary care physician as soon as possible to arrange / discuss plan for followup appointment. Appointment in the next 1-3 days is strongly encouraged if possible. PLEASE let us know here before you leave if there is anything further we can do to be of any assistance. Take care and feel Better! Please follow-up with either Dr. Calvert or Dr. Donaldson within one week. Please call their office tomorrow morning for follow up appointment within one week. Please keep your splint clean and dry. Your pain can be treated with acetaminophen. Please take these medications with food. You can take up to 1000 mg of acetaminophen (Tylenol) every 6 hours. Be careful as this is included in some medicines like Nyquil, [place], Percocet, Vicodin, STANBACK, Goody's Powders, and Excedrin. You can also use lidocaine patches for topical pain. You can purchase 4% patches over the counter at most drug stores. These can be helpful for pain from your muscles or bones. You may ice and elevate your affected extremity every 3-4 hours for 20 minutes. Referrals: Luis Cai DO [Primary Care Provider] - 1-2 days Jl Calvert MD [STAFF PHYSICIAN] - 1-2 days Odilia Donaldson [Doctor of Osteopathic Medicine] - 1-2 days
--- NOTE | 2024-10-09 13:11 | XR ---
EXAMINATION TYPE: XR elbow complete 3 views LT, XR wrist complete 3 views LT, XR knee complete 3 view s LT DATE OF EXAM: 10/09/2024 12:33 PM COMPARISON: None CLINICAL INDICATION: Female, 74 years old with history of fall, pain, swelling; PHH, pain FINDINGS: Left elbow: No elbow joint effusion. No acute fracture, subluxation, dislocation. Wrist: There is a comminuted and impacted fracture of the distal radial metaphysis and epiphysis with promin ent dorsal angulation and secondary positive ulnar variance and soft tissue swelling. Fracture at the ulnar styloid process as well. Severe degenerative change first CMC joint and mild at the triscaphe joint. Osteopenia. Left knee: Tricompartmental spurring. Extensor mechanism appears intact. Popliteal artery calcifications. No sig nificant joint effusion. IMPRESSION: 1. Left elbow: No acute osseous abnormality seen. 2. Left wrist: Impacted and comminuted distal radial metaphyseal and epiphyseal fracture with promine nt dorsal angulation. Additional fracture of the ulnar styloid process. 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 3. Left knee: Mild to moderate tricompartment osteoarthrosis. No acute osseous abnormality seen. [facility], Workstation: [facility], 10/09/2024 1:09 PM
[2024-10-09] MEDS: fentaNYL (PF) 50 MCG/ML 2 ML AMP IVP STA ×2 (16:52→17:46)
[2024-10-09] MEDS: ONDANSETRON 4 MG/2 ML VIAL IVP STA ×2 (16:52→18:06)
[2024-10-09] MEDS: PROPOFOL 10 MG/ML 20 ML VIAL IV ONE (17:42)
--- NOTE | 2024-10-09 18:51 | XR ---
EXAMINATION TYPE: XR wrist complete LT DATE OF EXAM: 10/09/2024 6:39 PM CLINICAL INDICATION:Female, 74 years old with history of post reduction; PHH, pain COMPARISON: Left wrist radiograph from the same day TECHNIQUE: XR wrist complete LT; examined in the Frontal, and lateral views. FINDINGS: Interval cast placement of the left wrist with redemonstrated fractures involving the distal radius a nd ulna. Overlying cast material limits evaluation of fine osseous and soft tissue details. Severe os teoarthritis of the base of the thumb is redemonstrated. IMPRESSION: Interval cast placement of the left wrist with redemonstrated left wrist distal radial and ulnar frac tures. Compare with the wrist radiograph the same day. [facility], , 10/09/2024 6:49 PM
[2024-10-09 19:58] VITALS: BP 144/95; PULSE 71
[2024-10-09 20:09] VITALS: RESP 16; TEMP 98.9
== END 2024-10-09 19:53 | disposition home or self-care (01) ==
LOC: EC 11:55
DX: S52.502A Unspecified fracture of the lower end of left radius, initial encounter for closed fracture (principal); S52.202A Unspecified fracture of shaft of left ulna, initial encounter for closed fracture; Z79.02 Long term (current) use of antithrombotics/antiplatelets; Z87.891 Personal history of nicotine dependence; W01.0XXA Fall on same level from slipping, tripping and stumbling without subsequent striking against object, initial encounter; Y92.480 Sidewalk as the place of occurrence of the external cause; Y93.K1 Activity, walking an animal
CPT/HCPCS: 73080; 73110; 73562; 99284; 96374; 96376; 25605; J2405; J3010; J2704